=== PATIENT | female | born 1965 | race Hispanic/Latino ===

== ENCOUNTER 2019-11-01 03:47 | Inpatient (IN) | payer OTHER ==
[~2019-11-01] VITALS: Ht 152.4 cm; Wt 84.4 kg
--- OUTSIDE RECORDS SUMMARY | 2019-11-01 03:50 | XMS REPORT | Summary of Care ---
Author Author [facility] - Health Organization [facility] - Health Address Unknown Phone Unavailable Care Team Providers Care Melter Supervisor Name Role Phone Keiry Jaquez CNM Unavailable Unavailable Madisyn Dumont MD Unavailable Josef Mcintosh [place] [address] Isabel Hansen RN Unavailable Unavailable Keiry Jaquez CNM PCP Unavailable Keiry Jaquez CNM Unavailable Unavailable Reason for Visit * Reason Comments Orders Labs to be done prior to follow up with Dr. Cortez Encounter Details Care Team Description Date Type Department Radha Alcocer PA-C [address] [place] [id number] Orders (Labs to be done prior to follow up with Dr. Cortez) 03/22/2019 Case Management [facility] [address] [facility] [place] [address] Allergies No Known Allergiesdocumented as of this encounter (statuses as of 03/22/2019) Medications End Date Status Medication Sig Dispensed Refills Start Date Active IPRATROPIUM/ALBUTEROL Inhale. 0 SULFATE (COMBIVENT RESPIMAT INHALE) Active ALBUTEROL SULFATE Take by 0 (PROVENTIL ORAL) mouth. Active PROMETHAZINE HCL Take by 0 (PROMETHAZINE ORAL) mouth. Active lisinopril 5 mg tablet TK 1 T PO D 5 7 Active ursodiol 500 mg tablet 0 7 Active NEXIUM 40 mg capsule TK ONE C PO 5 BID. 7 Active PENNSAID 20 mg/gram 0 /actuation(2 %) sopm 7 Active COMBIVENT RESPIMAT 20-100 INHALE 2 4 mcg/actuation inhaler PUFFS PO BID 7 Active PROVENTIL HFA 90 0 mcg/actuation inhaler 7 Active carvedilol 6.25 mg tablet 12 mg. 0 7 Active GENERLAC 10 gram/15 mL 0 solution 7 Active Multivitamins-Iron (DAILY Take 1 Each 100 tablet 3 MULTIPLE VITAMINS/IRON) by mouth 7 TabIndications: daily. Papanicolaou smear of vagina with low grade squamous intraepithelial lesion (LGSIL) Active zolpidem (AMBIEN) 10 mg Take 10 mg by 0 tablet mouth at bedtime as needed for Insomnia. Active rifAXIMin (XIFAXAN) 550 Take 550 mg 0 mg tablet by mouth 2 (two) times daily. Active ibuprofen-famotidine Take by 0 (DUEXIS) 800-26.6 mg per mouth. tablet Active cetirizine 10 mg tablet Take 10 mg by 0 mouth daily. Active nadolol 20 mg tablet TK 1 T PO QD 8 7 Active Lancets (LANCETS,ULTRA Use as 200 Each 2 THIN) Misc directed 8 Active valproic acid 250 mg Take 1 0 capsule capsule by 8 mouth daily. Active chlorhexidine 0.12 % Swish and 473 mL 0 mouthwash spit out 15 8 mL 2 (two) times daily. Active ibuprofen 600 mg tablet Take 1 tablet 30 tablet 1 by mouth 8 every 6 (six) hours as needed for Pain (scale 4-6) or Alternate with [place] for pain scale 1-3. Active Insulin Glargine (LANTUS inject 60 60 mL 1 SOLOSTAR U-100 INSULIN) Units under 9 100 unit/mL (3 mL) the skin injectionIndications: daily. Uncontrolled type 2 diabetes mellitus with complication, without long-term current use of insulin Active insulin lispro (HUMALOG inject 22 60 mL 1 KWIKPEN INSULIN) 100 Units under 9 unit/mL pen injector the skin 3 (three) times daily before meals. 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 Uncontrolled type 2 diabetes mellitus with diabetic neuropathy, with long-term current use of insulin Active Insulin [place], Use to inject 400 Each 1 Disposable, (BD ULTRAFINE insulin 4X 9 III MINI PEN) 31 gauge x daily. 11/10" NdleIndications: DX:E11.65 Uncontrolled type 2 diabetes mellitus with complication, without long-term current use of insulin Active pregabalin (LYRICA) 50 mg TAKE 1 90 capsule 3 capsuleIndications: CAPSULE BY 9 Neuropathy MOUTH THREE TIMES DAILY Active furosemide 40 mg tablet Take 1 tablet 90 tablet 3 by mouth 9 daily. Active warfarin (COUMADIN) 1 mg Take 1 tablet 30 tablet 3 tabletIndications: Other by mouth 9 cirrhosis of liver every evening. Active fluorouracil 5 % Insert 1 gram 40 g 0 creamIndications: VAIN into vaginal 9 III (vaginal cuff with intraepithelial neoplasia syringe/appli grade III) cator at night once weekly for 3 months. Advise patient to insert medication into top of vagina, then insert tampon and put vaseline on external genitalia. The next morning remove tampon, shower, rinse thoroughly. Active LORazepam 1 mg Take 1 tablet 15 tablet 0 tabletIndications: Severe by mouth as 9 episode of recurrent needed for major depressive Anxiety. disorder, without psychotic features, Generalized anxiety disorder with panic attacks Active TRUE METRIX GLUCOSE METER Use to check 1 Each 0 Misc glucose 3X 9 daily. DX:E11.40 Active blood sugar diagnostic Use to check 100 Strip 3 (TRUE METRIX GLUCOSE TEST glucose 3X 9 STRIP) stripIndications: daily. Type 2 diabetes mellitus DX:E11.40 without complication, without long-term current use of insulin documented as of this encounter (statuses as of 03/22/2019) Active Problems Problem Noted Date Vulvar intraepithelial neoplasia (SANG) grade 3 11/16/2018 Dental caries 04/17/2018 Overview: Added automatically from request for surgery [id number] Obesity (BMI 30-39.9) 03/19/2018 Bilateral lower extremity edema 07/14/2017 Lumbosacral spondylosis without myelopathy 03/16/2017 Overview: Added automatically from request for surgery [id number] Mixed hyperlipidemia 01/18/2017 Cirrhosis of liver without ascites 01/09/2017 Cervical high risk human papillomavirus (HPV) DNA test positive 12/14/2016 Overview: Repeat colpo done 11/2016 Papanicolaou smear of vagina with low grade squamous intraepithelial lesion 12/14/2016 (LGSIL) Overview: 2014 & 2017; colpo bx of vaginal cuff in 2014 showed HPV changes. Pt refusing colpo biopsies at colpo appt 02/21/18 due to pain from 2014 colpo bx. Tobacco use disorder 12/14/2016 Uncontrolled type 2 diabetes mellitus with complication, without long-term 11/29/2016 current use of insulin Neuropathy 11/29/2016 Unspecified essential hypertension 11/21/2016 Type 2 diabetes mellitus without complication 11/21/2016 Well woman exam 11/14/2016 History of hysterectomy 11/14/2016 Overview: 2010. Unknown reason per pt. But not for cervical cancer History of syphilis 11/14/2016 Overview: From ex- before 2002. RPR neg in 2014 Pre-liver transplant, listed 10/27/2016 Breast cancer screening 02/09/2015 Overview: Last Mammogram result 10/2016 at [facility] negative Cervical spondylosis without myelopathy 12/02/2013 Degeneration of lumbar or lumbosacral intervertebral disc 12/02/2013 Shoulder bursitis 02/07/2013 documented as of this encounter (statuses as of 03/22/2019) Resolved Problems Problem Noted Date Resolved Date Positive blood test 11/09/2018 11/14/2018 Papanicolaou smear of cervix with low grade squamous intraepithelial lesion 02/08/2015 12/14/2016 (LGSIL) Overview: Pos hi-risk HPV 2016. Needs colpo documented as of this encounter (statuses as of 03/22/2019) Immunizations Name Administration Dates Next Due HEP B, Adult Dosage 03/11/2019, 11/16/2017, 07/13/2017, 03/20/2017, 01/09/2017 Hep B, Dialysis Dosage 02/12/2018, 01/01/2018 Influenza Virus Vaccine 07/13/2017 Quad ID [id number] YRS Pneumococcal 13 01/01/2018 Conjugate, PCV13 (Prevnar 13) TDAP (ADACEL) VACCINE 03/20/2017 Twinrix (hep a/hep b) 02/08/2019 documented as of this encounter Social History Date Tobacco Use Types Packs/Day Years Used Current Every Day Smoker Cigarettes 1 30 Smokeless Tobacco: Never Used Comments: since she was 17 years old, smoke a pack daily Drinks/Week oz/Week Comments Alcohol Use 0 Standard drinks or equivalent 0.0 No Sex Assigned at Date Recorded Not on file Industry Job Start Date Occupation Not on file Not on file Not on file Travel End Travel History Travel Start No recent travel history available. documented as of this encounter Last Filed Vital Signs Not on filedocumented in this encounter Plan of Treatment Care Team Description Date Type Specialty Madisyn Dumont MD [address] [place], [place] [id number] 03/22/2019 Office Visit Endocrinology Diabetes & Metabolism Nanci Cortez MD [address] [place] [phone] 04/01/2019 Office Visit Gynecologic Oncology Mariana Woodruff, ABSTRACT WRITER [address] [place], [place] [address] 04/12/2019 Office Visit Endocrinology Diabetes & Metabolism Bonita Nguyen MD [address] [place], [place] [phone] 04/12/2019 Office Visit Gastroenterology Nurse, Transplant 08/12/2019 Nurse Visit Surgery Order Schedule Name Type Priority Associated Diagnoses Expected: 05/28/2019, Expires: 06/27/2019 CBC WITH DIFF LAB Routine 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) Cirrhosis of liver without ascites, unspecified hepatic cirrhosis type Expected: 05/28/2019, Expires: 06/27/2019 HEPATIC FUNCTION PANEL LAB Routine VAIN III (vaginal (92854) (ALB,T.PRO,BILI intraepithelial neoplasia T,BU/BC,ALT,AST,ALK PHOS) grade III) Cirrhosis of liver without ascites, unspecified hepatic cirrhosis type Expected: 05/28/2019, Expires: 06/27/2019 aPTT LAB Routine 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) Cirrhosis of liver without ascites, unspecified hepatic cirrhosis type Expected: 05/28/2019, Expires: 06/27/2019 PROTHROMBIN TIME / INR LAB Routine 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) Cirrhosis of liver without ascites, unspecified hepatic cirrhosis type Health Maintenance Due Date Last Done Comments EYE EXAM 02/28/1976 COLONOSCOPY 02/28/2016 Zoster Recombinant 02/28/2016 Vaccine (SHINGRIX) (1 of 2) PNEUMOCOCCAL 0-64 YEARS 02/26/2018 01/01/2018 COMBINED SERIES (2 of 3 - PPSV23) URINE MICROALBUMIN 2019 2018, 11/29/2016 HgA1C 04/22/2019 10/23/2018, 2018, 11/16/2017, Additional history exists INFLUENZA VACCINE 04/28/2019 07/13/2017 LDL-C 10/23/2019 10/23/2018, 2018, 01/18/2017 MAMMOGRAM 11/23/2019 11/22/2018, 11/09/2016, 02/09/2015 FOOT EXAM 12/29/2019 12/28/2018, 12/28/2018, 11/16/2018, Additional history exists CREATININE (SERUM) 01/19/2020 01/18/2019, 12/24/2018, 10/31/2018, Additional history exists PAP SMEAR 01/17/2021 01/17/2018, 11/14/2016, 02/02/2015 DTaP,Tdap,and Td Vaccines 03/20/2027 03/20/2017 (2 - Td) documented as of this encounter Results Not on filedocumented in this encounter Visit Diagnoses Diagnosis 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 [employer] xxxxxxxxx [id number] P O [facility] [address] [place] [address] documented as of this encounter Advance Directives Relationship Healthcare Agent Relationship Communication Name Father Primary healthcare agent [place]a [place] Child First alternate healthcare agent Sandy Ornelas
--- OUTSIDE RECORDS SUMMARY | 2019-11-01 03:50 | XMS REPORT ---
Author Author [facility] Address Unknown Phone Unavailable Care Team Providers Care Head Charger Name Role Phone Unavailable Unavailable Payers Payer Name Policy Type Policy Number Effective Date Expiration Date Problems This patient has no known problems. Allergies, Adverse Reactions, Alerts Allergy Name Allergy Type Status Severity Reaction(s) Onset Date Inactive Date Treating Clinician Comments No Known Allergies DA Active U 2019-06-28 00:00:00 No Known Allergies DA Active U 2018-04-03 00:00:00 Medications This patient has no known medications. Results Test Description Test Time Test Comments Text Results Atomic Results Result Comments SURG 2018-12-10 13:17:00 RUN DATE: 12/10/18 [facility] - LAB *LIVE* PAGE 1 RUN TIME: 1317 Specimen Inquiry RUN USER: INTERFACE PATIENT: CARLOS MANUEL KAMARA LOC: [place]ONICA U #: [id number] AGE/SX: 53/F ROOM: RE12/06/18[facility] DR: Doyle Lin MD : 67 BED: DIS: STATUS: DEP [facility] TLOC: SPEC #: [id number] RECD: 12/06/18 STATUS: SOUSudeep RE #: [id number] JELLY: 12/06/[address] [facility] [address]: Doyle Lin MD ENTERED: 12/06/18 SP TYPE: SURG OTHR DR: Josef Mcintosh III, MD ORDERED: AB/PAS GEETHA, SURG PATH LVL 4, PATH STAIN GROU COPIES TO: Josef Mcintosh III, MD [address] [facility] [address] [place] [address] Doyle Lin MD [address] [place] [address] HISTOLOGY: TISSUE ID BLK PCS KYRA LEV PROCEDURE DISPOSITION ____ ___ ___ ___ STOMACH, NOS A 1 1 AB/PAS GEETHA STOMACH, NOS A 1 2 PATH STAIN GROU PROCEDURES: ALBLUE (12/06/18) PAS (12/06/18) SURG PATH LVL 4 (12/06/18) PATH STAIN GROU (12/06/18) TISSUES: A. 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 Received in formalin are three duenas tissue fragments, 0.1 - 0.6 cm, all as A. ba/nr Grossing performed at [facility] Pathology, [address] [place] [address], [address], [place] [address]. [place]: Ori Mckay M.D. MICROSCOPIC DESCRIPTION Stomach biopsy. Sections demonstrate gastric mucosa with mild chronic inflammation. No dysplasia or malignancy is identified. Alcian blue PAS confirms the absence of intestinal metaplasia. Diff Quik stain demonstrates no evidence of Helicobacter pylori organisms. Signed SIGNATURE ON [place] Traci 12/10/18 1317 END OF REPORT GLUCOSE BEDSIDE TESTING 2018-12-06 07:27:00 GLUCOSE BEDSIDE TESTING (test code=GLUBED) 97 mg/dL 70-110 GLUCOSE BEDSIDE [id number] 06:25:00* Test Item Value Reference Range Comments GLUCOSE BEDSIDE TESTING (test code=GLUBED) 58 mg/dL 70-110
--- OUTSIDE RECORDS SUMMARY | 2019-11-01 03:51 | XMS REPORT | Summary of Care ---
Author Author [facility] - Health Organization [facility] - Health Address Unknown Phone Unavailable Care Team Providers Care Front Office Secretary Name Role Phone Keiry Jaquez CNM Unavailable Unavailable Madisyn Dumont MD Unavailable McintoshJosef castro 100[address] Isabel Hansen RN Unavailable Unavailable Keiry Jaquez CNM PCP Unavailable Keiry Jaquez CNM Unavailable Unavailable Reason for Referral * MRI/CAT Scan (Routine) Referred By Contact Referred To Contact Status Reason Specialty Diagnoses / Procedures Jay Jenkins MD [address] [facility] [id number] [place] [address] [id number] New Request Diagnostic Diagnoses Radiology Lumbosacral spondylosis without myelopathy Trochanteric bursitis of both hips Bilateral sacroiliitis P rocedures MR LUMBAR SPINE WO CONTRAST Reason for Visit * Reason Comments Pain Encounter Details Care Team Description Date Type Department Jay Jenkins MD [address] [facility] [id number] [place] [address] [id number] Lumbosacral spondylosis without myelopathy (Primary Dx); Trochanteric bursitis of both hips; Bilateral sacroiliitis; Neuropathy 03/22/2019 Office Visit [facility] [address] [place] [phone] Allergies No Known Allergiesdocumented as of this encounter (statuses as of 03/26/2019) Medications End Date Status Medication Sig Dispensed [...] for Pain (scale 4-6) or Alternate with [place] for pain scale 1-3. Active Insulin Glargine [...] long-term current use of insulin Active Insulin [place], Use to inject 400 Each 1 Disposable, (BD ULTRAFINE insulin 4X 9 III MINI PEN) 31 gauge x daily. 11/10" NdleIndications: DX:E11.65 Uncontrolled type 2 diabetes mellitus with complication, without long-term current use of insulin Active furosemide 40 mg tablet Take 1 [...] without long-term current use of insulin Active traMADol 50 mg Take 1 tablet 90 tablet 2 tabletIndications: by mouth 9 Lumbosacral spondylosis every 6 (six) without myelopathy, hours as Trochanteric bursitis of needed for both hips, Bilateral Pain (scale sacroiliitis 4-6) or Pain (scale 7-10). Active pregabalin 75 mg TAKE 1 90 capsule 2 capsuleIndications: CAPSULE BY 9 Neuropathy MOUTH THREE TIMES DAILY Active cyclobenzaprine 5 mg Take 1 tablet 30 tablet 2 tabletIndications: by mouth at 9 Lumbosacral spondylosis bedtime. without myelopathy 03/22/2019 Discontinued pregabalin (LYRICA) 50 mg TAKE 1 90 capsule 3 capsuleIndications: CAPSULE BY 9 Neuropathy MOUTH THREE TIMES DAILY documented as of this encounter (statuses as of 03/26/2019) Active Problems Problem Noted Date Vulvar intraepithelial neoplasia (ASNG) grade 3 11/16/2018 Dental caries 04/17/2018 Overview: Added automatically from request for surgery [id number] Obesity (BMI 30-39.9) 03/19/2018 Bilateral lower extremity edema 07/14/2017 Lumbosacral spondylosis without myelopathy 03/16/2017 Overview: Added automatically from request for surgery [id number] Mixed hyperlipidemia 01/18/2017 Cirrhosis of liver without ascites 01/09/2017 Cervical high risk human papillomavirus (HPV) DNA test positive 12/14/2016 Overview: Repeat colpo done 11/2016 Papanicolaou smear of vagina with low grade squamous intraepithelial lesion 12/14/2016 (LGSIL) Overview: 2014 & 2018; colpo bx of vaginal cuff in 2014 [...] 02/09/2015 Overview: Last Mammogram result 10/2016 at [facility] negative Cervical spondylosis without myelopathy 12/02/2013 Degeneration of lumbar or lumbosacral intervertebral disc 12/02/2013 Shoulder bursitis 02/07/2013 documented as of this encounter (statuses as of 03/26/2019) Resolved Problems Problem Noted Date Resolved Date Positive blood test 11/09/2018 11/14/2018 Papanicolaou smear of cervix with low grade squamous intraepithelial lesion 02/08/2015 12/14/2016 (LGSIL) Overview: Pos hi-risk HPV 2016. Needs colpo documented as of this encounter (statuses as of 03/26/2019) Immunizations Name Administration Dates Next Due HEP [...] of this encounter Last Filed Vital Signs Reading Time Taken Comments Vital Sign 109/70 03/22/2019 9:25 AM CDT Blood Pressure 59 03/22/2019 9:25 AM CDT Pulse - - Temperature - - Respiratory Rate 100% 03/22/2019 9:25 AM CDT Oxygen Saturation - - Inhaled Oxygen Concentration 86.7 kg (191 lb 3.2 oz) 03/22/2019 9:25 AM CDT Weight 152.4 cm (5') 03/22/2019 9:25 AM CDT Height 37.34 03/22/2019 9:25 AM CDT Body Mass Index documented in this encounter Progress Notes * Jay Jenkins MD - 03/22/2019 9:00 AM CDT PAIN MANAGEMENT [facility] PROGRESS NOTE 03/22/2019 Chief Complaint: follow up History of Present illness: Fany Kamara is a 52 year old female with HTN, DM, COPD, GERD, Depression, A nxiety, and chronic low back pain for over 10 years. She presents today for foll ow up of her pain symptoms. She received interventional procedures (facet joint injection, trochanteric steroid injection and sacroiliac joint injection on 03/29 at [facility]) with minimal relief. Location: low back and bilateral hips -duration: months -context: no related cause -radiation: radiates to buttocks, shoots upward intermittently -timing: constant with intermittent exacerbations -quality: ache, sometimes stabbing or shooting -improves with: massage, TENS minimal -worsens with: prolonged walking, standing, sitting PAIN NRS SCALE 0-10 SCORE OVER LAST WEEK (0=no pain and 10=worst pain imaginable): Best: 7/10 Worst: 10/10 Now: 05/07 CURRENT PAIN REGIMEN: -Lyrica 50 mg TID PO (PCP) -Lorazepam 1 mg PO prn QHS (PCP) -Effexor XR 75 mg PO daily (PCP) -Ibuprofen 600 mg PO prn ADVERSE EFFECTS FROM CURRENT REGIMEN: None Noted FUNCTIONAL STATUS ON CURRENT REGIMEN: Able to perform ADLs independently, uses public health assistant devices to bath Current Outpatient Medications Medication Sig Dispense Refill blood sugar diagnostic (TRUE METRIX GLUCOSE TEST STRIP) strip Use to check g lucose 3X daily. DX:E11.40 100 Strip [address] [facility] Use to check glucose 3X daily. DX:E11.40 1 Ea ch 0 LORazepam 1 mg tablet Take 1 tablet by mouth as needed for Anxiety. 15 table t 0 fluorouracil 5 % cream Insert 1 gram into vaginal cuff with syringe/applicat or at night once weekly for 3 months. Advise patient to insert medication into t op of vagina, then insert tampon and put vaseline on external genitalia. The nex t morning remove tampon, shower, rinse thoroughly. 40 g 0 warfarin (COUMADIN) 1 mg tablet Take 1 tablet by mouth every evening. 30 tab let 3 furosemide 40 mg tablet Take 1 tablet by mouth daily. 90 tablet 3 Insulin [place], Disposable, (BD ULTRAFINE III MINI PEN) 31 gauge x 3/16" Nd le Use to inject insulin 4X daily. DX:E11.65 400 Each 1 pregabalin (LYRICA) 50 mg capsule TAKE 1 CAPSULE BY MOUTH THREE TIMES DAILY 90 capsule 3 flash glucose sensor (FREESTYLE KERI 14 DAY SENSOR) Kit 1 Each every 14 (fo urteen) days. 2 Kit 3 venlafaxine XR (EFFEXOR XR) 75 mg 24 hr capsule Take 1 capsule by mouth sean y with breakfast. 30 capsule 1 insulin lispro (HUMALOG KWIKPEN INSULIN) 100 unit/mL pen injector inject 22 Units under the skin 3 (three) times daily before meals. 60 mL 1 Insulin Glargine (LANTUS SOLOSTAR U-100 INSULIN) 100 unit/mL (3 mL) injectio n inject 60 Units under the skin daily. 60 mL 1 chlorhexidine 0.12 % mouthwash Swish and spit out 15 mL 2 (two) times daily. 473 mL 0 ibuprofen 600 mg tablet Take 1 tablet by mouth every 6 (six) hours as needed for Pain (scale 4-6) or Alternate with [place] for pain scale 1-3. 30 tablet 1 valproic acid 250 mg capsule Take 1 capsule by mouth daily. Lancets (LANCETS,ULTRA THIN) Misc Use as directed 200 Each 2 nadolol 20 mg tablet TK 1 T PO QD 8 cetirizine 10 mg tablet Take 10 mg by mouth daily. ibuprofen-famotidine (DUEXIS) 800-26.6 mg per tablet Take by mouth. rifAXIMin (XIFAXAN) 550 mg tablet Take 550 mg by mouth 2 (two) times daily. zolpidem (AMBIEN) 10 mg tablet Take 10 mg by mouth at bedtime as needed for Insomnia. Multivitamins-Iron (DAILY MULTIPLE VITAMINS/IRON) Tab Take 1 Each by mouth d aily. 100 tablet 3 carvedilol 6.25 mg tablet 12 mg. COMBIVENT RESPIMAT 20-100 mcg/actuation inhaler INHALE 2 PUFFS PO BID 4 GENERLAC 10 gram/15 mL solution lisinopril 5 mg tablet TK 1 T PO D 5 NEXIUM 40 mg capsule TK ONE C PO BID. 5 PENNSAID 20 mg/gram /actuation(2 %) sopm PROVENTIL HFA 90 mcg/actuation inhaler ursodiol 500 mg tablet ALBUTEROL SULFATE (PROVENTIL ORAL) Take by mouth. IPRATROPIUM/ALBUTEROL SULFATE (COMBIVENT RESPIMAT INHALE) Inhale. PROMETHAZINE HCL (PROMETHAZINE ORAL) Take by mouth. No current facility-administered medications for this visit. Past Medical History: Diagnosis Date Anemia years ago Anxiety Autoimmune disorder dx with athrisis Cirrhosis COPD (chronic obstructive pulmonary disease) COPD (chronic obstructive pulmonary disease) 2013 Depression Diabetes mellitus 2014 currently on Insulin and Glipiside GERD (gastroesophageal reflux disease) History of hysterectomy 2013 not sure HPV (human papilloma virus) anogenital infection 01/17/2018 HPV (human papilloma virus) infection History of Viral Intra-epithelial Neoplasia Hypertension 2013 lisinopril 5 mg, carvedilol Kidney disease hx of frequent uti LGSIL on Pap smear of cervix 01/17/2018 +HPV Pap smear abnormality of cervix with +HPV in 2013 STD (sexually transmitted disease) syphilis ex before 2003 STD (sexually transmitted disease) 2013 +HPV Vulvar intraepithelial neoplasia (SANG) grade 3 11/16/2018 Past Surgical History: Procedure Laterality Date CHOLECYSTECTOMY 1991 lap [place] COLONOSCOPY 2016 negative COLPOSCOPY 2017 ESOPHAGOGASTRODUODENOSCOPY 2018 bleeding varices EXAM UNDER ANESTHESIA 03/24/2015 FACET JOINT INJECTION 03/29/2017 FACET JOINT INJECTION Right 03/29/2017 Surgeon: Jay Jenkins MD; [facility] FULL MOUTH EXTRACTION WITH ALVEOLOPLASTY 04/25/2018 FULL MOUTH EXTRACTION WITH ALVEOLOPLASTY Bilateral 04/25/2018 Surgeon: Jakob Delacruz; Location: [facility] HYSTERECTOMY 2013 due abnl test results OPEN CARPAL TUNNEL RELEASE Bilateral 2016 SACROILIAC JOINT INJECTION 03/29/2017 SACROILIAC JOINT INJECTION Right 03/29/2017 Surgeon: Jay Jenkins MD; Location: [facility] SALPINGO-OOPHORECTOMY 2012 SINUS SURGERY PROC UNLISTED 1991 SURGICAL EXTRACTION - ERUPTED TEETH 04/25/2018 TROCHANTERIC STEROID INJECTION (SHX) 03/29/2017 TROCHANTERIC STEROID INJECTION (SHX) Right 03/29/2017 Surgeon: Jay Jenkins MD; Location: [facility] TUBAL LIGATION 2003 VAGINAL BIOPSY 03/24/2015 VAGINAL BIOPSY N/A 03/24/2015 Surgeon: Ariella Pozo; Location: [facility] LOCAL VULVAR LESION EXCISION 2014 Review of Systems (BOLDED IF POSITIVE, OTHERWISE NEGATIVE) Other pertinent positives annotated above in HPI. General: Fatigue, Unintentional Weight Loss or Weight Gain HEENT: Dry Mouth Cardio: Myocardial infarction/Heart Attack, Heart Rhythm Abnormalities, Abnormal EKGs, History of Coronary Stents, Blood Thinning Medication (Aspirin, Plavix/Cl opidogrel, Heparin/Lovenox) Pulm: Obstructive Sleep Apnea, Snore at night, Use CPAP machine, Smoker, Chroni c Obstructive Pulmonary Disease (COPD) GI: Constipation, Diarrhea, Nausea and Peptic Ulcer Disease, Blood in Stool : Difficulty Urinating Endo: Diabetes and Steroid use Neuro: Glaucoma, Difficulty Walking, Headaches, Numbness, Seizures, Strokes and Weakness MS: Neck Pain, Back Pain, Back Surgery and Muscle Aches Heme: Clotting Difficulties and Easy Bleeding Sleep: Daytime Somnolence, Fogginess of Thought, Inability to Complete Tasks, In somnia Psych: Depression, Anxiety, Thoughts Harming Oneself or Thoughts of Harming Oth ers Physical Exam: Body mass index is 37.34 kg/m. BP 109/70 (BP Location: Right arm, Patient Position: Sitting, BP CUFF SIZE: Adul t Medium) | Pulse 59 | Ht 5' (1.524 m) | Wt 191 lb 3.2 oz (86.7 kg) | LMP (Exact Date) | SpO2 100% | BMI 37.34 kg/m GENERAL: Fany Kamara is well developed, well nourished HEENT: normocephalic atraumatic and moist mucous membranes, anicteric sclera bi laterally LUNGS: normal excursion, no respiratory distress CARDIOVASCULAR: normal pulse rate, warm extremities, no gross edema noted ABDOMEN: soft, obese MUSCULOSKELETAL/NEUROLOGIC EXAM: Mental Status: normal attention span, arousal, orientation, language, fluency, a ffect, judgement, knowledge and recall. Gait- Normal, steady Upper Extremities Strength: C5 (shoulder abduction, elbow flexion) 4/5R 4/5 L C6 (Wrist extension) 5/5 R 5/5 L C7 (elbow extension, wrist flexion) 5/5 R 5/5L C8 (Finger flexion) 5/5 R 5/5 L T1 (finger abduction) 5/5 R 5/5 L Sensation to light touch: C5 (lateral arm) Intact R Intact L C6 (lateral forearm/hand) Intact R Intact L C7 (middle finger) Intact R Intact L C8 (medial hand/forearm) Intact R Intact L T1 (medial arm): Intact R Intact L Reflexes: C5 (Biceps) 2+R 2+ L C6 (Brachioradialis) 2+ R 2+L C7 (triceps) 2+ R 2+ L Alvarado: Right- negative Left- negative Lower Extremities: Strength: L2(hip flexion)5/5 R, 5/5 L L3(Knee extension)5/5 R, 5/5 L L4(Ankle dorsiflexion)5/5 R, 5/5 L L5 (knee flexion, Toe dorsiflexion)5/5 R, 5/5 L S1(Knee flexion, Ankle Plantar flexion)5/5 R, 5/5 L S2(Toe flexion) 5/5 R, 5/5 L Sensation to Light Touch: L4- Medial foot/leg, Intact L5- Dorsal Foot, Intact S1-Lateral Foot, diminished Reflexes: L4 (Patella/Quads) 2+ R, 2+L S1 (Achilles) 2+R, 2+ L Clonus-negative Babinski- negative Spine Exam: Cervical Spinous Process Tenderness: Positive Cervical Paraspinous Tenderness: Positive ROM: Decreased Facet Loading: Negative Surgical Scars: No Thoracic Spinous Process Tenderness: Negative Thoracic Paraspinous tenderness: Positive ROM: Decreased Surgical Scars: No Lumbar Spinous process Tenderness: Positive Lumbar Paraspinous Tenderness:Positive ROM: Decreased Facet Loading: Negative Surgical Scars: No SI Joint Tenderness: Left: Negative Right: Positive Gennaro's Test: Left: Positive Right: Positive Hip ROM: Left: Positive Right: Positive Greater Troch Tenderness: Left: Positive Right: Positive Gluteal Tenderness: Left: Positive Right:Positive Straight Leg Raise: Right: Positive Left: Positive Shantel signs- Axial loading L spine negative Skin rolling positive Laboratory Last Metabolic Panel (including BUN/Cr and LFTs) CMP NA Date Value 01/18/2019 137 mmol/L 01/13/2012 141 MMOL/L K Date Value 01/18/2019 4.5 mmol/L 01/13/2012 4.5 MMOL/L CALCIUM Date Value 01/18/2019 8.6 mg/dL 01/13/2012 9.3 MG/DL CL Date Value 01/18/2019 101 mmol/L 01/13/2012 103 MMOL/L BUN Date Value 01/18/2019 10 mg/dL 01/13/2012 8 MG/DL CREATININE Date Value 01/18/2019 0.61 mg/dL 01/13/2012 0.60 MG/DL GLUCOSE Date Value 01/18/2019 309 mg/dL (H) 01/13/2012 103 MG/DL CO2 TOTAL Date Value 01/18/2019 26 mmol/L 01/13/2012 26 MMOL/L ALBUMIN Date Value 01/18/2019 3.7 g/dL 01/13/2012 4.3 G/DL T PROTEIN Date Value 01/18/2019 7.5 g/dL 01/13/2012 8.3 G/DL (H) TOTAL BILI Date Value 01/18/2019 1.3 mg/dL (H) 01/13/2012 0.5 MG/DL BILI UNCON (mg/dL) Date Value 01/18/2019 0.6 BILI CONJ (mg/dL) Date Value 01/18/2019 0.0 ALT(SGPT) (U/L) Date Value 01/18/2019 22 01/13/2012 24 AST(SGOT) (U/L) Date Value 01/18/2019 37 01/13/2012 23 ALK PHOS (U/L) Date Value 01/18/2019 141 (H) 01/13/2012 117 Other Pertinent Labs: Results for FANY KAMARA ( ) as of 09/22/2017 10:01 Ref. Range 09/22/2017 00:00 POCT HBA1C Latest Ref Range: 4 - 6 % 12.3 (A) Radiology 03/25/2017 HISTORY: Lumbosacral spondylosis without myelopathy. TECHNIQUE: Sagittal T2 FRFSE, T1, STIR and axial T2 FRFSE T1 studies of lumbar spines are obtained. Additional coronal T2 FRFSE study is also obtained. FINDINGS: Comparison has been made with MRI study of 03/06/2014. No acute compression fracture or abnormal marrow changes of the bones detected. Spinal canal appears to be of adequate size and normal conus/cauda equina are found at the level of L1. Visualized retroperitoneum is unremarkable for aortic aneurysm or enlarged lymph nodes or hydronephrosis. L1-L2: Normal. L2-L3: Normal. L3-L4: Minimal disc desiccation with minimal diffuse disc bulge without significant thecal sac compression or foraminal encroachment. Small osteophytes are seen along the ventral vertebral margins. Mild facet arthritis with small amount of fluid in both facet joints. L4-L5: Minimal disc desiccation with prominent diffuse bulging of the disc without significant thecal sac compression. Foraminal encroachment is seen on both sides, slightly more on the right side without significant nerve root compression. Mild bilateral facet arthritis, left slightly more than right, noted with small amount of fluid in both facet joints. L5-S1: Moderate to severe changes of degenerative disc disease with narrowing of the disc space by up to 70%, shallow Schmorl's nodes in the vertebral endplates surrounded by degenerative marrow, vacuum phenomenon in the disc material, prominent osteophytes/bulging disc at complex ventrally noted. Diffuse disc herniation is seen encroaching throughout the spinal canal, slightly more into the left side by up to 4 mm with mild thecal sac and left nerve root compression. Foraminal encroachment is present on both sides. Bilateral hypertrophic facet arthritis noted with thickened ligaments causing additional encroachment into the spinal canal. CONCLUSIONS: 1. Moderate to severe changes of degenerative disc disease at L5-S1 with broad-based disc herniation encroaching throughout the spinal canal, slightly more into the left side. The herniated disc is encroaching into the left side of the spinal canal by up to 4 mm with mild thecal sac and left nerve compression. Similar findings were present in 2014 study with minimal interval worsening in the severity of changes noted. 2. Minimal disc desiccation with bulging disc and facet arthritis at L3-L4, L4-L5, essentially unchanged since 2014 study. Note: Above report is self-edited and computer generated errors may be overlooked. Therefore, if you notice an error, I request you to bring it to my attention MELANIE. Electrodiagnostics None Medical Decision Making: Dx: ICD-10-CM ICD-9-CM 1. Lumbosacral spondylosis without myelopathy M47.817 721.3 2. Trochanteric bursitis of both hips M70.61 726.5 M70.62 3. Bilateral sacroiliitis M46.1 720.2 Assessment/Plan: Fany Kamara is a 52 year old female with chronic low back and bilateral hip pain s/p facet joint injection, trochanteric steroid injection and sacroiliac j oint injection on 03/29/2017 at [facility]. She reports minimal relief with this therapy . Medications -Lyrica 50 mg TID PO (PCP) -- Recommend increasing to 75mg TID -Lorazepam 1 mg PO prn QHS (PCP) -Effexor XR 75 mg PO daily (PCP) -Ibuprofen 600 mg PO prn (OTC) - Start flexeril 5mg QHS - Start Tramadol 50mg BID Rehab: Physical therapy Not currently Continue home exercise and activity Interventions: Fany Kamara has no interventions planned at this time. Will order MRI lumbar spine and plan for procedure at next appointment. Patient has had previous facet joint injection, trochanteric steroid injection a nd sacroiliac joint injection on 03/29/2017 at [facility] injection with minimal relief. Psych: Depression and anxiety Compliance : UDS n/a Pain contract renewed n/a CHEMISTRY QUALITY CONTROL ANALYST reviewed n/a Follow Up: Follow Up 1 month After discussion with the resident/fellow, I examined this patient. I agree wit htheir note as written. * Perez Marin MA - 03/22/2019 9:00 AM CDT Fany Kamara is a 54 year old female here for follow up. Patient appears to be in no acute distress at this time. Nurse reviewed all allergies & medications with patient during this office visit. Pain score communicated to provider. Patient evaluated for fall risk and appropriate interventions taken. documented in this encounter Plan of Treatment Care Team Description Date Type Specialty Nanci Cortez MD [address] [place] [phone] 04/01/2019 Office Visit Gynecologic Oncology Mariana Woodruff, TECHNICAL SME [address] [place] [address] [phone] 04/12/2019 Office Visit Endocrinology Diabetes & Metabolism Bonita Nguyen MD [address] [place] [address] [phone] 04/12/2019 Office Visit Gastroenterology Jay Jeknins MD [id number] [place], [place] [id number] 04/26/2019 Office Visit Pain Medicine Fer Thao MD [address] [place], [place] [address] 05/27/2019 Office Visit Endocrinology Diabetes & Metabolism Nurse, Transplant 08/12/2019 Nurse Visit Surgery Order Schedule Name Type Priority Associated Diagnoses Expected: 03/22/2019, Expires: 03/22/2020 MR LUMBAR SPINE WO IMAGING Routine Lumbosacral spondylosis CONTRAST without myelopathy Trochanteric bursitis of both hips Bilateral sacroiliitis Health Maintenance Due Date Last Done Comments [...] filedocumented in this encounter Visit Diagnoses Diagnosis Lumbosacral spondylosis without myelopathy - Primary Trochanteric bursitis of both hips Enthesopathy of hip region Bilateral sacroiliitis Neuropathy Mononeuritis of unspecified site documented in this encounter Insurance Type Payer Benefit Subscriber ID Effective Phone Address Plan / Dates Group Medicaid [facility] [employer] xxxxxxxxx 2016-P [address] [facility] [address] [place] [address] documented as of this encounter Advance Directives Relationship Healthcare Agent Relationship Communication Name Father Primary healthcare agent Asa [place] Child First alternate healthcare agent Sandy Ornelas
--- OUTSIDE RECORDS SUMMARY | 2019-11-01 03:51 | XMS REPORT | Summary of Care ---
Author Author [facility] - Health Organization [facility] - Health Address Unknown Phone Unavailable Care Team Providers Care Medical Assistant Per Diem Name Role Phone Keiry Jaquez CNM Unavailable Unavailable Madisyn Dumont MD Unavailable McintoshJosef castro [address] Isabel Hansen RN Unavailable Unavailable Keiry Jaquez CNM PCP Unavailable Keiry Jaquez CNM Unavailable Unavailable Reason for Referral * MRI/CAT Scan (Routine) Referred By Contact Referred To Contact Status Reason Specialty Diagnoses / Procedures Jay Jenkins MD [address] COUNT INCLUD[address] THE [facility] [id number] [place] [id number] New Request Diagnostic Diagnoses Radiology Lumbosacral spondylosis without myelopathy Trochanteric bursitis of both hips Bilateral sacroiliitis P rocedures MR LUMBAR SPINE WO CONTRAST Reason for Visit * Reason Comments Pain Encounter Details Care Team Description Date Type Department Jay Jenkins MD [address] COUNT INCLUDES THE [facility] [id number] [place] [address] [id number] Lumbosacral spondylosis without myelopathy (Primary Dx); Trochanteric bursitis of both hips; Bilateral sacroiliitis; Neuropathy 03/22/2019 Office Visit [facility] Anesthesia [facility] [address] [place] [phone] Allergies No Known Allergiesdocumented as of this [...] for Pain (scale 4-6) or Alternate with [place] for pain scale 1-3. Active Insulin Glargine [...] long-term current use of insulin Active Insulin [place], Use to inject 400 Each 1 Disposable, [...] Overview: Added automatically from request for surgery [id number] Obesity (BMI 30-39.9) 03/19/2018 Bilateral lower extremity edema 07/14/2017 Lumbosacral spondylosis without myelopathy 03/16/2017 Overview: Added automatically from request for surgery [id number] Mixed hyperlipidemia 01/18/2017 Cirrhosis of liver without [...] 02/09/2015 Overview: Last Mammogram result 10/2016 at [facility] negative Cervical spondylosis without myelopathy 12/02/2013 [...] and sacroiliac joint injection on 03/29 at [facility]) with minimal relief. Location: low back [...] REGIMEN: Able to perform ADLs independently, uses timber management assistant devices to bath Current Outpatient Medications Medication Sig Dispense Refill blood sugar diagnostic (TRUE METRIX GLUCOSE TEST STRIP) strip Use to check g lucose 3X daily. DX:E11.40 100 Strip 3 TRUE METRIX GLUCOSE METER [facility] Use to check glucose 3X daily. DX:E11.40 [...] by mouth daily. 90 tablet 3 Insulin [place], Disposable, (BD ULTRAFINE III MINI PEN) 31 [...] for Pain (scale 4-6) or Alternate with [place] for pain scale 1-3. 30 tablet 1 [...] Right 03/29/2017 Surgeon: Jay Jenkins MD; Location: [place] [facility] Location TUBAL LIGATION 2003 VAGINAL BIOPSY [...] sacroiliac j oint injection on 03/29/2017 at [facility]. She reports minimal relief with this [...] nd sacroiliac joint injection on 03/29/2017 at [facility] injection with minimal relief. Psych: Depression and anxiety Compliance : UDS n/a Pain contract renewed n/a RESOURCE MANAGEMENT PLANNER reviewed n/a Follow Up: Follow Up 1 [...] Description Date Type Specialty Nanci Cortez MD [address] [place] [phone] 04/01/2019 Office Visit Gynecologic Oncology Mariana Woodruff, CIVIL ENGINEERING DIRECTOR [address] [place] [address] [phone] 04/12/2019 Office Visit Endocrinology Diabetes & Metabolism Bonita Nguyen MD [address] [place] [address] [phone] 04/12/2019 Office Visit Gastroenterology Jay Jenkins MD [id number] [place], [place] [id number] 04/26/2019 Office Visit Pain Medicine Fer Thao MD [address] [place], [place] [address]473 05/27/2019 Office Visit Endocrinology Diabetes & Metabolism [...] Phone Address Plan / Dates Group Medicaid [facility] [employer] xxxxxxxxx 2016-P [address] [facility] [address] [place] [address] documented as of this encounter Advance Directives Relationship Healthcare Agent Relationship Communication Name Father Primary healthcare agent Asa [place] Child First alternate healthcare agent Sandy Ornelas
--- OUTSIDE RECORDS SUMMARY | 2019-11-01 03:51 | XMS REPORT | Clinical Summary ---
Author Author [facility] - Health Organization [facility] - Health Address Unknown Phone Unavailable Care Team Providers Care Zinc Plating Machine Operator Name Role Phone Keiry Jaquez CNM Unavailable Unavailable Madisyn Dumont MD Unavailable Arnaldo Josef Antonio [address] Isabel Hansen RN Unavailable Unavailable Keiry Jaquez CNM PCP Unavailable Keiry Jaquez CNM Unavailable Unavailable Allergies No Known Allergies Medications End Date Status Medication Sig Dispensed [...] for Pain (scale 4-6) or Alternate with [place] for pain scale 1-3. Active Insulin Glargine [...] 3 (three) times daily before meals. Active flash glucose sensor 1 Each every 2 Kit 3 (FREESTYLE KERI 14 DAY 14 (fourteen) 9 SENSOR) KitIndications: days. Uncontrolled type 2 diabetes mellitus with diabetic neuropathy, with long-term current use of insulin Active Insulin [place], Use to inject 400 Each 1 Disposable, [...] morning remove tampon, shower, rinse thoroughly. Active TRUE METRIX GLUCOSE METER Use to [...] at 9 Lumbosacral spondylosis bedtime. 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 without psychotic features, Generalized anxiety disorder with panic attacks Active clonazePAM (KLONOPIN) 1 Take 1 tablet 30 tablet 0 mg tabletIndications: by mouth 9 Generalized anxiety daily. disorder with panic attacks, Agoraphobia with panic attacks Active Problems Problem Noted Date Vulvar intraepithelial neoplasia (SANG) grade 3 11/16/2018 Dental caries 04/17/2018 Overview: Added automatically from request for surgery [id number] Obesity (BMI 30-39.9) 03/19/2018 Bilateral lower extremity edema 07/14/2017 Lumbosacral spondylosis without myelopathy 03/16/2017 Overview: Added automatically from request for surgery [id number] Mixed hyperlipidemia 01/18/2017 Cirrhosis of liver without [...] 02/09/2015 Overview: Last Mammogram result 10/2016 at [facility] negative Cervical spondylosis without myelopathy 12/02/2013 Degeneration of lumbar or lumbosacral intervertebral disc 12/02/2013 Shoulder bursitis 02/07/2013 Resolved Problems Problem Noted Date Resolved Date Positive blood test 11/09/2018 11/14/2018 Papanicolaou smear of cervix with low grade squamous intraepithelial lesion 02/08/2015 12/14/2016 (LGSIL) Overview: Pos hi-risk HPV 2016. Needs colpo Encounters Care Team Description Date Type Specialty Jay Jenkins MD Lumbosacral spondylosis without myelopathy (Primary Dx); Trochanteric bursitis of both hips; Bilateral sacroiliitis; Neuropathy 03/22/2019 Office Visit Pain Medicine Radha Alcocer PA-C Orders (Labs to be done prior to follow up with Dr. Cortez) 03/22/2019 Case Management Gynecologic Oncology Madisyn Dumont MD Refill Request 03/18/2019 Telephone Endocrinology Diabetes & Metabolism Bonita Nguyen MD Nurse, Transplant Prophylactic immunotherapy; Immunization due 03/11/2019 Nurse Visit Surgery Doctor Unassigned, [place] 03/11/2019 Orders Only Nanci Cortez MD Medication Problem 02/26/2019 Case Management Gynecologic Oncology Bonita Nguyen MD Worker, Transplant Social Social Work (follow up) 02/08/2019 Case Management Surgery Bonita Nguyen MD Other cirrhosis of liver (Primary Dx); Prophylactic immunotherapy; Immunization due 02/08/2019 Office Visit Gastroenterology Delano Nguyen MD Refill Request 02/07/2019 Telephone Gastroenterology Madisyn Dumont MD Medication Assistance 02/05/2019 Telephone Endocrinology Diabetes & Metabolism Radha Alcocer PA-C Rx Concern/Question (Change Prescription ) 01/29/2019 Telephone Obstetrics & Gynecology Madisyn Dumont MD Rx Concern/Question 01/29/2019 Telephone Endocrinology Diabetes & Metabolism Mariana Woodruff FNP Refill Request 01/28/2019 Refill Endocrinology Diabetes & Metabolism Mariana Woodruff FNP Notification 01/24/2019 Telephone Endocrinology Diabetes & Metabolism Mariana Woodruff FNP Assessment (Blood Glucose Log Review ) 01/24/2019 Telephone Endocrinology Diabetes & Metabolism Madisyn Dumont MD Nurse, [place] Uncontrolled type 2 diabetes mellitus with diabetic neuropathy, with long-term current use of insulin (Primary Dx) 01/23/2019 Nurse Visit Endocrinology Diabetes & Metabolism Doctor Unassigned, [place] 01/23/2019 Orders Only Madisyn Dumont MD Forms 01/23/2019 Telephone Endocrinology Diabetes & Metabolism Bonita Nguyen MD Vtc-Lab Pre-liver transplant, listed 01/18/2019 [place] [facility] Phlebotomy Visit Bonita Nguyen MD Pre-Transplant; LAB WORK 01/17/2019 Case Management Gastroenterology Nanci Cortez MD Notification 01/16/2019 Telephone Gynecologic Oncology Delano Nguyen MD LAB WORK (Listed liver txpl - [facility] ) 01/15/2019 Telephone Surgery from Last 3 Months Immunizations Name Administration Dates Next Due HEP B, Adult Dosage 03/11/2019, 11/16/2017, 07/13/2017, 03/20/2017, 01/09/2017 Hep B, Dialysis Dosage 02/12/2018, 01/01/2018 Influenza Virus Vaccine 07/13/2017 Quad ID [id number] YRS Pneumococcal 13 01/01/2018 Conjugate, PCV13 (Prevnar 13) TDAP (ADACEL) VACCINE 03/20/2017 Twinrix (hep a/hep b) 02/08/2019 Family History Medical History Relation Name Comments Arthritis Brother per pt OA Liver Cancer Brother Diabetes Father Cancer Maternal Aunt Hypertension Maternal Aunt Cancer Maternal Grandfather Arthritis Maternal per pt OA Grandmother Coronary Heart Disease Maternal Grandmother Hypertension Maternal Grandmother Cancer Maternal Uncle Hypertension Maternal Uncle Arthritis Mother per pt OA Cancer Mother Hypertension Mother Diabetes Paternal Grandmother Arthritis Sister per pt OA Relation Name Status Comments Brother Alive Father Alive Maternal Aunt Maternal Grandfather Maternal Grandmother Maternal Uncle Mother Paternal Grandfather Paternal Grandmother Sister Alive Social History Date Tobacco Use Types Packs/Day Years Used Current Every Day Smoker Cigarettes 1 30 Smokeless Tobacco: Never Used Tobacco Cessation: Ready to Quit: No Comments: since she was 17 years old, smoke a pack daily Drinks/Week oz/Week Comments Alcohol Use 0 Standard drinks or equivalent 0.0 No Sex Assigned at Date Recorded Not on file Industry Job Start Date Occupation Not on file Not on file Not on file Travel End Travel History Travel Start No recent travel history available. Last Filed Vital Signs Reading Time Taken Comments Vital Sign 109/70 03/22/2019 9:25 AM CDT Blood Pressure 59 03/22/2019 9:25 AM CDT Pulse 36.9 C (98.4 F) 02/08/2019 9:55 AM CDT Temperature 18 04/08/2019 9:15 AM CDT Respiratory Rate 100% 03/22/2019 9:25 AM CDT Oxygen Saturation - - Inhaled Oxygen Concentration 87.3 kg (192 lb 6.4 oz) 04/08/2019 9:15 AM CDT Weight 152.4 cm (5') 04/08/2019 9:15 AM CDT Height 37.58 04/08/2019 9:15 AM CDT Body Mass Index Plan of Treatment Care Team Description Date Type Specialty Mariana Woodruff FNP [address] [place] [address] [phone] 04/12/2019 Office Visit Endocrinology Diabetes & Metabolism Bonita Nguyen MD [address] [place] [address] [phone] 04/12/2019 Office Visit Gastroenterology Jay Jenkins MD [address] [facility] [id number] [place] [address] [phone] 04/26/2019 Office Visit Pain Medicine Fer Thao MD [address] [place] [address] [phone] 05/27/2019 Office Visit Endocrinology Diabetes & Metabolism Nanci Cortez MD [address] [place] [phone] 06/03/2019 Office Visit Gynecologic Oncology Nurse, Transplant 08/12/2019 Nurse Visit Surgery Health Maintenance Due Date Last Done Comments [...] Td Vaccines 03/20/2027 03/20/2017 (2 - Td) Procedures Comments Procedure Name Priority Date/Time Associated Diagnosis AUTHORIZATION FOR RELEASE Routine 03/14/2019 OF PHI 12:01 AM CDT AUTHORIZATION FOR RELEASE Routine 03/14/2019 OF PHI 12:01 AM CDT HEPATITIS B Routine 03/11/2019 Prophylactic VACCINE,ADULT,IM 1:20 PM CDT immunotherapy Immunization due ASSIGNMENT OF BENEFITS Routine 03/11/2019 1:03 PM CDT CONSENT/REFUSAL FOR Routine 03/11/2019 DIAGNOSIS AND TREATMENT 1:03 PM CDT NOTICE OF PRIVACY Routine 03/11/2019 PRACTICES 1:02 PM CDT NO SHOW OR MISSED Routine 03/11/2019 APPOINTMENT POLICY 1:01 PM CDT ACKNOWLEDGEMENT [facility] PATIENT FINANCIAL Routine 03/11/2019 POLICY 1:01 PM CDT [place] (HEP A/HEP Routine 02/08/2019 Prophylactic B)VACCINE 10:14 AM CDT immunotherapy Immunization due DME/SUPPLY JUSTIFICATION Routine 01/23/2019 12:01 AM CDT CBC WITH DIFFERENTIAL Routine 01/18/2019 Pre-liver transplant, 4:49 PM CDT listed PROTHROMBIN TIME / INR Routine 01/18/2019 Pre-liver transplant, 4:49 PM CDT listed HEPATIC FUNCTION PANEL Routine 01/18/2019 Pre-liver transplant, ([id number]) (ALB,T.PRO,BILI 4:49 PM CDT listed T,BU/BC,ALT,AST,ALK PHOS) BASIC METABOLIC PANEL Routine 01/18/2019 Pre-liver transplant, (NA, K, CL, CO2, GLUCOSE, 4:49 PM CDT listed BUN, CREATININE, CA) CBC WITH DIFF Routine 01/18/2019 Pre-liver transplant, 4:49 PM CDT listed from Last 3 Months Results * AUTHORIZATION FOR RELEASE OF PHI (03/14/2019 12:01 AM CDT) Only the most recent of 2 results within the time period is included. Specimen Performing Organization Address City/State/Zipcode Phone Number HIM * ASSIGNMENT OF BENEFITS (03/11/2019 1:03 PM CDT) Specimen Performing Organization Address City/State/Zipcode Phone Number HIM * CONSENT/REFUSAL FOR DIAGNOSIS AND TREATMENT (03/11/2019 1:03 PM CDT) Specimen Performing Organization Address City/State/Zipcode Phone Number HIM * NOTICE OF PRIVACY PRACTICES (03/11/2019 1:02 PM CDT) Specimen Performing Organization Address City/State/Zipcode Phone Number HIM * NO SHOW OR MISSED APPOINTMENT POLICY ACKNOWLEDGEMENT (03/11/2019 1:01 PM CDT) Specimen Performing Organization Address City/State/Zipcode Phone Number HIM * [facility] PATIENT FINANCIAL POLICY (03/11/2019 1:01 PM CDT) Specimen Performing Organization Address City/[facility]/Zipcode Phone Number HIM * DME/SUPPLY JUSTIFICATION (01/23/2019 12:01 AM CDT) Specimen Performing Organization Address City/[facility]/Zipcode Phone Number HIM * CBC WITH DIFFERENTIAL (01/18/2019 4:49 PM CDT) WBC 6.82 4.30 - 11.10 [facility] 10*3/L [facility] RBC 4.29 3.93 - 5.25 10*6/L [facility] HGB 13.4 11.6 - 15.0 g/dL [facility] HCT 39.4 35.7 - 45.2 % [facility] MCV 91.8 80.6 - 95.5 fL [facility] MCH 31.2 25.9 - 32.8 pg [facility] MCHC 34.0 31.6 - 35.1 g/dL [facility] RDW-SD 43.7 39.0 - 49.9 fL [facility] RDW-CV 13.1 12.0 - 15.5 % [facility] PLT 119 (L) 166 - 358 10*3/L [facility] MPV 10.4 9.5 - 12.9 fL [facility] NRBC/100 WBC 0.0 0.0 - 10.0 /100 WBCs [facility] NRBC x10^3 <0.01 10*3/L [facility] GRAN MAT (NEUT) 60.9 % [facility] % [facility] IMM GRAN % 0.10 % [facility] LYMPH % 30.5 % [facility] MONO % 5.9 % [facility] EOS % 1.9 % [facility] BASO % 0.7 % [facility] GRAN MAT 4.15 1.88 - 7.09 10*3/uL [facility] x10^3(ANC) [facility] IMM GRAN x10^3 <0.03 0.00 - 0.06 10*3/uL [facility] LYMPH x10^3 2.08 1.32 - 3.29 10*3/uL [facility] MONO x10^3 0.40 0.33 - 0.92 10*3/uL [facility] EOS x10^3 0.13 0.03 - 0.39 10*3/uL [facility] BASO x10^3 0.05 0.01 - 0.07 10*3/uL [facility] Specimen Blood Performing Organization Address City/State/Zipcode Phone Number [facility] CLIA: [id number], [address] [place] [address] [facility] * PROTHROMBIN TIME / INR (01/18/2019 4:49 PM CDT) PROTIME PATIENT 15.0 (H) 12.0 - 14.7 Seconds [facility] INR 1.2Comment: Normal INR <1.1; [facility] Warfarin Therapeutic range 2.0 [facility] to 3.0 or 2.5 to 3.5, [facility] depending upon the indications. Specimen Blood Performing Organization Address City/State/Zipcode Phone Number [facility] CLIA: [id number], [address] [place] [phone] [facility] * BASIC METABOLIC PANEL (NA, K, CL, CO2, GLUCOSE, BUN, CREATININE, CA) (01/18/2019 4:49 PM CDT) NA 137 135 - 145 mmol/L [facility] K 4.5 3.5 - 5.0 mmol/L [facility] CL 101 98 - 108 mmol/L [facility] CO2 TOTAL 26 23 - 31 mmol/L [facility] AGAP 10 2 - 16 [facility] BUN 10 7 - 23 mg/dL [facility] GLUCOSE 309 (H) 70 - 110 mg/dL [facility] CREATININE 0.61 0.50 - 1.04 mg/dL [facility] CALCIUM 8.6 8.6 - 10.6 mg/dL [facility] eGFR 103.0 mL/min/1.73m2 [facility] Calculation [facility] eGFR 124.8 mL/min/1.73m2 [facility] Calculation [facility] ([facility]) Specimen Blood Narrative Performed At Association of Glomerular Filtration Rate (GFR) and Staging of Kidney Disease* [facility] + + + + [facility] | GFR (mL/min/1.73 m2)| With Kidney Damage|Without Kidney Damage CAMPUS + + + + |>90|Stage one| Normal + + + + |60-89|Stage two| Decreased GFR + + + + |30-59|Stage three| Stage three + + + + |15-29|Stage four | Stage four + + + + |<15 (or dialysis)|Stage five | Stage five + + + + *Each stage assumes the associated GFR level has been in effect for at least three months.Stages 1 to 5, with or without kidney disease, indicate chronic kidney disease. Notes: Determination of stages one and two (with eGFR >59mL/min/1.73 m2) requires estimation of kidney damage for at least three months as defined by structural or functional abnormalities of the kidney, manifested by either: Pathological abnormalities or Markers of kidney damage (including abnormalities in the composition of the blood or urine or abnormalities in imaging tests). Performing Organization Address City/State/Zipcode Phone Number [facility] CLIA: [id number], [address] [place] [address] [facility] * HEPATIC FUNCTION PANEL ([id number]) (ALB,T.PRO,BILI T,BU/BC,ALT,AST,ALK PHOS) (01/18/2019 4:49 PM CDT) TOTAL BILI 1.3 (H) 0.1 - 1.1 mg/dL [facility] BILI UNCON 0.6 0.1 - 1.1 mg/dL [facility] BILI CONJ 0.0 0.0 - 0.3 mg/dL [facility] T PROTEIN 7.5 6.3 - 8.2 g/dL [facility] ALBUMIN 3.7 3.5 - 5.0 g/dL [facility] ALK PHOS 141 (H) 34 - 122 U/L [facility] ALT(SGPT) 22 9 - 51 U/L [facility] AST(SGOT) 37 13 - 40 U/L [facility] Specimen Blood Performing Organization Address City/[facility]/Zipcode Phone Number [facility] CLIA: [id number], [address] [place] [address] [facility] from Last 3 Months Insurance Type Payer Benefit Subscriber ID Effective Phone Address Plan / Dates Group Medicaid [facility] xxxxxxxxx 2016-P [address] [facility] [place] [address] [place] [address] Advance Directives Relationship Healthcare Agent Relationship Communication Name Father Primary healthcare agent Asa [place] Child First alternate healthcare agent Sandy Ornelas
--- OUTSIDE RECORDS SUMMARY | 2019-11-01 03:51 | XMS REPORT | Clinical Summary ---
Author Author [facility] - Health Organization [facility] - Health Address Unknown Phone Unavailable Care Team Providers Care Surveillance Dual Rate Officer Name Role Phone Keiry Jaquez CNM Unavailable [...] for Pain (scale 4-6) or Alternate with Leivasy for pain scale 1-3. Active Insulin Glargine [...] long-term current use of insulin Active Insulin [place], Use to inject 400 Each 1 Disposable, [...] Overview: Added automatically from request for surgery [id number] Obesity (BMI 30-39.9) 03/19/2018 Bilateral lower extremity edema 07/14/2017 Lumbosacral spondylosis without myelopathy 03/16/2017 Overview: Added automatically from request for surgery [id number] Mixed hyperlipidemia 01/18/2017 Cirrhosis of liver without [...] 02/09/2015 Overview: Last Mammogram result 10/2016 at [facility] negative Cervical spondylosis without myelopathy 12/02/2013 [...] due 03/11/2019 Nurse Visit Surgery Doctor Unassigned, [place] 03/11/2019 Orders Only Nanci Cortez MD Medication [...] Diabetes & Metabolism Madisyn Dumont MD Nurse, Telesales Team Leader Uncontrolled type 2 diabetes mellitus with diabetic neuropathy, with long-term current use of insulin (Primary Dx) 01/23/2019 Nurse Visit Endocrinology Diabetes & Metabolism Doctor Unassigned, [place] 01/23/2019 Orders Only Madisyn Dumont MD Forms 01/23/2019 Telephone Endocrinology Diabetes & Metabolism Bonita Nguyen MD Vtc-Lab Pre-liver transplant, listed 01/18/2019 Corn Grower Phlebotomy Visit Bonita Nguyen MD Pre-Transplant; LAB [...] Date Type Specialty Mariana Woodruff FNP [address] [place] [address] [phone] 04/12/2019 Office Visit Endocrinology Diabetes & Metabolism Bonita Nguyen MD [address] [place] [address] [phone] 04/12/2019 Office Visit Gastroenterology Jay Jenkins MD [address] [facility] [id number] [place] [address] [phone] 04/26/2019 Office Visit Pain Medicine Fer Thao MD [address] [place] [address] [phone] 05/27/2019 Office Visit Endocrinology Diabetes & Metabolism Nanci Cortez MD [address] [place] [phone] 06/03/2019 Office Visit Gynecologic Oncology Nurse, [...] 03/11/2019 APPOINTMENT POLICY 1:01 PM CDT ACKNOWLEDGEMENT [facility] PATIENT FINANCIAL Routine 03/11/2019 POLICY 1:01 PM CDT [place] (HEP A/HEP Routine 02/08/2019 Prophylactic B)VACCINE 10:14 AM CDT immunotherapy Immunization due DME/SUPPLY JUSTIFICATION Routine 01/23/2019 12:01 AM CDT CBC WITH DIFFERENTIAL Routine 01/18/2019 Pre-liver transplant, 4:49 PM CDT listed PROTHROMBIN TIME / INR Routine 01/18/2019 Pre-liver transplant, 4:49 PM CDT listed HEPATIC FUNCTION PANEL Routine 01/18/2019 Pre-liver transplant, ([id number]) (ALB,T.PRO,BILI 4:49 PM CDT listed T,BU/BC,ALT,AST,ALK PHOS) [...] 1:01 PM CDT) Specimen Performing Organization Address City/[facility]/Zipcode Phone Number HIM * DME/SUPPLY JUSTIFICATION (01/23/2019 12:01 AM CDT) Specimen Performing Organization Address City/[facility]/Zipcode Phone Number HIM * CBC WITH DIFFERENTIAL (01/18/2019 4:49 PM CDT) WBC 6.82 4.30 - 11.10 [facility] 10*3/L [facility] RBC 4.29 3.93 - 5.25 10*6/L [facility] HGB 13.4 11.6 - 15.0 g/dL [facility] HCT 39.4 35.7 - 45.2 % [facility] MCV 91.8 80.6 - 95.5 fL [facility] MCH 31.2 25.9 - 32.8 pg [facility] MCHC 34.0 31.6 - 35.1 g/dL [facility] RDW-SD 43.7 39.0 - 49.9 fL [facility] RDW-CV 13.1 12.0 - 15.5 % [facility] PLT 119 (L) 166 - 358 10*3/L [facility] MPV 10.4 9.5 - 12.9 fL [facility] NRBC/100 WBC 0.0 0.0 - 10.0 /100 WBCs [facility] NRBC x10^3 <0.01 10*3/L [facility] GRAN MAT (NEUT) 60.9 % [facility] IMM GRAN % 0.10 % [facility] LYMPH % 30.5 % [facility] MONO % 5.9 % [facility] EOS % 1.9 % [facility] BASO % 0.7 % [facility] GRAN MAT 4.15 1.88 - 7.09 10*3/uL [facility] x10^3(ANC) [facility] IMM GRAN x10^3 <0.03 0.00 - 0.06 10*3/uL [facility] LYMPH x10^3 2.08 1.32 - 3.29 10*3/uL [facility] MONO x10^3 0.40 0.33 - 0.92 10*3/uL [facility] EOS x10^3 0.13 0.03 - 0.39 10*3/uL [facility] BASO x10^3 0.05 0.01 - 0.07 10*3/uL [facility] Specimen Blood Performing Organization Address City/State/Zipcode Phone Number [facility] CLIA: [id number], [address] [place] [id number] [facility] * PROTHROMBIN TIME / INR (01/18/2019 4:49 PM CDT) PROTIME PATIENT 15.0 (H) 12.0 - 14.7 Seconds [facility] INR 1.2Comment: Normal INR <1.1; [facility] Warfarin Therapeutic range 2.0 [facility] to 3.0 or 2.5 to 3.5, [facility] depending upon the indications. Specimen Blood Performing Organization Address City/State/Zipcode Phone Number [facility] CLIA: [id number], [address] [place] [address] [facility] * BASIC METABOLIC PANEL (NA, K, CL, CO2, GLUCOSE, BUN, CREATININE, CA) (01/18/2019 4:49 PM CDT) NA 137 135 - 145 mmol/L [facility] K 4.5 3.5 - 5.0 mmol/L [facility] CL 101 98 - 108 mmol/L [facility] CO2 TOTAL 26 23 - 31 mmol/L [facility] AGAP 10 2 - 16 [facility] BUN 10 7 - 23 mg/dL [facility] GLUCOSE 309 (H) 70 - 110 mg/dL [facility] CREATININE 0.61 0.50 - 1.04 mg/dL [facility] CALCIUM 8.6 8.6 - 10.6 mg/dL [facility] eGFR 103.0 mL/min/1.73m2 [facility] Calculation [facility] ([facility] [place]) eGFR 124.8 mL/min/1.73m2 [facility] Calculation [facility] ([facility] [place] Citizen) Specimen Blood Narrative Performed At Association of Glomerular Filtration Rate (GFR) and Staging of Kidney Disease* [facility] + + + + [facility] | GFR (mL/min/1.73 m2)| With Kidney Damage|Without [...] Address City/State/Zipcode Phone Number [facility] CLIA: [id number], [address] [place] [address] [facility] * HEPATIC FUNCTION PANEL ([id number]) (ALB,T.PRO,BILI T,BU/BC,ALT,AST,ALK PHOS) (01/18/2019 4:49 PM CDT) TOTAL BILI 1.3 (H) 0.1 - 1.1 mg/dL [facility] BILI UNCON 0.6 0.1 - 1.1 mg/dL [facility] BILI CONJ 0.0 0.0 - 0.3 mg/dL [facility] T PROTEIN 7.5 6.3 - 8.2 g/dL [facility] ALBUMIN 3.7 3.5 - 5.0 g/dL [facility] ALK PHOS 141 (H) 34 - 122 U/L [facility] ALT(SGPT) 22 9 - 51 U/L [facility] AST(SGOT) 37 13 - 40 U/L [facility] Specimen Blood Performing Organization Address City/[facility]/Zipcode Phone Number [facility] CLIA: [id number], [address] [place] [address] [facility] from Last 3 Months Insurance Type Payer Benefit Subscriber ID Effective Phone Address Plan / Dates Group Medicaid [facility] [employer] xxxxxxxxx [id number] P O [facility] [address] [id number] [place] [address] Advance Directives Relationship Healthcare Agent Relationship Communication Name Father Primary healthcare agent Asa Mills Child First alternate healthcare agent Sandy Ornelas
--- OUTSIDE RECORDS SUMMARY | 2019-11-01 03:52 | XMS REPORT | Summary of Care ---
Author Author [facility] - Health Organization [facility] - Health Address Unknown Phone Unavailable Care Team Providers Care Security Systems Specialist Name Role Phone Keiry Jaquez CNM Unavailable Unavailable Madisyn Dumont MD Unavailable Josef Mcintosh [place] [address] Isabel Hansen RN Unavailable Unavailable Keiry Jaquez CNM PCP Unavailable Keiry Jaquez CNM Unavailable Unavailable Reason for Visit * Reason Comments Follow-up Diabetes Mellitus II Encounter Details Care Team Description Date Type Department Mariana Woodruff, SPOR[employer] EQU[employer]MENT REPAIRER [address] [place] [address] Uncontrolled type 2 diabetes mellitus with diabetic neuropathy, with long-term current use of insulin (Primary Dx); Mixed hyperlipidemia; Essential hypertension 04/12/2019 Office Visit [facility] [address] [place] [address] Allergies No Known Allergiesdocumented as of this encounter (statuses as of 04/12/2019) Medications End Date Status Medication Sig Dispensed [...] for Pain (scale 4-6) or Alternate with Wakeman for pain scale 1-3. Active flash glucose sensor 1 Each every 2 Kit 3 (FREESTYLE KERI 14 DAY 14 (fourteen) 9 SENSOR) KitIndications: days. Uncontrolled type 2 diabetes mellitus with diabetic neuropathy, with long-term current use of insulin Active Insulin [place], Use to inject 400 Each 1 Disposable, [...] Misc glucose 3X 9 daily. DX:E11.40 Active traMADol 50 mg Take 1 tablet [...] panic attacks, Agoraphobia with panic attacks Active blood sugar diagnostic Use to check 100 Strip 3 (TRUE METRIX GLUCOSE TEST glucose 3X 9 STRIP) stripIndications: daily. Uncontrolled type 2 DX:E11.40 diabetes mellitus with diabetic neuropathy, with long-term current use of insulin Active insulin lispro (HUMALOG inject 22 60 mL 1 KWIKPEN INSULIN) 100 Units under 9 unit/mL pen the skin 3 injectorIndications: (three) times Uncontrolled type 2 daily before diabetes mellitus with meals. diabetic neuropathy, with long-term current use of insulin Active Insulin Glargine (LANTUS inject 60 60 mL 1 SOLOSTAR U-100 INSULIN) Units under 9 100 unit/mL (3 mL) the skin injectionIndications: daily. Uncontrolled type 2 diabetes mellitus with diabetic neuropathy, with long-term current use of insulin 04/12/2019 Discontinued Insulin Glargine (LANTUS inject 60 60 mL 1 SOLOSTAR U-100 INSULIN) Units under 9 100 unit/mL (3 mL) the skin injectionIndications: daily. Uncontrolled type 2 diabetes mellitus with complication, without long-term current use of insulin 04/12/2019 Discontinued insulin lispro (HUMALOG inject 22 60 mL 1 KWIKPEN INSULIN) 100 Units under 9 unit/mL pen injector the skin 3 (three) times daily before meals. 04/12/2019 Discontinued blood sugar diagnostic Use to check 100 Strip 3 (TRUE METRIX GLUCOSE TEST glucose 3X 9 STRIP) stripIndications: daily. Type 2 diabetes mellitus DX:E11.40 without complication, without long-term current use of insulin documented as of this encounter (statuses as of 04/12/2019) Active Problems Problem Noted Date Vulvar intraepithelial neoplasia (SANG) grade 3 11/16/2018 Dental caries 04/17/2018 Overview: Added automatically from request for surgery [id number] Obesity (BMI 30-39.9) 03/19/2018 Bilateral lower extremity edema 07/14/2017 Lumbosacral spondylosis without myelopathy 03/16/2017 Overview: Added automatically from request for surgery [id number] Mixed hyperlipidemia 01/18/2017 Cirrhosis of liver without ascites 01/09/2017 Cervical high risk human papillomavirus (HPV) DNA test positive 12/14/2016 Overview: Repeat colpo done 11/2016 Papanicolaou smear of vagina with low grade squamous intraepithelial lesion 12/14/2016 (LGSIL) Overview: 2014 & 2018; colpo bx of vaginal cuff in 2014 showed HPV changes. Pt refusing colpo biopsies at colpo appt 02/21/18 due to pain from 2015 colpo bx. Tobacco use disorder 12/14/2016 Uncontrolled [...] 02/09/2015 Overview: Last Mammogram result 10/2016 at [facility] negative Cervical spondylosis without myelopathy 12/02/2013 Degeneration of lumbar or lumbosacral intervertebral disc 12/02/2013 Shoulder bursitis 02/07/2013 documented as of this encounter (statuses as of 04/12/2019) Resolved Problems Problem Noted Date Resolved Date Positive blood test 11/09/2018 11/14/2018 Papanicolaou smear of cervix with low grade squamous intraepithelial lesion 02/08/2015 12/14/2016 (LGSIL) Overview: Pos hi-risk HPV 2016. Needs colpo documented as of this encounter (statuses as of 04/12/2019) Immunizations Name Administration Dates Next Due HEP [...] Signs Reading Time Taken Comments Vital Sign 95/60 04/12/2019 10:37 AM CDT Blood Pressure 68 04/12/2019 10:13 AM CDT Pulse 35.5 C (95.9 F) 04/12/2019 10:13 AM CDT Temperature 18 04/12/2019 10:13 AM CDT Respiratory Rate 96% 04/12/2019 10:13 AM CDT Oxygen Saturation - - Inhaled Oxygen Concentration 86.1 kg (189 lb 14.4 oz) 04/12/2019 10:13 AM CDT Weight 152.4 cm (5') 04/12/2019 10:13 AM CDT Height 37.09 04/12/2019 10:13 AM CDT Body Mass Index documented in this encounter Patient Instructions * Patient Instructions* Mariana Woodruff FNP - 04/12/2019 10:00 AM CDT documented in this encounter Progress Notes * Mariana Woodruff FNP - 04/12/2019 10:00 AM CDT Cc: Follow-up of DM2 HPI: Diabetes mellitus type 2: Patient is a 54 year old female who is here today wit h her daughter for follow up of DM type 2, diagnosed in 2011. DM is associated w ith atherogenic diet, Cirrhosis, GRAJEDA (biopsy proven in 2017; she is being evalu ated for liver transplant by GI) HTN, obesity and sedentary lifestyle. Patient's diabetes is complicated by neuropathy: Peripheral and lower extremity. She has no acute problems today. She was started on Actos and her BGS have been better, stopped Actos due to wors ening fluid retention and leg edema since starting Actos. Current diabetes regimen: Lantus 60 units daily. Humalog 22 units with breakfast, lunch and dinner. Patient reports poor compliance both insulins. Glucose checks and trend: patient doesn't check BG s. Hypoglycemic episodes: No s/s per patient. Diet Low carb diet: non compliant with diet. Exercises regularly: No Patient is oriented in regular feet exam, encouraged to seek medical attention i f any lesion noted. Pt denies any tingling, pain or numbness on the feet. DIABETIC HEALTH MAINTENANCE Last Lab Results Health Maintenance Due HGB A1C (% NGSP) Date Value 11/16/2017 8.4 (H) POCT HBA1C (%) Date Value 10/23/2018 12.1 (A) Diabetes related Health Maintenance Due Topic Date Due EYE EXAM 02/28[birth year]1976 URINE MICROALBUMIN 2019 Previous Pneumococcal / Influenza Immunizations Name Date Influenza Virus Vaccine Quad ID [id number] YRS 07/13/2017 Pneumococcal 13 Conjugate, PCV13 (Prevnar 13) 01/01/2018 Recent Cv Rn Visits None Recent Ophthalmology Visits Provider Department Visit Type Primary Dx 09/15/2017 Jhonathan Bernardo MD [facility] Telephone CREATININE Date Value 01/18/2019 0.61 mg/dL 01/13/2012 0.60 MG/DL MICROALB U (ug/mL) Date Value 2018 Comment: Unable to calculate because, URINE ALBUMIN is less than the sensitivity of the analyzer. CHOL (mg/dL) Date Value 10/31/2018 200 No results found for: TRIG No results found for: LDL Diabetes Relevant Medication Classes Last refreshed: 04/11/2019 9:01 AM: Prescribed CHETNA inhibitor Yes Last refreshed: 04/11/2019 9:01 AM: Prescribed ARBs No Last refreshed: 04/11/2019 9:01 AM: Prescribed statins No Last refreshed: 04/11/2019 9:01 AM: Prescribed antiplatelets No Last refreshed: 04/11/2019 9:01 AM: Prescribed aspirin No Last refreshed: 04/11/2019 9:01 AM: On Fibrates No Current as of: 04/11/2019 9:01 AM Last eye exam was last year, no DR per patient's report. Last foot exam-04/12/2019 2. HTN: the patient stopped her BP medications(except lasix)few months ago due t o low BP, HTN is managed by PCP who is unaware that she stopped the medications. She does not have a history of microalbuminuria. The patient reports intermitte nt dizziness which only lasts for few seconds. Denies any dizziness now. The following portions of the patient's history were reviewed and updated as lis ropriate: allergies, current medications, past family history, past medical hist ory, past social history, past surgical history. HISTORY: Past Medical History: Diagnosis Date Anemia years [...] Jenkins MD; Location: [facility] TUBAL LIGATION 2003 VAGINAL BIOPSY 03/24/2015 VAGINAL BIOPSY N/A 03/24/2015 Surgeon: Ariella Pozo; Location: [facility] WIDE LOCAL VULVAR LESION EXCISION 2014 Family History Problem Relation Age of Onset Arthritis Mother per pt OA Hypertension Mother Cancer Mother Arthritis Maternal Grandmother per pt OA Coronary Heart Disease Maternal Grandmother Hypertension Maternal Grandmother Diabetes Father Hypertension Maternal Aunt Cancer Maternal Aunt Hypertension Maternal Uncle Cancer Maternal Uncle Cancer Maternal Grandfather Diabetes Paternal Grandmother Arthritis Sister per pt OA Arthritis Brother per pt OA Liver Cancer Brother Social History Socioeconomic History Marital status: Spouse name: Not on file Number of children: Not on file Years of education: Not on file Highest education level: Not on file Occupational History Not on file Social Needs Financial resource strain: Not on file Food insecurity: Worry: Not on file Inability: Not on file Transportation needs: Medical: Not on file Non-medical: Not on file Tobacco Use Smoking status: Current Every Day Smoker Packs/day: 1.00 Years: 30.00 Pack years: 30.00 Types: Cigarettes Smokeless tobacco: Never Used Tobacco comment: since she was 17 years old, smoke a pack daily Substance and Sexual Activity Alcohol use: No Alcohol/week: 0.0 oz Drug use: No Sexual activity: Yes Partners: Male control/protection: Surgical Comment: Last intercourse: 11/11/2018 Lifestyle Physical activity: Days per week: Not on file Minutes per session: Not on file Stress: Not on file Relationships Social connections: Talks on phone: Not on file Gets together: Not on file Attends mormonism service: Not on file Active member of club or organization: Not on file Attends meetings of clubs or organizations: Not on file Relationship status: Not on file Intimate partner violence: Fear of current or ex partner: Not on file Emotionally abused: Not on file Physically abused: Not on file Forced sexual activity: Not on file Other Topics Concern Not on file Social History Narrative Children x 3 Miscarriage x 1 at 2nd month Pt denies any physical or emotional abuse, no trauma, feels safe at home. No Known Allergies Current Outpatient Medications Medication Sig Dispense Refill clonazePAM (KLONOPIN) 1 mg tablet Take 1 tablet by mouth daily. 30 tablet 0 venlafaxine XR 150 mg 24 hr capsule Take 1 capsule by mouth daily with break fast. 30 capsule 0 cyclobenzaprine 5 mg tablet Take 1 tablet by mouth at bedtime. 30 tablet 2 pregabalin 75 mg capsule TAKE 1 CAPSULE BY MOUTH THREE TIMES DAILY 90 capsul e 2 traMADol 50 mg tablet Take 1 tablet by mouth every 6 (six) hours as needed f or Pain (scale 4-6) or Pain (scale 7-10). 90 tablet 2 blood sugar diagnostic (TRUE METRIX GLUCOSE TEST STRIP) strip Use to check g lucose 3X daily. DX:E11.40 100 Strip 3 TRUE METRIX GLUCOSE METER Misc Use to check glucose 3X daily. DX:E11.40 1 Ea ch 0 fluorouracil 5 % cream Insert 1 [...] by mouth daily. 90 tablet 3 Insulin [place], Disposable, (BD ULTRAFINE III MINI PEN) 31 gauge x 3/16" Nd le Use to inject insulin 4X daily. DX:E11.65 400 Each 1 flash glucose sensor (FREESTYLE KERI 14 DAY SENSOR) Kit 1 Each every 14 (fo urteen) days. 2 Kit 3 insulin lispro (HUMALOG KWIKPEN INSULIN) 100 unit/mL [...] for Pain (scale 4-6) or Alternate with Wakeman for pain scale 1-3. 30 tablet 1 [...] No current facility-administered medications for this visit. REVIEW OF SYSTEMS: Constitutional: denies fever Eyes: denies blurry vision, loss of vision and pain. Cardiovascular: denies chest pain, palpitations and tachycardia. Respiratory: denies shortness of breath. Gastrointestinal: denies abdominal pain, nausea, vomiting, diarrhea. Genitourinary: denies burning and dysuria. Musculoskeletal: denies joint pain and joint stiffness. Neuro:+occasional tingling and numbness on feet, +intermittent dizziness, headac he, myalgias. Psych: denies anxiety Endocrine:denies intolerance to cold, intolerance to heat, polyphagia and polyur ia. PHYSICAL EXAM: BP 95/60 | Pulse 68 | Temp 35.5 C (95.9 F) (Oral) | Resp 18 | Ht 5' (1.5 24 m) | Wt 189 lb 14.4 oz (86.1 kg) | LMP 12/14/2012 (Exact Date) | SpO2 96% | BMI 37.09 kg/m General: +weight gain, alert, oriented times three, no apparent distress, appear ing age appropriate. Integumentary: Skin warm, no rashes, +skin tags Head: normocephalic, no masses, lesions, tenderness or abnormalities. Eyes: anicteric sclera Neck: neck supple,no bruits Respiratory: good diaphragmatic excursion, lungs clear to auscultation bilateral ly, no wheezing Cardiovascular: regular rate and rhythm, no murmurs. Extremities/Musculoskeletal: no cyanosis, no edema . Psychiatric: Patient pleasant, mood appropriate Sensory exam of the foot is normal. Monofilament exam with sensation Right: 5/5, Left: 5/5. Lesions and ulcers absent. Peripheral pulses present 2+. LABs: POCT GLU (mg/dL) Date Value 04/25/2018 138 (H) CREATININE Date Value 01/18/2019 0.61 mg/dL 01/13/2012 0.60 MG/DL CHOL (mg/dL) Date Value 10/31/2018 200 No results found for: HDL No results found for: LDL No results found for: TRIG MICROAL/CR (ug/mmol creatinine) Date Value 2018 Comment: Unable to calculate because, either CREATININE URINE, URINE ALBUMIN or both ar e less than the sensitivity of the analyzer. POCT HBA1C (%) Date Value 10/23/2018 12.1 (A) 2018 6.1 (A) HGB A1C (% NGSP) Date Value 11/16/2017 8.4 (H) TSH Date Value 10/31/2018 1.41 mIU/L 01/13/2012 1.81 uIU/mL T4 TOTAL (mcg/dL) Date Value 11/16/2017 10.1 T3 (ng/dL) Date Value 11/16/2017 159.0 Results for FANY KAMARA ( ) as of 04/12/2019 10:10 Ref. Range 01/18/2019 16:49 NA Latest Ref Range: 135 - 145 mmol/L 137 K Latest Ref Range: 3.5 - 5.0 mmol/L 4.5 CL Latest Ref Range: 98 - 108 mmol/L 101 CO2 TOTAL Latest Ref Range: 23 - 31 mmol/L 26 AGAP Latest Ref Range: 2 - 16 10 BUN Latest Ref Range: 7 - 23 mg/dL 10 GLUCOSE Latest Ref Range: 70 - 110 mg/dL 309 (H) CREATININE Latest Ref Range: 0.50 - 1.04 mg/dL 0.61 eGFR CALCULATION (non ) Latest Units: mL/min/1.73m2 103.0 eGFR CALCULATION () Latest Units: mL/min/1.73m2 124.8 TOTAL BILI Latest Ref Range: 0.1 - 1.1 mg/dL 1.3 (H) BILI UNCON Latest Ref Range: 0.1 - 1.1 mg/dL 0.6 BILI CONJ Latest Ref Range: 0.0 - 0.3 mg/dL 0.0 CALCIUM Latest Ref Range: 8.6 - 10.6 mg/dL 8.6 T PROTEIN Latest Ref Range: 6.3 - 8.2 g/dL 7.5 ALBUMIN Latest Ref Range: 3.5 - 5.0 g/dL 3.7 ALK PHOS Latest Ref Range: 34 - 122 U/L 141 (H) ALT(SGPT) Latest Ref Range: 9 - 51 U/L 22 AST(SGOT) Latest Ref Range: 13 - 40 U/L 37 Results for FANY KAMARA ( ) as of 10/23/2018 15:03 Ref. Range 10/23/2018 00:00 POCT HBA1C Latest Ref Range: 4 - 6 % 12.1 (A) POCT T. CHOL Latest Ref Range: 120 - 200 mg/dL 198 POCT HDL Latest Ref Range: 45 mg/dL 48 POCT TRIGL Latest Ref Range: 30 - 170 mg/dL 207 (A) POCT TC/HDL RATIO Latest Ref Range: 4.5 - 6 2.2 (A) POCT LDL Latest Ref Range: 160 mg/dL 108 ASSESSMENT and PLAN: Uncontrolled type 2 diabetes mellitus with peripheral neuropathy, with long-term current use of insulin (primary encounter diagnosis) Comment: A1C is 9.2 not at goal, improved from previous A1C which was 12.1. Goal A1C for her age would be <7 %. Reviewed lab results and expected goals with the pt. Poor glycemic control due to poor medication and diet compliance. Kidney functions are stable. She doesn't check her BG s because she did not get any strips from the pharmacy. Advised strict medication and diet compliance. Will do sooner follow up with Kathy TOLEDO for BG log review. Education given on dietary modifications, portion control, prepping meals at home, right food choices when dining out and behavioral modifications to manage cravings. Educated about the importance of strict adherence to medication regimen, diet/exercises and complications/risks of uncontrolled DM. Pt and her daughter verbalized understanding and agreed to the plan. Plan --Advised strict medication compliance. --Continue Lantus 60 units daily. --Continue Humalog 22 units with breakfast, lunch and dinner. Take this insuli n 15 minutes before your meal. Do not take this insulin if you are not eating. T valerio half dose if you are eating a small meal or low carbohydrate meal. --Start low carb low fat diet. --Start 10 minutes of walking or exercise 5 days per week. --Call senior vice president & general counsel for annual diabetic eye exam. --Follow up in 3-4 weeks with Kathy TOLEDO for BG log review. --Continue Lyrica as prescribed for neuropathy. Hypotension Comment: BP is low, stopped all the meds except lasix, Reports intermittent di zziness, denies any sweating, chest pain, head ache or shakiness. Advised patien t to follow up with PCP and address the hypotension and dizziness. Plan --Monitor BP at home. --Follow up with PCP for evaluation. Go to ER if symptoms get worse. --Advised adequate hydration. Mixed hyperlipidemia Comment: Lipids were not at goal at [facility], improved from previous lipid panel. Rev iewed lab results and expected goals with the pt. Educated about uncontrolled li pids, related CV risks and importance of agressive lipid control. Pt with H/O li ramin cirrhosis. Plan --Continue TLC s. Limit red meats, fried foods and full fat dairy products. --Will check fasting lipids. EDUCATION Counseled on this visit about: Glycemic/hemoglobin A1C targets. Importance of adhering to the medical regimen outlined above. Adjusting insulin based on blood sugar readings. Use of basal insulin. Various types of insulin and their mechanism of action. Storage and proper usage of insulin. Preventing and preparing for hypoglycemic events. Increased monitoring for illnesses. Various complications and preventive actions can be taken. Proper foot care. Aggressive lipid management. Aggressive blood pressure control. Benefits, risks and possible side effects of current medications. Please inform us if you develop any side effects of this medications. Mariana BOND- * Edward Fermin MA - 04/12/2019 10:00 AM CDT Fany Kamara is a 54 year old female PT here for follow-up. Patient has pain 5 /10 located in lower back. Medication s and allergies have been reviewed with patient. Patient's last eye exam was 2018 Patient's last flu vaccination was 2017. Patient's last pneumococcal vaccination was 2017 Patient is a diabetic, so I did request shoes to be removed for foot exam. documented in this encounter Plan of Treatment Care Team Description Date Type Specialty Bonita Nguyen MD [address] [place], [place] [id number] Arrived 04/12/2019 Office Visit Gastroenterology Delano Nguyen MD [address] [place] [phone] Cv Rn, Transplant Arrived 04/12/2019 Cv Rn Visit Surgery Jay Jenkins MD [address] [facility] [id number] [place] [address] [phone] 04/26/2019 Office Visit Pain Medicine Nurse, Disability Examiner 05/08/2019 Nurse Visit Endocrinology Diabetes & Metabolism Fer Thao MD [address] [place] [address] [phone] 05/27/2019 Office Visit Endocrinology Diabetes & Metabolism Nanci Cortez MD [address] [place] [address] 06/03/2019 Office Visit Gynecologic Oncology Nurse, Transplant 08/12/2019 Nurse Visit Surgery Order Schedule Name Type Priority Associated Diagnoses 1 Occurrences starting 04/12/2019 until 04/11/2020 MICROALBUMIN URINE LAB Routine Uncontrolled type 2 diabetes mellitus with diabetic neuropathy, with long-term current use of insulin Expected: 04/17/2019 (Approximate), Expires: 04/10/2020 LIPID PANEL (32382)(TOTAL LAB Routine Mixed hyperlipidemia CHOLESTEROL, TRIGLYCERIDES, HDL) Health Maintenance Due Date Last Done Comments EYE EXAM 02/28/1976 COLONOSCOPY 02/28/2016 Zoster Recombinant 02/28/2016 Vaccine (SHINGRIX) (1 of 2) PNEUMOCOCCAL 0-64 YEARS 02/26/2018 01/01/2018 COMBINED SERIES (2 of 3 - PPSV23) URINE MICROALBUMIN 2019 2018, 11/29/2016 HgA1C 04/22/2019 10/23/2018, 2018, 11/16/2017, Additional history exists INFLUENZA VACCINE (#1) 2019 LDL-C 10/23/2019 10/23/2018, 2018, 01/18/2017 MAMMOGRAM 11/23/2019 11/22/2018, 11/09/2016, 02/09/2015 FOOT EXAM 12/29/2019 12/28/2018, 12/28/2018, 11/16/2018, Additional history exists CREATININE (SERUM) 01/19/2020 01/18/2019, 12/24/2018, 10/31/2018, Additional history exists PAP SMEAR 01/17/2021 01/17/2018, 11/14/2016, 02/02/2015 DTaP,Tdap,and Td Vaccines 03/20/2027 03/20/2017 (2 - Td) documented as of this encounter Procedures Comments Procedure Name Priority Date/Time Associated Diagnosis POCT HEMOGLOBIN A1C TEST Routine 04/12/2019 Uncontrolled type 2 10:49 AM CDT diabetes mellitus with diabetic neuropathy, with long-term current use of insulin documented in this encounter Results * POCT HEMOGLOBIN A1C TEST (04/12/2019 10:49 AM CDT) POCT HBA1C 9.2 (A) 4 - 6 % Specimen Blood - CAPILLARY documented in this encounter Visit Diagnoses Diagnosis Uncontrolled type 2 diabetes mellitus with diabetic neuropathy, with long-term current use of insulin - Primary Mixed hyperlipidemia Essential hypertension Unspecified essential hypertension documented in this encounter Insurance Type Payer Benefit Subscriber ID Effective Phone Address Plan / Dates Group Medicaid [facility] AMER[employer] xxxxxxxxx 2016-P [facility] [address] [place] [address] documented as of this encounter Advance Directives Relationship Healthcare Agent Relationship Communication Name Father Primary healthcare agent Asa Lina Child First alternate healthcare agent Sandy Ornelas
--- OUTSIDE RECORDS SUMMARY | 2019-11-01 03:52 | XMS REPORT | Summary of Care ---
Author Author [facility] - Health Organization [facility] - Health Address Unknown Phone Unavailable Care Team Providers Care Centrifugal Operator Name Role Phone Keiry Jaquez CNM Unavailable Unavailable Madisyn Dumont MD Unavailable McintoshJosef castro [address] Isabel Hansen RN Unavailable Unavailable Keiry Jaquez CNM PCP Unavailable Keiry Jaquez CNM Unavailable Unavailable Reason for Visit * Reason Comments Refill Request Encounter Details Care Team Description Date Type Department Madisyn Dumont MD [address] [place] [address] [phone] Refill Request 04/09/2019 Refill [facility] [address] [place] [phone] Allergies No Known Allergiesdocumented as of this encounter (statuses as of 04/09/2019) Medications End Date Status Medication Sig Dispensed [...] for Pain (scale 4-6) or Alternate with [place] for pain scale 1-3. Active Insulin Glargine [...] long-term current use of insulin Active Insulin [place], Use to inject 400 Each 1 Disposable, [...] 1 Take 1 tablet 30 tablet 0 04/08/201 mg tabletIndications: by mouth 9 Generalized anxiety daily. disorder with panic attacks, Agoraphobia with panic attacks documented as of this encounter (statuses as of 04/09/2019) Active Problems Problem Noted Date Vulvar intraepithelial neoplasia (SANG) grade 3 11/16/2018 Dental caries 04/17/2018 Overview: Added automatically from request for surgery [id number] Obesity (BMI 30-39.9) 03/19/2018 Bilateral lower extremity edema 07/14/2017 Lumbosacral spondylosis without myelopathy 03/16/2017 Overview: Added automatically from request for surgery [id number] Mixed hyperlipidemia 01/18/2017 Cirrhosis of liver without [...] 02/09/2015 Overview: Last Mammogram result 10/2016 at [facility] negative Cervical spondylosis without myelopathy 12/02/2013 Degeneration of lumbar or lumbosacral intervertebral disc 12/02/2013 Shoulder bursitis 02/07/2013 documented as of this encounter (statuses as of 04/09/2019) Resolved Problems Problem Noted Date Resolved Date Positive blood test 11/09/2018 11/14/2018 Papanicolaou smear of cervix with low grade squamous intraepithelial lesion 02/08/2015 12/14/2016 (LGSIL) Overview: Pos hi-risk HPV 2017. Needs colpo documented as of this encounter (statuses as of 04/09/2019) Immunizations Name Administration Dates Next Due HEP [...] Years Used Current Every Day Smoker Cigarettes 30 Smokeless Tobacco: Never Used Comments: since [...] Care Team Description Date Type Specialty Mariana Woodruff, VARUN [address] [place], [place] [address] 04/12/2019 Office Visit Endocrinology Diabetes & Metabolism Bonita Nguyen MD [address] [place] [address] [phone] 04/12/2019 Office Visit Gastroenterology Jay Jenkins MD [address] [place] [address] [id number] [place], [place] 817135 04/26/2019 Office Visit Pain Medicine Fer Thao MD [address] [place] [address] [phone] 05/27/2019 Office Visit Endocrinology Diabetes & Metabolism Nanci Cortez MD [address] [place] [phone] 06/03/2019 Office Visit Gynecologic Oncology Nurse, [...] filedocumented in this encounter Visit Diagnoses Diagnosis Uncontrolled type 2 diabetes mellitus with complication, without long-term current use of insulin documented in this encounter Insurance Type Payer Benefit Subscriber ID Effective Phone Address Plan / Dates Group Medicaid [facility]-P [address] [facility] [address] [place] [address] documented as of this encounter Advance Directives Relationship Healthcare Agent Relationship Communication Name Father Primary healthcare agent Asa Mills Child First alternate healthcare agent Sandy Ornelas
--- OUTSIDE RECORDS SUMMARY | 2019-11-01 03:52 | XMS REPORT | Summary of Care ---
Author Author [facility] - Health Organization [facility] - Health Address Unknown Phone Unavailable Care Team Providers Care Fur Storage Clerk Name Role Phone Keiry Jaquez CNM Unavailable Unavailable Madisyn Dumont MD Unavailable Arnaldo Josef Antonio [address] RN Unavailable Unavailable Keiry Jaquez CNM PCP Unavailable Keiry Jaquez CNM Unavailable Unavailable Encounter Details Care Team Description Date Type Department Fer Thao MD [address] [place] [address] [phone] 04/15/2019 Patient Secure [facility] [address] [place] [phone] Allergies No Known Allergiesdocumented as of this encounter (statuses as of 04/15/2019) Medications End Date Status Medication Sig Dispensed Refills Start Date Active ALBUTEROL SULFATE Take by 0 (PROVENTIL ORAL) mouth. Active ursodiol 500 mg tablet 0 7 Active NEXIUM 40 mg capsule TK ONE C PO 5 BID. 7 Active COMBIVENT RESPIMAT 20-100 INHALE 2 4 mcg/actuation inhaler PUFFS PO BID 7 Active carvedilol 6.25 mg tablet 12 mg. 0 7 Active Multivitamins-Iron (DAILY Take 1 Each [...] Each 2 THIN) Misc directed 8 Active chlorhexidine 0.12 % Swish and 473 mL 0 mouthwash spit out 15 8 mL 2 (two) times daily. Active flash glucose sensor 1 Each every [...] with long-term current use of insulin Active lactulose (GENERLAC) 10 Take 30 mL by 1892 mL 11 gram/15 mL solution mouth 2 (two) 9 times daily. documented as of this encounter (statuses as of 04/15/2019) Active Problems Problem Noted Date Vulvar intraepithelial neoplasia (SANG) grade 3 11/16/2018 Dental caries 04/17/2018 Overview: Added automatically from request for surgery [id number] Obesity (BMI 30-39.9) 03/19/2018 Bilateral lower extremity edema 07/14/2017 Lumbosacral spondylosis without myelopathy 03/16/2017 Overview: Added automatically from request for surgery [id number] Mixed hyperlipidemia 01/18/2017 Cirrhosis of liver without [...] 02/09/2015 Overview: Last Mammogram result 10/2016 at [facility] negative Cervical spondylosis without myelopathy 12/02/2013 Degeneration of lumbar or lumbosacral intervertebral disc 12/02/2013 Shoulder bursitis 02/07/2013 documented as of this encounter (statuses as of 04/15/2019) Resolved Problems Problem Noted Date Resolved Date Positive blood test 11/09/2018 11/14/2018 Papanicolaou smear of cervix with low grade squamous intraepithelial lesion 02/08/2015 12/14/2016 (LGSIL) Overview: Pos hi-risk HPV 2016. Needs colpo documented as of this encounter (statuses as of 04/15/2019) Immunizations Name Administration Dates Next Due HEP [...] Treatment Care Team Description Date Type Specialty Jay Jenkins MD [address] [place] [address] [id number] [place] [address] [phone] 04/26/2019 Office Visit Pain Medicine Nurse, Wrapper Stemmer Hand 05/08/2019 Nurse Visit Endocrinology Diabetes & Metabolism Fer Thao MD [address] [place] [address] [phone] 05/27/2019 Office Visit Endocrinology Diabetes & Metabolism Nanci Cortez MD [address] [place] [phone] 06/03/2019 Office Visit Gynecologic Oncology Bonita Nguyen MD [address] [place] [address] [phone] 07/12/2019 Office Visit Gastroenterology Nurse, Transplant 08/12/2019 Nurse Visit Surgery Health Maintenance Due Date Last Done Comments EYE EXAM 02/28/1976 COLONOSCOPY 02/28/2016 Zoster Recombinant 02/28/2016 Vaccine (SHINGRIX) (1 of 2) PNEUMOCOCCAL 0-64 YEARS 02/26/2018 01/01/2018 COMBINED SERIES (2 of 3 - PPSV23) URINE MICROALBUMIN 2019 2018, 11/29/2016 INFLUENZA VACCINE (#1) 2019 HgA1C 10/13/2019 04/12/2019, 10/23/2018, 2018, Additional history exists LDL-C 10/23/2019 10/23/2018, 2018, 01/18/2017 MAMMOGRAM 11/23/2019 11/22/2018, 11/09/2016, 02/09/2015 CREATININE (SERUM) 04/12/2020 04/12/2019, 01/18/2019, 12/24/2018, Additional history exists FOOT EXAM 04/12/2020 04/12/2019, 04/12/2019, 12/28/2018, Additional history exists PAP SMEAR 01/17/2021 01/17/2018, 11/14/2016, 02/02/2015 DTaP,Tdap,and Td Vaccines 03/20/2027 03/20/2017 (2 - Td) documented as of this encounter Results Not on filedocumented in this encounter Insurance Type Payer Benefit Subscriber ID Effective Phone Address Plan / Dates Group Medicaid [facility] xxxxxxxxx 2016-P P O [facility] [address] [place] [address] documented as of this encounter Advance Directives Relationship Healthcare Agent Relationship Communication Name Father Primary healthcare agent Asa [place] Child First alternate healthcare agent Sandy Ornelas
--- OUTSIDE RECORDS SUMMARY | 2019-11-01 03:52 | XMS REPORT | Summary of Care ---
Author Author [facility] - Health Organization [facility] - Health Address Unknown Phone Unavailable Care Team Providers Care Workforce Manager Name Role Phone Keiry Jaquez CNM Unavailable Unavailable Madisyn Dumont MD Unavailable Mcintosh, Josef Antonio [address] RN Unavailable Unavailable Keiry Jaquez CNM PCP Unavailable Keiry Jaquez CNM Unavailable Unavailable Reason for Visit * Reason Comments Refill Request Encounter Details Care Team Description Date Type Department Madisyn Dumont MD [address] [place], [place] [phone] Refill Request 04/14/2019 Refill [facility] [address] [place] [phone] Allergies No Known Allergiesdocumented as of this [...] long-term current use of insulin Active Insulin [place], Use to inject 400 Each 1 Disposable, [...] Overview: Added automatically from request for surgery [id number] Obesity (BMI 30-39.9) 03/19/2018 Bilateral lower extremity edema 07/14/2017 Lumbosacral spondylosis without myelopathy 03/16/2017 Overview: Added automatically from request for surgery [id number] Mixed hyperlipidemia 01/18/2017 Cirrhosis of liver without [...] 02/09/2015 Overview: Last Mammogram result 10/2016 at [facility] negative Cervical spondylosis without myelopathy 12/02/2013 [...] Description Date Type Specialty Jay Jenkins MD [address] [place] [address] [id number] [place], [place] [phone] 04/26/2019 Office Visit Pain Medicine Nurse, Draftsperson 05/08/2019 Nurse Visit Endocrinology Diabetes & Metabolism Fer Thao MD [address] [place] [address] [phone] 05/27/2019 Office Visit Endocrinology Diabetes & Metabolism Nanci Cortez MD [address] [place] [phone] 06/03/2019 Office Visit Gynecologic Oncology Bonita Nguyen MD [address] [place] [address] [phone] 07/12/2019 Office Visit Gastroenterology Nurse, Transplant 08/12/2019 [...] Phone Address Plan / Dates Group Medicaid [facility] 2016-P P O [facility] [id number] [place] [phone] documented as of this encounter Advance Directives Relationship Healthcare Agent Relationship Communication Name Father Primary healthcare agent Asa [place] Child First alternate healthcare agent Sandy Ornelas
--- OUTSIDE RECORDS SUMMARY | 2019-11-01 03:52 | XMS REPORT | Summary of Care ---
Author Author [facility] - Health Organization [facility] - Health Address Unknown Phone Unavailable Care Team Providers Care Laminating Machine Feeder Name Role Phone Keiry Jaquez CNM Unavailable Unavailable Madisyn Dumont MD Unavailable Josef Mcintosh Antonio [address] Hansen RN Unavailable Unavailable Keiry Jaquez CNM PCP Unavailable Keiry Jaquez CNM Unavailable Unavailable Reason for Visit * Reason Comments Follow-up Diabetes Mellitus II Encounter Details Care Team Description Date Type Department Mariana Woodruff, MACHINE SETTER SUPERVISOR [address] [place] [address] Uncontrolled type 2 diabetes mellitus with diabetic neuropathy, with long-term current use of insulin (Primary Dx); Mixed hyperlipidemia; Essential hypertension 04/12/2019 Office Visit [facility] [address] [place] [phone] Allergies No Known Allergiesdocumented as [...] for Pain (scale 4-6) or Alternate with [place] for pain scale 1-3. Active flash glucose sensor 1 Each every 2 Kit 3 (FREESTYLE KERI 14 DAY 14 (fourteen) 9 SENSOR) KitIndications: days. Uncontrolled type 2 diabetes mellitus with diabetic neuropathy, with long-term current use of insulin Active Insulin [place], Use to inject 400 Each 1 Disposable, [...] Overview: Added automatically from request for surgery [id number] Obesity (BMI 30-39.9) 03/19/2018 Bilateral lower extremity edema 07/14/2017 Lumbosacral spondylosis without myelopathy 03/16/2017 Overview: Added automatically from request for surgery [id number] Mixed hyperlipidemia 01/18/2017 Cirrhosis of liver without [...] 13 Conjugate, PCV13 (Prevnar 13) 01/01/2018 Recent Rate Analyst Visits None Recent Ophthalmology Visits Provider Department Visit Type Primary Dx 09/15/2017 Jhonathan Bernardo MD [facility] [place] Telephone CREATININE Date Value 01/18/2019 0.61 mg/dL [...] file Gets together: Not on file Attends latter-day service: Not on file Active member of [...] by mouth daily. 90 tablet 3 Insulin [place], Disposable, (BD ULTRAFINE III MINI PEN) 31 [...] for Pain (scale 4-6) or Alternate with [place] for pain scale 1-3. 30 tablet 1 [...] or exercise 5 days per week. --Call electrician crane maintenance for annual diabetic eye exam. --Follow up [...] Comment: Lipids were not at goal at [facility], improved from previous lipid panel. Rev iewed [...] Description Date Type Specialty Bonita Nguyen MD [address] [place], [place] 687453 Arrived 04/12/2019 Office Visit Gastroenterology Delano Nguyen MD [address] [place] [phone] Rate Analyst, Transplant Arrived 04/12/2019 Rate Analyst Visit Surgery Jay Jenkins MD [address] [facility] [id number] [place] [address] [phone] 04/26/2019 Office Visit Pain Medicine Nurse, Re Etcher 05/08/2019 Nurse Visit Endocrinology Diabetes & Metabolism Fer Thao MD [address] [place] [address] [phone] 05/27/2019 Office Visit Endocrinology Diabetes & Metabolism Nanci Cortez MD [address] [place] [phone] 06/03/2019 Office Visit Gynecologic Oncology Nurse, Transplant 08/12/2019 Nurse Visit Surgery Order Schedule Name Type Priority Associated Diagnoses 1 Occurrences starting 04/12/2019 until 04/11/2020 MICROALBUMIN URINE LAB Routine Uncontrolled type 2 diabetes mellitus with diabetic neuropathy, with long-term current use of insulin Expected: 04/17/2019 (Approximate), Expires: 04/10/2020 LIPID PANEL ([id number])(TOTAL LAB Routine Mixed hyperlipidemia CHOLESTEROL, TRIGLYCERIDES, HDL) [...] Phone Address Plan / Dates Group Medicaid [facility] xxxxxxxxx 2016-P P O [facility] [address] [place] [address] documented as of this encounter Advance Directives Relationship Healthcare Agent Relationship Communication Name Father Primary healthcare agent Asa Lina Child First alternate healthcare agent Sandy Ornelas
--- OUTSIDE RECORDS SUMMARY | 2019-11-01 03:52 | XMS REPORT | Summary of Care ---
Author Author [facility] - Health Organization [facility] - Health Address Unknown Phone Unavailable Care Team Providers Care Grain Processor Name Role Phone Keiry Jaquez CNM Unavailable Unavailable Madisyn Dumont MD Unavailable Josef Mcintosh Antonio [address] Isabel Hansen RN Unavailable Unavailable Keiry Jaquez CNM PCP Unavailable Keiry Jaquez CNM Unavailable Unavailable Reason for Visit * Reason Comments Blood Draw Encounter Details Care Team Description Date Type Department Bonita Nguyen MD [address] [place] [address] Vtc-Lab Pre-liver transplant, listed 04/12/2019 Farm Products Shipper [facility] [address] [place] [phone] Allergies No Known Allergiesdocumented as of [...] long-term current use of insulin Active Insulin [place], Use to inject 400 Each 1 Disposable, [...] Overview: Added automatically from request for surgery [id number] Obesity (BMI 30-39.9) 03/19/2018 Bilateral lower extremity edema 07/14/2017 Lumbosacral spondylosis without myelopathy 03/16/2017 Overview: Added automatically from request for surgery [id number] Mixed hyperlipidemia 01/18/2017 Cirrhosis of liver without [...] 02/09/2015 Overview: Last Mammogram result 10/2016 at [facility] negative Cervical spondylosis without myelopathy 12/02/2013 Degeneration [...] Description Date Type Specialty Jay Jenkins MD [address] [place] [id number] [place] [address] [phone] 04/26/2019 Office Visit Pain Medicine Nurse, Byproducts Extractor 05/08/2019 Nurse Visit Endocrinology Diabetes & Metabolism Fer Thao MD [address] [place] [address] [phone] 05/27/2019 Office Visit Endocrinology Diabetes & Metabolism Nanci Cortez MD [address] [place] [phone] 06/03/2019 Office Visit Gynecologic Oncology Bonita Nguyen MD [address] [place] [address] [phone] 07/12/2019 Office Visit Gastroenterology Nurse, Transplant 08/12/2019 Nurse Visit Surgery Date/Time Name Type Priority Associated Diagnoses 04/12/2019 1:07 PM CDT PROTHROMBIN TIME / INR LAB Routine Pre-liver transplant, listed 04/12/2019 1:07 PM CDT HEPATIC FUNCTION PANEL LAB Routine Pre-liver transplant, ([id number]) (ALB,T.PRO,BILI listed T,BU/BC,ALT,AST,ALK PHOS) 04/12/2019 1:07 PM CDT BASIC METABOLIC PANEL LAB Routine Pre-liver transplant, (NA, K, CL, CO2, GLUCOSE, listed BUN, CREATININE, CA) 04/12/2019 1:07 PM CDT CBC WITH DIFF LAB Routine Pre-liver transplant, listed 04/12/2019 1:07 PM CDT CBC WITH DIFFERENTIAL LAB Routine Pre-liver transplant, listed Health Maintenance Due Date Last Done Comments [...] filedocumented in this encounter Visit Diagnoses Diagnosis Pre-liver transplant, listed documented in this encounter Insurance Type Payer Benefit Subscriber ID Effective Phone Address Plan / Dates Group Medicaid [facility]-P P O [facility] [address] [place] [address] documented as of this encounter Advance Directives Relationship Healthcare Agent Relationship Communication Name Father Primary healthcare agent Asa Mills [facility] healthcare agent Sandy Ornelas
--- OUTSIDE RECORDS SUMMARY | 2019-11-01 03:53 | XMS REPORT | Summary of Care ---
Author Author [facility] - Health Organization [facility] - Health Address Unknown Phone Unavailable Care Team Providers Care Office Employee Name Role Phone Keiry Jaquez CNM Unavailable Unavailable Madisyn Dumont MD Unavailable Josef Mcintosh Antonio [address] Isabel Hansen RN Unavailable Unavailable Keiry Jaquez CNM PCP Unavailable Keiry Jaquez CNM Unavailable Unavailable Reason for Visit * Reason Comments Rx Concern/Question Encounter Details Care Team Description Date Type Department Jay Jenkins MD [id number] [place] [address] Rx Concern/Question 04/19/2019 Telephone [facility] [address] [place] [phone] Allergies No Known Allergiesdocumented as of this encounter (statuses as of 04/23/2019) Medications End Date Status Medication Sig Dispensed [...] long-term current use of insulin Active Insulin [place], Use to inject 400 Each 1 Disposable, [...] as of this encounter (statuses as of 04/23/2019) Active Problems Problem Noted Date Vulvar intraepithelial neoplasia (SNAG) grade 3 11/16/2018 Dental caries 04/17/2018 Overview: Added automatically from request for surgery [id number] Obesity (BMI 30-39.9) 03/19/2018 Bilateral lower extremity edema 07/14/2017 Lumbosacral spondylosis without myelopathy 03/16/2017 Overview: Added automatically from request for surgery [id number] Mixed hyperlipidemia 01/18/2017 Cirrhosis of liver without [...] 02/09/2015 Overview: Last Mammogram result 10/2016 at [facility] negative Cervical spondylosis without myelopathy 12/02/2013 Degeneration of lumbar or lumbosacral intervertebral disc 12/02/2013 Shoulder bursitis 02/07/2013 documented as of this encounter (statuses as of 04/23/2019) Resolved Problems Problem Noted Date Resolved Date Positive blood test 11/09/2018 11/14/2018 Papanicolaou smear of cervix with low grade squamous intraepithelial lesion 02/08/2015 12/14/2016 (LGSIL) Overview: Pos hi-risk HPV 2016. Needs colpo documented as of this encounter (statuses as of 04/23/2019) Immunizations Name Administration Dates Next Due HEP [...] Description Date Type Specialty Jay Jenkins MD [address] [place] [address] [id number] [place], [place] [phone] 04/26/2019 Office Visit Pain Medicine Nurse, Software Engineer Developer 05/08/2019 Nurse Visit Endocrinology Diabetes & Metabolism Fer Thao MD [address] [place] [address] [phone] 05/27/2019 Office Visit Endocrinology Diabetes & Metabolism Nanci Cortez MD [address] [place] [phone] 06/03/2019 Office Visit Gynecologic Oncology Bonita Nguyen MD [address] [place] [address] [phone] 07/12/2019 Office Visit Gastroenterology Nurse, Transplant 08/12/2019 [...] Phone Address Plan / Dates Group Medicaid [facility] x[facility] 2016-P P O [facility] [address] [place] [address] documented as of this encounter Advance Directives Relationship Healthcare Agent Relationship Communication Name Father Primary healthcare agent Asa [place] Child First alternate healthcare agent Sandy Ornelas
--- OUTSIDE RECORDS SUMMARY | 2019-11-01 03:53 | XMS REPORT | Summary of Care ---
Author Author [facility] - Health Organization [facility] - Health Address Unknown Phone Unavailable Care Team Providers Care Distributor Advertising Material Name Role Phone Keiry Jaquez CNM Unavailable Unavailable Madisyn Dumont MD Unavailable McintoshJosef castro [address] RN Unavailable Unavailable Keiry Jaquez CNM PCP Unavailable Keiry Jaquez CNM Unavailable Unavailable Reason for Referral * MRI/CAT Scan (Routine) Referred By Contact Referred To Contact Status Reason Specialty Diagnoses / Procedures Jay Jenkins MD [id number] [place] [id number] New Request Diagnostic Diagnoses Radiology Lumbosacral spondylosis without myelopathy P rocedures MR LUMBAR SPINE WO CONTRAST Reason for Visit * Reason Comments Pain Encounter Details Care Team Description Date Type Department Jay Jenkins MD [address] [facility] [id number] [place] [address] Lumbosacral spondylosis without myelopathy (Primary Dx); Bilateral sacroiliitis; Trochanteric bursitis of both hips 04/26/2019 Office Visit [facility] [address] [place] [phone] Allergies No Known Allergiesdocumented as of this encounter (statuses as of 04/27/2019) Medications End Date Status Medication Sig Dispensed [...] long-term current use of insulin Active Insulin [place], Use to inject 400 Each 1 Disposable, [...] as of this encounter (statuses as of 04/27/2019) Active Problems Problem Noted Date Vulvar intraepithelial neoplasia (SANG) grade 3 11/16/2018 Dental caries 04/17/2018 Overview: Added automatically from request for surgery [id number] Obesity (BMI 30-39.9) 03/19/2018 Bilateral lower extremity edema 07/14/2017 Lumbosacral spondylosis without myelopathy 03/16/2017 Overview: Added automatically from request for surgery [id number] Mixed hyperlipidemia 01/18/2017 Cirrhosis of liver without [...] 02/09/2015 Overview: Last Mammogram result 10/2016 at [facility] negative Cervical spondylosis without myelopathy 12/02/2013 Degeneration of lumbar or lumbosacral intervertebral disc 12/02/2013 Shoulder bursitis 02/07/2013 documented as of this encounter (statuses as of 04/27/2019) Resolved Problems Problem Noted Date Resolved Date Positive blood test 11/09/2018 11/14/2018 Papanicolaou smear of cervix with low grade squamous intraepithelial lesion 02/08/2015 12/14/2016 (LGSIL) Overview: Pos hi-risk HPV 2016. Needs colpo documented as of this encounter (statuses as of 04/27/2019) Immunizations Name Administration Dates Next Due HEP [...] Signs Reading Time Taken Comments Vital Sign 130/84 04/26/2019 9:39 AM CDT Blood Pressure 103 04/26/2019 9:39 AM CDT Pulse - - Temperature - - Respiratory Rate 97% 04/26/2019 9:39 AM CDT Oxygen Saturation - - Inhaled Oxygen Concentration 90.5 kg (199 lb 9.6 oz) 04/26/2019 9:39 AM CDT Weight 152.4 cm (5') 04/26/2019 9:39 AM CDT Height 38.98 04/26/2019 9:39 AM CDT Body Mass Index documented in this encounter Progress Notes * Samuel Finnegan MD - 04/26/2019 9:00 AM CDT PAIN MANAGEMENT CLINIC PROGRESS NOTE 04/26/2019 Chief Complaint: Low back pain History of Present illness: Fany Goddard is a 54 year old female with HTN, DM, COPD, GERD, Depression, A nxiety, and chronic low back pain for over 10 years presents for follow up. She could not refill her medications from her previous visit or get an MRI since she needed pre-approval according to her. Her pain is essentially unchanged and she has not tried any more medications. She is just taking lyrica 50mg TID. Location: low back and bilateral hips -duration: months -context: no related cause -radiation: radiates to buttocks -timing: constant -quality: ache, sometimes stabbing or shooting -improves with: massage, -worsens with: prolonged walking, standing, sitting PAIN NRS SCALE 0-10 SCORE OVER LAST WEEK (0=no pain and 10=worst pain imaginable): Best:6/10 Worst: 10/10 Now: 04/06 CURRENT PAIN REGIMEN: -Tramadol 50mg BID -Lyrica 75mg TID -Flexeril 5mg QHS ADVERSE EFFECTS FROM CURRENT REGIMEN: None Noted FUNCTIONAL STATUS ON CURRENT REGIMEN: Can perform ADLs PAIN INTERVENTIONAL PROCEDURES DONE BY US/ DATES: Facet joint injections in 2017 that provided some relief for about 3 weeks SIJ injection in 2017 that provided no relief Current Outpatient Medications Medication Sig Dispense Refill blood sugar diagnostic (TRUE METRIX GLUCOSE TEST STRIP) strip Use to check g lucose 3X daily. DX:E11.40 100 Strip 3 Insulin Glargine (LANTUS SOLOSTAR U-100 INSULIN) 100 unit/mL (3 mL) injectio n inject 60 Units under the skin daily. 60 mL 1 insulin lispro (HUMALOG KWIKPEN INSULIN) 100 unit/mL pen injector inject 22 Units under the skin 3 (three) times daily before meals. 60 mL 1 lactulose (GENERLAC) 10 gram/15 mL solution Take 30 mL by mouth 2 (two) time s daily. 1892 mL 11 clonazePAM (KLONOPIN) 1 mg tablet Take 1 [...] or Pain (scale 7-10). 90 tablet 2 TRUE METRIX GLUCOSE METER Misc Use to [...] by mouth daily. 90 tablet 3 Insulin [place], Disposable, (BD ULTRAFINE III MINI PEN) 31 gauge x 3/16" Nd le Use to inject insulin 4X daily. DX:E11.65 400 Each 1 flash glucose sensor (FREESTYLE KERI 14 DAY SENSOR) Kit 1 Each every 14 (fo urteen) days. 2 Kit 3 chlorhexidine 0.12 % mouthwash Swish and spit out 15 mL 2 (two) times daily. 473 mL 0 Lancets (LANCETS,ULTRA THIN) Misc Use as directed [...] inhaler INHALE 2 PUFFS PO BID 4 NEXIUM 40 mg capsule TK ONE C PO BID. 5 ursodiol 500 mg tablet ALBUTEROL SULFATE (PROVENTIL ORAL) Take by mouth. No current facility-administered [...] infection History of Viral Intra-epithelial Neoplasia Hypertension 2014 lisinopril 5 mg, carvedilol Kidney disease hx of frequent uti LGSIL on Pap smear of cervix 01/17/2018 +HPV Pap smear abnormality of cervix with +HPV in 2013 STD (sexually transmitted disease) syphilis ex before 2003 STD (sexually transmitted disease) 2014 +HPV Vulvar intraepithelial neoplasia (SANG) grade 3 11/16/2018 Past Surgical History: Procedure Laterality Date CHOLECYSTECTOMY 1992 lap kendall COLONOSCOPY 2016 negative COLPOSCOPY 2017 [...] Blood Thinning Medication (Aspirin, Plavix/Cl opidogrel, Heparin/Lovenox) warfarin Pulm: Obstructive Sleep Apnea, Snore at night, [...] Thoughts of Harming Oth ers Physical Exam: BP 130/84 (BP Location: Left arm, Patient Position: Sitting, BP CUFF SIZE: Adult Medium) | Pulse 103 | Ht 5' (1.524 m) | Wt 199 lb 9.6 oz (90.5 kg) | LMP (Exact Date) | SpO2 97% | BMI 38.98 kg/m Body mass index is 38.98 kg/m. GENERAL: Fany Goddard is well developed, well nourished HEENT: normocephalic atraumatic and moist mucous membranes, anicteric sclera bi laterally LUNGS: normal excursion, no respiratory distress CARDIOVASCULAR: normal pulse rate, warm extremities, no gross edema noted ABDOMEN: soft MUSCULOSKELETAL/NEUROLOGIC EXAM: Mental Status: normal attention span, arousal, orientation, language, fluency, a ffect, judgement, knowledge and recall. Gait- Normal, steady Lower Extremities: Strength: L2(hip flexion)4/5 R, 4/5 L L3(Knee extension)4/5 R, 4/5 L L4(Ankle dorsiflexion)4/5 R, 4/5 L L5 (knee flexion, Toe dorsiflexion)4/5 R, 4/5 L S1(Knee flexion, Ankle Plantar flexion)4/5 R, 4/5 L S2(Toe flexion) 4/5 R, 4/5 L Sensation to Light Touch: L4- Medial foot/leg, Intact L5- Dorsal Foot, Intact S1-Lateral Foot, Intact Reflexes: L4 (Patella/Quads) 1+ R, 1+L S1 (Achilles) 1+R, 1+ L Spine Exam: Lumbar Spinous process Tenderness: Positive Lumbar Paraspinous Tenderness: Positive ROM: Decreased Facet Loading: Positive Surgical Scars: No SI Joint Tenderness: Left: Positive Right: Positive Gennaro's Test: Left: Positive Right: Positive Hip ROM: Left: Negative Right: Negative, Greater Troch Tenderness: Left: Positive Right: Positive Gluteal Tenderness: Left: Positive Right: Positive Straight Leg Raise: Right: Positive Left: Positive Thigh Thrust: Right Positive Left Positive Laboratory Last Metabolic Panel (including BUN/Cr and LFTs) CMP NA Date Value 04/12/2019 140 mmol/L 01/13/2012 141 MMOL/L K Date Value 04/12/2019 4.3 mmol/L 01/13/2012 4.5 MMOL/L CALCIUM Date Value 04/12/2019 9.7 mg/dL 01/13/2012 9.3 MG/DL CL Date Value 04/12/2019 96 mmol/L (L) 01/13/2012 103 MMOL/L BUN Date Value 04/12/2019 20 mg/dL 01/13/2012 8 MG/DL CREATININE Date Value 04/12/2019 1.49 mg/dL (H) 01/13/2012 0.60 MG/DL GLUCOSE Date Value 04/12/2019 206 mg/dL (H) 01/13/2012 103 MG/DL CO2 TOTAL Date Value 04/12/2019 30 mmol/L 01/13/2012 26 MMOL/L ALBUMIN Date Value 04/12/2019 4.1 g/dL 01/13/2012 4.3 G/DL T PROTEIN Date Value 04/12/2019 8.7 g/dL (H) 01/13/2012 8.3 G/DL (H) TOTAL BILI Date Value 04/12/2019 1.7 mg/dL (H) 01/13/2012 0.5 MG/DL BILI UNCON (mg/dL) Date Value 04/12/2019 1.1 BILI CONJ (mg/dL) Date Value 04/12/2019 0.0 ALT(SGPT) (U/L) Date Value 04/12/2019 18 01/13/2012 24 AST(SGOT) (U/L) Date Value 04/12/2019 38 01/13/2012 23 ALK PHOS (U/L) Date Value 04/12/2019 209 (H) 01/13/2012 117 Other Pertinent Labs: None Radiology Pertinent Films LUMBAR MRI 03/25/19 FINDINGS: Comparison has been made with MRI [...] L3-L4, L4-L5, essentially unchanged since 2014 study. Electrodiagnostics None Medical Decision Making: Dx: - ICD-10-CM ICD-9-CM 1. Lumbosacral spondylosis without myelopathy M47.817 721.3 2. Bilateral sacroiliitis M46.1 720.2 3. Trochanteric bursitis of both hips M70.61 726.5 M70.62 Assessment/Plan: Fany Goddard is a 54 year-old female with history as above that presents for follow up. Her pain has been unchanged since she did not receive her prescription medi cations. We will re-order her medications that include: Tramadol 50mg BID, Flexe ril 5mg QHS, Lyrica 75mg TID. We will order a Lumbar MRI to evaluate the need fo r procedures on the next visit. Follow up in 1 month. Medications -Lyrica 75mg TID -Tramadol 50mg BID -Flexeril 5mg QHS Rehab: Physical therapy No, Continue home exercises Interventions: None at this time, we will consider after MRI results. Psych: No maladaptive pain behaviors Depression/Anxiety Follow Up: RTC in 1 month Samuel Murphy MD 04/26/2019 9:37 AM After discussion with the resident/fellow, I examined this patient. I agree wit htheir note as written. * Perez Marin MA - 04/26/2019 9:00 AM CDT Fany Goddard is a 54 year old female here for follow up. Patient appears to be in no acute distress at this time. Nurse reviewed all allergies & medications with patient during this office visit. Pain score communicated to provider. Patient evaluated for fall risk and appropriate interventions taken. documented in this encounter Plan of Treatment Care Team Description Date Type Specialty Jay Jenkins MD [address] [address] [phone] 05/06/2019 Appointment Radiology Nurse, Office Support 05/08/2019 Nurse Visit Endocrinology Diabetes & Metabolism Fer Thao MD [address] [place] [address] [phone] 05/27/2019 Office Visit Endocrinology Diabetes & Metabolism Jay Jenkins MD [address] [place] [address] [id number] 05/31/2019 Office Visit Pain Medicine Nanci Cortez MD [address] [place] [phone] 06/03/2019 Office Visit Gynecologic Oncology Bonita Nguyen MD [address] [place] [address] [phone] 07/12/2019 Office Visit Gastroenterology Nurse, Transplant 08/12/2019 Nurse Visit Surgery Order Schedule Name Type Priority Associated Diagnoses Expected: 04/26/2019, Expires: 04/26/2020 MR LUMBAR SPINE WO IMAGING Routine Lumbosacral spondylosis CONTRAST without myelopathy Health Maintenance Due Date Last Done Comments [...] Diagnosis Lumbosacral spondylosis without myelopathy - Primary Bilateral sacroiliitis Trochanteric bursitis of both hips Enthesopathy of hip region documented in this encounter Insurance Type Payer Benefit Subscriber ID Effective Phone Address Plan / Dates Group Medicaid [facility] [employer] xxxxxxxxx 2016-P P O [facility] [address] [place] [address] documented as of this encounter Advance Directives Relationship Healthcare Agent Relationship Communication Name Father Primary healthcare agent Asa Mills Child First alternate healthcare agent Sandy Ornelas
--- OUTSIDE RECORDS SUMMARY | 2019-11-01 03:53 | XMS REPORT | Summary of Care ---
Author Author [facility] - Health Organization [facility] - Health Address Unknown Phone Unavailable Care Team Providers Care Management Rep Name Role Phone Keiry Jaquez CNM Unavailable Unavailable Madisyn Dumont MD Unavailable Arnaldo Josef Antonio [address] RN Unavailable Unavailable Keiry Jaquez CNM PCP Unavailable Keiry Jaquez CNM Unavailable Unavailable Encounter Details Care Team Description Date Type Department Fer Thao MD [address] [place] [address] [phone] 04/22/2019 Patient Secure [facility] [address] [place] [phone] Allergies No Known Allergiesdocumented as of this encounter (statuses as of 04/22/2019) Medications End Date Status Medication Sig Dispensed [...] long-term current use of insulin Active Insulin [place], Use to inject 400 Each 1 Disposable, [...] as of this encounter (statuses as of 04/22/2019) Active Problems Problem Noted Date Vulvar intraepithelial neoplasia (SANG) grade 3 11/16/2018 Dental caries 04/17/2018 Overview: Added automatically from request for surgery [id number] Obesity (BMI 30-39.9) 03/19/2018 Bilateral lower extremity edema 07/14/2017 Lumbosacral spondylosis without myelopathy 03/16/2017 Overview: Added automatically from request for surgery [id number] Mixed hyperlipidemia 01/18/2017 Cirrhosis of liver without [...] 02/09/2015 Overview: Last Mammogram result 10/2016 at [facility] negative Cervical spondylosis without myelopathy 12/02/2013 Degeneration of lumbar or lumbosacral intervertebral disc 12/02/2013 Shoulder bursitis 02/07/2013 documented as of this encounter (statuses as of 04/22/2019) Resolved Problems Problem Noted Date Resolved Date Positive blood test 11/09/2018 11/14/2018 Papanicolaou smear of cervix with low grade squamous intraepithelial lesion 02/08/2015 12/14/2016 (LGSIL) Overview: Pos hi-risk HPV 2016. Needs colpo documented as of this encounter (statuses as of 04/22/2019) Immunizations Name Administration Dates Next Due HEP [...] Description Date Type Specialty Jay Jenkins MD [address] [place] [address] [id number] [place] [address] [phone] 04/26/2019 Office Visit Pain Medicine Nurse, Cyberathlete 05/08/2019 Nurse Visit Endocrinology Diabetes & Metabolism Fer Thao MD [address] [place] [address] [phone] 05/27/2019 Office Visit Endocrinology Diabetes & Metabolism Nanci Cortez MD [address] [place] [phone] 06/03/2019 Office Visit Gynecologic Oncology Bonita Nguyen MD [address] [place] [address] [phone] 07/12/2019 Office Visit Gastroenterology Nurse, Transplant 08/12/2019 [...] Phone Address Plan / Dates Group Medicaid [facility] xxxxxxxxx 2016-P P O [facility] [address] [place] [address] documented as of this encounter Advance Directives Relationship Healthcare Agent Relationship Communication Name Father Primary healthcare agent Asa Mills Child First alternate healthcare agent Sandy Ornelas
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
--- OUTSIDE RECORDS SUMMARY | 2019-11-01 03:53 | XMS REPORT | Summary of Care ---
Author Author [facility] - Health Organization [facility] - Health Address Unknown Phone Unavailable Care Team Providers Care Tool And Die Repair Name Role Phone Keiry Jaquez CNM Unavailable Unavailable Madisyn Dumont MD Unavailable Mcintosh, Josef Antonio [address] Hansen RN Unavailable Unavailable Keiry Jaquez CNM PCP Unavailable Keiry Jaquez CNM Unavailable Unavailable Reason for Visit * Reason Comments Refill Request Encounter Details Care Team Description Date Type Department Madisyn Dumont MD [address] [place], [place] [phone] Refill Request 04/17/2019 Refill [facility] [address] [place] [phone] Allergies No Known Allergiesdocumented as of this encounter (statuses as of 04/17/2019) Medications End Date Status Medication Sig Dispensed [...] long-term current use of insulin Active Insulin [place], Use to inject 400 Each 1 Disposable, [...] as of this encounter (statuses as of 04/17/2019) Active Problems Problem Noted Date Vulvar intraepithelial neoplasia (SANG) grade 3 11/16/2018 Dental caries 04/17/2018 Overview: Added automatically from request for surgery [id number] Obesity (BMI 30-39.9) 03/19/2018 Bilateral lower extremity edema 07/14/2017 Lumbosacral spondylosis without myelopathy 03/16/2017 Overview: Added automatically from request for surgery [id number] Mixed hyperlipidemia 01/18/2017 Cirrhosis of liver without [...] 02/09/2015 Overview: Last Mammogram result 10/2016 at [facility] negative Cervical spondylosis without myelopathy 12/02/2013 Degeneration of lumbar or lumbosacral intervertebral disc 12/02/2013 Shoulder bursitis 02/07/2013 documented as of this encounter (statuses as of 04/17/2019) Resolved Problems Problem Noted Date Resolved Date Positive blood test 11/09/2018 11/14/2018 Papanicolaou smear of cervix with low grade squamous intraepithelial lesion 02/08/2015 12/14/2016 (LGSIL) Overview: Pos hi-risk HPV 2016. Needs colpo documented as of this encounter (statuses as of 04/17/2019) Immunizations Name Administration Dates Next Due HEP [...] Description Date Type Specialty Jay Jenkins MD [address] [place] [address] [id number] [place], [place] [id number] 04/26/2019 Office Visit Pain Medicine Nurse, Tool Setter 05/08/2019 Nurse Visit Endocrinology Diabetes & Metabolism Fer Thao MD [address] [place] [address] [phone] 05/27/2019 Office Visit Endocrinology Diabetes & Metabolism Nanci Cortez MD [address] [place] [phone] 06/03/2019 Office Visit Gynecologic Oncology Bonita Nguyen MD [address] [place] [address] [phone] 07/12/2019 Office Visit Gastroenterology Nurse, Transplant 08/12/2019 [...] Phone Address Plan / Dates Group Medicaid [facility] x[facility] 2016-P [facility] [address] [place] [address] documented as of this encounter Advance Directives Relationship Healthcare Agent Relationship Communication Name Father Primary healthcare agent Asa [place] Child First alternate healthcare agent Sandy Ornelas
--- OUTSIDE RECORDS SUMMARY | 2019-11-01 03:53 | XMS REPORT | Summary of Care ---
Author Author [facility] - Health Organization [facility] - Health Address Unknown Phone Unavailable Care Team Providers Care Him Director Name Role Phone Keiry Jaquez CNM Unavailable Unavailable Madisyn Dumont MD Unavailable McintoshJosef castro [address] Hansen RN Unavailable Unavailable Keiry Jaquez CNM PCP Unavailable Keiry Jaquez CNM Unavailable Unavailable Reason for Referral * MRI/CAT Scan (Routine) Referred By Contact Referred To Contact Status Reason Specialty Diagnoses / Procedures Jay Jenkins MD [address] [email or web address] [id number] [place] [id number] New Request Diagnostic Diagnoses Radiology Lumbosacral spondylosis without myelopathy P rocedures MR LUMBAR SPINE WO CONTRAST Reason for Visit * Reason Comments Pain Encounter Details Care Team Description Date Type Department Jay Jenkins MD [address] [facility] [email or web address] [id number] [place] [address] Lumbosacral spondylosis without myelopathy (Primary Dx); Bilateral sacroiliitis; Trochanteric bursitis of both hips 04/26/2019 Office Visit [facility] [address] [place] [phone] Allergies No Known Allergiesdocumented as of this [...] long-term current use of insulin Active Insulin [place], Use to inject 400 Each 1 Disposable, [...] Overview: Added automatically from request for surgery [id number] Obesity (BMI 30-39.9) 03/19/2018 Bilateral lower extremity edema 07/14/2017 Lumbosacral spondylosis without myelopathy 03/16/2017 Overview: Added automatically from request for surgery [id number] Mixed hyperlipidemia 01/18/2017 Cirrhosis of liver without [...] 02/09/2015 Overview: Last Mammogram result 10/2016 at [facility] negative Cervical spondylosis without [...] by mouth daily. 90 tablet 3 Insulin [place], Disposable, (BD ULTRAFINE III MINI PEN) 31 [...] Date Type Specialty Jay Jenkins MD [address] [address] [phone] 05/06/2019 Appointment Radiology Nurse, Hospice Plan Administrator 05/08/2019 Nurse Visit Endocrinology Diabetes & Metabolism Fer Thao MD [address] [place] [address] [phone] 05/27/2019 Office Visit Endocrinology Diabetes & Metabolism Jay Jenkins MD [address] [place] [address] [phone] 05/31/2019 Office Visit Pain Medicine Nanci Cortez MD [address] [place] [phone] 06/03/2019 Office Visit Gynecologic Oncology Bonita Nguyen MD [address] [place] [address] [phone] 07/12/2019 Office Visit Gastroenterology Nurse, Transplant 08/12/2019 [...] Phone Address Plan / Dates Group Medicaid [facility] xxxxxxxxx 2016-P P O [facility] [address] [place] [address] documented as of this encounter Advance Directives Relationship Healthcare Agent Relationship Communication Name Father Primary healthcare agent [place]a [place] Child First alternate healthcare agent Sandy Ornelas
--- OUTSIDE RECORDS SUMMARY | 2019-11-01 03:54 | XMS REPORT | Summary of Care ---
Author Author [facility] - Health Organization [facility] - Health Address Unknown Phone Unavailable Care Team Providers Care Tape Folding Machine Operator Name Role Phone Keiry Jaquez CNM Unavailable Unavailable Madisyn Dumont MD Unavailable Josef Mcintosh Antonio [address] Hansen RN Unavailable Unavailable Keiry Jaquez CNM PCP Unavailable Keiry Jaquez CNM Unavailable Unavailable Encounter Details Care Team Description Date Type Department Doctor Unassigned, [place] [address] [place] [address] 05/13/2019 Orders Only [address] [address] Allergies No Known Allergiesdocumented as of this encounter (statuses as of 05/13/2019) Medications End Date Status Medication Sig Dispensed [...] long-term current use of insulin Active Insulin [place], Use to inject 400 Each 1 Disposable, [...] as of this encounter (statuses as of 05/13/2019) Active Problems Problem Noted Date Portal vein thrombosis 05/06/2019 Anticoagulation management encounter 05/06/2019 Vulvar intraepithelial neoplasia (SANG) grade 3 11/16/2018 Dental caries 04/17/2018 Overview: Added automatically from request for surgery [id number] Obesity (BMI 30-39.9) 03/19/2018 Bilateral lower extremity edema 07/14/2017 Lumbosacral spondylosis without myelopathy 03/16/2017 Overview: Added automatically from request for surgery [id number] Mixed hyperlipidemia 01/18/2017 Cirrhosis of liver without [...] 02/09/2015 Overview: Last Mammogram result 10/2016 at [facility] negative Cervical spondylosis without myelopathy 12/02/2013 Degeneration of lumbar or lumbosacral intervertebral disc 12/02/2013 Shoulder bursitis 02/07/2013 documented as of this encounter (statuses as of 05/13/2019) Resolved Problems Problem Noted Date Resolved Date Positive blood test 11/09/2018 11/14/2018 Papanicolaou smear of cervix with low grade squamous intraepithelial lesion 02/08/2015 12/14/2016 (LGSIL) Overview: Pos hi-risk HPV 2016. Needs colpo documented as of this encounter (statuses as of 05/13/2019) Immunizations Name Administration Dates Next Due HEP [...] Treatment Care Team Description Date Type Specialty Nurse, Vtc Anticoag 05/13/2019 Nurse Visit Anti-coagulation Clinic Fer Thao MD [address] [place] [address] [phone] 05/27/2019 Office Visit Endocrinology Diabetes & Metabolism Bonita Nguyen MD [address] [place] [address] [phone] 05/27/2019 Appointment Radiology Jay Jenkins MD [address] [place] [id number] [place] [address] [phone] 05/31/2019 Office Visit Pain Medicine Nanci Cortez MD [address] [place] [phone] 06/03/2019 Office Visit Gynecologic Oncology Bonita Nguyen MD [address] [place] [address] [phone] 07/12/2019 Office Visit Gastroenterology Health Maintenance Due Date Last Done Comments [...] Comments Procedure Name Priority Date/Time Associated Diagnosis ASSIGNMENT OF BENEFITS Routine 05/13/2019 8:43 AM CDT documented in this encounter Results Not on filedocumented in this encounter Insurance Type Payer Benefit Subscriber ID Effective Phone Address Plan / Dates Group Medicaid [facility] xxxxxxxxx 2016-P P O [facility] [address] [place] [address] documented as of this encounter Advance Directives Relationship Healthcare Agent Relationship Communication Name Father Primary healthcare agent Asa [place] Child First alternate healthcare agent Sandy Ornelas
--- OUTSIDE RECORDS SUMMARY | 2019-11-01 03:54 | XMS REPORT | Summary of Care ---
Author Author [facility] - Health Organization [facility] - Health Address Unknown Phone Unavailable Care Team Providers Care Fish And Wildlife Warden Name Role Phone Keiry Jaquez CNM Unavailable Unavailable Madisyn Dumont MD Unavailable Josef Mcintosh Antonio [address] Isabel Hansen RN Unavailable Unavailable Keiry Jaquez CNM PCP Unavailable Keiry Jaquez CNM Unavailable Unavailable Encounter Details Care Team Description Date Type Department Doctor Unassigned, [place] [address] [place] [address] 04/24/2019 Orders Only [address] [address] Allergies No Known Allergiesdocumented as of this encounter (statuses as of 05/03/2019) Medications End Date Status Medication Sig Dispensed [...] long-term current use of insulin Active Insulin [place], Use to inject 400 Each 1 Disposable, [...] as of this encounter (statuses as of 05/03/2019) Active Problems Problem Noted Date Vulvar intraepithelial neoplasia (SANG) grade 3 11/16/2018 Dental caries 04/17/2018 Overview: Added automatically from request for surgery [id number] Obesity (BMI 30-39.9) 03/19/2018 Bilateral lower extremity edema 07/14/2017 Lumbosacral spondylosis without myelopathy 03/16/2017 Overview: Added automatically from request for surgery [id number] Mixed hyperlipidemia 01/18/2017 Cirrhosis of liver without [...] Overview: Last Mammogram result 10/2016 at [facility] negative Cervical spondylosis without myelopathy 12/02/2013 Degeneration of lumbar or lumbosacral intervertebral disc 12/02/2013 Shoulder bursitis 02/07/2013 documented as of this encounter (statuses as of 05/03/2019) Resolved Problems Problem Noted Date Resolved Date Positive blood test 11/09/2018 11/14/2018 Papanicolaou smear of cervix with low grade squamous intraepithelial lesion 02/08/2015 12/14/2016 (LGSIL) Overview: Pos hi-risk HPV 2016. Needs colpo documented as of this encounter (statuses as of 05/03/2019) Immunizations Name Administration Dates Next Due HEP [...] Date Type Specialty Jay Jenkins MD [address] [phone] 05/06/2019 Appointment Radiology Nurse, Vtc Anticoag 05/06/2019 Nurse Visit Anti-coagulation Clinic Nurse, Laundry Operator Wash Room 05/08/2019 Nurse Visit Endocrinology Diabetes & Metabolism Karla Tanner [address] [place], [place] [address]180 05/13/2019 Office Visit Ophthalmology Fer Thao MD [address] [place] [address] [phone] 05/27/2019 Office Visit Endocrinology Diabetes & Metabolism Bonita Nguyen MD [address] [place] [address] [phone] 05/27/2019 Appointment Radiology Jay Jenkins MD [address] [place] [address] [phone] 05/31/2019 Office Visit Pain Medicine Nanci Cortez MD [address] [place] [phone] 06/03/2019 Office Visit Gynecologic Oncology Bonita Nguyen MD [address] [place] [address] [phone] 07/12/2019 Office Visit Gastroenterology Nurse, Transplant 08/12/2019 [...] Comments Procedure Name Priority Date/Time Associated Diagnosis INSURANCE CORRESPONDENCE Routine 04/24/2019 12:01 AM CDT documented in this encounter Results Not on filedocumented in this encounter Insurance Type Payer Benefit Subscriber ID Effective Phone Address Plan / Dates Group Medicaid [facility]-P [facility] [address] [place] [address] documented as of this encounter Advance Directives Relationship Healthcare Agent Relationship Communication Name Father Primary healthcare agent Asa [place] Child First alternate healthcare agent Sandy Ornelas
--- OUTSIDE RECORDS SUMMARY | 2019-11-01 03:54 | XMS REPORT | Summary of Care ---
Author Author [facility] - Health Organization [facility] - Health Address Unknown Phone Unavailable Care Team Providers Care Glassware Selector Name Role Phone Keiry Jaquez CNM Unavailable Unavailable Madisyn Dumont MD Unavailable Josef Mcintosh [place] [address] Isabel Hansen RN Unavailable Unavailable Keiry Jaquez CNM PCP Unavailable Keiry Jaquez CNM Unavailable Unavailable Reason for Visit * Reason Comments PT/INR Encounter Details Care Team Description Date Type Department Salazar Cruz MD [address] [place] [address] Nurse, Dolores Araujo Portal vein thrombosis; Anticoagulation management encounter 05/06/2019 Nurse Visit [id number] Multispecialty Ctr [facility] [address] [place] [address] Allergies No Known Allergiesdocumented as of this encounter (statuses as of 05/06/2019) Medications End Date Status Medication Sig Dispensed [...] long-term current use of insulin Active Insulin [place], Use to inject 400 Each 1 Disposable, [...] as of this encounter (statuses as of 05/06/2019) Active Problems Problem Noted Date Portal vein thrombosis 05/06/2019 Anticoagulation management encounter 05/06/2019 Vulvar intraepithelial neoplasia (SANG) grade 3 11/16/2018 Dental caries 04/17/2018 Overview: Added automatically from request for surgery [id number] Obesity (BMI 30-39.9) 03/19/2018 Bilateral lower extremity edema 07/14/2017 Lumbosacral spondylosis without myelopathy 03/16/2017 Overview: Added automatically from request for surgery [id number] Mixed hyperlipidemia 01/18/2017 Cirrhosis of liver without [...] 02/09/2015 Overview: Last Mammogram result 10/2016 at [facility] negative Cervical spondylosis without myelopathy 12/02/2013 Degeneration of lumbar or lumbosacral intervertebral disc 12/02/2013 Shoulder bursitis 02/07/2013 documented as of this encounter (statuses as of 05/06/2019) Resolved Problems Problem Noted Date Resolved Date Positive blood test 11/09/2018 11/14/2018 Papanicolaou smear of cervix with low grade squamous intraepithelial lesion 02/08/2015 12/14/2016 (LGSIL) Overview: Pos hi-risk HPV 2016. Needs colpo documented as of this encounter (statuses as of 05/06/2019) Immunizations Name Administration Dates Next Due HEP [...] Signs Not on filedocumented in this encounter Patient Instructions * Patient Instructions* Bhargavi Marin RN - 05/06/2019 1:00 PM CDT Change in Warfarin (Coumadin) dose: increase dose to 10 mg per week (1 mg tablet s - pink) Monday: 1 mg Monday: 2 mg ( 2 tablets ) Monday: 1 mg Monday: 2 mg ( 2 tablets ) : 1 mg Monday: 2 mg ( 2 tablets ) Monday: 1 mg Repeat above schedule until you return for your next visit. Because you are taking warfarin it is important that you get immediate medical a ttention if you develop any signs or symptoms of bleeding. Also, if you should f all and hit your head you must be evaluated immediately at the emergency room wh ere they may do a CT scan to rule out a subdural hematoma or other internal blee ding event. You may have bleeding you cannot see which may be fatal. Please make sure you tell your loved ones about this warning. For your safety, please remember to call the [facility] if any of your curr ent medications change dose, if you get new medications, or if medications are s topped. There may be interactions with medications that will increase your risk of bleeding or forming blood clots. When you call the clinic ([phone]) we will advise you if your INR should be checked sooner than your next scheduled a ppointment or you may need to adjust your Vitamin K food intake. [facility] Contact Information [facility] Bhargavi [phone] [email or web address] Ari Beasley [phone] [email or web address] Jesus Noel [phone] [email or web address] To schedule appts - [phone] Emergency Dial 911 or go to the nearest Emergency Room The following information was discussed and a written copy was given to the [facility] ent. ANTI-COAGULATION CLINIC - INFORMATION SHEET 1. Take Coumadin at the same time each day. 2. Keep scheduled appointments at the clinic. 3. Be alert for any signs of bleeding. 4. Avoid aspirin products. 5. Avoid foods high in vitamin K. 6. Inform staff of any medication or dietary changes. 7. Avoid/limit alcoholic intake. 8. Be safety conscious to avoid accidents and injury. Remember to report any of the following to your physician or nurse: 1. Nosebleeds 2. Bleeding from the mouth or gums 3. Coughing up blood 4. Blood in urine or stool 5. Abnormal vaginal bleeding 6. Easy bruising 7. Cuts that will not stop bleeding Important phone numbers: - [phone] Evenings, night, or weekends - call your physician, Keiry Jaquez or go to the nearest ER facility. Common aspirin containing products: Dahlia-Rock Empirin Anacin/Excedrin Ascriptin Fiorinal Aspergum Bromo Rock Midol/Bufferin Nytol Charisma Percodanatalie Coricidin Pepto-Bismol Sominex Vanquish Congesprin BC Powder Always read the labels of all medications before you take them. If you see any of the following ingredients listed, do not take that medication unless specific ally instructed to do so by your physician who is aware that you are taking Coum carine. Aspirin, Salicylate, Acetylsalicylic acid, or ASA documented in this encounter Progress Notes * Bhargavi Marin RN - 05/06/2019 1:00 PM CDT ANTI-COAGULATION CLINIC NOTE Anti-Coagulation diagnosis: ICD-10-CM ICD-9-CM 1. Portal vein thrombosis I81 452 2. Anticoagulation management encounter Z51.81 V58.83 Z79. V58.61 Warfarin (Coumadin) dose: 7 mg per week Monday: 1 mg Monday: 1 mg Monday: 1 mg Monday: 1 mg : 1 mg Monday: 1 mg Monday: 1 mg Cognitive assessment: alert and oriented times 3 Finger stick performed using aseptic technique, sticking left hand, middle finge r, and CoaguChek XS machine [id number] was used. Blood sample was obtained; Band aid was applied. Strip used today lot number: [id number] No results found for: PATPT No results found for: PTSEC Anti-Coagulation diagnosis: ICD-10-CM ICD-9-CM 1. Portal vein thrombosis I81 452 2. Anticoagulation management encounter Z51.81 V58.83 Z79. V58.61 Duration of Anticoagulation Therapy As of 05/06/2019 TTR: Target end date: Target Range As of 05/06/2019 INR goal: 2.0-3.0 TTR: PT/INR less than therapeutic range Pt is new to warfarin and has not yet reached a stable state. Pt received into the Anticoagulation Clinic referred by . Informed of the Clinic procedures and protocols. Comprehensive education was discussed for 45-60 minutes according to established Clinic guidelines. The following written material was given: A Patient's Guide to Using Coumadin/Warfarin-UTMB, Vit K Con tent of Common Foods and the Anticoagulation Information sheet. Patient showe d a readiness to learn. Expressed an understanding of all of the above informati on and agreed to be seen the in this Clinic and follow the guidelines. Pt states she was started on warfarin at the beginning of January for Portal Vein T hrombosis by . Pt's INR today is 1.2. Patient states she has taken warf efrain 7 mg in the last week. Will increase warfarin from 7 mg to 10 mg weekly dose. Will recheck INR in 1 week as patient is not able to come any sooner. Reviewed the need for consistent and accurate dosing of warfarin and consistent intake of high Vit K foods in order to reduce the risk for blood clots, stroke, or bleeding event. Pt will review and reconcile medication list at next PCP appointment. Patient verbalized understanding and agreement with the plan of care. Change in Warfarin dose: increase dose to 10 mg per week Monday: 1 mg Monday: 2 mg Monday: 1 mg Monday: 2 mg : 1 mg Monday: 2 mg Monday: 1 mg Patient notified: yes Patient verbalized understanding and agreement with the plan of care. Patient was provided with written and verbal educational information on 2018 regarding the interaction of warfarin with various foods and medicatio ns as part of ongoing education within the AntiCoagulation Clinic. Patient mohit ws readiness to learn. Patient is able to read and verbalizes understanding of teaching provided and is provided a printed after visit summary (AVS) documentin g the visit, pertinent patient instructions and follow-up recommendations. documented in this encounter Plan of Treatment Care Team Description Date Type Specialty Nurse, Batteryman 05/08/2019 Nurse Visit Endocrinology Diabetes & Metabolism Jay Jenkins MD [address] [facility] [id number] [place], [place] [address] 05/13/2019 Appointment Radiology Karla Tanner [address] [place], [place] [phone] 05/13/2019 Office Visit Ophthalmology Nurse, Ohmark Araujo 05/13/2019 Nurse Visit Anti-coagulation Clinic Fer Thao MD [address] [place] [address] [phone] 05/27/2019 Office Visit Endocrinology Diabetes & Metabolism Bonita Nguyen MD [address] [place] [address] [phone] 05/27/2019 Appointment Radiology Jay Jenkins MD [address] [facility] [id number] [place] [address] [phone] 05/31/2019 Office Visit Pain Medicine Nanci Cortez MD [address] [place] [phone] 06/03/2019 Office Visit Gynecologic Oncology Bonita Nguyen MD [address] [place] [address] [phone] 07/12/2019 Office Visit Gastroenterology Nurse, Transplant 08/12/2019 Nurse Visit Surgery Order Schedule Name Type Priority Associated Diagnoses 50 Occurrences starting 05/06/2019 until 05/05/2022, 1 completed POCT PT/INR(COAGUCHEK) LAB Routine Portal vein thrombosis Anticoagulation management encounter Health Maintenance Due Date Last Done Comments [...] Procedure Name Priority Date/Time Associated Diagnosis POCT PT/INR(COAGUCHEK) Routine 05/06/2019 Portal vein thrombosis Anticoagulation management encounter documented in this encounter Results * POCT PT/INR(COAGUCHEK) (05/06/2019) POCT PT/INR 1.2 0.8 - 1.4 INR POCT PT/SEC 14.9 SEC Specimen Blood - CAPILLARY documented in this encounter Visit Diagnoses Diagnosis Portal vein thrombosis Anticoagulation management encounter Encounter for therapeutic drug monitoring documented in this encounter Insurance Type Payer Benefit Subscriber ID Effective Phone Address Plan / Dates Group Medicaid [facility]-P [facility] [address] [place] [address] documented as of this encounter Advance Directives Relationship Healthcare Agent Relationship Communication Name Father Primary healthcare agent Asa Mills Child First alternate healthcare agent Sandy Ornelas
--- OUTSIDE RECORDS SUMMARY | 2019-11-01 03:54 | XMS REPORT | Summary of Care ---
Author Author [facility] - Health Organization [facility] - Health Address Unknown Phone Unavailable Care Team Providers Care Dust Collector Operator Name Role Phone Keiry Jaquez CNM Unavailable Unavailable Madisyn Dumont MD Unavailable Josef Mcintosh [place] [address] Isabel Hansen RN Unavailable Unavailable Keiry Jaquez CNM PCP Unavailable Keiry Jaquez CNM Unavailable Unavailable Encounter Details Care Team Description Date Type Department Doctor Unassigned, [place]az[place] [address] [place] [address] 05/01/2019 Patient Secure [facility] [employer] Messages Msg [address] [place] [phone] Allergies No Known Allergiesdocumented as of this encounter (statuses as of 05/01/2019) Medications End Date Status Medication Sig Dispensed [...] long-term current use of insulin Active Insulin [place], Use to inject 400 Each 1 Disposable, [...] METER Use to check 1 Each 0 [facility] glucose 3X 9 daily. DX:E11.40 Active traMADol [...] as of this encounter (statuses as of 05/01/2019) Active Problems Problem Noted Date Vulvar intraepithelial neoplasia (SANG) grade 3 11/16/2018 Dental caries 04/17/2018 Overview: Added automatically from request for surgery [id number] Obesity (BMI 30-39.9) 03/19/2018 Bilateral lower extremity edema 07/14/2017 Lumbosacral spondylosis without myelopathy 03/16/2017 Overview: Added automatically from request for surgery [id number] Mixed hyperlipidemia 01/18/2017 Cirrhosis of liver without [...] as of this encounter (statuses as of 05/01/2019) Resolved Problems Problem Noted Date Resolved Date Positive blood test 11/09/2018 11/14/2018 Papanicolaou smear of cervix with low grade squamous intraepithelial lesion 02/08/2015 12/14/2016 (LGSIL) Overview: Pos hi-risk HPV 2016. Needs colpo documented as of this encounter (statuses as of 05/01/2019) Immunizations Name Administration Dates Next Due HEP [...] Description Date Type Specialty Jay Jenkins MD [address] [place] [address] [phone] 05/06/2019 Appointment Radiology Nurse, Esl Instructional Assistant 05/08/2019 Nurse Visit Endocrinology Diabetes & Metabolism Fer Thao MD [address] [place] [address] [phone] 05/27/2019 Office Visit Endocrinology Diabetes & Metabolism Jay Jenkins MD [address] [place] [phone] 05/31/2019 Office Visit Pain Medicine Nanci Cortez MD [address] [place] [phone] 06/03/2019 Office Visit Gynecologic Oncology Bonita Nguyen MD [address] [place] [address] [phone] 07/12/2019 Office Visit Gastroenterology Nurse, Transplant 08/12/2019 [...] Phone Address Plan / Dates Group Medicaid [facility] [employer] xxxxxxxxx 2016-P P O [facility] [address] [place] [address] documented as of this encounter Advance Directives Relationship Healthcare Agent Relationship Communication Name Father Primary healthcare agent Asa Mills Child First alternate healthcare agent Sandy Ornelas
--- OUTSIDE RECORDS SUMMARY | 2019-11-01 03:54 | XMS REPORT | Summary of Care ---
Author Author [facility] - Health Organization [facility] - Health Address Unknown Phone Unavailable Care Team Providers Care Half Section Ironer Name Role Phone Keiry Jaquez CNM Unavailable Unavailable Madisyn Dumont MD Unavailable Josef Mcintosh [place] [address] Isabel Hansen RN Unavailable Unavailable Keiry Jaquez CNM PCP Unavailable Keiry Jaquez CNM Unavailable Unavailable Encounter Details Care Team Description Date Type Department Doctor Unassigned, [place] [address] [place] [address] 02/21/2019 Orders Only [address] [address] Allergies No Known Allergiesdocumented as of this [...] long-term current use of insulin Active Insulin [place], Use to inject 400 Each 1 Disposable, [...] mouth 9 cirrhosis of liver every evening. documented as of this encounter (statuses as of 05/03/2019) Active Problems Problem Noted Date Vulvar intraepithelial neoplasia (SANG) grade 3 11/16/2018 Dental caries 04/17/2018 Overview: Added automatically from request for surgery [id number] Obesity (BMI 30-39.9) 03/19/2018 Bilateral lower extremity edema 07/14/2017 Lumbosacral spondylosis without myelopathy 03/16/2017 Overview: Added automatically from request for surgery [id number] Mixed hyperlipidemia 01/18/2017 Cirrhosis of liver without [...] Dates Next Due HEP B, Adult Dosage 11/16/2017, 07/13/2017, 03/20/2017, 01/09/2017 Hep B, Dialysis [...] Date Type Specialty Jay Jenkins MD [address] [phone] 05/06/2019 Appointment Radiology Nurse, Coc Anticoag 05/06/2019 Nurse Visit Anti-coagulation Clinic Nurse, Coagulant Dipper 05/08/2019 Nurse Visit Endocrinology Diabetes & Metabolism Karla Tanner [address] [place], [place] [phone] 05/13/2019 Office Visit Ophthalmology Fer Thao MD [address] [place] [phone] 05/27/2019 Office Visit Endocrinology Diabetes & Metabolism Bonita Nguyen MD [address] [place] [phone] 05/27/2019 Appointment Radiology Jay Jenkins MD [address] [phone] 05/31/2019 Office Visit Pain Medicine Nanci Cortez MD [address] [place] [phone] 06/03/2019 Office Visit Gynecologic Oncology Bonita Nguyen MD [address] [place] [address] [phone] 07/12/2019 Office Visit Gastroenterology Nurse, Transplant 08/12/2019 [...] Priority Date/Time Associated Diagnosis INSURANCE CORRESPONDENCE Routine 02/21/2019 12:01 AM CDT documented in this encounter Results Not on filedocumented in this encounter Insurance Type Payer Benefit Subscriber ID Effective Phone Address Plan / Dates Group Medicaid [facility] x[facility]-P [address] [place] [facility] [address] [place] [address] documented as of this encounter Advance Directives Relationship Healthcare Agent Relationship Communication Name Father Primary healthcare agent Asa Mills Child First alternate healthcare agent Sandy Ornelas
--- OUTSIDE RECORDS SUMMARY | 2019-11-01 03:54 | XMS REPORT | Summary of Care ---
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 documented as of this encounter (statuses as of 04/30/2019) Active Problems Problem Noted Date Vulvar intraepithelial neoplasia (SANG) grade 3 11/16/2018 Dental caries 04/17/2018 Overview: Added automatically from request for surgery [id number] Obesity (BMI 30-39.9) 03/19/2018 Bilateral lower extremity edema 07/14/2017 Lumbosacral spondylosis without myelopathy 03/16/2017 Overview: Added automatically from request for surgery [id number] Mixed hyperlipidemia 01/18/2017 Cirrhosis of liver without [...] 02/09/2015 Overview: Last Mammogram result 10/2016 at [facility] negative Cervical spondylosis without myelopathy [...] Hepatitis C - November Nancy et al. [place] [employer], August 2014) Although HCV-related [...] and you can start right now. Maddison [email or web address] documented in this encounter Progress Notes * Bonita Nguyen MD - 04/12/2019 11:00 AM CDT TRANSPLANT HEPATOLOGY FOLLOW-UP CLINIC NOTE - [facility] Location MELD-Na score: 9 as of 01/18/19 [...] months. When we entered the room to rachel lee the information her daughter told us [...] by mouth daily. 90 tablet 3 Insulin [place], Disposable, (BD ULTRAFINE III MINI PEN) 31 [...] for Pain (scale 4-6) or Alternate with [place] for pain scale 1-3. 30 tablet 1 [...] file Gets together: Not on file Attends spiritism service: Not on file Active member of [...] tablet, Rfl: 2 TRUE METRIX GLUCOSE METER [facility], Use to check glucose 3X daily. DX:E11.40, [...] Disp: 90 tablet, Rf l: 3 Insulin [place], Disposable, (BD ULTRAFINE III MINI PEN) 31 [...] for Pain (scale 4-6) or Alternate with [place] for pain scale 1-3., Disp: 30 ta blet, Rfl: 1 valproic acid 250 mg capsule, Take 1 capsule by mouth daily., Disp: , Rfl: Lancets (LANCETS,ULTRA THIN) [facility], Use as directed, Disp: 200 Each, Rfl: [...] Bonita Nguyen MD Gastroenterology/ Transplant Hepatology Pager [phone] 04/12/2019 11:31 * Deyanira Sweeney MA - [...] Date Type Specialty Jay Jenkins MD [address] [facility] [id number] [place] [address] [phone] 05/06/2019 Appointment Radiology Nurse, Trim Stencil Maker 05/08/2019 Nurse Visit Endocrinology Diabetes & Metabolism Fer Thao MD [address] [place] [address] [phone] 05/27/2019 Office Visit Endocrinology Diabetes & Metabolism Jay Jenkins MD [address] [facility] [id number] [place] [address] [phone] 05/31/2019 Office Visit Pain Medicine Nanci Cortez MD [address] [place] [phone] 06/03/2019 Office Visit Gynecologic Oncology Bonita Nguyen MD [address] [place] [address] [phone] 07/12/2019 Office Visit Gastroenterology Nurse, Transplant 08/12/2019 [...] Plan / Dates Group Medicaid [employer] xxxxxxxxx 2016-P P O [address] [address] documented as of this encounter Advance Directives Relationship Healthcare Agent Relationship Communication Name Father Primary healthcare agent Asa Mills Child First alternate healthcare agent Sandy Ornelas
--- OUTSIDE RECORDS SUMMARY | 2019-11-01 03:54 | XMS REPORT | Summary of Care ---
Author Author [facility] - Health Organization [facility] - Health Address Unknown Phone Unavailable Care Team Providers Care Blade Operator Name Role Phone Keiry Jaquez CNM Unavailable Unavailable Madisyn Dumont MD Unavailable McintoshJosef castro [address] Hansen RN Unavailable Unavailable Keiry Jaquez CNM PCP Unavailable Keiry Jaquez CNM Unavailable Unavailable Reason for Referral * MRI/CAT Scan (Routine) Referred By Contact Referred To Contact Status Reason Specialty Diagnoses / Procedures Bonita Nguyen MD [address] [place] [phone] New Request Diagnostic Diagnoses Radiology 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 Pre-liver transplant, listed P rocedures CT ABDOMEN PELVIS W WO CONTRAST Reason for Visit * Reason Comments Pre-Transplant Orders Encounter Details Care Team Description Date Type Department Bonita Nguyen MD [address] [place] [phone] Pre-Transplant; Orders 04/30/2019 [facility] [address] [place] [phone] Allergies No Known Allergiesdocumented as of [...] long-term current use of insulin Active Insulin [place], Use to inject 400 Each 1 Disposable, [...] Take 30 mL by 1892 mL 11 04/12/ gram/15 mL solution mouth 2 (two) 9 times daily. documented as of this encounter (statuses as of 04/30/2019) Active Problems Problem Noted Date Vulvar intraepithelial neoplasia (SANG) grade 3 11/16/2018 Dental caries 04/17/2018 Overview: Added automatically from request for surgery [id number] Obesity (BMI 30-39.9) 03/19/2018 Bilateral lower extremity edema 07/14/2017 Lumbosacral spondylosis without myelopathy 03/16/2017 Overview: Added automatically from request for surgery [id number] Mixed hyperlipidemia 01/18/2017 Cirrhosis of liver without [...] 02/09/2015 Overview: Last Mammogram result 10/2016 at [facility] negative Cervical spondylosis without myelopathy 12/02/2013 [...] Description Date Type Specialty Jay Jenkins MD [address] [place] [address] [phone] 05/06/2019 Appointment Radiology Nurse, Tape Sewer 05/08/2019 Nurse Visit Endocrinology Diabetes & Metabolism Fer Thao MD [address] [place] [address] [phone] 05/27/2019 Office Visit Endocrinology Diabetes & Metabolism Jay Jenkins MD [address] [place] [address] [phone] 05/31/2019 Office Visit Pain Medicine Nanci Cortez MD [address] [place] [phone] 06/03/2019 Office Visit Gynecologic Oncology Bonita Nguyen MD [address] [place] [address] [phone] 07/12/2019 Office Visit Gastroenterology Nurse, Transplant 08/12/2019 Nurse Visit Surgery Order Schedule Name Type Priority Associated Diagnoses Expected: 04/30/2019, Expires: 04/30/2020 CT ABDOMEN PELVIS W WO IMAGING Routine Liver cirrhosis secondary CONTRAST to GRAJEDA Pre-liver transplant, listed Health Maintenance Due Date [...] - Primary Other chronic nonalcoholic liver disease Pre-liver transplant, listed documented in this encounter Insurance Type Payer Benefit Subscriber ID Effective Phone Address Plan / Dates Group Medicaid [facility] [employer] xxxxxxxxx 2016-P [address] [facility] [address] [place] [address] documented as of this encounter Advance Directives Relationship Healthcare Agent Relationship Communication Name Father Primary healthcare agent Asa Mills Child First alternate healthcare agent Sandy Ornelas
--- OUTSIDE RECORDS SUMMARY | 2019-11-01 03:55 | XMS REPORT | Summary of Care ---
Author Author [facility] - Health Organization [facility] - Health Address Unknown Phone Unavailable Care Team Providers Care Public Records Researcher Name Role Phone Keiry Jaquez CNM Unavailable Unavailable Madisyn Dumont MD Unavailable Unavailable Josef Mcintosh [place] [address] Isabel Hansen RN Unavailable Unavailable Keiry Jaquez CNM PCP Unavailable Keiry Jaquez CNM Unavailable Unavailable Reason for Visit * Reason Comments Refill Request Encounter Details Care Team Description Date Type Department Mariana Woodruff, HEAD FILTER PRESS TENDER [address] [place], [place] [phone] Refill Request 05/17/2019 Refill [facility] [address] [place] [phone] Allergies No Known Allergiesdocumented as of this encounter (statuses as of 05/17/2019) Medications End Date Status Medication Sig Dispensed [...] long-term current use of insulin Active Insulin [place], Use to inject 400 Each 1 Disposable, (BD ULTRAFINE insulin 4X 9 III MINI PEN) 31 gauge x daily. 11/10" NdleIndications: DX:E11.65 Uncontrolled type 2 diabetes mellitus with complication, without long-term current use of insulin Active furosemide 40 mg tablet Take 1 tablet 90 tablet 3 by mouth 9 daily. Active fluorouracil 5 % Insert 1 gram [...] solution mouth 2 (two) 9 times daily. Active warfarin (COUMADIN) 1 mg Take as 90 tablet 0 tabletIndications: Other directed by 9 cirrhosis of liver [facility] based on INR results. Active HUMALOG KWIKPEN INSULIN ADMINISTER 22 60 mL 1 100 unit/mL injection UNITS UNDER 9 THE SKIN THREE TIMES DAILY BEFORE MEALS documented as of this encounter (statuses as of 05/17/2019) Active Problems Problem Noted Date Portal vein thrombosis 05/06/2019 Anticoagulation management encounter 05/06/2019 Vulvar intraepithelial neoplasia (SANG) grade 3 11/16/2018 Dental caries 04/17/2018 Overview: Added automatically from request for surgery [id number] Obesity (BMI 30-39.9) 03/19/2018 Bilateral lower extremity edema 07/14/2017 Lumbosacral spondylosis without myelopathy 03/16/2017 Overview: Added automatically from request for surgery [id number] Mixed hyperlipidemia 01/18/2017 Cirrhosis of liver without [...] 02/09/2015 Overview: Last Mammogram result 10/2016 at [facility] negative Cervical spondylosis without myelopathy 12/02/2013 Degeneration of lumbar or lumbosacral intervertebral disc 12/02/2013 Shoulder bursitis 02/07/2013 documented as of this encounter (statuses as of 05/17/2019) Resolved Problems Problem Noted Date Resolved Date Positive blood test 11/09/2018 11/14/2018 Papanicolaou smear of cervix with low grade squamous intraepithelial lesion 02/08/2015 12/14/2016 (LGSIL) Overview: Pos hi-risk HPV 2016. Needs colpo documented as of this encounter (statuses as of 05/17/2019) Immunizations Name Administration Dates Next Due HEP [...] Care Team Description Date Type Specialty Nurse, [facility] Antico 05/20/2019 Nurse Visit Anti-coagulation Clinic Fer Thao MD [address] [place] [address] [phone] 05/27/2019 Office Visit Endocrinology Diabetes & Metabolism Bonita Nguyen MD [address] [place] [address] [phone] 05/27/2019 Appointment Radiology Jay Jenkins MD [address] [place] [id number] [place] [address] [phone] 05/31/2019 Office Visit Pain Medicine Nanci Cortez MD [address] [place] [phone] 06/03/2019 Office Visit Gynecologic Oncology Bonita Nguyen MD [address] [place] [address] [phone] 07/12/2019 Office Visit Gastroenterology Health Maintenance Due [...] Phone Address Plan / Dates Group Medicaid [facility] [employer] xxxxxxxxx 2016-P [address] [place] [facility] [address] [place] [address] documented as of this encounter Advance Directives Relationship Healthcare Agent Relationship Communication Name Father Primary healthcare agent Asa Mills Child First alternate healthcare agent Sandy Ornelas
--- OUTSIDE RECORDS SUMMARY | 2019-11-01 03:55 | XMS REPORT | Summary of Care ---
Author Author [facility] - Health Organization [facility] - Health Address Unknown Phone Unavailable Care Team Providers Care International Guest Coordinator Name Role Phone Keiry Jaquez CNM Unavailable Unavailable Madisyn Dumont MD Unavailable McintoshJosef Antonio [address] Isabel Hansen RN Unavailable Unavailable Keiry Jaquez CNM PCP Unavailable Keiry Jaquez CNM Unavailable Unavailable Reason for Referral * MRI/CAT Scan (Routine) Referred By Contact Referred To Contact Status Reason Specialty Diagnoses / Procedures Jay Jenkins MD [address] [place] [address] Closed Diagnostic Diagnoses Radiology Lumbosacral spondylosis without myelopathy P rocedures MR LUMBAR SPINE WO CONTRAST * MRI/CAT Scan (Routine) Referred By Contact Referred To Contact Status Reason Specialty Diagnoses / Procedures Jay Jenkins MD [address] [place] [address] Closed Diagnostic Diagnoses Radiology Lumbosacral spondylosis without myelopathy P rocedures MR LUMBAR SPINE WO CONTRAST Reason for Visit * MRI/CAT Scan (Routine) Referred By Contact Referred To Contact Status Reason Specialty Diagnoses / Procedures Jay Jenkins MD [address] [place] [address] Closed Diagnostic Diagnoses Radiology Lumbosacral spondylosis without myelopathy P rocedures MR LUMBAR SPINE WO CONTRAST Encounter Details Care Team Description Date Type Department Jay Jenkins MD [id number] [place], [place] [phone] Arrived 05/13/2019 [facility] Diagnostic Encounter Imaging, [facility] [address] [place] [phone] Allergies No Known Allergiesdocumented as of this encounter (statuses as of 05/14/2019) Medications End Date Status Medication Sig Dispensed [...] long-term current use of insulin Active Insulin [place], Use to inject 400 Each 1 Disposable, [...] liver [facility] based on INR results. documented as of this encounter (statuses as of 05/14/2019) Active Problems Problem Noted Date Portal vein thrombosis 05/06/2019 Anticoagulation management encounter 05/06/2019 Vulvar intraepithelial neoplasia (SANG) grade 3 11/16/2018 Dental caries 04/17/2018 Overview: Added automatically from request for surgery [id number] Obesity (BMI 30-39.9) 03/19/2018 Bilateral lower extremity edema 07/14/2017 Lumbosacral spondylosis without myelopathy 03/16/2017 Overview: Added automatically from request for surgery [id number] Mixed hyperlipidemia 01/18/2017 Cirrhosis of liver without [...] 02/09/2015 Overview: Last Mammogram result 10/2016 at [facility] negative Cervical spondylosis without myelopathy 12/02/2013 Degeneration of lumbar or lumbosacral intervertebral disc 12/02/2013 Shoulder bursitis 02/07/2013 documented as of this encounter (statuses as of 05/14/2019) Resolved Problems Problem Noted Date Resolved Date Positive blood test 11/09/2018 11/14/2018 Papanicolaou smear of cervix with low grade squamous intraepithelial lesion 02/08/2015 12/14/2016 (LGSIL) Overview: Pos hi-risk HPV 2016. Needs colpo documented as of this encounter (statuses as of 05/14/2019) Immunizations Name Administration Dates Next Due HEP [...] Care Team Description Date Type Specialty Nurse, Dol[facility] Anticoashleigh 05/20/2019 Nurse Visit Anti-coagulation Clinic Fer Thao MD [address] [place] [address] [phone] 05/27/2019 Office Visit Endocrinology Diabetes & Metabolism Bonita Nguyen MD [address] [place] [address] [phone] 05/27/2019 Appointment Radiology Jay Jenkins MD [address] [facility] [id number] [place] [address] [phone] 05/31/2019 Office Visit Pain Medicine Nanci Cortez MD [address] [place] [phone] 06/03/2019 Office Visit Gynecologic Oncology Bonita Nguyen MD [address] [place] [address] [phone] 07/12/2019 Office Visit Gastroenterology Health Maintenance Due [...] Comments Procedure Name Priority Date/Time Associated Diagnosis MR LUMBAR SPINE WO Routine 05/13/2019 Lumbosacral spondylosis CONTRAST 9:21 AM CDT without myelopathy documented in this encounter Results * MR LUMBAR SPINE WO CONTRAST (05/13/2019 9:21 AM CDT) Specimen Impressions Performed At Moderate spondylosis and spondyloarthropathy at L5-S1 contributing to mild PACS/VR/DOSE spinal canal stenosis and subarticular zones narrowing with potential impingement on the descending S1 nerve roots, grossly unchanged from the comparison scan. Mild spondylosis at L3-L4 and L4-L5 result in no more than mild spinal canal stenosis at L4-L5. Narrative Performed At * * * * * * * * ORIGINAL REPORT * * * * * * * * PACS/VR/DOSE EXAM: MR LUMBAR SPINE WO CONTRAST HISTORY: Back pain, > 6wks conservative tx, persistent sx TECHNIQUE: MRI of lumbar spine was performed on 1.5 [place] without intravenous contrast. COMPARISON: Lumbar spine MRI dated 03/25/2017. FINDINGS: Transitional lumbosacral anatomy noted likely due to lumbarization of S1. There is straightening of lumbar lordosis. The vertebral bodies are normal in height and alignment. Moderate disc space narrowing with Modic type I endplate degenerative changes are redemonstrated at L5-S1. The background bone marrow signal is otherwise unremarkable. Lumbar discs are otherwise normal in height and signal intensity. The conus medullaris terminates at L2 and is normal. The cauda equina nerve roots are unremarkable. At L1-L2 and L2-L3, mild bilateral ligamentum flavum hypertrophy. No high-grade spinal canal stenosis or significant neural foraminal narrowing. At L3-L4, mild diffuse disc bulge with mild facet arthrosis and ligamentum flavum thickening noted. No high-grade spinal canal stenosis or significant neural foraminal narrowing. At L4-L5, there is diffuse disc bulge with mild facet arthrosis and ligamentum flavum thickening results in mild bilateral neural foraminal narrowing and mild spinal canal stenosis. At L5-S1, there is diffuse disc bulge with superimposed central disc extrusion associated with moderate facet arthrosis and ligamentum flavum thickening resulting in mild spinal canal stenosis and subarticular zones narrowing with potential impingement on the descending bilateral S1 nerve roots. Moderate to severe bilateral neural foraminal narrowing noted. The paraspinal soft tissues are unremarkable. Procedure Note [facility], Radiant Results Inft User - 05/13/2019 9:34 AM CDT * * * * * * * * ORIGINAL REPORT * * * * * * * * EXAM: MR LUMBAR SPINE WO CONTRAST HISTORY: Back pain, > 6wks conservative tx, persistent sx TECHNIQUE: MRI of lumbar spine was performed on 1.5 [place] without intravenous contrast. COMPARISON: Lumbar spine MRI dated 03/25/2017. FINDINGS: Transitional lumbosacral anatomy noted likely due to lumbarization of S1. There is straightening of lumbar lordosis. The vertebral bodies are normal in height and alignment. Moderate disc space narrowing with Modic type I endplate degenerative changes are redemonstrated at L5-S1. The background bone marrow signal is otherwise unremarkable. Lumbar discs are otherwise normal in height and signal intensity. The conus medullaris terminates at L2 and is normal. The cauda equina nerve roots are unremarkable. At L1-L2 and L2-L3, mild bilateral ligamentum flavum hypertrophy. No high-grade spinal canal stenosis or significant neural foraminal narrowing. At L3-L4, mild diffuse disc bulge with mild facet arthrosis and ligamentum flavum thickening noted. No high-grade spinal canal stenosis or significant neural foraminal narrowing. At L4-L5, there is diffuse disc bulge with mild facet arthrosis and ligamentum flavum thickening results in mild bilateral neural foraminal narrowing and mild spinal canal stenosis. At L5-S1, there is diffuse disc bulge with superimposed central disc extrusion associated with moderate facet arthrosis and ligamentum flavum thickening resulting in mild spinal canal stenosis and subarticular zones narrowing with potential impingement on the descending bilateral S1 nerve roots. Moderate to severe bilateral neural foraminal narrowing noted. The paraspinal soft tissues are unremarkable. IMPRESSION Moderate spondylosis and spondyloarthropathy at L5-S1 contributing to mild spinal canal stenosis and subarticular zones narrowing with potential impingement on the descending S1 nerve roots, grossly unchanged from the comparison scan. Mild spondylosis at L3-L4 and L4-L5 result in no more than mild spinal canal stenosis at L4-L5. Performing Organization Address City/State/Zipcode Phone Number PACS/VR/DOSE documented in this encounter Visit Diagnoses Diagnosis Lumbosacral spondylosis without myelopathy documented in this encounter Insurance Type Payer Benefit Subscriber ID Effective Phone Address Plan / Dates Group [facility]-P P O [facility] [address] [place] [address] documented as of this encounter Advance Directives Relationship Healthcare Agent Relationship Communication Name Father Primary healthcare agent Asa Mills Child First alternate healthcare agent Sandy Ornelas
--- OUTSIDE RECORDS SUMMARY | 2019-11-01 03:55 | XMS REPORT | Clinical Summary ---
Author Author [facility] - Health Organization [facility] - Health Address Unknown Phone Unavailable Care Team Providers Care Academic Affairs Manager Name Role Phone Keiry Jaquez CNM [...] long-term current use of insulin Active Insulin Cut Off, Use to inject 400 Each 1 Disposable, [...] METER Use to check 1 Each 0 [facility] glucose 3X 9 daily. DX:E11.40 Active pregabalin 75 mg TAKE 1 90 [...] Generalized anxiety disorder with panic attacks Active blood sugar diagnostic [...] THE SKIN THREE TIMES DAILY BEFORE MEALS Active traMADol 50 mg Take 1 tablet 90 tablet 2 tabletIndications: by mouth 9 Lumbosacral spondylosis every 6 (six) without myelopathy, hours as Trochanteric bursitis of needed for both hips, Bilateral Pain (scale sacroiliitis 4-6) or Pain (scale 7-10). Active clonazePAM (KLONOPIN) 1 Take 1 tablet 30 tablet 0 mg tabletIndications: by mouth 9 Generalized anxiety daily. disorder with panic attacks, Agoraphobia with panic attacks Active Problems Problem Noted Date Portal vein thrombosis 05/06/2019 Anticoagulation management encounter 05/06/2019 Vulvar intraepithelial neoplasia (SANG) grade 3 11/16/2018 Dental caries 04/17/2018 Overview: Added automatically from request for surgery [id number] Obesity (BMI 30-39.9) 03/19/2018 Bilateral lower extremity edema 07/14/2017 Lumbosacral spondylosis without myelopathy 03/16/2017 Overview: Added automatically from request for surgery [id number] Mixed hyperlipidemia 01/18/2017 Cirrhosis of liver without [...] 02/09/2015 Overview: Last Mammogram result 10/2016 at [facility] negative Cervical spondylosis without myelopathy 12/02/2013 Degeneration of lumbar or lumbosacral intervertebral disc 12/02/2013 Shoulder bursitis 02/07/2013 Resolved Problems Problem Noted Date Resolved Date Positive blood test 11/09/2018 11/14/2018 Papanicolaou smear of cervix with low grade squamous intraepithelial lesion 02/08/2015 12/14/2016 (LGSIL) Overview: Pos hi-risk HPV 2016. Needs colpo Encounters Care Team Description Date Type Specialty Salazar Cruz MD Nurse, [facility] Portal vein thrombosis; Anticoagulation management encounter 05/20/2019 Nurse Visit Anti-coagulation Clinic Jay Jenkins MD Refill Request 05/20/2019 Refill Pain Medicine Mariana Woodruff FNP Refill Request 05/17/2019 Refill Endocrinology Diabetes & Metabolism Salazar Cruz MD Nurse, [facility] Portal vein thrombosis; Anticoagulation management encounter; Other cirrhosis of liver 05/13/2019 Nurse Visit Anti-coagulation Clinic Jay Jenkins MD 05/13/2019 Hospital Radiology Encounter Doctor Unassigned, [place] 05/13/2019 Orders Only Salazar Cruz MD Nurse, [facility] Portal vein thrombosis; Anticoagulation management encounter 05/06/2019 Nurse Visit Anti-coagulation Clinic Bonita Nguyen MD Pre-Transplant; Orders 04/30/2019 Case Management Gastroenterology Jay Jenkins MD Lumbosacral spondylosis without myelopathy (Primary Dx); Bilateral sacroiliitis; Trochanteric bursitis of both hips 04/26/2019 Office Visit Pain Medicine Doctor Unassigned, [place] 04/24/2019 Orders Only Jay Jenkins MD Rx Concern/Question 04/19/2019 Telephone Pain Medicine Madisyn Dumont MD Refill Request 04/17/2019 Refill Endocrinology Diabetes & Metabolism Madisyn Dumont MD Refill Request 04/14/2019 Refill Endocrinology Diabetes & Metabolism Bonita Nguyen MD Vtc-Lab Pre-liver transplant, listed 04/12/2019 Mineral Surveying Technician Phlebotomy Visit Delano Nguyen MD Internal Medicine Physician, Transplant 04/12/2019 Internal Medicine Physician Visit Surgery Bonita Nguyen MD 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); Portal hypertension; Portal vein thrombosis; Noncompliance with therapeutic plan 04/12/2019 Office Visit Gastroenterology Mariana Woodruff FNP Uncontrolled type 2 diabetes mellitus with diabetic neuropathy, with long-term current use of insulin (Primary Dx); Mixed hyperlipidemia; Essential hypertension 04/12/2019 Office Visit Endocrinology Diabetes & Metabolism Madisyn Dumont MD Refill Request 04/09/2019 Refill Endocrinology Diabetes & Metabolism Jay Jenkins MD Lumbosacral spondylosis without myelopathy [...] due 03/11/2019 Nurse Visit Surgery Doctor Unassigned, [place] 03/11/2019 Orders Only Nanci Cortez MD Medication Problem 02/26/2019 Case Management Gynecologic Oncology Doctor Unassigned, [place] 02/21/2019 Orders Only from Last 3 Months Immunizations Name Administration [...] Pressure 103 04/26/2019 9:39 AM CDT Pulse 35.6 C (96 F) 04/12/2019 11:16 AM CDT Temperature 18 04/12/2019 10:13 AM CDT Respiratory Rate 97% 04/26/2019 9:39 AM CDT Oxygen Saturation - - Inhaled Oxygen Concentration 90.5 kg (199 lb 9.6 oz) 04/26/2019 9:39 AM CDT Weight 152.4 cm (5') 04/26/2019 9:39 AM CDT Height 38.98 04/26/2019 9:39 AM CDT Body Mass Index Plan of Treatment Care Team Description Date Type Specialty Nurse, Dolores Anticoashleigh 05/27/2019 Nurse Visit Anti-coagulation Clinic Fer Thao MD [address] [place] [address] [phone] 05/27/2019 Office Visit Endocrinology Diabetes & Metabolism Bonita Nguyen MD [address] [place], [place] [phone] 05/27/2019 Appointment Radiology Jay Jenkins MD [address] [facility] [id number] [place], [place] [phone] 05/31/2019 Office Visit Pain Medicine Nanci Cortez MD [address] [place] [address] 06/03/2019 Office Visit Gynecologic Oncology Bonita Nguyen MD [address] [place] [address] [phone] 07/12/2019 Office Visit Gastroenterology Health Maintenance Due [...] Priority Date/Time Associated Diagnosis POCT PT/INR(COAGUCHEK) Routine 05/20/2019 Portal vein thrombosis Anticoagulation management encounter MR LUMBAR SPINE WO Routine 05/13/2019 Lumbosacral spondylosis CONTRAST 9:21 AM CDT without myelopathy CONSENT/REFUSAL FOR Routine 05/13/2019 DIAGNOSIS AND TREATMENT 8:44 AM CDT ASSIGNMENT OF BENEFITS Routine 05/13/2019 8:43 AM CDT POCT PT/INR(COAGUCHEK) Routine 05/13/2019 Portal vein thrombosis Anticoagulation management encounter POCT PT/INR(COAGUCHEK) Routine 05/06/2019 Portal vein thrombosis Anticoagulation management encounter INSURANCE CORRESPONDENCE Routine 04/24/2019 12:01 AM CDT CBC WITH DIFFERENTIAL Routine 04/12/2019 Pre-liver transplant, 1:07 PM CDT listed CBC WITH DIFF Routine 04/12/2019 Pre-liver transplant, 1:07 PM CDT listed BASIC METABOLIC PANEL Routine 04/12/2019 Pre-liver transplant, (NA, K, CL, CO2, GLUCOSE, 1:07 PM CDT listed BUN, CREATININE, CA) HEPATIC FUNCTION PANEL Routine 04/12/2019 Pre-liver transplant, ([id number]) (ALB,T.PRO,BILI 1:07 PM CDT listed T,BU/BC,ALT,AST,ALK PHOS) PROTHROMBIN TIME / INR Routine 04/12/2019 Pre-liver transplant, 1:07 PM CDT listed POCT HEMOGLOBIN A1C TEST Routine 04/12/2019 Uncontrolled type 2 10:49 AM CDT diabetes mellitus with diabetic neuropathy, with long-term current use of insulin AUTHORIZATION FOR RELEASE Routine 03/14/2019 OF PHI [...] 03/11/2019 APPOINTMENT POLICY 1:01 PM CDT ACKNOWLEDGEMENT [facility] PATIENT FINANCIAL Routine 03/11/2019 POLICY 1:01 PM CDT INSURANCE CORRESPONDENCE Routine 02/21/2019 12:01 AM CDT from Last 3 Months Results * POCT PT/INR(COAGUCHEK) (05/20/2019) Only the most recent of 3 results within the time period is included. POCT PT/INR 1.3 0.8 - 1.4 INR POCT PT/SEC 16.0 SEC Specimen Blood - CAPILLARY * MR LUMBAR SPINE WO CONTRAST (05/13/2019 [...] Performing Organization Address City/State/Zipcode Phone Number PACS/VR/DOSE * CONSENT/REFUSAL FOR DIAGNOSIS AND TREATMENT (05/13/2019 8:44 AM CDT) Only the most recent of 2 results within the time period is included. Specimen Performing Organization Address City/State/Zipcode Phone Number HIM * ASSIGNMENT OF BENEFITS (05/13/2019 8:43 AM CDT) Only the most recent of 2 results within the time period is included. Specimen Performing Organization Address City/State/Zipcode Phone Number HIM * INSURANCE CORRESPONDENCE (04/24/2019 12:01 AM CDT) Only the most recent of 2 results within the time period is included. Specimen Performing Organization Address [facility] Phone Number HIM * CBC WITH DIFFERENTIAL (04/12/2019 1:07 PM CDT) WBC 9.14 4.30 - 11.10 [facility] 10*3/L [facility] RBC 4.48 3.93 - 5.25 10*6/L [facility] HGB 14.0 11.6 - 15.0 g/dL [facility] HCT 43.6 35.7 - 45.2 % [facility] MCV 97.3 (H) 80.6 - 95.5 fL [facility] MCH 31.3 25.9 - 32.8 pg [facility] MCHC 32.1 31.6 - 35.1 g/dL [facility] RDW-SD 46.7 39.0 - 49.9 fL [facility] RDW-CV 13.1 12.0 - 15.5 % [facility] PLT 147 (L) 166 - 358 10*3/L [facility] MPV 11.0 9.5 - 12.9 fL [facility] NRBC/100 WBC 0.0 0.0 - 10.0 /100 WBCs [facility] NRBC x10^3 <0.01 10*3/L [facility] GRAN MAT (NEUT) 50.7 % [facility] % [facility] IMM GRAN % 0.30 % [facility] LYMPH % 38.3 % [facility] MONO % 7.0 % [facility] EOS % 2.8 % [facility] BASO % 0.9 % [facility] GRAN MAT 4.63 1.88 - 7.09 10*3/uL [facility] x10^3(ANC) [facility] IMM GRAN x10^3 0.03 0.00 - 0.06 10*3/uL [facility] LYMPH x10^3 3.50 (H) 1.32 - 3.29 10*3/uL [facility] MONO x10^3 0.64 0.33 - 0.92 10*3/uL [facility] EOS x10^3 0.26 0.03 - 0.39 10*3/uL [facility] BASO x10^3 0.08 (H) 0.01 - 0.07 10*3/uL [facility] Specimen Blood - ARM, RIGHT Performing Organization Address City/[facility] Centercode Phone Number [facility] CLIA: [id number], [address] [place] [address] [facility] * PROTHROMBIN TIME / INR (04/12/2019 1:07 PM CDT) PROTIME PATIENT 14.8 (H) 12.0 - 14.7 Seconds [facility] INR 1.2Comment: Normal INR <1.1; [facility] Warfarin Therapeutic range 2.0 [facility] to 3.0 or 2.5 to 3.5, [facility] depending upon the indications. Specimen Blood - ARM, RIGHT Performing Organization Address [facility]/Zipcode Phone Number [facility] CLIA: [id number], [address] [place] [address] [facility] * BASIC METABOLIC PANEL (NA, K, CL, CO2, GLUCOSE, BUN, CREATININE, CA) (04/12/2019 1:07 PM CDT) NA 140 135 - 145 mmol/L [facility] K 4.3 3.5 - 5.0 mmol/L [facility] CL 96 (L) 98 - 108 mmol/L [facility] CO2 TOTAL 30 23 - 31 mmol/L [facility] AGAP 14 2 - 16 [facility] BUN 20 7 - 23 mg/dL [facility] GLUCOSE 206 (H) 70 - 110 mg/dL [facility] CREATININE 1.49 (H) 0.50 - 1.04 mg/dL [facility] CALCIUM 9.7 8.6 - 10.6 mg/dL [facility] eGFR 36.6 mL/min/1.73m2 [facility] Calculation [facility] (Non-[facility] [place]) eGFR 44.4 mL/min/1.73m2 [facility] Calculation [facility] ([facility] [place]) Specimen Blood - ARM, RIGHT Narrative Performed At Association of Glomerular Filtration Rate (GFR) and Staging of Kidney Disease* [facility] + + + + [facility] | GFR (mL/min/1.73 m2) | With Kidney Damage | Without Kidney Damage CAMPUS + + + + | >90 | Stage one | Normal + + + + | 60-89 | Stage two | Decreased GFR + + + + | 30-59 | Stage three | Stage three + + + + | 15-29 | Stage four | Stage four + + + + | <15 (or dialysis) | Stage five | Stage five + + + + *Each stage assumes the associated GFR level has been in effect for at least three months. Stages 1 to 5, with or without kidney [...] tests). Performing Organization Address City/State/Zipcode Phone Number [facility] CLIA: [id number], [address] [place] [address] [facility] * HEPATIC FUNCTION PANEL ([id number]) (ALB,T.PRO,BILI T,BU/BC,ALT,AST,ALK PHOS) (04/12/2019 1:07 PM CDT) TOTAL BILI 1.7 (H) 0.1 - 1.1 mg/dL [facility] BILI UNCON 1.1 0.1 - 1.1 mg/dL [facility] BILI CONJ 0.0 0.0 - 0.3 mg/dL [facility] T PROTEIN 8.7 (H) 6.3 - 8.2 g/dL [facility] ALBUMIN 4.1 3.5 - 5.0 g/dL [facility] ALK PHOS 209 (H) 34 - 122 U/L [facility] ALT(SGPT) 18 9 - 51 U/L [facility] AST(SGOT) 38 13 - 40 U/L [facility] Specimen Blood - ARM, RIGHT Performing Organization Address [facility] Centercode Phone Number [facility] CLIA: [id number], [address] [place] [address] [facility] * POCT HEMOGLOBIN A1C TEST (04/12/2019 10:49 AM CDT) POCT HBA1C 9.2 (A) 4 - 6 % Specimen Blood - CAPILLARY * AUTHORIZATION FOR RELEASE OF PHI (03/14/2019 12:01 AM CDT) Only the most recent of 2 results within the time period is included. Specimen Performing Organization Address City/[facility] Centercode Phone Number HIM * NOTICE OF PRIVACY PRACTICES (03/11/2019 1:02 PM CDT) Specimen Performing Organization Address City/State/Zipcode Phone Number HIM * NO SHOW OR MISSED APPOINTMENT POLICY ACKNOWLEDGEMENT (03/11/2019 1:01 PM CDT) Specimen Performing Organization Address City/State/Zipcode Phone Number HIM * [place] PATIENT FINANCIAL POLICY (03/11/2019 1:01 PM CDT) Specimen Performing Organization Address City/State/Zipcode Phone Number HIM from Last 3 Months Insurance Type Payer Benefit Subscriber ID Effective Phone Address Plan / Dates Group Medicaid [employer] [place] [employer] xxxxxxxxx 2016-P P O [facility] [address] [place] [address] Advance Directives Relationship Healthcare Agent Relationship Communication Name Father Primary healthcare agent Asa [place] Child First alternate healthcare agent Sandy Ornelas
--- OUTSIDE RECORDS SUMMARY | 2019-11-01 03:55 | XMS REPORT | Summary of Care ---
Author Author [facility] - Health Organization [facility] - Health Address Unknown Phone Unavailable Care Team Providers Care Racebook Writer Name Role Phone Keiry Jaquez CNM Unavailable Unavailable Madisyn Dumont MD Unavailable Josef Mcintosh [place] [address] Isabel Hansen RN Unavailable Unavailable Keiry Jaquez CNM PCP Unavailable Keiry Jaquez CNM Unavailable Unavailable Reason for Visit * Reason Comments PT/INR Encounter Details Care Team Description Date Type Department Salazar Cruz MD [address] [place] [address] Nurse, Dolores Araujo Portal vein thrombosis; Anticoagulation management encounter; Other cirrhosis of liver 05/13/[address] [facility] [address] [place] [id number] Allergies No Known Allergiesdocumented as of this [...] long-term current use of insulin Active Insulin [place], Use to inject 400 Each 1 Disposable, [...] liver AntiCoag Clinic based on INR results. 05/13/2019 Discontinued warfarin (COUMADIN) 1 mg Take 1 tablet 30 tablet 3 tabletIndications: Other by mouth 9 cirrhosis of liver every evening. documented as of this encounter (statuses as of 05/13/2019) Active Problems Problem Noted Date Portal vein thrombosis 05/06/2019 Anticoagulation management encounter 05/06/2019 Vulvar intraepithelial neoplasia (SANG) grade 3 11/16/2018 Dental caries 04/17/2018 Overview: Added automatically from request for surgery [id number] Obesity (BMI 30-39.9) 03/19/2018 Bilateral lower extremity edema 07/14/2017 Lumbosacral spondylosis without myelopathy 03/16/2017 Overview: Added automatically from request for surgery [id number] Mixed hyperlipidemia 01/18/2017 Cirrhosis of liver without [...] 02/09/2015 Overview: Last Mammogram result 10/2016 at [facility] negative Cervical spondylosis without myelopathy [...] * Patient Instructions* Bhargavi Marin RN - 05/13/2019 10:20 AM CDT Change in Warfarin dose: increase dose to 13 mg per week (1 mg tablets - pink) Monday: 2 mg ( 2 tablets ) Monday: 2 mg ( 2 tablets ) Monday: 2 mg ( 2 tablets ) Monday: 2 mg ( 2 tablets ) : 1 mg ( 1 tablet ) Monday: 2 mg ( 2 tablets ) Monday: 2 mg ( 2 tablets ) Repeat above schedule until you return for [...] your safety, please remember to call the [facility] if any of your curr ent medications change dose, if you get new medications, or if medications are s topped. There may be interactions with medications that will increase your risk of bleeding or forming blood clots. When you call the clinic ([phone]) we will advise you if your INR should be checked sooner than your next scheduled a ppointment or you may need to adjust your Vitamin K food intake. [facility] Contact Information [facility]-- Bhargavi [phone] [email or web address] [phone] [email or web address] [phone] [email or web address] To schedule appts - [phone] Emergency Dial 911 or go to the nearest Emergency Room documented in this encounter Progress Notes * Bhargavi Marin RN - 05/13/2019 10:20 AM CDT ANTI-COAGULATION CLINIC NOTE Anti-Coagulation diagnosis: ICD-10-CM ICD-9-CM 1. Portal vein thrombosis I81 452 2. Anticoagulation management encounter Z51.81 V58.83 Z79.01 V58.61 Warfarin (Coumadin) dose: 10 mg per week (1 mg tablets - pink) Monday: 1 mg Monday: 2 mg ( 2 tablets ) Monday: 1 mg Monday: 2 mg ( 2 tablets ) : 1 mg Monday: 2 mg ( 2 tablets ) Monday: 1 mg Cognitive assessment: alert and oriented times 3 Finger stick performed using aseptic technique, sticking left hand, middle finge r, and CoaguChek XS machine [id number] was used. Blood sample was obtained; Band aid was applied. Strip used today lot number: [id number] POCT PT/INR Date Value Ref Range Status 05/13/2019 1.3 0.8 - 1.4 INR Final POCT PT/SEC Date Value Ref Range Status 05/13/2019 15.1 SEC Final Anti-Coagulation diagnosis: ICD-10-CM ICD-9-CM 1. Portal vein thrombosis I81 452 2. Anticoagulation management encounter Z51.81 V58.83 Z79.01 V58.61 Duration of Anticoagulation Therapy As of 05/13/2019 TTR: Target end date: Target Range As of 05/13/2019 INR goal: 2.0-3.0 TTR: PT/INR less than therapeutic range Pt is new to warfarin and has not yet reached a stable state. Pt's INR was 1.2 on 05/06 and dose was increased from 7 mg per week to 10 mg per w tolowa dee-ni'. Pt's INR today is 1.3. Patient states she has taken warfarin as directed an d did not miss any doses. Will increase warfarin from 10 mg to 13 mg weekly dose. Will recheck INR in 1 week. Reviewed the need for consistent and accurate dosing of warfarin and consistent intake of high Vit K foods in order to reduce the risk for blood clots, stroke, or bleeding event. Pt will review and reconcile medication list at next PCP appointment. Patient verbalized understanding and agreement with the plan of care. Change in dose: increase dose to 10 mg per week (1 mg tablets - pink) Monday: 1 mg Monday: 2 mg ( 2 tablets ) Monday: 1 mg Monday: 2 mg ( 2 tablets ) : 1 mg Monday: 2 mg ( 2 tablets ) Monday: 1 mg Patient notified: yes Patient verbalized understanding and agreement with the plan of care. Patient was provided with written and verbal educational information on 2018 regarding the interaction of warfarin with various foods and medicati ons as part of ongoing education within the AntiCoagulation Clinic. Patient sh ows readiness to learn. Patient is able to read and verbalizes understanding of teaching provided and is provided a printed after visit summary (AVS) documenti ng the visit, pertinent patient instructions and follow-up recommendations. documented in this encounter Plan of Treatment Care Team Description Date Type Specialty Nurse, Vtc Anticoag 05/20/2019 Nurse Visit Anti-coagulation Clinic Fer Thao MD [address] [place] [address] [phone] 05/27/2019 Office Visit Endocrinology Diabetes & Metabolism Bonita Nguyen MD [address] [place] [address] [phone] 05/27/2019 Appointment Radiology Jay Jenkins MD [address] [place] [id number] [place] [address] [phone] 05/31/2019 Office Visit Pain Medicine Nanci Cortez MD [address] [place] [phone] 06/03/2019 Office Visit Gynecologic Oncology Bonita Nguyen MD [address] [place] [address] [phone] 07/12/2019 Office Visit Gastroenterology Health Maintenance Due [...] Priority Date/Time Associated Diagnosis POCT PT/INR(COAGUCHEK) Routine 05/13/2019 Portal vein thrombosis Anticoagulation management encounter documented in this encounter Results * POCT PT/INR(COAGUCHEK) (05/13/2019) POCT PT/INR 1.3 0.8 - 1.4 INR POCT PT/SEC 15.1 SEC Specimen Blood - CAPILLARY documented in this encounter Visit Diagnoses Diagnosis Portal vein thrombosis Anticoagulation management encounter Encounter for therapeutic drug monitoring Other cirrhosis of liver documented in this encounter Insurance Type Payer Benefit Subscriber ID Effective Phone Address Plan / Dates Group Medicaid [facility] [employer] xxxxxxxxx 2016-P [address] [facility] [address] [place] [address] documented as of this encounter Advance Directives Relationship Healthcare Agent Relationship Communication Name Father Primary healthcare agent Asa [place] Child First alternate healthcare agent Sandy Ornelas
--- OUTSIDE RECORDS SUMMARY | 2019-11-01 03:56 | XMS REPORT | Clinical Summary ---
Author Author [facility] - Health Organization [facility] - Health Address Unknown Phone Unavailable Care Team Providers Care Web Coordinator Name Role Phone Keiry Jaquez CNM [...] long-term current use of insulin Active Insulin [place], Use to inject 400 Each 1 Disposable, [...] METER Use to check 1 Each 0 [facility] glucose 3X 9 daily. DX:E11.40 Active pregabalin [...] Overview: Added automatically from request for surgery [id number] Obesity (BMI 30-39.9) 03/19/2018 Bilateral lower extremity edema 07/14/2017 Lumbosacral spondylosis without myelopathy 03/16/2017 Overview: Added automatically from request for surgery [id number] Mixed hyperlipidemia 01/18/2017 Cirrhosis of liver without [...] Date Type Specialty Salazar Cruz MD Nurse, [facility] Portal vein thrombosis; Anticoagulation management encounter 05/20/2019 Nurse Visit Anti-coagulation Clinic Jay Jenkins MD Refill Request 05/20/2019 Refill Pain Medicine Mariana Woodruff FNP Refill Request 05/17/2019 Refill Endocrinology Diabetes & Metabolism Salazar Cruz MD Nurse, [facility] Portal vein thrombosis; Anticoagulation management encounter; Other cirrhosis of liver 05/13/2019 Nurse Visit Anti-coagulation Clinic Jay Jenkins MD 05/13/2019 Hospital Radiology Encounter Doctor Unassigned, [place] 05/13/2019 Orders Only Salazar Cruz MD Nurse, [facility] Portal vein thrombosis; Anticoagulation management encounter 05/06/2019 Nurse Visit Anti-coagulation Clinic Bonita gNuyen MD Pre-Transplant; Orders 04/30/2019 Case Management Gastroenterology Jay Jenkins MD Lumbosacral spondylosis without myelopathy (Primary Dx); Bilateral sacroiliitis; Trochanteric bursitis of both hips 04/26/2019 Office Visit Pain Medicine Doctor Unassigned, [place] 04/24/2019 Orders Only Jay Jenkins MD Rx Concern/Question 04/19/2019 Telephone Pain Medicine Madisyn Dumont MD Refill Request 04/17/2019 Refill Endocrinology Diabetes & Metabolism Madisyn Dumont MD Refill Request 04/14/2019 Refill Endocrinology Diabetes & Metabolism Bonita Nguyen MD Vtc-Lab Pre-liver transplant, listed 04/12/2019 [employer] Phlebotomy Visit Delano Nguyen MD Checkout Operator, Transplant 04/12/2019 Checkout Operator Visit Surgery Bonita Nguyen MD Liver cirrhosis [...] due 03/11/2019 Nurse Visit Surgery Doctor Unassigned, [place] 03/11/2019 Orders Only Nanci Cortez MD Medication Problem 02/26/2019 Case Management Gynecologic Oncology Doctor Unassigned, [place] 02/21/2019 Orders Only from Last 3 Months [...] Nurse Visit Anti-coagulation Clinic Fer Thao MD [address] [place] [address] [phone] 05/27/2019 Office Visit Endocrinology Diabetes & Metabolism Bonita Nguyen MD [address] [place], [place] [address] 05/27/2019 Appointment Radiology Jay Jenkins MD [address] [facility] [id number] [place], [place] [id number] 05/31/2019 Office Visit Pain Medicine Nanci Cortez MD [address] [place] [address] 06/03/2019 Office Visit Gynecologic Oncology Bonita Nguyen MD [address] [place] [address] [phone] 07/12/2019 Office Visit Gastroenterology Health Maintenance Due [...] HEPATIC FUNCTION PANEL Routine 04/12/2019 Pre-liver transplant, ([id number]) (ALB,T.PRO,BILI 1:07 PM CDT listed T,BU/BC,ALT,AST,ALK PHOS) [...] 03/11/2019 APPOINTMENT POLICY 1:01 PM CDT ACKNOWLEDGEMENT [facility] PATIENT FINANCIAL Routine 03/11/2019 POLICY 1:01 PM [...] period is included. Specimen Performing Organization Address [facility] Phone Number HIM * CBC WITH DIFFERENTIAL (04/12/2019 1:07 PM CDT) WBC 9.14 4.30 - 11.10 [facility] 10*3/L [facility] RBC 4.48 3.93 - 5.25 10*6/L [facility] HGB 14.0 11.6 - 15.0 g/dL [facility] HCT 43.6 35.7 - 45.2 % [facility] MCV 97.3 (H) 80.6 - 95.5 fL [facility] MCH 31.3 25.9 - 32.8 pg [facility] MCHC 32.1 31.6 - 35.1 g/dL [facility] RDW-SD 46.7 39.0 - 49.9 fL [facility] RDW-CV 13.1 12.0 - 15.5 % [facility] PLT 147 (L) 166 - 358 10*3/L [facility] MPV 11.0 9.5 - 12.9 fL [facility] NRBC/100 WBC 0.0 0.0 - 10.0 /100 WBCs [facility] NRBC x10^3 <0.01 10*3/L [facility] GRAN MAT (NEUT) 50.7 % [facility] % [facility] IMM GRAN % 0.30 % [facility] LYMPH % 38.3 % [facility] MONO % 7.0 % [facility] EOS % 2.8 % [facility] BASO % 0.9 % [facility] GRAN MAT 4.63 1.88 - 7.09 10*3/uL [facility] x10^3(ANC) [facility] IMM GRAN x10^3 0.03 0.00 - 0.06 10*3/uL [facility] LYMPH x10^3 3.50 (H) 1.32 - 3.29 10*3/uL [facility] MONO x10^3 0.64 0.33 - 0.92 10*3/uL [facility] EOS x10^3 0.26 0.03 - 0.39 10*3/uL [facility] BASO x10^3 0.08 (H) 0.01 - 0.07 10*3/uL [facility] Specimen Blood - ARM, RIGHT Performing Organization Address City/[facility] Phone Number [facility] CLIA: [id number], [address] [place] [address] [facility] * PROTHROMBIN TIME / INR (04/12/2019 1:07 PM CDT) PROTIME PATIENT 14.8 (H) 12.0 - 14.7 Seconds [facility] INR 1.2Comment: Normal INR <1.1; [facility] Warfarin Therapeutic range 2.0 [facility] to 3.0 or 2.5 to 3.5, [facility] depending upon the indications. Specimen Blood - ARM, RIGHT Performing Organization Address [facility]/Zipcode Phone Number [facility] CLIA: [id number], [address] [place] [address] [facility] * BASIC METABOLIC PANEL (NA, K, CL, CO2, GLUCOSE, BUN, CREATININE, CA) (04/12/2019 1:07 PM CDT) NA 140 135 - 145 mmol/L [facility] K 4.3 3.5 - 5.0 mmol/L [facility] CL 96 (L) 98 - 108 mmol/L [facility] CO2 TOTAL 30 23 - 31 mmol/L [facility] AGAP 14 2 - 16 [facility] BUN 20 7 - 23 mg/dL [facility] GLUCOSE 206 (H) 70 - 110 mg/dL [facility] CREATININE 1.49 (H) 0.50 - 1.04 mg/dL [facility] CALCIUM 9.7 8.6 - 10.6 mg/dL [facility] eGFR 36.6 mL/min/1.73m2 [facility] Calculation [facility] (Non-[facility] [place]) eGFR 44.4 mL/min/1.73m2 [facility] Calculation [facility] ([facility] [place]) Specimen Blood - ARM, RIGHT Narrative Performed At Association of Glomerular Filtration Rate (GFR) and Staging of Kidney Disease* [facility] + + + + [facility] | GFR (mL/min/1.73 m2) | With Kidney [...] tests). Performing Organization Address City/State/Zipcode Phone Number [facility] CLIA: [id number], [address] [place] [address] [facility] * HEPATIC FUNCTION PANEL ([id number]) (ALB,T.PRO,BILI T,BU/BC,ALT,AST,ALK PHOS) (04/12/2019 1:07 PM CDT) TOTAL BILI 1.7 (H) 0.1 - 1.1 mg/dL [facility] BILI UNCON 1.1 0.1 - 1.1 mg/dL [facility] BILI CONJ 0.0 0.0 - 0.3 mg/dL [facility] T PROTEIN 8.7 (H) 6.3 - 8.2 g/dL [facility] ALBUMIN 4.1 3.5 - 5.0 g/dL [facility] ALK PHOS 209 (H) 34 - 122 U/L [facility] ALT(SGPT) 18 9 - 51 U/L [facility] AST(SGOT) 38 13 - 40 U/L [facility] Specimen Blood - ARM, RIGHT Performing Organization Address [facility] Phone Number [facility] CLIA: [id number], [address] [place] [address] [facility] * POCT HEMOGLOBIN A1C TEST (04/12/2019 10:49 AM CDT) POCT HBA1C 9.2 (A) 4 - 6 % Specimen Blood - CAPILLARY * AUTHORIZATION FOR RELEASE OF PHI (03/14/2019 12:01 AM CDT) Only the most recent of 2 results within the time period is included. Specimen Performing Organization Address City/[facility] Phone Number HIM * NOTICE OF PRIVACY [...] Plan / Dates Group Medicaid [employer] [place] [employer] xxxxxxxxx [id number] P O [facility] [place] [facility] [id number] [place] [address] Advance Directives Relationship Healthcare Agent Relationship Communication Name Father Primary healthcare agent Asa Mills Child First alternate healthcare agent Sandy Ornelas
--- OUTSIDE RECORDS SUMMARY | 2019-11-01 03:56 | XMS REPORT | Clinical Summary ---
Author Author [facility] - Health Organization [facility] - Health Address Unknown Phone Unavailable Care Team Providers Care Manager [employer] Name Role Phone Keiry Jaquez CNM Unavailable Unavailable Madisyn Dumont MD Unavailable Unavailable Josef Mcintosh [place] [address] Isabel Hansen RN Unavailable Unavailable Keiry Jaquez CNM PCP Unavailable Keiry Jaquez CNM Unavailable Unavailable Allergies No Known Allergies Medications End Date Status Medication Sig Dispensed Refills Start Date Active ALBUTEROL SULFATE Take by 0 (PROVENTIL ORAL) mouth. Active ursodiol 500 mg tablet Take 500 mg 0 by mouth 2 7 (two) times daily. Active NEXIUM 40 mg capsule TK ONE C PO 5 BID. 7 Active COMBIVENT RESPIMAT 20-100 INHALE 2 4 mcg/actuation inhaler PUFFS PO BID 7 Active carvedilol 6.25 mg tablet Take 6.25 mg 0 by mouth 2 7 (two) times daily with meals. Active Multivitamins-Iron (DAILY Take 1 Each 100 [...] (LANCETS,ULTRA Use as 200 Each 2 THIN) [facility] directed 8 Active chlorhexidine 0.12 % Swish and 473 mL 0 mouthwash spit out 15 8 mL 2 (two) times daily. Active Insulin [place], Use to inject 400 Each 1 Disposable, (BD ULTRAFINE insulin 4X 9 III MINI PEN) 31 gauge x daily. 11/10" NdleIndications: DX:E11.65 Uncontrolled type 2 diabetes mellitus with complication, without long-term current use of insulin Active furosemide 40 mg tablet Take 1 tablet 90 tablet 3 by mouth 9 daily. Active TRUE METRIX GLUCOSE METER Use to check 1 Each 0 [facility] glucose 3X 9 daily. DX:E11.40 Active blood [...] Other directed by 9 cirrhosis of liver [facility] based on INR results. Active traMADol 50 mg Take 1 tablet 90 tablet 2 tabletIndications: by mouth 9 Lumbosacral spondylosis every 6 (six) without myelopathy, hours as Trochanteric bursitis of needed for both hips, Bilateral Pain (scale sacroiliitis 4-6) or Pain (scale 7-10). Active TRESIBA FLEXTOUCH U-200 inject 66 30 mL 1 200 unit/mL (3 mL) Units under 9 InPnIndications: the skin Uncontrolled type 2 every diabetes mellitus with morning. complication, without E11.65 long-term current use of insulin Active olopatadine (PAZEO) 0.7 % Place 1 Drop 2.5 mL 6 DropIndications: Seasonal in each eye 9 allergic conjunctivitis daily. Active Carboxymethylcellulose Place 1 Drop 0 Sodium (THERATEARS) 0.25 in each eye 2 9 % DropIndications: Dry (two) times eye syndrome, bilateral daily. Active Diclofenac Sodium 1 % Apply to 100 g 2 gelIndications: area(s) 2 9 Lumbosacral spondylosis (two) times without myelopathy, daily. Bilateral sacroiliitis, Trochanteric bursitis of both hips Active fluorouracil 5 % Insert 1 gram 40 g 0 creamIndications: VAIN into vaginal 9 III (vaginal cuff with intraepithelial neoplasia syringeapplic grade III) ator at night once weekly for 3 months. Advise patient to insert medication into top of vagina, then insert tampon and put vaseline on external genitalia. The next morning remove tampon, shower, rinse thoroughly. Active CYCLOBENZAPRINE 5 mg TAKE 1 TABLET 30 tablet 0 tabletIndications: BY MOUTH AT 9 Lumbosacral spondylosis BEDTIME without myelopathy Active pregabalin 75 mg TAKE 1 90 capsule 2 capsuleIndications: CAPSULE BY 9 Neuropathy MOUTH THREE TIMES DAILY Active warfarin 2.5 mg tablet Take as 60 tablet 0 directed by 9 [facility] based on INR results. Active clonazePAM (KLONOPIN) 1 Take 1 tablet 30 tablet 2 mg tabletIndications: by mouth 9 Generalized anxiety daily. 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 without psychotic features, Generalized anxiety disorder with panic attacks Active Problems Problem Noted Date Portal vein thrombosis 05/06/2019 Anticoagulation management encounter 05/06/2019 Vulvar intraepithelial neoplasia (SANG) grade 3 11/16/2018 Dental caries 04/17/2018 Overview: Added automatically from request for surgery [id number] Obesity (BMI 30-39.9) 03/19/2018 Bilateral lower extremity edema 07/14/2017 Lumbosacral spondylosis without myelopathy 03/16/2017 Overview: Added automatically from request for surgery [id number] Mixed hyperlipidemia 01/18/2017 Cirrhosis of liver without [...] 02/09/2015 Overview: Last Mammogram result 10/2016 at [facility] negative Cervical spondylosis without myelopathy 12/02/2013 Degeneration of lumbar or lumbosacral intervertebral disc 12/02/2013 Shoulder bursitis 02/07/2013 Resolved Problems Problem Noted Date Resolved Date Positive blood test 11/09/2018 11/14/2018 Papanicolaou smear of cervix with low grade squamous intraepithelial lesion 02/08/2015 12/14/2016 (LGSIL) Overview: Pos hi-risk HPV 2016. Needs colpo Encounters Care Team Description Date Type Specialty Nanci Cortez MD Refill Request 06/20/2019 Refill Gynecologic Oncology Edgar Frederick MD Nurse, [facility] Antico Portal vein thrombosis; Anticoagulation management encounter 06/19/2019 Nurse Visit Anti-coagulation Clinic Nanci Cortez MD Notification 06/14/2019 Telephone Gynecologic Oncology Nanci Cortez MD Refill Request 06/11/2019 Refill Gynecologic Oncology Jay Jenkins MD Refill Request 06/11/2019 Telephone Pain Medicine Jay Jenkins MD Refill Request 06/09/2019 Refill Pain Medicine Delano Nguyen MD Lab Results (Listed Liver Txpl -outside labs collected 05/02/19) 06/07/2019 Telephone Surgery Nanci Cortez MD Refill Request 06/06/2019 Refill Gynecologic Oncology Hiwot Dan PA-C Notification 06/06/2019 Telephone Gynecologic Oncology Hiwot Dan PA-C Orders 06/06/2019 Telephone Gynecologic Oncology Bonita Nguyen MD Refill Request 06/05/2019 Refill Gastroenterology Nanci Cortez MD Nurse, [facility] Antico Portal vein thrombosis; Anticoagulation management encounter 06/03/2019 Nurse Visit Anti-coagulation Clinic Nanic Cortez MD Vulvar intraepithelial neoplasia (SANG) grade 3 (Primary Dx); Uncontrolled type 2 diabetes mellitus with complication, without long-term current use of insulin; Cirrhosis of liver without ascites, unspecified hepatic cirrhosis type; Portal vein thrombosis 06/03/2019 Office Visit Gynecologic Oncology Jay Jenkins MD Lumbosacral spondylosis without myelopathy (Primary Dx); Bilateral sacroiliitis; Trochanteric bursitis of both hips 05/31/2019 Office Visit Pain Medicine Ramon Lomeli, OD Type 2 diabetes mellitus without retinopathy (Primary Dx); Combined forms of age-related cataract of both eyes; Refractive error; Dry eye syndrome, bilateral; Seasonal allergic conjunctivitis 05/29/2019 Office Visit Ophthalmology Bonita Nguyen MD 05/27/2019 Hospital Radiology Encounter Fer Thao MD Uncontrolled type 2 diabetes mellitus with complication, without long-term current use of insulin (Primary Dx); Mixed hyperlipidemia; Essential hypertension; Pre-liver transplant, listed 05/27/2019 Office Visit Endocrinology Diabetes & Metabolism Salazar Cruz MD Nurse, [facility] Antico Portal vein thrombosis; Anticoagulation management encounter 05/27/2019 Nurse Visit Anti-coagulation Clinic Salazar Cruz MD Nurse, [facility] Antico Portal vein thrombosis; Anticoagulation management encounter 05/20/2019 Nurse Visit Anti-coagulation Clinic Jay Jenkins MD Refill Request 05/20/2019 Refill Pain Medicine Mariana Woodruff FNP Refill Request 05/17/2019 Refill Endocrinology Diabetes & Metabolism Salazar Cruz MD Nurse, [facility] Antico Portal vein thrombosis; Anticoagulation management encounter; Other cirrhosis of liver 05/13/2019 Nurse Visit Anti-coagulation Clinic Jay Jenkins MD 05/13/2019 Hospital Radiology Encounter Doctor Unassigned, [place] 05/13/2019 Orders Only Salazar Cruz MD Nurse, [facility] Portal vein thrombosis; Anticoagulation management encounter 05/06/2019 Nurse Visit Anti-coagulation Clinic Doctor Unassigned, [place] 05/02/2019 Orders Only Bonita Nguyen MD Pre-Transplant; Orders 04/30/2019 Case Management Gastroenterology Jay Jenkins MD Lumbosacral spondylosis without myelopathy (Primary Dx); Bilateral sacroiliitis; Trochanteric bursitis of both hips 04/26/2019 Office Visit Pain Medicine Doctor Unassigned, [place] 04/24/2019 Orders Only Jay Jenkins MD Rx Concern/Question 04/19/2019 Telephone Pain Medicine Madisyn Dumont MD Refill Request 04/17/2019 Refill Endocrinology Diabetes & Metabolism Madisyn Dumont MD Refill Request 04/14/2019 Refill Endocrinology Diabetes & Metabolism Bonita Nguyen MD [facility] Pre-liver transplant, listed 04/12/2019 Residential Substance Abuse Counselor Phlebotomy Visit Delano Nguyen MD Professor Of History, Transplant 04/12/2019 Professor Of History Visit Surgery Bonita Nguyen MD Liver cirrhosis [...] Request 04/09/2019 Refill Endocrinology Diabetes & Metabolism from Last 3 Months Immunizations Name Administration [...] Paternal Grandmother Arthritis Sister per pt OA Amblyopia NoFHx Glaucoma NoFHx Macular degeneration NoFHx Retinal detachment NoFHx Strabismus NoFHx Relation Name Status Comments Brother Alive Father [...] Signs Reading Time Taken Comments Vital Sign 134/83 06/24/2019 10:29 AM CDT Blood Pressure 102 06/24/2019 10:29 AM CDT Pulse 36.4 C (97.5 F) 06/03/2019 9:28 AM CDT Temperature 18 06/24/2019 10:29 AM CDT Respiratory Rate 95% 06/03/2019 9:28 AM CDT Oxygen Saturation - - Inhaled Oxygen Concentration 88.9 kg (196 lb) 06/24/2019 10:29 AM CDT Weight 152.4 cm (5') 06/24/2019 10:29 AM CDT Height 38.28 06/24/2019 10:29 AM CDT Body Mass Index Plan of Treatment Care Team Description Date Type Specialty Nurse, Dolores Araujo 06/24/2019 Nurse Visit Anti-coagulation Clinic Bonita Nguyen MD [address] [place] [address] [phone] 07/12/2019 Office Visit Gastroenterology Jay Jenkins MD [address] [facility] [id number] [place], [place] [address] 09/06/2019 Office Visit Pain Medicine Mariana Woodruff, SCRUBBING MACHINE OPERATOR [address] [place], [place] [address] 09/06/2019 Office Visit Endocrinology Diabetes & Metabolism Nanci Cortez MD [address] [place] [address] 09/23/2019 Office Visit Gynecologic Oncology Ramon Lomeli, OD [address] [place] [address] 06/03/2020 Office Visit Ophthalmology Health Maintenance Due Date Last Done Comments COLONOSCOPY 02/28/2016 Zoster Recombinant 02/28/2016 Vaccine (SHINGRIX) (1 of 2) PNEUMOCOCCAL 0-64 YEARS 02/26/2018 01/01/2018 COMBINED SERIES (2 of 3 - PPSV23) URINE MICROALBUMIN 2019 2018, 11/29/2016 INFLUENZA VACCINE (#1) 2019 HgA1C 10/13/2019 04/12/2019, 10/23/2018, 2018, Additional history exists LDL-C 10/23/2019 10/23/2018, 2018, 01/18/2017 Breast Cancer Screening 11/23/2019 11/22/2018, 11/09/2016, 02/09/2015 (MAMMOGRAM) CREATININE (SERUM) 04/12/2020 04/12/2019, 01/18/2019, 12/24/2018, Additional history exists FOOT EXAM 05/27/2020 05/27/2019, 05/27/2019, 04/12/2019, Additional history exists EYE EXAM 05/29/2020 05/29/2019 PAP SMEAR 01/17/2021 01/17/2018, 11/14/2016, 02/02/2015 DTaP,Tdap,and Td Vaccines 03/20/2027 03/20/2017 (2 - Td) Procedures Comments Procedure Name Priority Date/Time Associated Diagnosis POCT PT/INR(COAGUCHEK) Routine 06/19/2019 Portal vein thrombosis Anticoagulation management encounter POCT PT/INR(COAGUCHEK) Routine 06/19/2019 Portal vein thrombosis Anticoagulation management encounter SURGICAL PATHOLOGY EXAM Routine 06/03/2019 Vulvar intraepithelial 10:22 AM CDT neoplasia (SANG) grade 3 DISCLOSURE AND CONSENT, Routine 06/03/2019 MEDICAL AND SURGICAL 12:01 AM CDT PROCEDURES POCT PT/INR(COAGUCHEK) Routine 06/03/2019 Portal vein thrombosis Anticoagulation management encounter CT ABDOMEN PELVIS W WO Routine 05/27/2019 Liver cirrhosis secondary CONTRAST 2:26 PM CDT to [facility] Pre-liver transplant, listed POCT PT/INR(COAGUCHEK) Routine 05/27/2019 Portal vein thrombosis Anticoagulation management encounter POCT PT/INR(COAGUCHEK) Routine 05/20/2019 Portal vein thrombosis Anticoagulation management encounter MR LUMBAR SPINE WO Routine 05/13/2019 Lumbosacral spondylosis CONTRAST 9:21 AM CDT without myelopathy CONSENT/REFUSAL FOR Routine 05/13/2019 DIAGNOSIS AND TREATMENT 8:44 AM CDT ASSIGNMENT OF BENEFITS Routine 05/13/2019 8:43 AM CDT POCT PT/INR(COAGUCHEK) Routine 05/13/2019 Portal vein thrombosis Anticoagulation management encounter POCT PT/INR(COAGUCHEK) Routine 05/06/2019 Portal vein thrombosis Anticoagulation management encounter TRANSPLANT/EXT PROVIDER Routine 05/02/2019 LAB/PATHOLOGY 12:01 AM CDT INSURANCE CORRESPONDENCE Routine 04/24/2019 12:01 AM CDT CBC WITH DIFFERENTIAL Routine 04/12/2019 Pre-liver transplant, 1:07 PM CDT listed CBC WITH DIFF Routine 04/12/2019 Pre-liver transplant, 1:07 PM CDT listed BASIC METABOLIC PANEL Routine 04/12/2019 Pre-liver transplant, (NA, K, CL, CO2, GLUCOSE, 1:07 PM CDT listed BUN, CREATININE, CA) HEPATIC FUNCTION PANEL Routine 04/12/2019 Pre-liver transplant, ([id number]) (ALB,T.PRO,BILI 1:07 PM CDT listed T,BU/BC,ALT,AST,ALK PHOS) PROTHROMBIN TIME / INR Routine 04/12/2019 Pre-liver transplant, 1:07 PM CDT listed POCT HEMOGLOBIN A1C TEST Routine 04/12/2019 Uncontrolled type 2 10:49 AM CDT diabetes mellitus with diabetic neuropathy, with long-term current use of insulin from Last 3 Months Results * POCT PT/INR(COAGUCHEK) (06/19/2019) Only the most recent of 7 results within the time period is included. POCT PT/INR 1.6 (A) 0.8 - 1.4 INR POCT PT/SEC 18.9 SEC Specimen Blood - CAPILLARY * SURGICAL PATHOLOGY EXAM (06/03/2019 10:22 AM CDT) Case Report Surgical Pathology [facility] Case: [id number] Authorizing Provider: Hiwot Dan PA-C Collected: 06/03/2019 1022 Ordering Location: [facility] Received: 06/03/[address] [place] [address] Pathologist: Mitchell Bedolla MD Specimen: VAGINA Final Diagnosis A. VAGINA, BIOPSY: [facility] Electronically - [facility] signed by INTRAEPITHELIAL NEOPLASIA Mitchell Bedolla (VAIN IIIKaterina Rosales MD on 06/04/2019 Noris Ramos MD 06/04/2019 at 10:37 AM 9:53 AM I have personally reviewed all specimens/slides and agree with all statements made by residents, fellows or pathologist assistants whose name(s) may appear on this report. Clinical VAIN III [facility] Information SERVICES Gross Specimen A is received in [facility] Description formalin labelled with the SERVICES patient s name, [facility] number "vagina and consists of a single wedged-shaped, white soft tissue (0.3 x 0.2 x 0.2 cm). The specimen is filtered through a biopsy bag and submitted in toto in A1. Kevin Perez MD (Pathologist Hospital Secretary) Embedded Images [facility] Specimen Tissue - VAGINA Performing Organization Address City/State/Zipcode Phone Number [facility] CLIA: [id number], [address] [place] [address] [facility] * DISCLOSURE AND CONSENT, MEDICAL AND SURGICAL PROCEDURES (06/03/2019 12:01 AM CDT) Specimen Performing Organization Address City/State/Zipcode Phone Number HIM * CT ABDOMEN PELVIS W WO CONTRAST (05/27/2019 2:26 PM CDT) Specimen Impressions Performed At 1. Cirrhotic liver morphology with sequela of portal hypertension, PACS/VR/DOSE splenorenal collaterals and esophageal varices. No arterially enhancing hepatic lesions. 2. The portal venous thrombus shows further extension into the main portal vein when compared to the prior study. Thrombus extension into the smaller peripheral branches however shows improvement when compared to the prior. 3. No sclerotic or lytic lesions. I, Rangel Tao MD., have reviewed this study and agree with the above report. Narrative Performed At * * * * * * * * ORIGINAL REPORT * * * * * * * * PACS/VR/DOSE CT ABDOMEN WITH CONTRAST: CLINICAL HISTORY: [] see comments Listed liver transplant pt. HCC surveillance- please do triple phase. TECHNIQUE: CT abdomen and pelvis without and with 150 cc of Omnipaque. Triple phase liver protocol: Precontrast, arterial, portal venous, and delayed phases. COMPARISON: CT AP 11/22/2018 FINDINGS: LOWER THORAX: Focal, hypodense bilateral patchy airspace consistent with air trapping. No focal consolidation or mass lesion. The visualized heart size and pericardium are unremarkable. ESOPHAGUS: Distal esophageal varices are visualized. ABDOMEN: LIVER: The liver exhibits cirrhotic liver morphology with micronodular contour and fibrotic fatty density. No focal hepatic lesions. VESSELS: The main portal vein is dilated measuring 1.6 cm, relatively unchanged from prior study. The portal venous thrombus shows further extension into the main portal vein when compared to the prior study. Thrombus extension into the smaller peripheral branches however shows improvement when compared to the prior. Mild abdominal aorta atherosclerotic disease. GALLBLADDER & BILIARY TREE: Prior cholecystectomy. SPLEEN: Borderline splenic length with associated splenic varices PANCREAS: No pancreatic ductal dilatation or focal lesion. ADRENAL: No adrenal lesion is seen. KIDNEYS: The kidneys are incompletely visualized. No hydronephrosis, stones or masses are seen in the visualized kidneys. GI TRACT: The partially visualized GI tract is unremarkable. No enlarged retroperitoneal or peritoneal node is identified. BONES: No suspicious lytic or sclerotic bony lesions are identified LYMPH NODES: A 1.1 cm lymph node with fatty hilum and ovoid morphology is seen at the roxana hepatis. Procedure Note [facility], Radiant Results Inft User - 05/28/2019 11:51 AM CDT * * * * * * * * ORIGINAL REPORT * * * * * * * * CT ABDOMEN WITH CONTRAST: CLINICAL HISTORY: [] see comments Listed liver transplant pt. HCC surveillance- please do triple phase. TECHNIQUE: CT abdomen and pelvis without and with 150 cc of Omnipaque. Triple phase liver protocol: Precontrast, arterial, portal venous, and delayed phases. COMPARISON: CT AP 11/22/2018 FINDINGS: LOWER THORAX: Focal, hypodense bilateral patchy airspace consistent with air trapping. No focal consolidation or mass lesion. The visualized heart size and pericardium are unremarkable. ESOPHAGUS: Distal esophageal varices are visualized. ABDOMEN: LIVER: The liver exhibits cirrhotic liver morphology with micronodular contour and fibrotic fatty density. No focal hepatic lesions. VESSELS: The main portal vein is dilated measuring 1.6 cm, relatively unchanged from prior study. The portal venous thrombus shows further extension into the main portal vein when compared to the prior study. Thrombus extension into the smaller peripheral branches however shows improvement when compared to the prior. Mild abdominal aorta atherosclerotic disease. GALLBLADDER & BILIARY TREE: Prior cholecystectomy. SPLEEN: Borderline splenic length with associated splenic varices PANCREAS: No pancreatic ductal dilatation or focal lesion. ADRENAL: No adrenal lesion is seen. KIDNEYS: The kidneys are incompletely visualized. No hydronephrosis, stones or masses are seen in the visualized kidneys. GI TRACT: The partially visualized GI tract is unremarkable. No enlarged retroperitoneal or peritoneal node is identified. BONES: No suspicious lytic or sclerotic bony lesions are identified LYMPH NODES: A 1.1 cm lymph node with fatty hilum and ovoid morphology is seen at the roxana hepatis. IMPRESSION 1. Cirrhotic liver morphology with sequela of portal hypertension, splenorenal collaterals and esophageal varices. No arterially enhancing hepatic lesions. 2. The portal venous thrombus shows further extension into the main portal vein when compared to the prior study. Thrombus extension into the smaller peripheral branches however shows improvement when compared to the prior. 3. No sclerotic or lytic lesions. IRangel MD., have reviewed this study and agree with the above report. Performing Organization Address City/State/Zipcode Phone Number PACS/VR/DOSE * MR LUMBAR SPINE WO CONTRAST (05/13/2019 [...] DIAGNOSIS AND TREATMENT (05/13/2019 8:44 AM CDT) Specimen Performing Organization Address City/[facility]/Zipcode Phone Number HIM * ASSIGNMENT OF BENEFITS (05/13/2019 8:43 AM CDT) Specimen Performing Organization Address [facility]/Zipcode Phone Number HIM * TRANSPLANT/EXT PROVIDER LAB/PATHOLOGY (05/02/2019 12:01 AM CDT) Specimen Performing Organization Address [facility] Phone Number [facility] * INSURANCE CORRESPONDENCE (04/24/2019 12:01 AM CDT) Specimen Performing Organization Address City/[facility] Phone Number HIM * CBC WITH DIFFERENTIAL (04/12/2019 1:07 PM CDT) WBC 9.14 4.30 - 11.10 [facility] 10*3/L [facility] RBC 4.48 3.93 - 5.25 10*6/L [facility] HGB 14.0 11.6 - 15.0 g/dL [facility] HCT 43.6 35.7 - 45.2 % [facility] MCV 97.3 (H) 80.6 - 95.5 fL [facility] MCH 31.3 25.9 - 32.8 pg [facility] MCHC 32.1 31.6 - 35.1 g/dL [facility] RDW-SD 46.7 39.0 - 49.9 fL [facility] RDW-CV 13.1 12.0 - 15.5 % [facility] PLT 147 (L) 166 - 358 10*3/L [facility] MPV 11.0 9.5 - 12.9 fL [facility] NRBC/100 WBC 0.0 0.0 - 10.0 /100 WBCs [facility] NRBC x10^3 <0.01 10*3/L [facility] GRAN MAT (NEUT) 50.7 % [facility] % [facility] IMM GRAN % 0.30 % [facility] LYMPH % 38.3 % [facility] MONO % 7.0 % [facility] EOS % 2.8 % [facility] BASO % 0.9 % [facility] GRAN MAT 4.63 1.88 - 7.09 10*3/uL [facility] x10^3(ANC) [facility] IMM GRAN x10^3 0.03 0.00 - 0.06 10*3/uL [facility] LYMPH x10^3 3.50 (H) 1.32 - 3.29 10*3/uL [facility] MONO x10^3 0.64 0.33 - 0.92 10*3/uL [facility] EOS x10^3 0.26 0.03 - 0.39 10*3/uL [facility] BASO x10^3 0.08 (H) 0.01 - 0.07 10*3/uL [facility] Specimen Blood - ARM, RIGHT Performing Organization Address City/[facility]/Zipcode Phone Number [facility] CLIA: [id number], [address] [place] [id number] [facility] * PROTHROMBIN TIME / INR (04/12/2019 1:07 PM CDT) PROTIME PATIENT 14.8 (H) 12.0 - 14.7 Seconds [facility] INR 1.2Comment: Normal INR <1.1; [facility] Warfarin Therapeutic range 2.0 [facility] to 3.0 or 2.5 to 3.5, [facility] depending upon the indications. Specimen Blood - ARM, RIGHT Performing Organization Address [facility]/Zipcode Phone Number [facility] CLIA: [id number], [facility] [place] [address] [facility] * BASIC METABOLIC PANEL (NA, K, CL, CO2, GLUCOSE, BUN, CREATININE, CA) (04/12/2019 1:07 PM CDT) NA 140 135 - 145 mmol/L [facility] K 4.3 3.5 - 5.0 mmol/L [facility] CL 96 (L) 98 - 108 mmol/L [facility] CO2 TOTAL 30 23 - 31 mmol/L [facility] AGAP 14 2 - 16 [facility] BUN 20 7 - 23 mg/dL [facility] LABORATORY [facility] GLUCOSE 206 (H) 70 - 110 mg/dL [facility] CREATININE 1.49 (H) 0.50 - 1.04 mg/dL [facility] CALCIUM 9.7 8.6 - 10.6 mg/dL [facility] eGFR 36.6 mL/min/1.73m2 [facility] LABORATORY Calculation [facility] (Non-[facility] [place]) eGFR 44.4 mL/min/1.73m2 [facility] LABORATORY Calculation [facility] ([facility] [place]) Specimen Blood - ARM, RIGHT Narrative Performed At Association of Glomerular Filtration Rate (GFR) and Staging of Kidney Disease* [facility] LAB[facility] + + + + [facility] | GFR (mL/min/1.73 m2) | With [...] tests). Performing Organization Address City/State/Zipcode Phone Number [facility] CLIA: [id number], [address] [place] [address] [facility] * HEPATIC FUNCTION PANEL (08026) (ALB,T.PRO,BILI T,BU/BC,ALT,AST,ALK PHOS) (04/12/2019 1:07 PM CDT) TOTAL BILI 1.7 (H) 0.1 - 1.1 mg/dL [facility] LABORATORY [facility] BILI UNCON 1.1 0.1 - 1.1 mg/dL [facility] LABORATORY [facility] BILI CONJ 0.0 0.0 - 0.3 mg/dL [facility] LABORATORY [facility] T PROTEIN 8.7 (H) 6.3 - 8.2 g/dL [facility] LABORATORY [facility] ALBUMIN 4.1 3.5 - 5.0 g/dL [facility] LABORATORY [facility] ALK PHOS 209 (H) 34 - 122 U/L [facility] LABORATORY [facility] ALT(SGPT) 18 9 - 51 U/L [facility] LABORATORY [facility] AST(SGOT) 38 13 - 40 U/L [facility] LABORATORY [facility] Specimen Blood - ARM, RIGHT Performing Organization Address City/State/Zipcode Phone Number [facility] CLIA: [id number], [address] [place] [address] [facility] * POCT HEMOGLOBIN A1C TEST (04/12/2019 10:49 AM CDT) POCT HBA1C 9.2 (A) 4 - 6 % Specimen Blood - CAPILLARY from Last 3 Months Insurance Type Payer Benefit Subscriber ID Effective Phone Address Plan / Dates Group Medicaid [employer] [place] [employer] xxxxxxxxx 2016-P P O [facility] [place] resent [phone] [place] [address] (Home) [address] [place] [address] Advance Directives Relationship Healthcare Agent Relationship Communication Name Father Primary healthcare agent Asa Mills Child First alternate healthcare agent Sandy Ornelas
--- OUTSIDE RECORDS SUMMARY | 2019-11-01 03:56 | XMS REPORT | Clinical Summary ---
Author Author [facility] - Health Organization [facility] - Health Address Unknown Phone Unavailable Care Team Providers [employer] Farm Worker Name Role Phone Keiry Jaquez CNM Unavailable [...] (LANCETS,ULTRA Use as 200 Each [address]) [facility] directed 8 Active chlorhexidine 0.12 % Swish and 473 mL 0 mouthwash spit out 15 8 mL 2 (two) times daily. Active Insulin Reliance, Use to inject 400 Each 1 Disposable, (BD ULTRAFINE insulin 4X 9 III MINI PEN) 31 gauge x daily. 11/10" NdleIndications: DX:E11.65 Uncontrolled type 2 diabetes mellitus with complication, without long-term current use of insulin Active furosemide 40 mg tablet Take 1 tablet 90 tablet 3 by mouth 9 daily. Active TRUE METRIX GLUCOSE METER Use to check [address] [facility] glucose 3X 9 [...] Other directed by 9 cirrhosis of liver [facility] based on INR results. Active [...] Overview: Added automatically from request for surgery [id number] Obesity (BMI 30-39.9) 03/19/2018 Bilateral lower extremity edema 07/14/2017 Lumbosacral spondylosis without myelopathy 03/16/2017 Overview: Added automatically from request for surgery [id number] Mixed hyperlipidemia 01/18/2017 Cirrhosis of liver without [...] 02/09/2015 Overview: Last Mammogram result 10/2016 at [facility] negative Cervical spondylosis without myelopathy [...] Refill Gynecologic Oncology Edgar Frederick MD Nurse, [facility] Antico Portal vein thrombosis; Anticoagulation management encounter [...] 06/05/2019 Refill Gastroenterology Nanci Cortez MD Nurse, [facility] Antico Portal vein thrombosis; Anticoagulation management encounter 06/03/2019 Nurse Visit Anti-coagulation Clinic Nanci Cortez MD Vulvar intraepithelial neoplasia (SANG) grade [...] Diabetes & Metabolism Salazar Cruz MD Nurse, [facility] Antico Portal vein thrombosis; Anticoagulation management encounter 05/27/2019 Nurse Visit Anti-coagulation Clinic Salazar Cruz MD Nurse, [facility] Antico Portal vein thrombosis; Anticoagulation management encounter 05/20/2019 Nurse Visit Anti-coagulation Clinic Jay Jenkins MD Refill Request 05/20/2019 Refill Pain Medicine Mariana Woodruff FNP Refill Request 05/17/2019 Refill Endocrinology Diabetes & Metabolism Salazar Cruz MD Nurse, [facility] Antico Portal vein thrombosis; Anticoagulation management encounter; Other cirrhosis of liver 05/13/2019 Nurse Visit Anti-coagulation Clinic Jay Jenkins MD 05/13/2019 Hospital Radiology Encounter Doctor Unassigned, [place] 05/13/2019 Orders Only Salazar Cruz MD Nurse, [facility] Portal vein thrombosis; Anticoagulation management encounter 05/06/2019 Nurse Visit Anti-coagulation Clinic Doctor Unassigned, [place] 05/02/2019 Orders Only Bonita Nguyen MD Pre-Transplant; Orders 04/30/2019 Case Management Gastroenterology Jay Jenkins MD Lumbosacral spondylosis without myelopathy (Primary Dx); Bilateral sacroiliitis; Trochanteric bursitis of both hips 04/26/2019 Office Visit Pain Medicine Doctor Unassigned, [place] 04/24/2019 Orders Only Jay Jenkins MD Rx Concern/Question 04/19/2019 Telephone Pain Medicine Madisyn Dumont MD Refill Request 04/17/2019 Refill Endocrinology Diabetes & Metabolism Madisyn Dumont MD Refill Request 04/14/2019 Refill Endocrinology Diabetes & Metabolism Bonita Nguyen MD [facility] Pre-liver transplant, listed 04/12/2019 [employer] Phlebotomy Visit Delano Nguyen MD Collection Systems Foreman, Transplant 04/12/2019 Collection Systems Foreman Visit Surgery Bonita Nguyen MD Liver cirrhosis [...] Nurse Visit Anti-coagulation Clinic Bonita Nguyen MD [address] [place] [address] [phone] 07/12/2019 Office Visit Gastroenterology Jay Jenkins MD [address] [facility] [id number] [place], [place] [address] 09/06/2019 Office Visit Pain Medicine Mariana Woodruff, [employer] ADMINISTRATOR [address] [place], [place] [address] 09/06/2019 Office Visit Endocrinology Diabetes & Metabolism Nanci Cortez MD [address] [place] [address] 09/23/2019 Office Visit Gynecologic Oncology Ramon Lomeli, OD [address] [place] [address] 06/03/2020 Office Visit Ophthalmology Health [...] HEPATIC FUNCTION PANEL Routine 04/12/2019 Pre-liver transplant, ([id number]) (ALB,T.PRO,BILI 1:07 PM CDT listed T,BU/BC,ALT,AST,ALK PHOS) [...] 10:22 AM CDT) Case Report Surgical Pathology [facility] SERVICES Case: [id number] Authorizing Provider: Hiwot Dan PA-C Collected: 06/03/2019 1022 Ordering Location: [facility] Received: 06/03/[address] [place] [address] Pathologist: Mitchell Bedolla MD Specimen: VAGINA Final Diagnosis A. VAGINA, BIOPSY: [facility] Electronically - [facility] signed by INTRAEPITHELIAL NEOPLASIA Mitchell Bedolla (VAIN IIIKaterina Rosales MD on 06/04/2019 Noris Ramos MD 06/04/2019 at 10:37 AM 9:53 AM I have personally reviewed all specimens/slides and agree with all statements made by residents, fellows or pathologist assistants whose name(s) may appear on this report. Clinical VAIN III [facility] Information SERVICES Gross Specimen A is received in [facility] Description formalin labelled with the SERVICES patient s name, UH number "vagina and consists of a single wedged-shaped, white soft tissue (0.3 x 0.2 x 0.2 cm). The specimen is filtered through a biopsy bag and submitted in toto in A1. Kevin Perez MD (Pathologist Lighthouse Keeper) Embedded Images [facility] Specimen Tissue - VAGINA Performing Organization Address City/State/Zipcode Phone Number [facility] CLIA: [id number], [address] [place] [address] [facility] * DISCLOSURE AND CONSENT, MEDICAL AND SURGICAL [...] 8:44 AM CDT) Specimen Performing Organization Address City/[facility]/Zipcode Phone Number HIM * ASSIGNMENT OF BENEFITS (05/13/2019 8:43 AM CDT) Specimen Performing Organization Address [facility]/Zipcode Phone Number HIM * TRANSPLANT/EXT PROVIDER LAB/PATHOLOGY (05/02/2019 12:01 AM CDT) Specimen Performing Organization Address [facility] Phone Number [facility] * INSURANCE CORRESPONDENCE (04/24/2019 12:01 AM CDT) Specimen Performing Organization Address City/[facility] Phone Number [facility] * CBC WITH DIFFERENTIAL (04/12/2019 1:07 PM CDT) WBC 9.14 4.30 - 11.10 [facility] 10*3/L [facility] RBC 4.48 3.93 - 5.25 10*6/L [facility] HGB 14.0 11.6 - 15.0 g/dL [facility] HCT 43.6 35.7 - 45.2 % [facility] MCV 97.3 (H) 80.6 - 95.5 fL [facility] MCH 31.3 25.9 - 32.8 pg [facility] MCHC 32.1 31.6 - 35.1 g/dL [facility] RDW-SD 46.7 39.0 - 49.9 fL [facility] RDW-CV 13.1 12.0 - 15.5 % [facility] PLT 147 (L) 166 - 358 10*3/L [facility] MPV 11.0 9.5 - 12.9 fL [facility] NRBC/100 WBC 0.0 0.0 - 10.0 /100 WBCs [facility] NRBC x10^3 <0.01 10*3/L [facility] GRAN MAT (NEUT) 50.7 % [facility] % [facility] IMM GRAN % 0.30 % [facility] L[facility]MPH [facility] 38.3 % [facility] MONO % 7.0 % [facility] EOS % 2.8 % [facility] BASO % 0.9 % [facility] GRAN MAT 4.63 1.88 - 7.09 10*3/uL [facility] x10^3(ANC) [facility] IMM GRAN x10^3 0.03 0.00 - 0.06 10*3/uL [facility]MP[facility] x10^3 3.50 (H) 1.32 - 3.29 10*3/uL [facility] MONO x10^3 0.64 0.33 - 0.92 10*3/uL [facility] EOS x10^3 0.26 0.03 - 0.39 10*3/uL [facility] BASO x10^3 0.08 (H) 0.01 - 0.07 10*3/uL [facility] Specimen Blood - ARM, RIGHT Performing Organization Address City/[facility]/Zipcode Phone Number [facility] CLIA: [id number], [address] [place] [id number] [facility] * PROTHROMBIN TIME / INR (04/12/2019 1:07 PM CDT) PROTIME PATIENT 14.8 (H) 12.0 - 14.7 Seconds [facility] INR 1.2Comment: Normal INR <1.1; [facility] Warfarin Therapeutic range 2.0 [facility] to 3.0 or 2.5 to 3.5, [facility] depending upon the indications. Specimen Blood - ARM, RIGHT Performing Organization Address [facility]/Zipcode Phone Number [facility] CLIA: [id number], Critical access hospital[address] [place] [address] [facility] * BASIC METABOLIC PANEL (NA, K, CL, CO2, GLUCOSE, BUN, CREATININE, CA) (04/12/2019 1:07 PM CDT) NA 140 135 - 145 mmol/L [facility] K 4.3 3.5 - 5.0 mmol/L [facility] CL 96 (L) 98 - 108 mmol/L [facility] CO2 TOTAL 30 23 - 31 mmol/L [facility] AGAP 14 2 - 16 [facility] BUN 20 7 - 23 mg/dL [facility] GLUCOSE 206 (H) 70 - 110 mg/dL [facility] CREATININE 1.49 (H) 0.50 - 1.04 mg/dL [facility] CALCIUM 9.7 8.6 - 10.6 mg/dL [facility] eGFR 36.6 mL/min/1.73m2 [facility] Calculation [facility] (Non-[facility] [place]) eGFR 44.4 mL/min/1.73m2 [facility] Calculation [facility] ([facility] [place]) Specimen Blood - ARM, RIGHT Narrative Performed At Association of Glomerular Filtration Rate (GFR) and Staging of Kidney Disease* [facility] + + + + [facility] | GFR (mL/min/1.73 m2) | With Kidney [...] tests). Performing Organization Address City/State/Zipcode Phone Number [facility] CLIA: [id number], [address] [place] [address] [facility] * HEPATIC FUNCTION PANEL (17109) (ALB,T.PRO,BILI T,BU/BC,ALT,AST,ALK PHOS) (04/12/2019 1:07 PM CDT) TOTAL BILI 1.7 (H) 0.1 - 1.1 mg/dL [facility] BILI UNCON 1.1 0.1 - 1.1 mg/dL [facility] BILI CONJ 0.0 0.0 - 0.3 mg/dL [facility] T PROTEIN 8.7 (H) 6.3 - 8.2 g/dL [facility] ALBUMIN 4.1 3.5 - 5.0 g/dL [facility] ALK PHOS 209 (H) 34 - 122 U/L [facility] ALT(SGPT) 18 9 - 51 U/L [facility] AST(SGOT) 38 13 - 40 U/L [facility] Specimen Blood - ARM, RIGHT Performing Organization Address City/State/Zipcode Phone Number [facility] CLIA: [id number], [address] [place] [address] [facility] * POCT HEMOGLOBIN A1C TEST (04/12/2019 10:49 AM CDT) POCT HBA1C 9.2 (A) 4 - 6 % Specimen Blood - CAPILLARY from Last 3 Months Insurance Type Payer Benefit Subscriber ID Effective Phone Address Plan / Dates Group Medicaid [employer] [place] [employer] xxxxxxxxx 2016-P P O [facility] resent [phone] [place] [address] (Home) [address] [place] [address] Advance Directives Relationship Healthcare Agent Relationship Communication Name Father Primary healthcare agent Asa Mills Child First alternate healthcare agent Sandy Ornelas
--- OUTSIDE RECORDS SUMMARY | 2019-11-01 03:57 | XMS REPORT | Clinical Summary ---
Author Author [facility] - Health Organization [facility] - Health Address Unknown Phone Unavailable Care Team Providers Care Utility Mechanic Name Role Phone Keiry Jaquez CNM Unavailable Unavailable Madisyn Dumont MD Unavailable Unavailable Josef Mcintosh Antoino 100[address] Isabel Hansen RN Unavailable Unavailable Keiry [...] 1 T PO QD 8 7 Active chlorhexidine 0.12 % Swish and 473 mL 0 mouthwash spit out 15 8 mL 2 (two) times daily. Active Insulin [place], Use to inject 400 Each 1 Disposable, [...] Other directed by 9 cirrhosis of liver [facility] based on INR results. Active traMADol [...] each eye 9 allergic conjunctivitis daily. 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 Advise patient to insert medication into top of vagina, then insert tampon and put vaseline on external genitalia. The next morning remove tampon, shower, rinse thoroughly. Active clonazePAM (KLONOPIN) 1 Take 1 tablet 30 tablet 2 mg tabletIndications: by mouth 9 Generalized anxiety daily. 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 without myelopathy Active Lancets (LANCETS,ULTRA Use to check 300 Each 1 THIN) Misc blood sugar 9 3X daily. DX:E11.[address] 1 Drop 1 Bottle 3 Sodium (THERATEARS) 0.25 in each eye 2 9 % DropIndications: Dry (two) times eye syndrome, bilateral daily. Active pregabalin (LYRICA) 75 mg TAKE 1 90 capsule 2 capsuleIndications: CAPSULE BY 9 Neuropathy MOUTH THREE TIMES DAILY Active DICLOFENAC SODIUM 1 % APPLY TO THE 100 g 3 gelIndications: AFFECTED 9 Lumbosacral spondylosis AREA(S) TWICE without myelopathy, DAILY Bilateral sacroiliitis, Trochanteric bursitis of both hips Active TRAMADOL 50 mg TAKE 1 TABLET 90 tablet 1 tabletIndications: BY MOUTH 9 Lumbosacral spondylosis EVERY 6 HOURS without myelopathy, NEEDED FOR Trochanteric bursitis of PAIN both hips, Bilateral sacroiliitis Active warfarin 2.5 mg tablet Take as 60 tablet 3 directed by 9 [facility] based on INR results. Active Problems Problem Noted Date Portal vein thrombosis 05/06/2019 Anticoagulation management encounter 05/06/2019 Vulvar intraepithelial neoplasia (SANG) grade 3 11/16/2018 Dental caries 04/17/2018 Overview: Added automatically from request for surgery [id number] Obesity (BMI 30-39.9) 03/19/2018 Bilateral lower extremity edema 07/14/2017 Lumbosacral spondylosis without myelopathy 03/16/2017 Overview: Added automatically from request for surgery [id number] Mixed hyperlipidemia 01/18/2017 Cirrhosis of liver without [...] Encounters Care Team Description Date Type Specialty Edgar Frederick MD Nurse, [facility] Anticoag Portal vein thrombosis; Anticoagulation management encounter 08/12/2019 Nurse Visit Anti-coagulation Clinic Nanci Cortez MD VAEDELMIRA III (vaginal intraepithelial neoplasia grade III) (Primary Dx) 08/12/2019 Office Visit Gynecologic Oncology Edgar Frederick MD Refill Request 08/11/2019 Refill Anti-coagulation Clinic Jay Jenkins MD Refill Request 08/11/2019 Refill Pain Medicine Fer Thao MD Refill Request 08/10/2019 Refill Endocrinology Diabetes & Metabolism Jay Jenkins MD Refill Request 08/06/2019 Refill Pain Medicine Jay Jenkins MD Refill Request 08/04/2019 Refill Pain Medicine Jay Jenkins MD Refill Request 07/23/2019 Refill Pain Medicine Nanci Cortez MD Notification 07/17/2019 Telephone Gynecologic Oncology Bonita Nguyen MD [facility] 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; Pre-liver transplant, listed; Portal hypertension; Portal vein thrombosis 07/12/2019 Publications Sales Representative Phlebotomy Visit Bonita Nguyen MD Worker, Transplant Social Social Work (follow up) 07/12/2019 Case Management Surgery Bonita Nguyen MD 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); Pre-liver transplant, listed; Portal hypertension; Portal vein thrombosis; Immunization due 07/12/2019 Office Visit Gastroenterology Bonita Nguyen MD Medical Records (Listed liver txpl - OSH records [facility]) 07/11/2019 Telephone Surgery Aldair Lima MD Trigger thumb of right hand (Primary Dx) 07/10/2019 Office Visit Orthopedic Surgery Doctor Unassigned, [place] 07/10/2019 Orders Only Ramon Lomeli, OD Refill Request 07/10/2019 Refill Ophthalmology Doctor Unassigned, [place] Refill Request 07/10/2019 Refill Endocrinology Diabetes & Metabolism Jay Jenkins MD Refill Request 07/10/2019 Refill Pain Medicine Jay Jenkins MD Refill Request 07/09/2019 Refill Pain Medicine Edgar Frederick MD Nurse, [facility] Anticoag Portal vein thrombosis; Anticoagulation management encounter 07/08/2019 Nurse Visit Anti-coagulation Clinic Delano Nguyen MD Forms 07/03/2019 Telephone Gastroenterology Bonita Nguyen MD Pre-op Clearance (thumb surgery) 07/03/2019 Case Management Gastroenterology Bonita Nguyen MD Surgery Clearance 07/02/2019 Telephone Nephrology Jay Jenkins MD Refill Request 07/02/2019 Refill Pain Medicine Doctor Unassigned, [place] 06/28/2019 Orders Only Edgar Frederick MD Nurse, [facility] Antico Portal vein thrombosis; Anticoagulation management encounter 06/24/2019 Nurse Visit Anti-coagulation Clinic Nanci Cortez MD Refill Request 06/20/2019 Refill Gynecologic Oncology Edgar Frederick MD Nurse, [facility] Antico Portal vein thrombosis; Anticoagulation management encounter 06/19/2019 Nurse Visit Anti-coagulation Clinic Doctor Unassigned, [place] 06/18/2019 Orders Only Nanci Cortez MD Notification 06/14/2019 Telephone Gynecologic Oncology Nanci Cortez MD Refill Request 06/11/2019 Refill Gynecologic Oncology Jay Jenkins MD Refill Request 06/11/2019 Telephone Pain Medicine Jay Jenkins MD Refill Request 06/09/2019 Refill Pain Medicine Delano Nguyen MD Lab Results (Listed Liver Txpl -outside labs collected 05/02/19) 06/07/2019 Telephone Surgery Doctor Unassigned, [place] 06/06/2019 Orders Only Nanci Cortez MD Refill Request 06/06/2019 Refill Gynecologic Oncology Hiwot Dan PA-C Notification 06/06/2019 Telephone Gynecologic Oncology Hiwot Dan PA-C Orders 06/06/2019 Telephone Gynecologic Oncology Bonita Nguyen MD Refill Request 06/05/2019 Refill Gastroenterology Nanci Cortez MD Nurse, [facility] Antico Portal vein thrombosis; Anticoagulation management [...] Diabetes & Metabolism Salazar Cruz MD Nurse, [facility] Antico Portal vein thrombosis; Anticoagulation management encounter 05/27/2019 Nurse Visit Anti-coagulation Clinic Salazar Cruz MD Nurse, [facility] Antico Portal vein thrombosis; Anticoagulation management encounter 05/20/2019 Nurse Visit Anti-coagulation Clinic Jay Jenkins MD Refill Request 05/20/2019 Refill Pain Medicine Mariana Woodruff FNP Refill Request 05/17/2019 Refill Endocrinology Diabetes & Metabolism Salazar Cruz MD Nurse, [facility] Antico Portal vein thrombosis; Anticoagulation management encounter; Other cirrhosis of liver 05/13/2019 Nurse Visit Anti-coagulation Clinic Jay Jenkins MD 05/13/2019 Hospital Radiology Encounter Doctor Unassigned, [place] 05/13/2019 Orders Only from Last 3 Months Immunizations Name Administration Dates Next Due HEP B, Adult Dosage 07/12/2019, 03/11/2019, 11/16/2017, 07/13/2017, 03/20/2017, 01/09/2017 Hep B, Dialysis Dosage 02/12/2018, 01/01/2018 Influenza Virus Vaccine 07/12/2019 Quad .5 mL IM 6+ MO Influenza Virus Vaccine 07/13/2017 Quad ID [id number] [...] Signs Reading Time Taken Comments Vital Sign 117/69 08/12/2019 9:59 AM MARKETING AUTOMATION ANALYST Blood Pressure 92 08/12/2019 9:59 AM MARKETING AUTOMATION ANALYST Pulse 36.4 C (97.6 F) 08/12/2019 9:59 AM MARKETING AUTOMATION ANALYST Temperature 18 08/12/2019 9:59 AM MARKETING AUTOMATION ANALYST Respiratory Rate 99% 08/12/2019 9:59 AM MARKETING AUTOMATION ANALYST Oxygen Saturation - - Inhaled Oxygen Concentration 90.4 kg (199 lb 4.8 oz) 08/12/2019 9:59 AM MARKETING AUTOMATION ANALYST Weight 152.4 cm (5') 08/12/2019 9:59 AM MARKETING AUTOMATION ANALYST Height 38.92 08/12/2019 9:59 AM MARKETING AUTOMATION ANALYST Body Mass Index Plan of Treatment Care Team Description Date Type Specialty Jay Jenkins MD [address] [facility] [id number] [place] [address] [phone] 09/06/2019 Office Visit Pain Medicine Mariana Woodruff FNP [address] [place] [address] [phone] 09/06/2019 Office Visit Endocrinology Diabetes & Metabolism Nurse, [facility] 09/06/2019 Nurse Visit Anti-coagulation Clinic Nanci Cortez MD [address] [place] [id number] 09/09/2019 Office Visit Gynecologic Oncology Ramon Lomeli, OD [address] [place] [address] [phone] 06/03/2020 Office Visit Ophthalmology Health Maintenance Due Date Last Done Comments COLONOSCOPY 02/28/2016 Zoster Recombinant 02/28/2016 Vaccine (SHINGRIX) (1 of 2) PNEUMOCOCCAL 0-64 YEARS 02/26/2018 01/01/2018 COMBINED SERIES (2 of 3 - PPSV23) URINE MICROALBUMIN 2019 2018, 11/29/2016 HgA1C 10/13/2019 04/12/2019, 10/23/2018, 2018, Additional history exists LDL-C 10/23/2019 10/23/2018, 2018, 01/18/2017 Breast Cancer Screening 11/23/2019 11/22/2018, 11/09/2016, 02/09/2015 (MAMMOGRAM) FOOT EXAM 05/27/2020 05/27/2019, 05/27/2019, 04/12/2019, Additional history exists EYE EXAM 05/29/2020 05/29/2019 CREATININE (SERUM) 07/12/2020 07/12/2019, 04/12/2019, 01/18/2019, Additional history exists PAP SMEAR 01/17/2021 01/17/2018, 11/14/2016, 02/02/2015 DTaP,Tdap,and Td Vaccines 03/20/2027 03/20/2017 (2 - Td) INFLUENZA VACCINE Completed 07/12/2019 Procedures Comments Procedure Name Priority Date/Time Associated Diagnosis CBC WITH DIFFERENTIAL Routine 07/12/2019 Liver cirrhosis secondary 12:22 PM MARKETING AUTOMATION ANALYST to GRAJEDA Pre-liver transplant, listed Portal hypertension Portal vein thrombosis PROTHROMBIN TIME / INR Routine 07/12/2019 Liver cirrhosis secondary 12:22 PM MARKETING AUTOMATION ANALYST to GRAJEDA Pre-liver transplant, listed Portal hypertension Portal vein thrombosis CBC WITH DIFFERENTIAL Routine 07/12/2019 Liver cirrhosis secondary 12:22 PM MARKETING AUTOMATION ANALYST to GRAJEDA Pre-liver transplant, listed Portal hypertension Portal vein thrombosis BASIC METABOLIC PANEL Routine 07/12/2019 Liver cirrhosis secondary (NA, K, CL, CO2, GLUCOSE, 12:22 PM MARKETING AUTOMATION ANALYST to GRAJEDA BUN, CREATININE, CA) Pre-liver transplant, listed Portal hypertension Portal vein thrombosis HEPATIC FUNCTION PANEL Routine 07/12/2019 Liver cirrhosis secondary (33808) (ALB,T.PRO,BILI 12:22 PM MARKETING AUTOMATION ANALYST to GRAJEDA T,BU/BC,ALT,AST,ALK PHOS) Pre-liver transplant, listed Portal hypertension Portal vein thrombosis ALPHA FETOPROTEIN Routine 07/12/2019 Liver cirrhosis secondary 12:22 PM MARKETING AUTOMATION ANALYST to GRAJEDA Pre-liver transplant, listed Portal hypertension Portal vein thrombosis HB HLA CLASS I/II Routine 07/12/2019 Liver cirrhosis secondary ANTIBODY QUAL 12:22 PM MARKETING AUTOMATION ANALYST to GRAJEDA Pre-liver transplant, listed Portal hypertension Portal vein thrombosis FLU VACC ([id number]), 6+ Routine 07/12/2019 Liver cirrhosis secondary MONTHS, IM, QUAD 11:19 AM MARKETING AUTOMATION ANALYST to GRAJEDA Pre-liver transplant, listed Portal hypertension Portal vein thrombosis HEPATITIS B Routine 07/12/2019 Liver cirrhosis secondary VACCINE,ADULT,IM 11:19 AM MARKETING AUTOMATION ANALYST to GRAJEDA Pre-liver transplant, listed Portal hypertension Portal vein thrombosis TRANSPLANT/EXTERNAL Routine 07/11/2019 PROVIDER - EHGT 12:01 AM MARKETING AUTOMATION ANALYST PATIENT AGREEMENTS AND Routine 07/10/2019 CONTRACTS 12:01 AM MARKETING AUTOMATION ANALYST PATIENT QUESTIONNAIRE Routine 07/10/2019 12:01 AM MARKETING AUTOMATION ANALYST DISCLOSURE AND CONSENT, Routine 07/10/2019 MEDICAL AND SURGICAL 12:01 AM MARKETING AUTOMATION ANALYST PROCEDURES DISCLOSURE AND CONSENT, Routine 07/10/2019 MEDICAL AND SURGICAL 12:01 AM MARKETING AUTOMATION ANALYST PROCEDURES POCT PT/INR(COAGUCHEK) Routine 07/08/2019 Portal vein thrombosis Anticoagulation management encounter MEDICAL RELEASE/CLEARANCE Routine 06/28/2019 FORMS 12:01 AM CDT POCT PT/INR(COAGUCHEK) Routine 06/24/2019 Portal vein thrombosis Anticoagulation management encounter POCT PT/INR(COAGUCHEK) Routine 06/19/2019 Portal vein thrombosis Anticoagulation management encounter POCT PT/INR(COAGUCHEK) Routine 06/19/2019 Portal vein thrombosis Anticoagulation management encounter INSURANCE CORRESPONDENCE Routine 06/18/2019 12:01 AM CDT DME/SUPPLY JUSTIFICATION Routine 06/06/2019 12:01 AM CDT SURGICAL PATHOLOGY EXAM Routine 06/03/2019 Vulvar intraepithelial 10:22 AM CDT neoplasia (SANG) grade 3 DISCLOSURE AND CONSENT, Routine 06/03/2019 MEDICAL AND SURGICAL 12:01 AM CDT PROCEDURES POCT PT/INR(COAGUCHEK) Routine 06/03/2019 Portal vein thrombosis Anticoagulation management encounter INSURANCE CORRESPONDENCE Routine 05/29/2019 12:[address] ABDOMEN PELVIS W WO Routine 05/27/2019 [...] 05/13/2019 Portal vein thrombosis Anticoagulation management encounter from Last 3 Months Results * CBC WITH DIFFERENTIAL (07/12/2019 12:22 PM MARKETING AUTOMATION ANALYST) WBC 4.94 4.30 - 11.10 [facility] 10*3/L [facility] RBC 4.20 3.93 - 5.25 10*6/L [facility] HGB 12.8 11.6 - 15.0 g/dL [facility] HCT 38.9 35.7 - 45.2 % [facility] MCV 92.6 80.6 - 95.5 fL [facility] MCH 30.5 25.9 - 32.8 pg [facility] MCHC 32.9 31.6 - 35.1 g/dL [facility] RDW-SD 45.1 39.0 - 49.9 fL [facility] RDW-CV 13.3 12.0 - 15.5 % [facility] PLT 97 (L) 166 - 358 10*3/L [facility] MPV 10.8 9.5 - 12.9 fL [facility] IPF % 3.2Comment: Platelet count 1.3 - 7.7 % [facility] measured by fluorescence [facility] method. [facility] NRBC/100 WBC 0.0 0.0 - 10.0 /100 WBCs [facility] NRBC x10^3 <0.01 10*3/L [facility] GRAN MAT (NEUT) 57.7 % [facility] % [facility] IMM GRAN % 0.20 % [facility] LYMPH % 34.0 % [facility] SERVICES[facility] MONO % 5.5 % [facility] EOS % 1.8 % [facility] BASO % 0.8 % [facility] GRAN MAT 2.85 1.88 - 7.09 10*3/uL [facility] x10^3(ANC) [facility] IMM GRAN x10^3 <0.03 0.00 - 0.06 10*3/uL [facility] LYMPH x10^3 1.68 1.32 - 3.29 10*3/uL [facility] MONO x10^3 0.27 (L) 0.33 - 0.92 10*3/uL [facility] EOS x10^3 0.09 0.03 - 0.39 10*3/uL [facility] BASO x10^3 0.04 0.01 - 0.07 10*3/uL [facility] Specimen Blood - ARM, RIGHT Performing Organization Address City/[facility]/Zipcode Phone Number [facility] CLIA: [id number], [address] [place] [address] [facility] * ANTIBODY SCREEN X-RENAL (07/12/2019 12:22 PM MARKETING AUTOMATION ANALYST) SERUM DTE 07/12/2019 HLA CALCULATED PRA 0 HLA TEST TYPE Multi Ag HLA TEST DATE 07/23/2019 HLA T-PRA 0 HLA T-ID HLA METHOD Luminex HLA COMMENTS Performed at [facility] Pathology HLA Clinical Services Laboratories - Tissue Antigen DIRECTOR: OMID RAMSEY MD, PHD [address] [place] [address] CLIA No. [id number] ANALYTE SPECIFIC REAGENT STATEMENT: This test was developed and its performance characteristics determined by the [facility] Tissue Antigen Laboratory. The test has not been cleared or approved by the [place] [employer] (USFDA). The USFDA does not require licensing of reagents used in these tests. VERIFIED BY: Edgar Price (electronic signature) 07/31/2019 REPORT DTE 07/31/2019 HLA TECH EP HLA TEST DATE 07/23/2019 HLA B-PRA 57 HLA B-ID HLA METHOD Luminex HLA COMMENTS Performed at [facility] Pathology [facility] Clinical Services Laboratories - Tissue Antigen DIRECTOR: OMID RAMSEY MD, PHD [address] [place] [address] CLIA No. [id number] ANALYTE SPECIFIC REAGENT STATEMENT: This test was developed and its performance characteristics determined by the [facility] Tissue Antigen Laboratory. The test has not been cleared or approved by the [place] [employer] and [employer] (USFDA). The USFDA does not require licensing of reagents used in these tests. VERIFIED BY: Edgar Price (electronic signature) 07/31/2019 REPORT DTE 07/31/2019 HLA TECH EP HLA Specimen Blood - VENOUS Performing Organization Address City/[facility]/Zipcode Phone Number HLA * PROTHROMBIN TIME / INR (07/12/2019 12:22 PM MARKETING AUTOMATION ANALYST) PROTIME PATIENT 19.7 (H) 12.0 - 14.7 Seconds [facility] INR 1.7Comment: Normal INR <1.1; [facility] Warfarin Therapeutic range 2.0 [facility] to 3.0 or 2.5 to 3.5, [facility] depending upon the indications. Specimen Blood - ARM, RIGHT Performing Organization Address City/State/Zipcode Phone Number [facility] CLIA: [id number], [address] [place] [address] [facility] * ALPHA FETOPROTEIN (07/12/2019 12:22 PM MARKETING AUTOMATION ANALYST) AFP 5.4 <=7.5 ng/mL [facility] SERVICES Specimen Blood - ARM, RIGHT Narrative Performed At Biotin has been reported to cause a negative bias, interpret results relative to [facility] patient's use of biotin. SERVICES Performing Organization Address City/State/Zipcode Phone Number [facility] SERVICES CLIA: [id number], [address] [place] [address] [facility] * BASIC METABOLIC PANEL (NA, K, CL, CO2, GLUCOSE, BUN, CREATININE, CA) (07/12/2019 12:22 PM MARKETING AUTOMATION ANALYST) NA 138 135 - 145 mmol/L [facility] K 4.1 3.5 - 5.0 mmol/L [facility] CL 104 98 - 108 mmol/L [facility] CO2 TOTAL 26 23 - 31 mmol/L [facility] AGAP 8 2 - 16 [facility] BUN 13 7 - 23 mg/dL [facility] GLUCOSE 315 (H) 70 - 110 mg/dL [facility] CREATININE 0.60 0.50 - 1.04 mg/dL [facility] CALCIUM 9.3 8.6 - 10.6 mg/dL [facility] eGFR 104.6 mL/min/1.73m2 [facility] Calculation [facility] ([facility] Bulgarian) eGFR 126.7 mL/min/1.73m2 [facility] Calculation [facility] ( [facility] Bulgarian) Specimen Blood - ARM, RIGHT Narrative Performed At Association of Glomerular Filtration Rate (GFR) and Staging of Kidney Disease* [facility] + + + + [facility] | GFR (mL/min/1.73 m2) [...] abnormalities in imaging tests). Performing Organization Address City/[facility] Phone Number [facility] CLIA: [id number], [address] [place] [address] [facility] * HEPATIC FUNCTION PANEL ([id number]) (ALB,T.PRO,BILI T,BU/BC,ALT,AST,ALK PHOS) (07/12/2019 12:22 PM MARKETING AUTOMATION ANALYST) TOTAL BILI 1.1 0.1 - 1.1 mg/dL [facility] BILI UNCON 0.5 0.1 - 1.1 mg/dL [facility] BILI CONJ 0.0 0.0 - 0.3 mg/dL [facility] T PROTEIN 7.9 6.3 - 8.2 g/dL [facility] ALBUMIN 3.7 3.5 - 5.0 g/dL [facility] ALK PHOS 217 (H) 34 - 122 U/L [facility] ALTv 21 5 - 35 U/L [facility] AST(SGOT) 37 13 - 40 U/L [facility] Specimen Blood - ARM, RIGHT Performing Organization Address [facility]/State/Zipcode Phone Number [facility] CLIA: [id number], [address] [place] [address] SERVICES-[facility] * TRANSPLANT/EXTERNAL PROVIDER - EHGT (07/11/2019 12:01 AM MARKETING AUTOMATION ANALYST) Specimen Performing Organization Address [facility] Phone Number [facility] * PATIENT AGREEMENTS AND CONTRACTS (07/10/2019 12:01 AM MARKETING AUTOMATION ANALYST) Specimen Performing Organization Address [facility] Cent[facility]ode Phone Number [facility] * DISCLOSURE AND CONSENT, MEDICAL AND SURGICAL PROCEDURES (07/10/2019 12:01 AM MARKETING AUTOMATION ANALYST) Only the most recent of 3 results within the time period is included. Specimen Performing Organization Address [facility] Cent[facility]ode Phone Number [facility] * PATIENT QUESTIONNAIRE (07/10/2019 12:01 AM MARKETING AUTOMATION ANALYST) Specimen Performing Organization Address [facility] Cent[facility]ode Phone Number [facility] * POCT PT/INR(COAGUCHEK) (07/08/2019) Only the most recent of 8 results within the time period is included. POCT PT/INR 2.2 (A) 0.8 - 1.4 INR POCT PT/SEC 26.8 SEC Specimen Blood - CAPILLARY * MEDICAL RELEASE/CLEARANCE FORMS (06/28/2019 12:01 AM CDT) Specimen Performing Organization Address [facility] Cent[facility] Phone Number [facility] * INSURANCE CORRESPONDENCE (06/18/2019 12:01 AM CDT) Only the most recent of 2 results within the time period is included. Specimen Performing Organization Address [facility]ode Phone Number [facility] * DME/SUPPLY JUSTIFICATION (06/06/2019 12:01 AM CDT) Specimen Performing Organization Address [facility] Centercode Phone Number [facility] * SURGICAL PATHOLOGY EXAM (06/03/2019 10:22 AM CDT) Case Report Surgical Pathology [facility] Case: [id number] Authorizing Provider: Hiwot Dan PA-C Collected: 06/03/2019 1022 Ordering Location: [facility] Received: 06/03/[address] [place] [address] Pathologist: Mitchell Bedolla MD Specimen: VAGINA Final Diagnosis A. VAGINA, BIOPSY: [facility] Electronically - [facility] signed by INTRAEPITHELIAL NEOPLASIA Mitchell Bedolla (VAIN III) MD Bobby on 06/04/2019 Noris Ramos MD 06/04/2019 at 10:37 AM 9:53 AM I have personally reviewed all specimens/slides and agree with all statements made by residents, fellows or pathologist assistants whose name(s) may appear on this report. Clinical VAIN III [facility] Information SERVICES Gross Specimen A is received in [facility] Description formalin labelled with the SERVICES patient s name, [facility] number "vagina and consists of a single wedged-shaped, white soft tissue (0.3 x 0.2 x 0.2 cm). The specimen is filtered through a biopsy bag and submitted in toto in A1. Kevin Perez MD (Pathologist Dry Transfer Worker) Embedded Images [facility] Specimen Tissue - VAGINA Performing Organization Address City/State/Zipcode Phone Number [facility] CLIA: [id number], [address] [place] [address] [facility] * CT ABDOMEN PELVIS W WO CONTRAST [...] 8:44 AM CDT) Specimen Performing Organization Address City/State/Zipcode Phone Number HIM * ASSIGNMENT OF BENEFITS (05/13/2019 8:43 AM CDT) Specimen Performing Organization Address City/State/Zipcode Phone Number HIM from Last 3 Months Insurance Type Payer Benefit Subscriber ID Effective Phone Address Plan / Dates Group Medicaid [facility] [employer] xxxxxxxxx 2016-P [address] [facility] [address] [place] [address] Advance Directives Relationship Healthcare Agent Relationship Communication Name Father Primary healthcare agent Asa Mills Child First alternate healthcare agent Sandy Ornelas
--- OUTSIDE RECORDS SUMMARY | 2019-11-01 03:57 | XMS REPORT | Clinical Summary ---
Author Author [facility] - Health Organization [facility] - Health Address Unknown Phone Unavailable Care Team Providers Care Form Layer Name Role Phone Keiry Jaquez CNM Unavailable [...] mL 2 (two) times daily. Active Insulin [place], Use to inject 400 Each 1 [...] [facility] Clinic based on INR results. Active olopatadine (PAZEO) 0.7 % Place 1 [...] morning remove tampon, shower, rinse thoroughly. 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 without psychotic features, Generalized anxiety disorder with panic attacks Active Lancets (LANCETS,ULTRA Use to check 300 Each 1 THIN) Misc blood sugar 9 3X daily. DX:E11.[address] 1 Drop 1 Bottle 3 Sodium (THERATEARS) 0.25 in each eye 2 9 % DropIndications: Dry (two) times eye syndrome, bilateral daily. Active DICLOFENAC SODIUM 1 % APPLY TO [...] AntiCoag Clinic based on INR results. Active cyclobenzaprine 5 mg Take 1 tablet 30 tablet 3 tabletIndications: by mouth at 0 Lumbosacral spondylosis bedtime. without myelopathy Active insulin lispro (HUMALOG inject 26 75 mL 1 KWIKPEN INSULIN) 100 Units under 0 unit/mL pen the skin 3 injectorIndications: (three) times Uncontrolled type 2 daily before diabetes mellitus with meals. diabetic neuropathy, with long-term current use of insulin Active insulin degludec (TRESIBA inject 80 75 mL 1 FLEXTOUCH U-200) 200 Units under 0 unit/mL (3 mL) the skin InPnIndications: every Uncontrolled type 2 morning. diabetes mellitus with E11.65 complication, without long-term current use of insulin Active traMADol 50 mg Take 1 tablet 90 tablet 2 tabletIndications: by mouth 0 Lumbosacral spondylosis every 6 (six) without myelopathy, hours as Trochanteric bursitis of needed for both hips, Bilateral Pain (scale sacroiliitis 4-6) or Pain (scale 7-10). Active pregabalin (LYRICA) 75 mg TAKE 1 90 capsule 2 capsuleIndications: CAPSULE BY 0 Neuropathy MOUTH THREE TIMES DAILY Active clonazePAM (KLONOPIN) 1 Take 1 tablet 30 tablet 0 mg tabletIndications: by mouth 0 Generalized anxiety daily. 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) 08/13/2019 Overview: Added automatically from request for surgery [id number] Portal vein thrombosis 05/06/2019 Anticoagulation management encounter 05/06/2019 Vulvar intraepithelial neoplasia (SANG) grade 3 11/16/2018 Dental caries 04/17/2018 Overview: Added automatically from request for surgery [id number] Obesity (BMI 30-39.9) 03/19/2018 Bilateral lower extremity edema 07/14/2017 Lumbosacral spondylosis without myelopathy 03/16/2017 Overview: Added automatically from request for surgery [id number] Mixed hyperlipidemia 01/18/2017 Cirrhosis of liver without [...] Last Mammogram result 10/2016 at [facility] negative Cervical spondylosis without myelopathy 12/02/2013 Degeneration of lumbar or lumbosacral intervertebral disc 12/02/2013 Shoulder bursitis 02/07/2013 Resolved Problems Problem Noted Date Resolved Date Positive blood test 11/09/2018 11/14/2018 Papanicolaou smear of cervix with low grade squamous intraepithelial lesion 02/08/2015 12/14/2016 (LGSIL) Overview: Pos hi-risk HPV 2017. Needs colpo Encounters Care Team Description Date Type Specialty Nieves Fair MD 09/10/2019 Anesthesia Surgery Event Nanci Cortez MD Notification 09/10/2019 Telephone Gynecologic Oncology Jay Jenkins MD Nurse, [facility] [place] Portal vein thrombosis; Anticoagulation management encounter 09/06/2019 Nurse Visit Anti-coagulation Clinic Mariana Woodruff FNP Uncontrolled type 2 diabetes mellitus with diabetic neuropathy, with long-term current use of insulin (Primary Dx); Uncontrolled type 2 diabetes mellitus with complication, without long-term current use of insulin; Mixed hyperlipidemia 09/06/2019 Office Visit Endocrinology Diabetes & Metabolism Jay Jenkins MD Lumbosacral spondylosis without myelopathy (Primary Dx); Other spondylosis, lumbosacral region; Trochanteric bursitis of both hips; Bilateral sacroiliitis; Neuropathy 09/06/2019 Office Visit Pain Medicine Jay Jenkins MD Refill Request 09/03/2019 Refill Pain Medicine Fer Thao MD Refill Request 09/01/2019 Refill Endocrinology Diabetes & Metabolism Mariana Woodruff FNP Refill Request 08/20/2019 Refill Endocrinology Diabetes & Metabolism Hiwot Dan PA-C Notification 08/13/2019 Telephone Gynecologic Oncology Edgar Frederick MD Nurse, [facility] Portal vein thrombosis; Anticoagulation management encounter 08/12/2019 Nurse Visit Anti-coagulation Clinic Nanci Cortez MD 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) (Primary Dx); Cirrhosis of liver without ascites, unspecified hepatic cirrhosis type 08/12/2019 Office Visit Gynecologic Oncology Edgar Frederick [...] 07/17/2019 Telephone Gynecologic Oncology Bonita Nguyen MD [facility] 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; Pre-liver transplant, listed; Portal hypertension; Portal vein thrombosis 07/12/2019 Adjunct Philosophy Faculty Phlebotomy Visit Bonita Nguyen MD Worker, Transplant Social Social Work (follow up) 07/12/2019 Case Management Surgery Bonita Nguyen MD 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); Pre-liver transplant, listed; Portal hypertension; Portal vein thrombosis; Immunization due 07/12/2019 Office Visit Gastroenterology Bonita Nguyen MD Medical Records (Listed liver txpl - OSH records from [facility]) 07/11/2019 Telephone Surgery Aldair Lima MD Trigger thumb of right hand (Primary Dx) 07/10/2019 Office Visit Orthopedic Surgery Doctor Unassigned, [place] 07/10/2019 Orders Only aRmon Lomeli OD Refill Request 07/10/2019 Refill Ophthalmology Doctor Unassigned, [place] Refill Request 07/10/2019 Refill Endocrinology Diabetes & Metabolism Jay Jenkins MD Refill Request 07/10/2019 Refill Pain Medicine Jay Jenkins MD Refill Request 07/09/2019 Refill Pain Medicine Edgar Frederick MD Nurse, [facility] Portal vein thrombosis; Anticoagulation management encounter 07/08/2019 Nurse Visit Anti-coagulation Clinic Delano Nguyen MD Forms 07/03/2019 Telephone Gastroenterology Bonita Nguyen MD Pre-op Clearance (thumb surgery) 07/03/2019 Case Management Gastroenterology Bonita Nguyen MD Surgery Clearance 07/02/2019 Telephone Nephrology Jay Jenkins MD Refill Request 07/02/2019 Refill Pain Medicine Doctor Unassigned, [place] 06/28/2019 Orders Only Edgar Frederick MD Nurse, [facility] Portal vein thrombosis; Anticoagulation management encounter 06/24/2019 Nurse Visit Anti-coagulation Clinic Nanci Cortez MD Refill Request 06/20/2019 Refill Gynecologic Oncology Edgar Frederick MD Nurse, [facility] Portal vein thrombosis; Anticoagulation management encounter 06/19/2019 Nurse Visit Anti-coagulation Clinic Doctor Unassigned, [place] 06/18/2019 Orders Only Nanci Cortez MD Notification 06/14/2019 Telephone Gynecologic Oncology from Last 3 Months Immunizations Name Administration [...] Signs Reading Time Taken Comments Vital Sign 133/77 09/06/2019 11:41 AM MUSKRAT TRAPPER Blood Pressure 98 09/06/2019 11:41 AM MUSKRAT TRAPPER Pulse 36.8 C (98.3 F) 09/06/2019 11:40 AM MUSKRAT TRAPPER Temperature 14 09/06/2019 11:40 AM MUSKRAT TRAPPER Respiratory Rate 99% 09/06/2019 11:40 AM MUSKRAT TRAPPER Oxygen Saturation - - Inhaled Oxygen Concentration 90.1 kg (198 lb 10.2 oz) 09/10/2019 8:28 AM MUSKRAT TRAPPER Weight 152.4 cm (5') 09/10/2019 8:28 AM MUSKRAT TRAPPER Height 38.79 09/10/2019 8:28 AM MUSKRAT TRAPPER Body Mass Index Plan of Treatment Care Team Description Date Type Specialty Nurse, [place] [facility] 10/04/2019 Nurse Visit Anti-coagulation Clinic Nanci Cortez MD [address] [place] [phone] 10/28/2019 Office Visit Gynecologic Oncology Mariana Woodruff, REPRESENTATIVE PHLEBOTOMY SERVICES [address] [place], [place] [id number] 11/01/2019 Office Visit Endocrinology Diabetes & Metabolism Jay Jenkins MD [address] [facility] [id number] [place] [address] 12/06/2019 Office Visit Pain Medicine Ramon Lomeli, OD [address] [place] [address] 06/03/2020 Office Visit Ophthalmology Health Maintenance Due Date Last Done Comments COLONOSCOPY 02/28/2016 Zoster Recombinant 02/28/2016 Vaccine (SHINGRIX) (1 of 2) PNEUMOCOCCAL 0-64 YEARS 02/26/2018 01/01/2018 COMBINED SERIES (2 of 3 - PPSV23) URINE MICROALBUMIN 2019 2018, 11/29/2016 LDL-C 10/23/2019 10/23/2018, 2018, 01/18/2017 Breast Cancer Screening 11/23/2019 11/22/2018, 11/09/2016, 02/09/2015 (MAMMOGRAM) HgA1C 03/06/2020 09/06/2019, 04/12/2019, 10/23/2018, Additional history exists EYE EXAM 05/29/2020 05/29/2019 CREATININE (SERUM) 07/12/2020 07/12/2019, 04/12/2019, 01/18/2019, Additional history exists FOOT EXAM 09/06/2020 09/06/2019, 09/06/2019, 05/27/2019, Additional history exists PAP SMEAR 01/17/2021 01/17/2018, 11/14/2016, 02/02/2015 DTaP,Tdap,and Td Vaccines 03/20/2027 03/20/2017 (2 - Td) INFLUENZA VACCINE Completed 07/12/2019 Procedures Comments Procedure Name Priority Date/Time Associated Diagnosis POCT PT/INR(COAGUCHEK) Routine 09/06/2019 Portal vein thrombosis Anticoagulation management encounter POCT HEMOGLOBIN A1C TEST Routine 09/06/2019 Uncontrolled type 2 diabetes mellitus with complication, without long-term current use of insulin SURGICAL PATHOLOGY EXAM Routine 08/12/2019 VAIN III (vaginal 11:13 AM MUSKRAT TRAPPER intraepithelial neoplasia grade III) DISCLOSURE AND CONSENT, Routine 08/12/2019 MEDICAL AND SURGICAL 12:01 AM MUSKRAT TRAPPER PROCEDURES CBC WITH DIFFERENTIAL Routine 07/12/2019 Liver cirrhosis secondary 12:22 PM MUSKRAT TRAPPER to GRAJEDA Pre-liver transplant, listed Portal hypertension Portal vein thrombosis PROTHROMBIN TIME / INR Routine 07/12/2019 Liver cirrhosis secondary 12:22 PM MUSKRAT TRAPPER to GRAJEDA Pre-liver transplant, listed Portal hypertension Portal vein thrombosis CBC WITH DIFFERENTIAL Routine 07/12/2019 Liver cirrhosis secondary 12:22 PM MUSKRAT TRAPPER to GRAJEDA Pre-liver transplant, listed Portal hypertension Portal vein thrombosis BASIC METABOLIC PANEL Routine 07/12/2019 Liver cirrhosis secondary (NA, K, CL, CO2, GLUCOSE, 12:22 PM MUSKRAT TRAPPER to GRAJEDA BUN, CREATININE, CA) Pre-liver transplant, listed Portal hypertension Portal vein thrombosis HEPATIC FUNCTION PANEL Routine 07/12/2019 Liver cirrhosis secondary (69467) (ALB,T.PRO,BILI 12:22 PM MUSKRAT TRAPPER to GRAJEDA T,BU/BC,ALT,AST,ALK PHOS) Pre-liver transplant, listed Portal hypertension Portal vein thrombosis ALPHA FETOPROTEIN Routine 07/12/2019 Liver cirrhosis secondary 12:22 PM MUSKRAT TRAPPER to GRAJEDA Pre-liver transplant, listed Portal hypertension Portal vein thrombosis HB HLA CLASS I/II Routine 07/12/2019 Liver cirrhosis secondary ANTIBODY QUAL 12:22 PM MUSKRAT TRAPPER to GRAJEDA Pre-liver transplant, listed Portal hypertension Portal vein thrombosis FLU VACC ([id number]), 6+ Routine 07/12/2019 Liver cirrhosis secondary MONTHS, IM, QUAD 11:19 AM MUSKRAT TRAPPER to GRAJEDA Pre-liver transplant, listed Portal hypertension Portal vein thrombosis HEPATITIS B Routine 07/12/2019 Liver cirrhosis secondary VACCINE,ADULT,IM 11:19 AM MUSKRAT TRAPPER to GRAJEDA Pre-liver transplant, listed Portal hypertension Portal vein thrombosis TRANSPLANT/EXTERNAL Routine 07/11/2019 PROVIDER - EHGT 12:01 AM MUSKRAT TRAPPER PATIENT AGREEMENTS AND Routine 07/10/2019 CONTRACTS 12:01 AM MUSKRAT TRAPPER PATIENT QUESTIONNAIRE Routine 07/10/2019 12:01 AM MUSKRAT TRAPPER DISCLOSURE AND CONSENT, Routine 07/10/2019 MEDICAL AND SURGICAL 12:01 AM MUSKRAT TRAPPER PROCEDURES DISCLOSURE AND CONSENT, Routine 07/10/2019 MEDICAL AND SURGICAL 12:01 AM MUSKRAT TRAPPER PROCEDURES POCT PT/INR(COAGUCHEK) Routine 07/08/2019 Portal vein thrombosis Anticoagulation management encounter MEDICAL RELEASE/CLEARANCE Routine 06/28/2019 FORMS 12:01 AM CDT POCT PT/INR(COAGUCHEK) Routine 06/24/2019 Portal vein thrombosis Anticoagulation management encounter POCT PT/INR(COAGUCHEK) Routine 06/19/2019 Portal vein thrombosis Anticoagulation management encounter POCT PT/INR(COAGUCHEK) Routine 06/19/2019 Portal vein thrombosis Anticoagulation management encounter INSURANCE CORRESPONDENCE Routine 06/18/2019 12:01 AM CDT from Last 3 Months Results * POCT HEMOGLOBIN A1C TEST (09/06/2019) POCT HBA1C 10.1 (A) 4 - 6 % Specimen Blood - CAPILLARY * POCT PT/INR(COAGUCHEK) (09/06/2019) Only the most recent of 5 results within the time period is included. POCT PT/INR 2.0 (A) 0.8 - 1.4 INR POCT PT/SEC 24.5 SEC Specimen Blood - CAPILLARY * SURGICAL PATHOLOGY EXAM (08/12/2019 11:13 AM MUSKRAT TRAPPER) Case Report Surgical Pathology [facility]ORATORY SERVICES Case: [id number] Authorizing Provider: Hiwot Dan PA-C Collected: 08/12/2019 [id number] Ordering Location: [facility] Received: 08/12/[address] [place] [address] Pathologist: Dimitry Carrasco MD Specimen: VAG CUFF, vaginal apex Final Diagnosis A. VAGINA, APEX, BIOPSY: [facility]ORY Electronically - SQUAMOUS EPITHELIUM SERVICES signed by Danilo, WITH HUMAN PAPILLOMAVIRUS Dimitry Doherty MD on ASSOCIATED CHANGES 08/13/2019 at 1:02 - NO HIGH GRADE DYSPLASIA PM OR CARCINOMA IDENTIFIED AUSTEN Simon 08/13/2019 8:35 AM I have personally reviewed all specimens/slides and agree with all statements made by residents, fellows or pathologist assistants whose name(s) may appear on this report. Clinical VIN3 [facility]ORATORY Information SERVICES Gross Specimen A is received in [facility] Description formalin labelled with the SERVICES patient s name, UH number "vaginal cuff apex and consists of an aggregate of 2 duenas-pink mucinous semi-translucent irregular soft tissue fragments (0.6 x 0.2 x 0.2 cm). The specimen is filtered through a biopsy bag and entirely submitted in toto in A1. RAQUEL Butterfield (ASCP)cm Embedded Images [facility] SERVICES Specimen Tissue - VAG CUFF Performing Organization Address City/State/Zipcode Phone Number [facility]ORATORY SERVICES CLIA: [id number], [address] [place] [address] [facility] * DISCLOSURE AND CONSENT, MEDICAL AND SURGICAL PROCEDURES (08/12/2019 12:01 AM MUSKRAT TRAPPER) Only the most recent of 3 results within the time period is included. Specimen Performing Organization Address City/State/Zipcode Phone Number HIM * CBC WITH DIFFERENTIAL (07/12/2019 12:22 PM MUSKRAT TRAPPER) WBC 4.94 4.30 - 11.10 [facility]ORY 10*3/L [facility] RBC 4.20 3.93 - 5.25 10*6/L [facility] HGB 12.8 11.6 - 15.0 g/dL [facility] HCT 38.9 35.7 - 45.2 % [facility] MCV 92.6 80.6 - 95.5 fL [facility] MCH 30.5 25.9 - 32.8 pg [facility] MCHC 32.9 31.6 - 35.1 g/dL [facility] RDW-SD 45.1 39.0 - 49.9 fL [facility] RDW-CV 13.3 12.0 - 15.5 % [facility] PLT 97 (L) 166 - 358 10*3/L [facility] MPV 10.8 9.5 - 12.9 fL [facility] IPF % 3.2Comment: Platelet count 1.3 - 7.7 % [facility] measured by fluorescence [facility] method. [facility] NRBC/100 WBC 0.0 0.0 - 10.0 /100 WBCs [facility] NRBC x10^3 <0.01 10*3/L [facility] GRAN MAT (NEUT) 57.7 % [facility] % [facility] IMM GRAN % 0.20 % [facility] LYMPH % 34.0 % [facility] SERVICES-[facility] MONO % 5.5 % [facility] EOS % 1.8 % [facility] BASO % 0.8 % [facility] GRAN MAT 2.85 1.88 - 7.09 10*3/uL [facility] x10^3(ANC) [facility] IMM GRAN x10^3 <0.03 0.00 - 0.06 10*3/uL [facility] LYMPH x10^3 1.68 1.32 - 3.29 10*3/uL [facility] MONO x10^3 0.27 (L) 0.33 - 0.92 10*3/uL [facility] EOS x10^3 0.09 0.03 - 0.39 10*3/uL [facility] BASO x10^3 0.04 0.01 - 0.07 10*3/uL [facility] Specimen Blood - ARM, RIGHT Performing Organization Address City/[facility]/Zipcode Phone Number [facility] CLIA: [id number], [address] [place] [address] [place] * ANTIBODY SCREEN X-RENAL (07/12/2019 12:22 PM MUSKRAT TRAPPER) SERUM DTE 07/12/2019 HLA CALCULATED PRA 0 HLA TEST TYPE Multi Ag HLA TEST DATE 07/23/2019 HLA T-PRA 0 HLA T-ID HLA METHOD Luminex HLA COMMENTS Performed at [facility] Pathology HLA Clinical Services Laboratories - Tissue Antigen DIRECTOR: OMID RAMSEY MD, PHD [address] [place] [address] CLIA No. [id number] ANALYTE SPECIFIC REAGENT STATEMENT: This test was developed and its performance characteristics determined by the [facility] Tissue Antigen Laboratory. The test has not been cleared or approved by the [place] [employer]OD and [employer]UG [employer]RATION (USFDA). The USFDA does not require licensing of reagents used in these tests. VERIFIED BY: Edgar Price (electronic signature) 07/31/2019 REPORT DTE 07/31/2019 HLA TECH EP HLA TEST DATE 07/23/2019 HLA B-PRA 57 HLA B-ID HLA METHOD Luminex HLA COMMENTS Performed at [facility] Pathology HLA Clinical Services Laboratories - Tissue Antigen DIRECTOR: OMID RAMSEY MD, PHD [address] [place] [address] CLIA No. [id number] ANALYTE SPECIFIC REAGENT STATEMENT: This test was developed and its performance characteristics determined by the [facility] Tissue Antigen Laboratory. The test has not been cleared or approved by the [place] [employer]OD and [employer]UG [employer]MINISTRATION (USFDA). The USFDA does not require licensing of reagents used in these tests. VERIFIED BY: Edgar Price (electronic signature) 07/31/2019 REPORT DTE 07/31/2019 HLA TECH EP HLA Specimen Blood - VENOUS Performing Organization Address City/[facility]/Zipcode Phone Number HLA * PROTHROMBIN TIME / INR (07/12/2019 12:22 PM MUSKRAT TRAPPER) PROTIME PATIENT 19.7 (H) 12.0 - 14.7 Seconds [facility] INR 1.7Comment: Normal INR <1.1; [facility] Warfarin Therapeutic range 2.0 [facility] to 3.0 or 2.5 to 3.5, [facility] depending upon the indications. Specimen Blood - ARM, RIGHT Performing Organization Address City/State/Zipcode Phone Number [facility] CLIA: [id number], [address] [place] [address] [place] * ALPHA FETOPROTEIN (07/12/2019 12:22 PM MUSKRAT TRAPPER) AFP 5.4 <=7.5 ng/mL [facility]ORATORY SERVICES Specimen Blood - ARM, RIGHT Narrative Performed At Biotin has been reported to cause a negative bias, interpret results relative to [facility]OR[facility]ORY patient's use of biotin. SERVICES Performing Organization Address City/State/Zipcode Phone Number [facility]ORY SERVICES CLIA: [id number], [address] [place] [address] [facility] * BASIC METABOLIC PANEL (NA, K, CL, CO2, GLUCOSE, BUN, CREATININE, CA) (07/12/2019 12:22 PM MUSKRAT TRAPPER) NA 138 135 - 145 mmol/L [facility] K 4.1 3.5 - 5.0 mmol/L [facility] CL 104 98 - 108 mmol/L [facility] CO2 TOTAL 26 23 - 31 mmol/L [facility] AGAP 8 2 - 16 [facility] BUN 13 7 - 23 mg/dL [facility] GLUCOSE 315 (H) 70 - 110 mg/dL [facility] CREATININE 0.60 0.50 - 1.04 mg/dL [facility] CALCIUM 9.3 8.6 - 10.6 mg/dL [facility] eGFR 104.6 mL/min/1.73m2 [facility] [place]) eGFR 126.7 mL/min/1.73m2 [facility] Calculation [facility] ( [facility] [place]) Specimen Blood - ARM, RIGHT Narrative Performed At Association of Glomerular Filtration Rate (GFR) and Staging of Kidney Disease* [facility] + + + + [facility] | GFR (mL/min/1.73 m2) | With Kidney [...] abnormalities in imaging tests). Performing Organization Address [facility] Facilitycomi Phone Number [facility] CLIA: [id number], [address] [place] [address] [place] * HEPATIC FUNCTION PANEL ([id number]) (ALB,T.PRO,BILI T,BU/BC,ALT,AST,ALK PHOS) (07/12/2019 12:22 PM MUSKRAT TRAPPER) TOTAL BILI 1.1 0.1 - 1.1 mg/dL [facility] BILI UNCON 0.5 0.1 - 1.1 mg/dL [facility] BILI CONJ 0.0 0.0 - 0.3 mg/dL [facility] T PROTEIN 7.9 6.3 - 8.2 g/dL [facility] ALBUMIN 3.7 3.5 - 5.0 g/dL [facility] ALK PHOS 217 (H) 34 - 122 U/L [facility] ALTv 21 5 - 35 U/L [facility] AST(SGOT) 37 13 - 40 U/L [facility] Specimen Blood - ARM, RIGHT Performing Organization Address City/State/Zipcode Phone Number [facility] CLIA: [id number], [address] [place] [address] SERVICES-[facility] * TRANSPLANT/EXTERNAL PROVIDER - EHGT (07/11/2019 12:01 AM MUSKRAT TRAPPER) Specimen Performing Organization Address City/State/Zipcode Phone Number HIM * PATIENT AGREEMENTS AND CONTRACTS (07/10/2019 12:01 AM MUSKRAT TRAPPER) Specimen Performing Organization Address City/State/Zipcode Phone Number HIM * PATIENT QUESTIONNAIRE (07/10/2019 12:01 AM MUSKRAT TRAPPER) Specimen Performing Organization Address City/State/Zipcode Phone Number HIM * MEDICAL RELEASE/CLEARANCE FORMS (06/28/2019 12:01 AM CDT) Specimen Performing Organization Address City/State/Zipcode Phone Number HIM * INSURANCE CORRESPONDENCE (06/18/2019 12:01 AM CDT) Specimen Performing Organization Address City/State/Zipcode Phone Number HIM from Last 3 Months Insurance Type Payer Benefit Subscriber ID Effective Phone Address Plan / Dates Group Medicaid [facility] xxxxxxxxx 2016-P P O [facility] [address] [place] [address] Advance Directives Relationship Healthcare Agent Relationship Communication Name Father Primary healthcare agent Asa Mills Child First alternate healthcare agent Sandy rOnelas
--- OUTSIDE RECORDS SUMMARY | 2019-11-01 03:58 | XMS REPORT | Clinical Summary ---
Author Author [facility] - Health Organization [facility] - Health Address Unknown Phone Unavailable Care Team Providers Care Foil Stamp Operator Name Role Phone Keiry Jaquez CNM [...] mL 2 (two) times daily. Active Insulin [place], Use to inject 400 Each 1 Disposable, [...] Overview: Added automatically from request for surgery [id number] Portal vein thrombosis 05/06/2019 Anticoagulation management encounter 05/06/2019 Vulvar intraepithelial neoplasia (SANG) grade 3 11/16/2018 Dental caries 04/17/2018 Overview: Added automatically from request for surgery [id number] Obesity (BMI 30-39.9) 03/19/2018 Bilateral lower extremity edema 07/14/2017 Lumbosacral spondylosis without myelopathy 03/16/2017 Overview: Added automatically from request for surgery [id number] Mixed hyperlipidemia 01/18/2017 Cirrhosis of liver without [...] Telephone Gynecologic Oncology Jay Jenkins MD Nurse, [facility] [place] Portal vein thrombosis; Anticoagulation management encounter 09/06/2019 [...] Telephone Gynecologic Oncology Edgar Frederick MD Nurse, [facility] Antico Portal vein thrombosis; Anticoagulation [...] 07/17/2019 Telephone Gynecologic Oncology Bonita Nguyen MD [facility] 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; Pre-liver transplant, listed; Portal hypertension; Portal vein thrombosis 07/12/2019 It Auditor Phlebotomy Visit Bonita Nguyen MD Worker, Transplant Social Social Work (follow up) 07/12/2019 Case Management Surgery Bonita Nguyen MD 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); Pre-liver transplant, listed; Portal hypertension; Portal vein thrombosis; Immunization due 07/12/2019 Office Visit Gastroenterology Bonita Nguyen MD Medical Records (Listed liver txpl - OSH records from [facility]) 07/11/2019 Telephone Surgery Aldair Lima MD Trigger thumb of right hand (Primary Dx) 07/10/2019 Office Visit Orthopedic Surgery Doctor Unassigned, [place] 07/10/2019 Orders Only Ramon Lomeli OD Refill Request 07/10/2019 Refill Ophthalmology Doctor Unassigned, [place] Refill Request 07/10/2019 Refill Endocrinology Diabetes & Metabolism Jay Jenkins MD Refill Request 07/10/2019 Refill Pain Medicine Jay Jenkins MD Refill Request 07/09/2019 Refill Pain Medicine Edgar Frederick MD Nurse, [facility] Antico Portal vein thrombosis; Anticoagulation management encounter 07/08/2019 Nurse Visit Anti-coagulation Clinic Delano Nguyen MD Forms 07/03/2019 Telephone Gastroenterology Bonita Nguyen MD Pre-op Clearance (thumb surgery) 07/03/2019 Case Management Gastroenterology Bonita Nguyen MD Surgery Clearance 07/02/2019 Telephone Nephrology Jay Jenkins MD Refill Request 07/02/2019 Refill Pain Medicine Doctor Unassigned, [place] 06/28/2019 Orders Only Edgar Frederick MD Nurse, [facility] Antico Portal vein thrombosis; Anticoagulation management encounter 06/24/2019 Nurse Visit Anti-coagulation Clinic Nanci Cortez MD Refill Request 06/20/2019 Refill Gynecologic Oncology Edgar Frederick MD Nurse, [facility] Anticoag Portal vein thrombosis; Anticoagulation management encounter 06/19/2019 Nurse Visit Anti-coagulation Clinic Doctor Unassigned, [place] 06/18/2019 Orders Only Nanci Cortez MD Notification [...] Comments Vital Sign 133/77 09/06/2019 11:41 AM VACUUM PAN OPERATOR Blood Pressure 98 09/06/2019 11:41 AM VACUUM PAN OPERATOR Pulse 36.8 C (98.3 F) 09/06/2019 11:40 AM VACUUM PAN OPERATOR Temperature 14 09/06/2019 11:40 AM VACUUM PAN OPERATOR Respiratory Rate 99% 09/06/2019 11:40 AM VACUUM PAN OPERATOR Oxygen Saturation - - Inhaled Oxygen Concentration 90.1 kg (198 lb 10.2 oz) 09/10/2019 8:28 AM VACUUM PAN OPERATOR Weight 152.4 cm (5') 09/10/2019 8:28 AM VACUUM PAN OPERATOR Height 38.79 09/10/2019 8:28 AM VACUUM PAN OPERATOR Body Mass Index Plan of Treatment Care Team Description Date Type Specialty Nurse, [place] [facility] 10/04/2019 Nurse Visit Anti-coagulation Clinic Nanci Cortez MD [address] [place] [phone] 10/28/2019 Office Visit Gynecologic Oncology Mariana Woodruff, AUTOMOTIVE TIRE TESTER [address] [place], [place] [id number] 11/01/2019 Office Visit Endocrinology Diabetes & Metabolism Jay Jenkins MD [address] [facility] [id number] [place] [address] 12/06/2019 Office Visit Pain Medicine Ramon Lomeli, OD [address] [place] [address] 06/03/2020 Office Visit Ophthalmology Health [...] Routine 08/12/2019 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) DISCLOSURE AND CONSENT, Routine 08/12/2019 MEDICAL AND SURGICAL 12:01 AM VACUUM PAN OPERATOR PROCEDURES CBC WITH DIFFERENTIAL Routine 07/12/2019 Liver cirrhosis secondary 12:22 PM VACUUM PAN OPERATOR to GRAJEDA Pre-liver transplant, listed Portal hypertension Portal vein thrombosis PROTHROMBIN TIME / INR Routine 07/12/2019 Liver cirrhosis secondary 12:22 PM VACUUM PAN OPERATOR to GRAJEDA Pre-liver transplant, listed Portal hypertension Portal vein thrombosis CBC WITH DIFFERENTIAL Routine 07/12/2019 Liver cirrhosis secondary 12:22 PM VACUUM PAN OPERATOR to GRAJEDA Pre-liver transplant, listed Portal hypertension Portal vein thrombosis BASIC METABOLIC PANEL Routine 07/12/2019 Liver cirrhosis secondary (NA, K, CL, CO2, GLUCOSE, 12:22 PM VACUUM PAN OPERATOR to GRAJEDA BUN, CREATININE, CA) Pre-liver transplant, listed Portal hypertension Portal vein thrombosis HEPATIC FUNCTION PANEL Routine 07/12/2019 Liver cirrhosis secondary (70878) (ALB,T.PRO,BILI 12:22 PM VACUUM PAN OPERATOR to GRAJEDA T,BU/BC,ALT,AST,ALK PHOS) Pre-liver transplant, listed Portal hypertension Portal vein thrombosis ALPHA FETOPROTEIN Routine 07/12/2019 Liver cirrhosis secondary 12:22 PM VACUUM PAN OPERATOR to GRAJEDA Pre-liver transplant, listed Portal hypertension Portal vein thrombosis HB HLA CLASS I/II Routine 07/12/2019 Liver cirrhosis secondary ANTIBODY QUAL 12:22 PM VACUUM PAN OPERATOR to GRAJEDA Pre-liver transplant, listed Portal hypertension Portal vein thrombosis FLU VACC ([id number]), 6+ Routine 07/12/2019 Liver cirrhosis secondary MONTHS, IM, QUAD 11:19 AM VACUUM PAN OPERATOR to GRAJEDA Pre-liver transplant, listed Portal hypertension Portal vein thrombosis HEPATITIS B Routine 07/12/2019 Liver cirrhosis secondary VACCINE,ADULT,IM 11:19 AM VACUUM PAN OPERATOR to GRAJEDA Pre-liver transplant, listed Portal hypertension Portal vein thrombosis TRANSPLANT/EXTERNAL Routine 07/11/2019 PROVIDER - EHGT 12:01 AM VACUUM PAN OPERATOR PATIENT AGREEMENTS AND Routine 07/10/2019 CONTRACTS 12:01 AM VACUUM PAN OPERATOR PATIENT QUESTIONNAIRE Routine 07/10/2019 12:01 AM VACUUM PAN OPERATOR DISCLOSURE AND CONSENT, Routine 07/10/2019 MEDICAL AND SURGICAL 12:01 AM VACUUM PAN OPERATOR PROCEDURES DISCLOSURE AND CONSENT, Routine 07/10/2019 MEDICAL AND SURGICAL 12:01 AM VACUUM PAN OPERATOR PROCEDURES POCT PT/INR(COAGUCHEK) Routine 07/08/2019 Portal vein [...] * SURGICAL PATHOLOGY EXAM (08/12/2019 11:13 AM VACUUM PAN OPERATOR) Case Report Surgical Pathology [facility] Case: [id number] Authorizing Provider: Hiwot Dan PA-C Collected: 08/12/2019 1113 Ordering Location: [facility] Women[facility] Received: 08/12/[address] [place] [address] Pathologist: Dimitry Carrasco MD Specimen: VAG CUFF, vaginal apex Final Diagnosis A. VAGINA, APEX, BIOPSY: [facility] Electronically - SQUAMOUS EPITHELIUM SERVICES signed by Danilo, WITH HUMAN PAPILLOMAVIRUS Dimitry Doherty MD on ASSOCIATED CHANGES 08/13/2019 at 1:02 - NO HIGH GRADE DYSPLASIA PM OR CARCINOMA IDENTIFIED AUSTEN Simon 08/13/2019 8:35 AM I have personally reviewed all specimens/slides and agree with all statements made by residents, fellows or pathologist assistants whose name(s) may appear on this report. Clinical VIN3 [facility] Information SERVICES Gross Specimen A is received in [facility] Description formalin labelled with the SERVICES patient s name, UH number "vaginal cuff apex and consists of an aggregate of 2 duenas-pink mucinous semi-translucent irregular soft tissue fragments (0.6 x 0.2 x 0.2 cm). The specimen is filtered through a biopsy bag and entirely submitted in toto in A1. RAQUEL Butterfield (ASCP)cm Embedded Images [facility] Specimen Tissue - VAG CUFF Performing Organization Address City/State/Zipcode Phone Number [facility] CLIA: [id number], [address] [place] [address] [facility] * DISCLOSURE AND CONSENT, MEDICAL AND SURGICAL PROCEDURES (08/12/2019 12:01 AM VACUUM PAN OPERATOR) Only the most recent of 3 results within the time period is included. Specimen Performing Organization Address City/State/Zipcode Phone Number HIM * CBC WITH DIFFERENTIAL (07/12/2019 12:22 PM VACUUM PAN OPERATOR) WBC 4.94 4.30 - 11.10 [facility] 10*3/L [facility] RBC 4.20 3.93 - 5.25 10*6/L [facility] HGB 12.8 11.6 - 15.0 g/dL [facility] HCT 38.9 35.7 - 45.2 % [facility] MCV 92.6 80.6 - 95.5 fL [facility] MCH 30.5 25.9 - 32.8 pg [facility] MCHC 32.9 31.6 - 35.1 g/dL [facility] RDW-SD 45.1 39.0 - 49.9 fL [facility] RDW-CV 13.3 12.0 - 15.5 % [facility] PLT 97 (L) 166 - 358 10*3/L [facility] MPV 10.8 9.5 - 12.9 fL [facility] IPF % 3.2Comment: Platelet count 1.3 - 7.7 % [facility] measured by fluorescence [facility] method. [facility] NRBC/100 WBC 0.0 0.0 - 10.0 /100 WBCs [facility] NRBC x10^3 <0.01 10*3/L [facility] GRAN MAT (NEUT) 57.7 % [facility] % [facility] IMM GRAN % 0.20 % [facility] LYMPH % 34.0 % [facility] MONO % 5.5 % [facility] [...] 0.04 0.01 - 0.07 10*3/uL [facility] Specimen Blood - ARM, RIGHT Performing Organization Address City/[facility]/Zipcode Phone Number [facility] CLIA: [id number], [address] [place] [address] [facility] * ANTIBODY SCREEN X-RENAL (07/12/2019 12:22 PM VACUUM PAN OPERATOR) SERUM DTE 07/12/2019 HLA CALCULATED PRA 0 HLA TEST TYPE Multi Ag HLA TEST DATE 07/23/2019 HLA T-PRA 0 HLA T-ID HLA METHOD Luminex HLA COMMENTS Performed at [facility] Pathology [facility] Clinical Services Laboratories - Tissue Antigen DIRECTOR: OMID RAMSEY MD, PHD [address] [place] [address] CLIA No. [id number] ANALYTE SPECIFIC REAGENT STATEMENT: This test was developed and its performance characteristics determined by the [facility] Tissue Antigen Laboratory. The test has not been cleared or approved by the [place] [employer]OD and [employer]UG [employer]RATION (USFDA). The USFDA does not require licensing of reagents used in these tests. VERIFIED BY: Edgar Price (electronic signature) 07/31/2019 REPORT DTE 07/31/2019 HLA TECH EP HLA TEST DATE 07/23/2019 HLA B-PRA 57 HLA B-ID HLA METHOD Luminex HLA COMMENTS Performed at [facility] Pathology [facility] - Tissue Antigen DIRECTOR: OMID RAMSEY MD, PHD [address] [place] [address] CLIA No. [id number] ANALYTE SPECIFIC REAGENT STATEMENT: This test was developed and its performance characteristics determined by the [facility] Tissue Antigen Laboratory. The test has not been cleared or approved by the [place] [employer]OD and [employer]UG [employer]MINISTRATION (USFDA). The USFDA does not require licensing of reagents used in these tests. VERIFIED BY: Edgar Price (electronic signature) 07/31/2019 REPORT DTE 07/31/2019 HLA TECH EP HLA Specimen Blood - VENOUS Performing Organization Address City/[facility]/Zipcode Phone Number HLA * PROTHROMBIN TIME / INR (07/12/2019 12:22 PM VACUUM PAN OPERATOR) PROTIME PATIENT 19.7 (H) 12.0 - 14.7 Seconds [facility] INR 1.7Comment: Normal INR <1.1; [facility] Warfarin Therapeutic range 2.0 [facility] to 3.0 or 2.5 to 3.5, [facility] depending upon the indications. Specimen Blood - ARM, RIGHT Performing Organization Address City/State/Zipcode Phone Number [facility] CLIA: [id number], [address] [place] [address] [facility] * ALPHA FETOPROTEIN (07/12/2019 12:22 PM VACUUM PAN OPERATOR) AFP 5.4 <=7.5 ng/mL [facility] Specimen Blood - ARM, RIGHT Narrative Performed At Biotin has been reported to cause a negative bias, interpret results relative to [facility] patient's use of biotin. SERVICES Performing Organization Address City/State/Zipcode Phone Number [facility] CLIA: [id number], [address] [place] [address] [facility] * BASIC METABOLIC PANEL (NA, K, CL, CO2, GLUCOSE, BUN, CREATININE, CA) (07/12/2019 12:22 PM VACUUM PAN OPERATOR) NA 138 135 - 145 mmol/L [facility] K 4.1 3.5 - 5.0 mmol/L [facility] CL 104 98 - 108 mmol/L [facility] CO2 TOTAL 26 23 - 31 mmol/L [facility] AGAP 8 2 - 16 [facility] BUN 13 7 - 23 mg/dL [facility] GLUCOSE 315 (H) 70 - 110 mg/dL [facility] CREATININE 0.60 0.50 - 1.04 mg/dL [facility] CALCIUM 9.3 8.6 - 10.6 mg/dL [facility] eGFR 104.6 mL/min/1.73m2 [facility] eGFR 126.7 mL/min/1.73m2 [facility] Calculation [facility] ( [facility] Jordanian) Specimen Blood - ARM, RIGHT Narrative Performed At Association of Glomerular Filtration Rate (GFR) and Staging of Kidney Disease* [facility] + + + + [...] abnormalities in imaging tests). Performing Organization Address [facility]/[employer] Phone Number [facility] CLIA: [id number], [address] [place] [address] [facility] * HEPATIC FUNCTION PANEL (07152) (ALB,T.PRO,BILI T,BU/BC,ALT,AST,ALK PHOS) (07/12/2019 12:22 PM VACUUM PAN OPERATOR) TOTAL BILI 1.1 0.1 - 1.1 mg/dL [facility] BILI UNCON 0.5 0.1 - 1.1 mg/dL [facility] BILI CONJ 0.0 0.0 - 0.3 mg/dL [facility] T PROTEIN 7.9 6.3 - 8.2 g/dL [facility] ALBUMIN 3.7 3.5 - 5.0 g/dL [facility] ALK PHOS 217 (H) 34 - 122 U/L [facility] ALTv 21 5 - 35 U/L [facility] AST(SGOT) 37 13 - 40 U/L [facility] Specimen Blood - ARM, RIGHT Performing Organization Address City/State/Zipcode Phone Number [facility] CLIA: [id number], [address] [place] [address] [facility] * TRANSPLANT/EXTERNAL PROVIDER - EHGT (07/11/2019 12:01 AM VACUUM PAN OPERATOR) Specimen Performing Organization Address City/State/Zipcode Phone Number HIM * PATIENT AGREEMENTS AND CONTRACTS (07/10/2019 12:01 AM VACUUM PAN OPERATOR) Specimen Performing Organization Address City/State/Zipcode Phone Number HIM * PATIENT QUESTIONNAIRE (07/10/2019 12:01 AM VACUUM PAN OPERATOR) Specimen Performing Organization Address City/State/Zipcode Phone Number HIM * MEDICAL RELEASE/CLEARANCE FORMS (06/28/2019 12:01 AM CDT) Specimen Performing Organization Address City/State/Zipcode Phone Number HIM * INSURANCE CORRESPONDENCE (06/18/2019 12:01 AM CDT) Specimen Performing Organization Address City/State/Zipcode Phone Number HIM from Last 3 Months Insurance Type Payer Benefit Subscriber ID Effective Phone Address Plan / Dates Group Medicaid [facility] xxxxxxxxx 2016-P [facility] [address] [place] [address] Advance Directives Relationship Healthcare Agent Relationship Communication Name Father Primary healthcare agent Asa Mills Child First alternate healthcare agent Sandy Ornelas
--- OUTSIDE RECORDS SUMMARY | 2019-11-01 03:58 | XMS REPORT | Clinical Summary ---
Author Author [facility] Organization [facility] Address Unknown Phone Unavailable Care Team Providers Care Cloth Printing Back Tender Name Role Phone Keiry Jaquez CNM Unavailable [...] mL 2 (two) times daily. Active Insulin [place], Use to inject 400 Each 1 Disposable, [...] Overview: Added automatically from request for surgery [id number] Portal vein thrombosis 05/06/2019 Anticoagulation management encounter 05/06/2019 Vulvar intraepithelial neoplasia (SANG) grade 3 11/16/2018 Dental caries 04/17/2018 Overview: Added automatically from request for surgery [id number] Obesity (BMI 30-39.9) 03/19/2018 Bilateral lower extremity edema 07/14/2017 Lumbosacral spondylosis without myelopathy 03/16/2017 Overview: Added automatically from request for surgery [id number] Mixed hyperlipidemia 01/18/2017 Cirrhosis of liver without [...] 02/09/2015 Overview: Last Mammogram result 10/2016 at [facility] negative Cervical spondylosis without myelopathy 12/02/2013 Degeneration of lumbar or lumbosacral intervertebral disc 12/02/2013 Shoulder bursitis 02/07/2013 Resolved Problems Problem Noted Date Resolved Date Positive blood test 11/09/2018 11/14/2018 Papanicolaou smear of cervix with low grade squamous intraepithelial lesion 02/08/2015 12/14/2016 (LGSIL) Overview: Pos hi-risk HPV 2017. Needs colpo Encounters Care Team Description Date Type Specialty Jay Jenkins MD Notification; Rx Concern/Question 09/17/2019 Telephone Pain Medicine Nieves Fair MD 09/10/2019 Anesthesia Surgery Event Nanci Cortez MD Notification 09/10/2019 Telephone Gynecologic Oncology Jay Jenkins MD Nurse, [facility] Portal vein thrombosis; Anticoagulation management encounter 09/06/2019 [...] Request 09/01/2019 Refill Endocrinology Diabetes & Metabolism Doctor Unassigned, Merlin 08/22/2019 Orders Only Mariana Woodruff FNP Refill Request 08/20/2019 Refill Endocrinology Diabetes & Metabolism Hiwot Dan PA-C Notification 08/13/2019 Telephone Gynecologic Oncology Edgar Frederick MD Nurse, [facility] Portal vein thrombosis; Anticoagulation management encounter 08/12/2019 [...] 07/17/2019 Telephone Gynecologic Oncology Bonita Nguyen MD Vtc-Lab 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; Pre-liver transplant, listed; Portal hypertension; Portal vein thrombosis 07/12/2019 Studio Operations Manager Phlebotomy Visit Bonita Nguyen MD Worker, Transplant Social Social Work (follow up) 07/12/2019 Case Management Surgery Bonita Nguyen MD 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); Pre-liver transplant, listed; Portal hypertension; Portal vein thrombosis; Immunization due 07/12/2019 Office Visit Gastroenterology Bonita Nguyen MD Medical Records (Listed liver txpl - OSH records from [facility]) 07/11/2019 Telephone Surgery Aldair Lima MD Trigger thumb of right hand (Primary Dx) 07/10/2019 Office Visit Orthopedic Surgery Doctor Unassigned, Merlin 07/10/2019 Orders Only Ramon Lomeli, RAN Refill Request 07/10/2019 Refill Ophthalmology Doctor Unassigned, Merlin Refill Request 07/10/2019 Refill Endocrinology Diabetes & Metabolism Jay Jnekins MD Refill Request 07/10/2019 Refill Pain Medicine Jay Jenkins MD Refill Request 07/09/2019 Refill Pain Medicine Edgar Frederick MD Nurse, [facility] Antico Portal vein thrombosis; Anticoagulation management encounter 07/08/2019 Nurse Visit Anti-coagulation Clinic Delano Nguyen MD Forms 07/03/2019 Telephone Gastroenterology Bonita Nguyen MD Pre-op Clearance (thumb surgery) 07/03/2019 Case Management Gastroenterology Bonita Nguyen MD Surgery Clearance 07/02/2019 Telephone Nephrology Jay Jenkins MD Refill Request 07/02/2019 Refill Pain Medicine Doctor Unassigned, Merlin 06/28/2019 Orders Only Edgar Frederick MD Nurse, [facility] Antico Portal vein thrombosis; Anticoagulation management encounter 06/24/2019 Nurse Visit Anti-coagulation Clinic Nanci Cortez MD Refill Request 06/20/2019 Refill Gynecologic Oncology from Last 3 Months Immunizations [...] Comments Vital Sign 133/77 09/06/2019 11:41 AM DRILLING FIELD OPERATOR Blood Pressure 98 09/06/2019 11:41 AM DRILLING FIELD OPERATOR Pulse 36.8 C (98.3 F) 09/06/2019 11:40 AM DRILLING FIELD OPERATOR Temperature 14 09/06/2019 11:40 AM DRILLING FIELD OPERATOR Respiratory Rate 99% 09/06/2019 11:40 AM DRILLING FIELD OPERATOR Oxygen Saturation - - Inhaled Oxygen Concentration 90.1 kg (198 lb 10.2 oz) 09/10/2019 8:28 AM DRILLING FIELD OPERATOR Weight 152.4 cm (5') 09/10/2019 8:28 AM DRILLING FIELD OPERATOR Height 38.79 09/10/2019 8:28 AM DRILLING FIELD OPERATOR Body Mass Index Plan of Treatment Care Team Description Date Type Specialty Nurse, Vtc Anticoag 10/04/2019 Nurse Visit Anti-coagulation Clinic Nanci Cortez MD [address] [place] [phone] 10/28/2019 Office Visit Gynecologic Oncology Mariana Woodruff, BOARD STACKER [address] [place], [place] [id number] 11/01/2019 Office Visit Endocrinology Diabetes & Metabolism Jay Jenkins MD [address] [facility] [id number] [place] [address] 12/06/2019 Office Visit Pain Medicine Ramon Lomeli, OD [address] [place] [address] 06/03/2020 Office Visit Ophthalmology Health [...] complication, without long-term current use of insulin AUTHORIZATION FOR RELEASE Routine 08/22/2019 OF PHI 12:01 AM DRILLING FIELD OPERATOR SURGICAL PATHOLOGY EXAM Routine 08/12/2019 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) DISCLOSURE AND CONSENT, Routine 08/12/2019 MEDICAL AND SURGICAL 12:01 AM DRILLING FIELD OPERATOR PROCEDURES CBC WITH DIFFERENTIAL Routine 07/12/2019 Liver cirrhosis secondary 12:22 PM DRILLING FIELD OPERATOR to GRAJEDA Pre-liver transplant, listed Portal hypertension Portal vein thrombosis PROTHROMBIN TIME / INR Routine 07/12/2019 Liver cirrhosis secondary 12:22 PM DRILLING FIELD OPERATOR to GRAJEDA Pre-liver transplant, listed Portal hypertension Portal vein thrombosis CBC WITH DIFFERENTIAL Routine 07/12/2019 Liver cirrhosis secondary 12:22 PM DRILLING FIELD OPERATOR to GRAJEDA Pre-liver transplant, listed Portal hypertension Portal vein thrombosis BASIC METABOLIC PANEL Routine 07/12/2019 Liver cirrhosis secondary (NA, K, CL, CO2, GLUCOSE, 12:22 PM DRILLING FIELD OPERATOR to GRAJEDA BUN, CREATININE, CA) Pre-liver transplant, listed Portal hypertension Portal vein thrombosis HEPATIC FUNCTION PANEL Routine 07/12/2019 Liver cirrhosis secondary (05234) (ALB,T.PRO,BILI 12:22 PM DRILLING FIELD OPERATOR to GRAJEDA T,BU/BC,ALT,AST,ALK PHOS) Pre-liver transplant, listed Portal hypertension Portal vein thrombosis ALPHA FETOPROTEIN Routine 07/12/2019 Liver cirrhosis secondary 12:22 PM DRILLING FIELD OPERATOR to GRAJEDA Pre-liver transplant, listed Portal hypertension Portal vein thrombosis HB HLA CLASS I/II Routine 07/12/2019 Liver cirrhosis secondary ANTIBODY QUAL 12:22 PM DRILLING FIELD OPERATOR to GRAJEDA Pre-liver transplant, listed Portal hypertension Portal vein thrombosis FLU VACC ([id number]), 6+ Routine 07/12/2019 Liver cirrhosis secondary MONTHS, IM, QUAD 11:19 AM DRILLING FIELD OPERATOR to GRAJEDA Pre-liver transplant, listed Portal hypertension Portal vein thrombosis HEPATITIS B Routine 07/12/2019 Liver cirrhosis secondary VACCINE,ADULT,IM 11:19 AM DRILLING FIELD OPERATOR to GRAJEDA Pre-liver transplant, listed Portal hypertension Portal vein thrombosis TRANSPLANT/EXTERNAL Routine 07/11/2019 PROVIDER - EHGT 12:01 AM DRILLING FIELD OPERATOR PATIENT AGREEMENTS AND Routine 07/10/2019 CONTRACTS 12:01 AM DRILLING FIELD OPERATOR PATIENT QUESTIONNAIRE Routine 07/10/2019 12:01 AM DRILLING FIELD OPERATOR DISCLOSURE AND CONSENT, Routine 07/10/2019 MEDICAL AND SURGICAL 12:01 AM DRILLING FIELD OPERATOR PROCEDURES DISCLOSURE AND CONSENT, Routine 07/10/2019 MEDICAL AND SURGICAL 12:01 AM DRILLING FIELD OPERATOR PROCEDURES POCT PT/INR(COAGUCHEK) Routine 07/08/2019 Portal vein thrombosis Anticoagulation management encounter MEDICAL RELEASE/CLEARANCE Routine 06/28/2019 FORMS 12:01 AM CDT POCT PT/INR(COAGUCHEK) Routine 06/24/2019 Portal vein thrombosis Anticoagulation management encounter from Last 3 Months Results * POCT HEMOGLOBIN A1C TEST (09/06/2019) POCT HBA1C 10.1 (A) 4 - 6 % Specimen Blood - CAPILLARY * POCT PT/INR(COAGUCHEK) (09/06/2019) Only the most recent of 3 results within the time period is included. POCT PT/INR 2.0 (A) 0.8 - 1.4 INR POCT PT/SEC 24.5 SEC Specimen Blood - CAPILLARY * AUTHORIZATION FOR RELEASE OF PHI (08/22/2019 12:01 AM DRILLING FIELD OPERATOR) Specimen Performing Organization Address City/State/Zipcode Phone Number HIM * SURGICAL PATHOLOGY EXAM (08/12/2019 11:13 AM DRILLING FIELD OPERATOR) Case Report Surgical Pathology [facility] Case: [id number] Authorizing Provider: Hiwot Dan PA-C Collected: 08/12/2019 1113 Ordering Location: [facility] Received: 08/12/[address] [place] [address] Pathologist: Dimitry Carrasco MD Specimen: VAG CUFF, vaginal apex Final Diagnosis A. VAGINA, APEX, BIOPSY: [facility] Electronically - SQUAMOUS EPITHELIUM SERVICES signed by Danilo, WITH HUMAN PAPILLOMAVIRUS Dimitry Doherty MD on ASSOCIATED CHANGES 08/13/2019 at 1:02 - NO HIGH GRADE DYSPLASIA PM OR CARCINOMA IDENTIFIED AUSTEN Simon 08/13/2019 8:35 AM I have personally reviewed all specimens/slides and agree with all statements made by residents, fellows or pathologist assistants whose name(s) may appear on this report. Clinical VIN3 [facility] Information SERVICES Gross Specimen A is received in [facility] Description formalin labelled with the SERVICES patient s name, UH number "vaginal cuff apex and consists of an aggregate of 2 duenas-pink mucinous semi-translucent irregular soft tissue fragments (0.6 x 0.2 x 0.2 cm). The specimen is filtered through a biopsy bag and entirely submitted in toto in A1. RAQUEL Butterfield (ASCP)cm Embedded Images [facility] Specimen Tissue - VAG CUFF Performing Organization Address City/State/Zipcode Phone Number [facility] CLIA: [id number], [address] [place] [address] [facility] * DISCLOSURE AND CONSENT, MEDICAL AND SURGICAL PROCEDURES (08/12/2019 12:01 AM DRILLING FIELD OPERATOR) Only the most recent of 3 results within the time period is included. Specimen Performing Organization Address City/State/Zipcode Phone Number HIM * CBC WITH DIFFERENTIAL (07/12/2019 12:22 PM DRILLING FIELD OPERATOR) WBC 4.94 4.30 - 11.10 [facility] 10*3/L [facility] RBC 4.20 3.93 - 5.25 10*6/L [facility] HGB 12.8 11.6 - 15.0 g/dL [facility] HCT 38.9 35.7 - 45.2 % [facility] MCV 92.6 80.6 - 95.5 fL [facility] MCH 30.5 25.9 - 32.8 pg [facility] MCHC 32.9 31.6 - 35.1 g/dL [facility] RDW-SD 45.1 39.0 - 49.9 fL [facility] RDW-CV 13.3 12.0 - 15.5 % [facility] PLT 97 (L) 166 - 358 10*3/L [facility] MPV 10.8 9.5 - 12.9 fL [facility] IPF % 3.2Comment: Platelet count 1.3 - 7.7 % [facility] measured by fluorescence [facility] method. [facility] NRBC/100 WBC 0.0 0.0 - 10.0 /100 WBCs [facility] NRBC x10^3 <0.01 10*3/L [facility] GRAN MAT (NEUT) 57.7 % [facility] % [facility] IMM GRAN % 0.20 % [facility] LYMPH % 34.0 % [facility] MONO % 5.5 % [facility] EOS % 1.8 % [facility] BASO % 0.8 % [facility] GRAN MAT 2.85 1.88 - 7.09 10*3/uL [facility] x10^3(ANC) [facility] IMM GRAN x10^3 <0.03 0.00 - 0.06 10*3/uL [facility] LYMPH x10^3 1.68 1.32 - 3.29 10*3/uL [facility] MONO x10^3 0.27 (L) 0.33 - 0.92 10*3/uL [facility] EOS x10^3 0.09 0.03 - 0.39 10*3/uL [facility] BASO x10^3 0.04 0.01 - 0.07 10*3/uL [facility] Specimen Blood - ARM, RIGHT Performing Organization Address City/State/Zipcode Phone Number [facility] CLIA: [id number], [address] [place], [place] [address] [facility] * ANTIBODY SCREEN X-RENAL (07/12/2019 12:22 PM DRILLING FIELD OPERATOR) SERUM DTE 07/12/2019 HLA CALCULATED PRA 0 HLA TEST TYPE Multi Ag HLA TEST DATE 07/23/2019 HLA T-PRA 0 HLA T-ID HLA METHOD Luminex HLA COMMENTS Performed at [facility] Pathology [facility] - Tissue Antigen DIRECTOR: OMID RAMSEY MD, PHD [address] [place] [address] CLIA No. [id number] ANALYTE SPECIFIC REAGENT STATEMENT: This test was developed and its performance characteristics determined by the [facility] Tissue Antigen Laboratory. The test has not been cleared or approved by the [place] FOOD and [employer]UG [employer]MINISTRATION (USFDA). The USFDA does not require licensing of reagents used in these tests. VERIFIED BY: Edgar Price (electronic [employer]) 07/31/2019 REPORT DTE 07/31/2019 HLA TECH EP HLA TEST DATE 07/23/2019 HLA B-PRA 57 HLA B-ID HLA METHOD Luminex HLA COMMENTS Performed at [facility] Pathology [facility] - Tissue Antigen DIRECTOR: OMID RAMSEY MD, PHD [address] [place] [address] CLIA No. [id number] ANALYTE SPECIFIC REAGENT STATEMENT: This test was developed and its performance characteristics determined by the [facility] Tissue Antigen Laboratory. The test has not been cleared or approved by the [place] FOOD and DRUG ADMINISTRATION (USFDA). The USFDA does not require licensing of reagents used in these tests. VERIFIED BY: Edgar Price (electronic signature) 07/31/2019 REPORT DTE 07/31/2019 HLA TECH EP HLA Specimen Blood - VENOUS Performing Organization Address [facility] Phone Number HLA * PROTHROMBIN TIME / INR (07/12/2019 12:22 PM DRILLING FIELD OPERATOR) PROTIME PATIENT 19.7 (H) 12.0 - 14.7 Seconds [facility] INR 1.7Comment: Normal INR <1.1; [facility] Warfarin Therapeutic range 2.0 [facility] to 3.0 or 2.5 to 3.5, [facility] depending upon the indications. Specimen Blood - ARM, RIGHT Performing Organization Address [facility]/Zipcode Phone Number [facility] CLIA: [id number], [address] [place] [address] [facility] * ALPHA FETOPROTEIN (07/12/2019 12:22 PM DRILLING FIELD OPERATOR) AFP 5.4 <=7.5 ng/mL [facility] Specimen Blood - ARM, RIGHT Narrative Performed At Biotin has been reported to cause a negative bias, interpret results relative to [facility] patient's use of biotin. SERVICES Performing Organization Address City/State/Zipcode Phone Number [facility] CLIA: [id number], [address] [place] [address] [facility] * BASIC METABOLIC PANEL (NA, K, CL, CO2, GLUCOSE, BUN, CREATININE, CA) (07/12/2019 12:22 PM DRILLING FIELD OPERATOR) NA 138 135 - 145 mmol/L [facility] K 4.1 3.5 - 5.0 mmol/L [facility] CL 104 98 - 108 mmol/L [facility] CO2 TOTAL 26 23 - 31 mmol/L [facility] AGAP 8 2 - 16 [facility] BUN 13 7 - 23 mg/dL [facility] GLUCOSE 315 (H) 70 - 110 mg/dL [facility] CREATININE 0.60 0.50 - 1.04 mg/dL [facility] CALCIUM 9.3 8.6 - 10.6 mg/dL [facility] eGFR 104.6 mL/min/1.73m2 [facility] Calculation [facility] (Non-[facility]) eGFR 126.7 mL/min/1.73m2 [facility] Calculation [facility] ([facility] [place]) Specimen Blood - ARM, RIGHT Narrative Performed At Association of Glomerular Filtration Rate (GFR) and Staging of Kidney Disease* [facility] + + + + [facility] | GFR (mL/min/1.73 m2) | With Kidney [...] abnormalities in imaging tests). Performing Organization Address City/[facility]/Zipcode Phone Number [facility] CLIA: [id number], [address] [place], [place] [address] [facility] * HEPATIC FUNCTION PANEL (74023) (ALB,T.PRO,BILI T,BU/BC,ALT,AST,ALK PHOS) (07/12/2019 12:22 PM DRILLING FIELD OPERATOR) TOTAL BILI 1.1 0.1 - 1.1 mg/dL [facility] BILI UNCON 0.5 0.1 - 1.1 mg/dL [facility] BILI CONJ 0.0 0.0 - 0.3 mg/dL [facility] T PROTEIN 7.9 6.3 - 8.2 g/dL [facility] ALBUMIN 3.7 3.5 - 5.0 g/dL [facility] ALK PHOS 217 (H) 34 - 122 U/L [facility] ALTv 21 5 - 35 U/L [facility] AST(SGOT) 37 13 - 40 U/L [facility] Specimen Blood - ARM, RIGHT Performing Organization Address City/State/Zipcode Phone Number [facility] CLIA: [id number], [address] [place] [address] [facility] * TRANSPLANT/EXTERNAL PROVIDER - EHGT (07/11/2019 12:01 AM DRILLING FIELD OPERATOR) Specimen Performing Organization Address City/State/Zipcode Phone Number HIM * PATIENT AGREEMENTS AND CONTRACTS (07/10/2019 12:01 AM DRILLING FIELD OPERATOR) Specimen Performing Organization Address City/State/Zipcode Phone Number HIM * PATIENT QUESTIONNAIRE (07/10/2019 12:01 AM DRILLING FIELD OPERATOR) Specimen Performing Organization Address City/State/Zipcode Phone Number HIM * MEDICAL RELEASE/CLEARANCE FORMS (06/28/2019 12:01 AM CDT) Specimen Performing Organization Address City/State/Zipcode Phone Number HIM from Last 3 Months Insurance Type Payer Benefit Subscriber ID Effective Phone Address Plan / Dates Group Medicaid [employer] xxxxxxxxx [id number] [address] [facility] [address] [place] [address] Advance Directives Relationship Healthcare Agent Relationship Communication Name Father Primary healthcare agent Asa Mills Child First alternate healthcare agent Sandy Ornelas
--- OUTSIDE RECORDS SUMMARY | 2019-11-01 03:59 | XMS REPORT | Clinical Summary ---
Author Author [facility] - Health Organization [facility] - Health Address Unknown Phone Unavailable Care Team Providers Care Receptionist Secretary Name Role Phone Keiry Jaquez CNM [...] mL 2 (two) times daily. Active Insulin [place], Use to inject 400 Each 1 Disposable, [...] Overview: Added automatically from request for surgery [id number] Portal vein thrombosis 05/06/2019 Anticoagulation management encounter 05/06/2019 Vulvar intraepithelial neoplasia (SANG) grade 3 11/16/2018 Dental caries 04/17/2018 Overview: Added automatically from request for surgery [id number] Obesity (BMI 30-39.9) 03/19/2018 Bilateral lower extremity edema 07/14/2017 Lumbosacral spondylosis without myelopathy 03/16/2017 Overview: Added automatically from request for surgery [id number] Mixed hyperlipidemia 01/18/2017 Cirrhosis of liver without [...] Gynecologic Oncology Jay Jenkins MD Nurse, [facility] Portal vein thrombosis; Anticoagulation management encounter 09/06/2019 [...] Refill Endocrinology Diabetes & Metabolism Doctor Unassigned, [place] 08/22/2019 Orders Only Mariana Woodruff FNP Refill Request 08/20/2019 Refill Endocrinology Diabetes & Metabolism Hiwot Dan PA-C Notification 08/13/2019 Telephone Gynecologic Oncology Edgar Frederick MD Nurse, [facility] Portal vein thrombosis; Anticoagulation management encounter 08/12/2019 [...] MD Refill Request 08/06/2019 Refill Pain Medicine Jya Jenkins MD Refill Request 08/04/2019 Refill Pain Medicine Jay Jenkins MD Refill Request 07/23/2019 Refill Pain Medicine Nanci Cortez MD Notification 07/17/2019 Telephone Gynecologic Oncology Bonita Nguyen MD Vtc-Lab 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; Pre-liver transplant, listed; Portal hypertension; Portal vein thrombosis 07/12/2019 Hostess Party Sales Representative Phlebotomy Visit Bonita Nguyen MD Worker, Transplant Social Social Work (follow up) 07/12/2019 Case Management Surgery Bonita Nguyen MD 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); Pre-liver transplant, listed; Portal hypertension; Portal vein thrombosis; Immunization due 07/12/2019 Office Visit Gastroenterology Bonita Ngyuen MD Medical Records (Listed liver txpl - OSH records from [facility]) 07/11/2019 Telephone Surgery Aldair Lima MD Trigger thumb of right hand (Primary Dx) 07/10/2019 Office Visit Orthopedic Surgery Doctor Unassigned, [place] 07/10/2019 Orders Only Ramon Lomeli, RAN Refill Request 07/10/2019 Refill Ophthalmology Doctor Unassigned, [place] Refill Request 07/10/2019 Refill Endocrinology Diabetes & Metabolism Jay Jenkins MD Refill Request 07/10/2019 Refill Pain Medicine Jay Jenkins MD Refill Request 07/09/2019 Refill Pain Medicine Edgar Frederick MD Nurse, [facility] Portal vein thrombosis; Anticoagulation management encounter 07/08/2019 Nurse Visit Anti-coagulation Clinic Delano Nguyen MD Forms 07/03/2019 Telephone Gastroenterology Bonita Nguyen MD Pre-op Clearance (thumb surgery) 07/03/2019 Case Management Gastroenterology Bonita Nguyen MD Surgery Clearance 07/02/2019 Telephone Nephrology Jay Jenkins MD Refill Request 07/02/2019 Refill Pain Medicine Doctor Unassigned, [place] 06/28/2019 Orders Only Edgar Frederick MD Nurse, [facility] Antico Portal vein thrombosis; Anticoagulation management encounter 06/24/2019 Nurse Visit Anti-coagulation Clinic from Last 3 Months Immunizations Name Administration [...] Comments Vital Sign 133/77 09/06/2019 11:41 AM [employer] Blood Pressure 98 09/06/2019 11:41 AM [employer] Pulse 36.8 C (98.3 F) 09/06/2019 11:40 AM [employer] Temperature 14 09/06/2019 11:40 AM [employer] Respiratory Rate 99% 09/06/2019 11:40 AM [employer] Oxygen Saturation - - Inhaled Oxygen Concentration 90.1 kg (198 lb 10.2 oz) 09/10/2019 8:28 AM [employer] Weight 152.4 cm (5') 09/10/2019 8:28 AM [employer] Height 38.79 09/10/2019 8:28 AM [employer] Body Mass Index Plan of Treatment Care Team Description Date Type Specialty Nurse, [facility] Anticoag 10/04/2019 Nurse Visit Anti-coagulation Clinic Nanci Cortez MD [address] [place] [phone] 10/28/2019 Office Visit Gynecologic Oncology Mariana Woodruff, FLUX CORE WELDER [address] [place], [place] [phone] 11/01/2019 Office Visit Endocrinology Diabetes & Metabolism Jay Jenkins MD [address] [facility] [id number] [place] [address] 12/06/2019 Office Visit Pain Medicine Ramon Lomeli, OD [address] [place] [address] 06/03/2020 Office Visit Ophthalmology Health [...] RELEASE Routine 08/22/2019 OF PHI 12:01 AM [employer] SURGICAL PATHOLOGY EXAM Routine 08/12/2019 VAIN III (vaginal 11:13 AM [employer] intraepithelial neoplasia grade III) DISCLOSURE AND CONSENT, Routine 08/12/2019 MEDICAL AND SURGICAL 12:01 AM [employer] PROCEDURES CBC WITH DIFFERENTIAL Routine 07/12/2019 Liver cirrhosis secondary 12:22 PM [employer] to GRAJEDA Pre-liver transplant, listed Portal hypertension Portal vein thrombosis PROTHROMBIN TIME / INR Routine 07/12/2019 Liver cirrhosis secondary 12:22 PM [employer] to GRAJEDA Pre-liver transplant, listed Portal hypertension Portal vein thrombosis CBC WITH DIFFERENTIAL Routine 07/12/2019 Liver cirrhosis secondary 12:22 PM [employer] to GRAJEDA Pre-liver transplant, listed Portal hypertension Portal vein thrombosis BASIC METABOLIC PANEL Routine 07/12/2019 Liver cirrhosis secondary (NA, K, CL, CO2, GLUCOSE, 12:22 PM [employer] to GRAJEDA BUN, CREATININE, CA) Pre-liver transplant, listed Portal hypertension Portal vein thrombosis HEPATIC FUNCTION PANEL Routine 07/12/2019 Liver cirrhosis secondary (65106) (ALB,T.PRO,BILI 12:22 PM [employer] to GRAJEDA T,BU/BC,ALT,AST,ALK PHOS) Pre-liver transplant, listed Portal hypertension Portal vein thrombosis ALPHA FETOPROTEIN Routine 07/12/2019 Liver cirrhosis secondary 12:22 PM [employer] to GRAJEDA Pre-liver transplant, listed Portal hypertension Portal vein thrombosis HB HLA CLASS I/II Routine 07/12/2019 Liver cirrhosis secondary ANTIBODY QUAL 12:22 PM [employer] to GRAJEDA Pre-liver transplant, listed Portal hypertension Portal vein thrombosis FLU VACC ([id number]), 6+ Routine 07/12/2019 Liver cirrhosis secondary MONTHS, IM, QUAD 11:19 AM [employer] to GRAJEDA Pre-liver transplant, listed Portal hypertension Portal vein thrombosis HEPATITIS B Routine 07/12/2019 Liver cirrhosis secondary VACCINE,ADULT,IM 11:19 AM [employer] to GRAJEDA Pre-liver transplant, listed Portal hypertension Portal vein thrombosis TRANSPLANT/EXTERNAL Routine 07/11/2019 PROVIDER - GT 12:01 AM [employer] PATIENT AGREEMENTS AND Routine 07/10/2019 CONTRACTS 12:01 AM [employer] PATIENT QUESTIONNAIRE Routine 07/10/2019 12:01 AM [employer] DISCLOSURE AND CONSENT, Routine 07/10/2019 MEDICAL AND SURGICAL 12:01 AM [employer] PROCEDURES DISCLOSURE AND CONSENT, Routine 07/10/2019 MEDICAL AND SURGICAL 12:01 AM [employer] PROCEDURES POCT PT/INR(COAGUCHEK) Routine 07/08/2019 Portal vein [...] FOR RELEASE OF PHI (08/22/2019 12:01 AM [employer]) Specimen Performing Organization Address City/State/Zipcode Phone Number HIM * SURGICAL PATHOLOGY EXAM (08/12/2019 11:13 AM [employer]) Case Report Surgical Pathology [facility] Case: [id number] Authorizing Provider: Hiwot Dan PA-C Collected: 08/12/2019 1113 Ordering Location: [facility] Received: 08/12/[address] [place] [address] Pathologist: Dimitry Carrasco MD Specimen: VAG CUFF, vaginal apex Final Diagnosis A. VAGINA, APEX, BIOPSY: [facility] Electronically - SQUAMOUS EPITHELIUM SERVICES signed by Yassi, WITH HUMAN PAPILLOMAVIRUS Dimitry Doherty MD on [...] [facility] CLIA: [id number], [address] [place] [address] [facility] * DISCLOSURE AND CONSENT, MEDICAL AND SURGICAL PROCEDURES (08/12/2019 12:01 AM [employer]) Only the most recent of 3 results within the time period is included. Specimen Performing Organization Address City/State/Zipcode Phone Number HIM * CBC WITH DIFFERENTIAL (07/12/2019 12:22 PM [employer]) WBC 4.94 4.30 - 11.10 [facility] 10*3/L [facility] RBC 4.20 3.93 - 5.25 10*6/L [facility] HGB 12.8 11.6 - 15.0 g/dL [facility] HCT 38.9 35.7 - 45.2 % [facility] MCV 92.6 80.6 - 95.5 fL [facility] MCH 30.5 25.9 - 32.8 pg [facility] MCHC 32.9 31.6 - 35.1 g/dL [facility] RDW-SD 45.1 39.0 - 49.9 fL [facility] RDW-CV 13.3 12.0 - 15.5 % [facility] PLT 97 (L) 166 - 358 10*3/L [facility] MPV 10.8 9.5 - 12.9 fL [facility] IPF % 3.2Comment: Platelet count 1.3 - 7.7 % [facility] measured by fluorescence [facility] method. [facility] NRBC/100 WBC 0.0 0.0 - 10.0 /100 WBCs [facility] NRBC x10^3 <0.01 10*3/L [facility] GRAN MAT (NEUT) 57.7 % [facility] % [facility] IMM GRAN % 0.20 % [facility] LYMPH % 34.0 % [facility] MONO % 5.5 % [facility] EOS % 1.8 % [facility] BASO % 0.8 % [facility] GRAN MAT 2.85 1.88 - 7.09 10*3/uL [facility] x10^3(ANC) [facility] IMM GRAN x10^3 <0.03 0.00 - 0.06 10*3/uL [facility] LYMPH x10^3 1.68 1.32 - 3.29 10*3/uL [facility] MONO x10^3 0.27 (L) 0.33 - 0.92 10*3/uL [facility] EOS x10^3 0.09 0.03 - 0.39 10*3/uL [facility] BASO x10^3 0.04 0.01 - 0.07 10*3/uL [facility] Specimen Blood - ARM, RIGHT Performing Organization Address City/State/Zipcode Phone Number [facility] CLIA: [id number], [address] [place] [address] [facility] * ANTIBODY SCREEN X-RENAL (07/12/2019 12:22 PM [employer]) [facility] SERUM DTE 07/12/2019 HLA CALCULATED PRA 0 HLA TEST TYPE Multi Ag HLA TEST DATE 07/23/2019 HLA T-PRA 0 HLA T-ID HLA METHOD Luminex HLA COMMENTS Performed at [facility] Pathology [facility] - Tissue Antigen DIRECTOR: OMID RAMSEY MD, PHD [address] [place] [address] CLIA No. [id number] ANALYTE SPECIFIC REAGENT STATEMENT: This test was [...] Tissue Antigen DIRECTOR: OMID RAMSEY MD, PHD [address] [place] [address] CLIA No. [id number] ANALYTE SPECIFIC REAGENT STATEMENT: This test was [...] Specimen Blood - VENOUS Performing Organization Address City/[facility]/Zipcode Phone Number HLA * PROTHROMBIN TIME / INR (07/12/2019 12:22 PM [employer]) [facility] PROTIME PATIENT 19.7 (H) 12.0 - 14.7 Seconds [facility] INR 1.7Comment: Normal INR <1.1; [facility] Warfarin Therapeutic range 2.0 [facility] to 3.0 or 2.5 to 3.5, [facility] depending upon the indications. Specimen Blood - ARM, RIGHT Performing Organization Address City/State/Zipcode Phone Number [facility] CLIA: [id number], [address] [place] [address] [facility] * ALPHA FETOPROTEIN (07/12/2019 12:22 PM [employer]) AFP 5.4 <=7.5 ng/mL [facility] Specimen Blood - ARM, RIGHT Narrative Performed At Biotin has been reported to cause a negative bias, interpret results relative to [facility] patient's use of biotin. SERVICES Performing Organization Address City/State/Zipcode Phone Number [facility] CLIA: [id number], [address] [place] [address] [facility] * BASIC METABOLIC PANEL (NA, K, CL, CO2, GLUCOSE, BUN, CREATININE, CA) (07/12/2019 12:22 PM [employer]) NA 138 135 - 145 mmol/L [facility] K 4.1 3.5 - 5.0 mmol/L [facility] CL 104 98 - 108 mmol/L [facility] CO2 TOTAL 26 23 - 31 mmol/L [facility] AGAP 8 2 - 16 [facility] BUN 13 7 - 23 mg/dL [facility] GLUCOSE 315 (H) 70 - 110 mg/dL [facility] CREATININE 0.60 0.50 - 1.04 mg/dL [facility] CALCIUM 9.3 8.6 - 10.6 mg/dL [facility] eGFR 104.6 mL/min/1.73m2 [facility] Calculation [facility] (Non[facility] Malian) eGFR 126.7 mL/min/1.73m2 [facility] Calculation [facility] ( [facility] Malian) Specimen Blood - ARM, RIGHT Narrative Performed At Association of Glomerular Filtration Rate (GFR) and Staging of Kidney Disease* [facility] + + + + [facility] | GFR (mL/min/1.73 m2) | [...] abnormalities in imaging tests). Performing Organization Address City/[facility]/Zipcode Phone Number [facility] CLIA: [id number], [address] [place] [address] [facility] * HEPATIC FUNCTION PANEL ([id number]) (ALB,T.PRO,BILI T,BU/BC,ALT,AST,ALK PHOS) (07/12/2019 12:22 PM [employer]) TOTAL BILI 1.1 0.1 - 1.1 mg/dL [facility] BILI UNCON 0.5 0.1 - 1.1 mg/dL [facility] BILI CONJ 0.0 0.0 - 0.3 mg/dL [facility] T PROTEIN 7.9 6.3 - 8.2 g/dL [facility] ALBUMIN 3.7 3.5 - 5.0 g/dL [facility] ALK PHOS 217 (H) 34 - 122 U/L [facility] ALTv 21 5 - 35 U/L [facility] AST(SGOT) 37 13 - 40 U/L [facility] Specimen Blood - ARM, RIGHT Performing Organization Address [facility]/Zipcode Phone Number [facility] CLIA: [id number], [address] [place] [address] [facility] * TRANSPLANT/EXTERNAL PROVIDER - EHGT (07/11/2019 12:01 AM [employer]) Specimen Performing Organization Address City/[facility]/Zipcode Phone Number HIM * PATIENT AGREEMENTS AND CONTRACTS (07/10/2019 12:01 AM [employer]) Specimen Performing Organization Address City/State/Zipcode Phone Number HIM * PATIENT QUESTIONNAIRE (07/10/2019 12:01 AM [employer]) Specimen Performing Organization Address City/State/Zipcode Phone Number HIM * MEDICAL RELEASE/CLEARANCE FORMS (06/28/2019 12:01 AM CDT) Specimen Performing Organization Address City/State/Zipcode Phone Number HIM from Last 3 Months Insurance Type Payer Benefit Subscriber ID Effective Phone Address Plan / Dates Group Medicaid [employer] [facility] AMER[employer]ROUP xxxxxxxxx 2016-P [address] [place] [facility] [address] [place] [address] Advance Directives Relationship Healthcare Agent Relationship Communication Name Father Primary healthcare agent Asa [place] Child First alternate healthcare agent Sandy Ornelas
--- OUTSIDE RECORDS SUMMARY | 2019-11-01 03:59 | XMS REPORT | Summary of Care ---
Author Author [facility] - Health Organization [facility] - Health Address Unknown Phone Unavailable Care Team Providers Care Pump Mechanic Name Role Phone Keiry Jaquez CNM Unavailable Unavailable Madisyn Dumont MD Unavailable Unavailable Josef Mcintosh [address] RN Unavailable Unavailable Keiry Jaquez CNM PCP Unavailable Keiry Jaquez CNM Unavailable Unavailable Reason for Visit * Reason Comments Refill Request Encounter Details Care Team Description Date Type Department Madisyn Dumont MD Refill Request 10/08/2019 Refill [facility]ly [facility] [address] [place] [phone] Allergies No Known Allergiesdocumented as of this encounter (statuses as of 10/09/2019) Medications End Date Status Medication Sig Dispensed [...] 8 mL 2 (two) times daily. Active furosemide 40 mg tablet Take 1 tablet 90 tablet 3 by mouth 9 daily. Active blood sugar diagnostic Use to check [...] Use to check 300 Each 1 THIN) [facility] blood sugar 9 3X daily. DX:E11.8 Active [...] current use of insulin Active pregabalin (LYRICA) 75 mg TAKE 1 90 capsule 2 capsuleIndications: CAPSULE BY 0 Neuropathy MOUTH THREE TIMES DAILY Active clonazePAM (KLONOPIN) 1 Take 1 tablet 30 tablet 0 mg tabletIndications: by mouth 0 Generalized anxiety daily. disorder with panic attacks, Agoraphobia with panic attacks Active traMADol 50 mg Take 1 tablet 90 tablet 2 tabletIndications: by mouth 0 Lumbosacral spondylosis every 6 (six) without myelopathy, hours as Trochanteric bursitis of needed for both hips, Bilateral Pain (scale sacroiliitis 4-6) or Pain (scale 7-10). Active Insulin [place], Use to inject 400 Each 1 Disposable, (BD ULTRAFINE insulin 4X 0 III MINI PEN) 31 gauge x daily. 11/10" NdleIndications: DX:E11.40 Uncontrolled type 2 diabetes mellitus with complication, without long-term current use of insulin Active TRUE METRIX GLUCOSE METER CHECK BLUCOSE 1 Each 0 Misc THREE TIMES 0 DAILY. DX:E11.40 10/09/2019 Discontinued TRUE METRIX GLUCOSE METER Use to check 1 Each 0 Misc glucose 3X 9 daily. 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 Overview: Added automatically from request for surgery [id number] Portal vein thrombosis 05/06/2019 Anticoagulation management encounter 05/06/2019 Vulvar intraepithelial neoplasia (SANG) grade 3 11/16/2018 Dental caries 04/17/2018 Overview: Added automatically from request for surgery [id number] Obesity (BMI 30-39.9) 03/19/2018 Bilateral lower extremity edema 07/14/2017 Lumbosacral spondylosis without myelopathy 03/16/2017 Overview: Added automatically from request for surgery [id number] Mixed hyperlipidemia 01/18/2017 Cirrhosis of liver without [...] as of this encounter (statuses as of 10/09/2019) Resolved Problems Problem Noted Date Resolved Date Positive blood test 11/09/2018 11/14/2018 Papanicolaou smear of cervix with low grade squamous intraepithelial lesion 02/08/2015 12/14/2016 (LGSIL) Overview: Pos hi-risk HPV 2017. Needs colpo documented as of this encounter (statuses as of 10/09/2019) Immunizations Name Administration Dates Next Due HEP [...] Date Type Specialty Jay Jenkins MD [id number] [place], [place] [id number] 10/09/2019 Office Visit Pain Medicine Malclom Washington MD [address] [place] [address] Malcolm Carranza MD [address] [place] [address]. [place] [phone] 10/09/2019 Office Visit Psychiatry Nanci Cortez MD [address] [place] [phone] 10/28/2019 Office Visit Gynecologic Oncology Worker, Transplant Social 11/01/2019 Case Management Surgery Mariana Woodruff, WILDLIFE REFUGE MANAGER [address] [place], [place] [phone] 11/01/2019 Office Visit Endocrinology Diabetes & Metabolism Aldair Lima MD [address] [place] [address] [phone] 11/15/2019 Hospital Surgery Encounter Aldair Lima MD [address] [place] [address] [phone] TRIGGER FINGER RELEASE 11/15/2019 Surgery Surgery Aldair Lima MD [address] [place] [address] [phone] 11/27/2019 Office Visit Orthopedic Surgery Jay Jenkins MD [address] [place] [address] [id number] [place], [place] [phone] 12/06/2019 Office Visit Pain Medicine Ramon Lomeli, OD [address] [place], [place] [phone] 06/03/2020 Office Visit Ophthalmology Health Maintenance Due [...] (2 - Td) INFLUENZA VACCINE Completed 07/12/2019 documented as of this encounter Results Not on filedocumented in this encounter Insurance Type Payer Benefit Subscriber ID Effective Phone Address Plan / Dates Group Medicaid [facility] AMER[employer] xxxxxxxxx 2016-P [address] [facility] [address] [place] [address] documented as of this encounter Advance Directives Relationship Healthcare Agent Relationship Communication Name Father Primary healthcare agent Asa [place] Child First alternate healthcare agent Sandy Ornelas
--- OUTSIDE RECORDS SUMMARY | 2019-11-01 03:59 | XMS REPORT | Summary of Care ---
Author Author [facility] - Health Organization [facility] - Health Address Unknown Phone Unavailable Care Team Providers Care Tool Rental Technician Name Role Phone Keiry Jaquez CNM Unavailable Unavailable Madisyn Dumont MD Unavailable Unavailable Josef Mcintosh [place] [address] Isabel Hansen RN Unavailable Unavailable Keiry Jaquez CNM PCP Unavailable Keiry Jaquez CNM Unavailable Unavailable Encounter Details Care Team Description Date Type Department Aldair Lima MD [address] [place], [place] [phone] 09/30/2019 Patient Secure [facility] Orthopaedic Msg Surgery- [address], [address] [place] [phone] Allergies No Known Allergiesdocumented as of this encounter (statuses as of 10/10/2019) Medications End Date Status Medication Sig Dispensed [...] Use to check 300 Each 1 THIN) [facility] blood sugar 9 3X daily. 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) 08/13/2019 Overview: Added automatically from request for surgery [id number] Portal vein thrombosis 05/06/2019 Anticoagulation management encounter 05/06/2019 Vulvar intraepithelial neoplasia (SANG) grade 3 11/16/2018 Dental caries 04/17/2018 Overview: Added automatically from request for surgery [id number] Obesity (BMI 30-39.9) 03/19/2018 Bilateral lower extremity edema 07/14/2017 Lumbosacral spondylosis without myelopathy 03/16/2017 Overview: Added automatically from request for surgery [id number] Mixed hyperlipidemia 01/18/2017 Cirrhosis of liver without [...] 02/09/2015 Overview: Last Mammogram result 10/2016 at [facility] negative Cervical spondylosis without myelopathy 12/02/2013 Degeneration of lumbar or lumbosacral intervertebral disc 12/02/2013 Shoulder bursitis 02/07/2013 documented as of this encounter (statuses as of 10/10/2019) Resolved Problems Problem Noted Date Resolved Date Positive blood test 11/09/2018 11/14/2018 Papanicolaou smear of cervix with low grade squamous intraepithelial lesion 02/08/2015 12/14/2016 (LGSIL) Overview: Pos hi-risk HPV 2016. Needs colpo documented as of this encounter (statuses as of 10/10/2019) Immunizations Name Administration Dates Next Due HEP [...] Description Date Type Specialty Jay Jenkins MD [address] [place] [address] [id number] [place], [place] [address]365 10/24/2019 Office Visit Pain Medicine Nanci Cortez MD [address] [place] [phone] 10/28/2019 Office Visit Gynecologic Oncology Worker, Transplant Social 11/01/2019 Case Management Surgery Mariana Woodruff, BLENDING MACHINE OPERATOR [address] [place], [place] [address] 11/01/2019 Office Visit Endocrinology Diabetes & Metabolism Aldair Lima MD [address] [place] [address] [phone] 11/15/2019 Hospital Surgery Encounter Aldair Lima MD [address] [place] [address] [id number] TRIGGER FINGER RELEASE 11/15/2019 Surgery Surgery Aldair Lima MD [address] [place] [address] [phone] 11/27/2019 Office Visit Orthopedic Surgery Jay Jenkins MD [address] [facility] [id number] [place] [address] [phone] 12/06/2019 Office Visit Pain Medicine Ramon Lomeli, OD [address] [place], [place] [phone] 06/03/2020 Office Visit Ophthalmology Health Maintenance Due [...] Plan / Dates Group Medicaid [employer] [place] [employer] xxxxxxxxx 2016-P [place] [facility] [address] [place] [address] documented as of this encounter Advance Directives Relationship Healthcare Agent Relationship Communication Name Father Primary healthcare agent Asa Mills Child First alternate healthcare agent Sandy Ornelas
--- OUTSIDE RECORDS SUMMARY | 2019-11-01 03:59 | XMS REPORT | Summary of Care ---
Author Author [facility] - Health Organization [facility] - Health Address Unknown Phone Unavailable Care Team Providers Care Baker Pie Name Role Phone Keiry Jaquez CNM Unavailable Unavailable Madisyn Dumont MD Unavailable Unavailable Josef Mcintosh [place] [address] Isabel Hansen RN Unavailable Unavailable Keiry Jaquez CNM PCP Unavailable Keiry Jaquez CNM Unavailable Unavailable Encounter Details Care Team Description Date Type Department Aldair Lima MD [address] [place], [place] [phone] 09/30/2019 Patient Secure [facility] Orthopaedic Msg Surgery- [address], [address] [place] [phone] Allergies No Known Allergiesdocumented as of this [...] Use to check 300 Each 1 THIN) [facility] [place] sugar 9 3X daily. DX:E11.8 [...] Overview: Added automatically from request for surgery [id number] Portal vein thrombosis 05/06/2019 Anticoagulation management encounter 05/06/2019 Vulvar intraepithelial neoplasia (SANG) grade 3 11/16/2018 Dental caries 04/17/2018 Overview: Added automatically from request for surgery [id number] Obesity (BMI 30-39.9) 03/19/2018 Bilateral lower extremity edema 07/14/2017 Lumbosacral spondylosis without myelopathy 03/16/2017 Overview: Added automatically from request for surgery [id number] Mixed hyperlipidemia 01/18/2017 Cirrhosis of liver without [...] Description Date Type Specialty Jay Jenkins MD [address] [place] [address] IL2745 [place], [place] [phone] 10/24/2019 Office Visit Pain Medicine Nanci Cortez MD [address] [place] [phone] 10/28/2019 Office Visit Gynecologic Oncology Worker, Transplant Social 11/01/2019 Case Management Surgery Mariana Woodruff, VISITOR SERVICES COORDINATOR [address] [place], [place] [address] 11/01/2019 Office Visit Endocrinology Diabetes & Metabolism Aldair Lima MD [address] [place] [address] [phone] 11/15/2019 Hospital Surgery Encounter Aldair Lima MD [address] [place] [address] [phone] TRIGGER FINGER RELEASE 11/15/2019 Surgery Surgery Aldair Lima MD [address] [place] [address] [phone] 11/27/2019 Office Visit Orthopedic Surgery Jay Jenkins MD [address] [facility] [id number] [place] [address] [phone] 12/06/2019 Office Visit Pain Medicine Ramon Loemli, OD [address] [place], [place] [phone] 06/03/2020 Office Visit Ophthalmology Health Maintenance Due [...] Plan / Dates Group Medicaid [employer] [place] [employer] xxxxxxxxx 2016-P [place] [facility] [address] [place] [address] documented as of this encounter Advance Directives Relationship Healthcare Agent Relationship Communication Name Father Primary healthcare agent Asa [place] Child First alternate healthcare agent Sandy Ornelas
--- OUTSIDE RECORDS SUMMARY | 2019-11-01 03:59 | XMS REPORT | Summary of Care ---
Author Author [facility] - Health Organization [facility] - Health Address Unknown Phone Unavailable Care Team Providers Care Truck Dispatcher Name Role Phone Keiry Jaquez CNM Unavailable Unavailable Madisyn Dumont MD Unavailable Unavailable Josef Mcintosh [place] [address] Isabel Hansen RN Unavailable Unavailable Keiry Jaquez CNM PCP Unavailable Keiry Jaquez CNM Unavailable Unavailable Reason for Visit * Reason Comments LAB WORK Encounter Details Care Team Description Date Type Department Bonita Nguyen MD [address] [place] [address] [id number] Vtc-Lab Pre-liver transplant, listed 01/18/2019 Registered Nurse Maternal Child LAB SERVICES AT [facility] [address] [place] [phone] Allergies No Known Allergiesdocumented as of this [...] 15 8 mL 2 (two) times daily. 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 Overview: Added automatically from request for surgery [id number] Portal vein thrombosis 05/06/2019 Anticoagulation management encounter 05/06/2019 Vulvar intraepithelial neoplasia (SANG) grade 3 11/16/2018 Dental caries 04/17/2018 Overview: Added automatically from request for surgery [id number] Obesity (BMI 30-39.9) 03/19/2018 Bilateral lower extremity edema 07/14/2017 Lumbosacral spondylosis without myelopathy 03/16/2017 Overview: Added automatically from request for surgery [id number] Mixed hyperlipidemia 01/18/2017 Cirrhosis of liver without [...] PCV13 (Prevnar 13) TDAP (ADACEL) VACCINE 03/20/2017 documented as of this encounter Social History [...] Description Date Type Specialty Jay Jenkins MD [address] [place] [address] [id number] [place], [place] [phone] 10/22/2019 Office Visit Pain Medicine Nanci Cortez MD [address] [place] [phone] 10/28/2019 Office Visit Gynecologic Oncology Worker, Transplant Social 11/01/2019 Case Management Surgery Mariana Woodruff, MEDICAL IMAGING TECHNICIAN [address] [place] [address] [phone] 11/01/2019 Office Visit Endocrinology Diabetes & Metabolism Aldair Lima MD [address] [place] [address] [phone] 11/15/2019 Hospital Surgery Encounter Aldair Lima MD [address] [place] [address] [phone] TRIGGER FINGER RELEASE 11/15/2019 Surgery Surgery Aldair Lima MD [address] [place] [address] [phone] 11/27/2019 Office Visit Orthopedic Surgery Jay Jenkins MD [address] [place] [address] AI2770 [place], [place] [phone] 12/06/2019 Office Visit Pain Medicine Ramon Lomeli, [address] [address] 06/03/2020 Office Visit Ophthalmology Health Maintenance [...] Completed 07/12/2019 documented as of this encounter Procedures Comments Procedure Name Priority Date/Time Associated Diagnosis CBC WITH DIFFERENTIAL Routine 01/18/2019 Pre-liver transplant, 4:49 PM CDT listed PROTHROMBIN TIME / INR Routine 01/18/2019 Pre-liver transplant, 4:49 PM CDT listed CBC WITH DIFF Routine 01/18/2019 Pre-liver transplant, 4:49 PM CDT listed BASIC METABOLIC PANEL Routine 01/18/2019 Pre-liver transplant, (NA, K, CL, CO2, GLUCOSE, 4:49 PM CDT listed BUN, CREATININE, CA) HEPATIC FUNCTION PANEL Routine 01/18/2019 Pre-liver transplant, ([id number]) (ALB,T.PRO,BILI 4:49 PM CDT listed T,BU/BC,ALT,AST,ALK PHOS) documented in this encounter Results * CBC WITH DIFFERENTIAL (01/18/2019 4:49 PM CDT) WBC 6.82 4.30 - 11.10 [facility] 10*3/L [facility] RBC 4.29 3.93 - 5.25 10*6/L [facility] HGB 13.4 11.6 - 15.0 g/dL [facility] HCT 39.4 35.7 - 45.2 % [facility] MCV 91.8 80.6 - 95.5 fL [facility] MCH 31.2 25.9 - 32.8 pg [facility] MCHC 34.0 31.6 - 35.1 g/dL [facility] RDW-SD 43.7 39.0 - 49.9 fL [facility] RDW-CV 13.1 12.0 - 15.5 % [facility] PLT 119 (L) 166 - 358 10*3/L [facility] MPV 10.4 9.5 - 12.9 fL [facility] NRBC/100 WBC 0.0 0.0 - 10.0 /100 WBCs [facility] NRBC x10^3 <0.01 10*3/L [facility] GRAN MAT (NEUT) 60.9 % [facility] % [facility] IMM GRAN % 0.10 % [facility] LYMPH % 30.5 % [facility] MONO % 5.9 % [facility] EOS % 1.9 % [facility] BASO % 0.7 % [facility] GRAN MAT 4.15 1.88 - 7.09 10*3/uL [facility] x10^3(ANC) [facility] IMM GRAN x10^3 <0.03 0.00 - 0.06 10*3/uL [facility] LYMPH x10^3 2.08 1.32 - 3.29 10*3/uL [facility] MONO x10^3 0.40 0.33 - 0.92 10*3/uL [facility] x10^3 0.13 0.03 - 0.39 10*3/uL [facility] BASO x10^3 0.05 0.01 - 0.07 10*3/uL [facility] Specimen Blood Performing Organization Address City/State/Zipcode Phone Number [facility] CLIA: [id number], [address] [place] [address] [facility] * PROTHROMBIN TIME / INR (01/18/2019 4:49 PM CDT) Pathologist [facility] PROTIME PATIENT 15.0 (H) 12.0 - 14.7 Seconds [facility] INR 1.2Comment: Normal INR <1.1; [facility] Warfarin Therapeutic range 2.0 [facility] to 3.0 or 2.5 to 3.5, [facility] depending upon the indications. Specimen Blood Performing Organization Address City/[facility]/Zipcode Phone Number [facility] CLIA: [id number], [address] [place] [id number] [facility] * HEPATIC FUNCTION PANEL ([id number]) (ALB,T.PRO,BILI T,BU/BC,ALT,AST,ALK PHOS) (01/18/2019 4:49 PM CDT) [facility] TOTAL BILI 1.3 (H) 0.1 - 1.1 mg/dL [facility] BILI UNCON 0.6 0.1 - 1.1 mg/dL [facility] BILI CONJ 0.0 0.0 - 0.3 mg/dL [facility] T PROTEIN 7.5 6.3 - 8.2 g/dL [facility] ALBUMIN 3.7 3.5 - 5.0 g/dL [facility] ALK PHOS 141 (H) 34 - 122 U/L [facility] ALT(SGPT) 22 9 - 51 U/L [facility] AST(SGOT) 37 13 - 40 U/L [facility] Specimen Blood Performing Organization Address City/State/Zipcode Phone Number [facility] CLIA: [id number], [address] [place] [address] [phone] [facility] * BASIC METABOLIC PANEL (NA, K, CL, CO2, GLUCOSE, BUN, CREATININE, CA) (01/18/2019 4:49 PM CDT) [facility] NA 137 135 - 145 mmol/L [facility] K 4.5 3.5 - 5.0 mmol/L [facility] CL 101 98 - 108 mmol/L [facility] CO2 TOTAL 26 23 - 31 mmol/L [facility] AGAP 10 2 - 16 [facility] BUN 10 7 - 23 mg/dL [facility] GLUCOSE 309 (H) 70 - 110 mg/dL [facility] CREATININE 0.61 0.50 - 1.04 mg/dL [facility] CALCIUM 8.6 8.6 - 10.6 mg/dL [facility] eGFR 103.0 mL/min/1.73m2 [facility] eGFR 124.8 mL/min/1.73m2 [facility] Calculation [facility] ([facility]) Specimen Blood Narrative Performed At Association of Glomerular Filtration Rate (GFR) and Staging of Kidney Disease* [facility] + + + + [facility] | GFR (mL/min/1.73 m2) | With Kidney [...] tests). Performing Organization Address City/State/Zipcode Phone Number [facility] CLIA: [id number], [address] [place] [address] [facility] documented in this encounter Visit Diagnoses Diagnosis Pre-liver transplant, listed documented in this encounter Insurance Type Payer Benefit Subscriber ID Effective Phone Address Plan / Dates Group Medicaid [facility] [employer] xxxxxxxxx 2016-P P O [facility] [address] [place] [address] documented as of this encounter Advance Directives Relationship Healthcare Agent Relationship Communication Name Father Primary healthcare agent Asa Mills Child First alternate healthcare agent Sandy Ornelas"
--- OUTSIDE RECORDS SUMMARY | 2019-11-01 03:59 | XMS REPORT | Summary of Care ---
Author Author [facility] - Health Organization [facility] - Health Address Unknown Phone Unavailable Care Team Providers Care Salt Maker Name Role Phone Keiry Jaquez CNM Unavailable Unavailable Madisyn Dumont MD Unavailable Unavailable Josef Mcintosh [place] [address] Isabel Hansen RN Unavailable Unavailable Keiry Jaquez CNM PCP Unavailable Keiry Jaquez CNM Unavailable Unavailable Reason for Visit * Reason Comments Evaluation Encounter Details Care Team Description Date Type Department Delano Nguyen MD [address] [place] [address] Child Care Supervisor, Transplant 04/12/2019 Child Care Supervisor Visit [facility] [address] [place] [phone] Allergies No Known Allergiesdocumented as of this [...] long-term current use of insulin 04/12/2019 Discontinued (Error) IPRATROPIUM/ALBUTEROL Inhale. 0 SULFATE (COMBIVENT RESPIMAT INHALE) 04/12/2019 Discontinued (Error) PROMETHAZINE HCL Take by 0 (PROMETHAZINE ORAL) mouth. 04/12/2019 Discontinued (Patient Reported) lisinopril 5 mg tablet TK 1 T PO D 5 7 04/12/2019 Discontinued (Error) PENNSAID 20 mg/gram 0 /actuation(2 %) sopm 7 04/12/2019 Discontinued (Duplicate) PROVENTIL HFA 90 0 mcg/actuation inhaler 7 04/12/2019 Discontinued GENERLAC 10 gram/15 mL 0 solution 7 07/10/2019 Discontinued (Reorder) Lancets (LANCETS,ULTRA Use as 200 Each 2 THIN) Misc directed 8 04/12/2019 Discontinued (Patient Reported) valproic acid 250 mg Take 1 0 capsule capsule by 8 mouth daily. 04/12/2019 Discontinued (Patient Preference) ibuprofen 600 mg tablet Take 1 tablet 30 tablet 1 by mouth 8 every 6 (six) hours as needed for Pain (scale 4-6) or Alternate with [place] for pain scale 1-3. 05/27/2019 Discontinued (Patient Reported) flash glucose sensor 1 Each every 2 Kit 3 (FREESTYLE KERI 14 DAY 14 (fourteen) 9 SENSOR) KitIndications: days. Uncontrolled type 2 diabetes mellitus with diabetic neuropathy, with long-term current use of insulin 10/08/2019 Discontinued (Reorder) Insulin [place], Use to inject 400 Each 1 Disposable, (BD ULTRAFINE insulin 4X 9 III MINI PEN) 31 gauge x daily. 11/10" NdleIndications: DX:E11.65 Uncontrolled type 2 diabetes mellitus with complication, without long-term current use of insulin 05/13/2019 Discontinued (Reorder) warfarin (COUMADIN) 1 mg Take 1 tablet 30 tablet 3 tabletIndications: Other by mouth 9 cirrhosis of liver every evening. 06/06/2019 Discontinued (Reorder) fluorouracil 5 % Insert 1 gram 40 g 0 creamIndications: VAIN into vaginal 9 III (vaginal cuff with intraepithelial neoplasia syringe/appli grade III) cator at night once weekly for 3 months. Advise patient to insert medication into top of vagina, then insert tampon and put vaseline on external genitalia. The next morning remove tampon, shower, rinse thoroughly. 10/09/2019 Discontinued TRUE METRIX GLUCOSE METER Use to check 1 Each 0 Misc glucose 3X 9 daily. DX:E11.40 05/20/2019 Discontinued (Reorder) traMADol 50 mg Take 1 tablet 90 tablet 2 tabletIndications: by mouth 9 Lumbosacral spondylosis every 6 (six) without myelopathy, hours as Trochanteric bursitis of needed for both hips, Bilateral Pain (scale sacroiliitis 4-6) or Pain (scale 7-10). 06/11/2019 Discontinued (Reorder) pregabalin 75 mg TAKE 1 90 capsule 2 capsuleIndications: CAPSULE BY 9 Neuropathy MOUTH THREE TIMES DAILY 06/09/2019 Discontinued (Reorder) cyclobenzaprine 5 mg Take 1 tablet 30 tablet 2 tabletIndications: by mouth at 9 Lumbosacral spondylosis bedtime. 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 without psychotic features, Generalized anxiety disorder with panic attacks 05/20/2019 Discontinued (Reorder) clonazePAM (KLONOPIN) 1 Take 1 tablet 30 tablet 0 mg tabletIndications: by mouth 9 Generalized anxiety daily. disorder with panic attacks, Agoraphobia with panic attacks 09/06/2019 Discontinued (Reorder) insulin lispro (HUMALOG inject 22 60 mL 1 KWIKPEN INSULIN) 100 Units under 9 unit/mL pen the skin 3 injectorIndications: (three) times Uncontrolled type 2 daily before diabetes mellitus with meals. diabetic neuropathy, with long-term current use of insulin 05/27/2019 Discontinued (Alternate therapy) Insulin Glargine (LANTUS inject 60 60 mL 1 SOLOSTAR U-100 INSULIN) Units under 9 100 unit/mL (3 mL) the skin injectionIndications: daily. 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 Overview: Added automatically from request for surgery [id number] Portal vein thrombosis 05/06/2019 Anticoagulation management encounter 05/06/2019 Vulvar intraepithelial neoplasia (SANG) grade 3 11/16/2018 Dental caries 04/17/2018 Overview: Added automatically from request for surgery [id number] Obesity (BMI 30-39.9) 03/19/2018 Bilateral lower extremity edema 07/14/2017 Lumbosacral spondylosis without myelopathy 03/16/2017 Overview: Added automatically from request for surgery [id number] Mixed hyperlipidemia 01/18/2017 Cirrhosis of liver without [...] 02/09/2015 Overview: Last Mammogram result 10/2016 at [facility] negative Cervical spondylosis without myelopathy [...] Signs Not on filedocumented in this encounter Progress Notes * Kevin Gale, RD LD CDE - 04/12/2019 12:00 PM CDT LIVER TRANSPLANT NUTRITION EVALUATION NOTE ANNUAL April 12, 2019 Fany Kamara, [id number] Fany Kamara is a 54 year old female being evaluated for possible liver reagan splant. 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 I have reviewed pertinent medical, surgical and social history to g ain a better understanding of this patient's condition. Informant: patient Anthropometrics Measured Clinic Height: Ht Readings from Last 1 Encounters: 04/12/19 5' (1.524 m) Weight history: Wt Readings from Last 5 Encounters: 04/12/19 191 lb 8 oz (86.9 kg) 04/12/19 189 lb 14.4 oz (86.1 kg) 04/08/19 192 lb 6.4 oz (87.3 kg) 03/22/19 191 lb 3.2 oz (86.7 kg) 02/08/19 190 lb 3.2 oz (86.3 kg) Usual weight: 185 lbs stated by patient BMI: 37.4 kg/k1frcpvtlqog using today's clinic weight: Obesity II (BMI: 35 - 39 .9) Weight Changes: none Edema/Fluid status: peripheral edema Amputation: none Clinical data Labs: I have reviewed the patient's labs. Significant abnormals are noted below. Results for FANY KAMARA ( ) as of 04/12/2019 13:05 12/24/2018 10:41 01/18/2019 16:49 NA 137 137 K 4.1 4.5 CL 102 101 CO2 TOTAL 25 26 AGAP 10 10 BUN 10 10 GLUCOSE 205 (H) 309 (H) CREATININE 0.82 0.61 eGFR CALCULATION (non ) 73.2 103.0 eGFR CALCULATION () 88.7 124.8 TOTAL BILI 0.9 1.3 (H) BILI UNCON 0.6 BILI CONJ 0.0 CALCIUM 9.1 8.6 T PROTEIN 7.4 7.5 ALBUMIN 3.6 3.7 Medical History Past Medical History: Diagnosis Date Anemia years ago Anxiety Autoimmune disorder dx with athrisis Cirrhosis COPD (chronic obstructive pulmonary disease) COPD (chronic obstructive pulmonary disease) 2014 Depression Diabetes mellitus 2014 currently on Insulin [...] Laterality Date CHOLECYSTECTOMY 1991 lap kendall COLONOSCOPY 2015 negative COLPOSCOPY 2017 ESOPHAGOGASTRODUODENOSCOPY 2017 bleeding varices EXAM UNDER ANESTHESIA 03/24/2015 FACET JOINT INJECTION 03/29/2017 FACET JOINT INJECTION Right 03/29/2017 Surgeon: Jay Jenkins MD; [facility] FULL MOUTH EXTRACTION WITH ALVEOLOPLASTY 04/25/2018 FULL MOUTH EXTRACTION WITH ALVEOLOPLASTY Bilateral 04/25/2018 Surgeon: Jakob Delacruz; [facility] HYSTERECTOMY 2013 due abnl test results OPEN CARPAL TUNNEL RELEASE Bilateral 2016 SACROILIAC JOINT INJECTION 03/29/2017 SACROILIAC JOINT INJECTION Right 03/29/2017 Surgeon: Jay Jenkins MD; Location: [facility] SALPINGO-OOPHORECTOMY 2013 SINUS SURGERY PROC UNLISTED 1991 SURGICAL EXTRACTION - ERUPTED TEETH 04/25/2018 TROCHANTERIC STEROID INJECTION (SHX) 03/29/2017 TROCHANTERIC STEROID INJECTION (SHX) Right 03/29/2017 Surgeon: Jay Jenkins MD; [facility] TUBAL LIGATION 2004 VAGINAL BIOPSY 03/24/2015 VAGINAL BIOPSY N/A 03/24/2015 Surgeon: Ariella Pozo; Location: [facility] WIDE LOCAL VULVAR LESION EXCISION 2014 Current/Previous Therapies Lactulose daily Medications MNT therapies/supplements: none Vitamins/Herbal supplements/OTC Dietary supplements: daily MVI Diet History Route of nutrition: Oral Current Diet: no sweets or candy Fluid restriction: none Appetite: poor Food allergies/intolerances: NKFA Pica: no GI complaints: denies Daily Meal Routine at Home: -Breakfast: skips -Lunch: skips -Dinner: 1/2 chicken sandwich, small fries, and a 12 oz coke to drink -Snacks: chips and pickles -Beverages: coffee, soda and water Other Factors Affecting Nutrition Status Chewing/Swallowing Limitations: nothing hard Dentition: dentures/appliances Weight Loss Program: no Obesity Surgery History: no Diabetes Self Management most recent Hgb A1C: 9.2 Functional Ability/Psycho-Social/Economic Factors Affecting Nutrition Vision: glasses Hearing: good; no issues reported ADLs: Requires assistance Activity Level/Mobility: sedentary Exercise: minimal exercise Social Support System: Living Situation: with children Adequate Cooking Facilities: yes Primary cooking and shopping performed by: patient Food Assistance Program: yes, source: Food [place] (SNAP)- $ 198 /month Cultural/Buddhism Preferences: no Employed: medically disabled and unemployed Highest Level of Education Completed: K-6 Nutrition Diagnosis Obese, Class II related to excessive calorie/carbohyrate intake as evidenced by BMI of 37.4 kg/m2 Nutrition Intervention and Recommendations Suggest consistent carbohydrate , high protein and low sodium diet Educated the patient on consistent carbohydrate meal plan Physical activity such as walking, was encouraged; as approved by MD Target Weight BMI < 35 kg/2: 178lbs (81.5 kg) BMI < 30 kg/m2: 152.8lbs (69.4kg) Nutrition Monitoring and Evaluation Transplant candidate based on current nutritional status and anthropometrics: Re phillip to surgeon for weight management Total time spent with patient: 20 documented in this encounter Plan of Treatment Care Team Description Date Type Specialty Jay Jenkins MD [address] [place] [address] [id number] [place] [address] [phone] 10/24/2019 Office Visit Pain Medicine Nanci Cortez MD [address] [place] [phone] 10/28/2019 Office Visit Gynecologic Oncology Worker, Transplant Social 11/01/2019 Case Management Surgery Mariana Woodruff FNP [address] [place] [address] 11/01/2019 Office Visit Endocrinology Diabetes & Metabolism Laron Lima MD [address] [place] [address] [phone] 11/15/2019 Hospital [place] [address] [place] [address] [id number] TRIGGER FINGER RELEASE 11/15/2019 Surgery Surgery Laron Lima MD [address] [place] [address] [phone] 11/27/2019 Office Visit Orthopedic Surgery Jay Jenkins MD [address] [facility] [id number] [place], [place] [address] 12/06/2019 Office Visit Pain Medicine Ramon Lomeli, [address] [phone] 06/03/2020 Office Visit Ophthalmology Health Maintenance Due [...] Phone Address Plan / Dates Group Medicaid [facility] xxxxxxxxx 2016-P P O [facility] [address] [place] [address] (Home) [address] [place] [address] documented as of this encounter Advance Directives Relationship Healthcare Agent Relationship Communication Name Father Primary healthcare agent Asa Mills Child First alternate healthcare agent Sandy Ornelas
--- OUTSIDE RECORDS SUMMARY | 2019-11-01 04:00 | XMS REPORT | Summary of Care ---
Author Author [facility] - Health Organization [facility] - Health Address Unknown Phone Unavailable Care Team Providers Care Lithographic Plate Maker Apprentice Name Role Phone Keiry Jaquez CNM Unavailable Unavailable Madisyn Dumont MD Unavailable Unavailable Josef Mcintosh [place] [address] Isabel Hansen RN Unavailable Unavailable Keiry Jaquez CNM PCP Unavailable Keiry Jaquez CNM Unavailable Unavailable Encounter Details Care Team Description Date Type Department Doctor Unassigned, [place] [address] [place] [address] 08/22/2019 Orders Only [address] [address] Allergies No Known Allergiesdocumented as of this encounter (statuses as of 09/19/2019) Medications End Date Status Medication Sig Dispensed [...] mL 2 (two) times daily. Active Insulin [place], Use to inject 400 Each 1 Disposable, [...] Use to check 300 Each 1 THIN) [facility] blood sugar 9 3X daily. DX:E11.8 Active [...] 9 Anti[facility]ag Clinic based on INR results. 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) 08/13/2019 Overview: Added automatically from request for surgery [id number] Portal vein thrombosis 05/06/2019 Anticoagulation management encounter 05/06/2019 Vulvar intraepithelial neoplasia (SANG) grade 3 11/16/2018 Dental caries 04/17/2018 Overview: Added automatically from request for surgery [id number] Obesity (BMI 30-39.9) 03/19/2018 Bilateral lower extremity edema 07/14/2017 Lumbosacral spondylosis without myelopathy 03/16/2017 Overview: Added automatically from request for surgery [id number] Mixed hyperlipidemia 01/18/2017 Cirrhosis of liver without [...] 02/09/2015 Overview: Last Mammogram result 10/2016 at [facility] negative Cervical spondylosis without myelopathy 12/02/2013 Degeneration of lumbar or lumbosacral intervertebral disc 12/02/2013 Shoulder bursitis 02/07/2013 documented as of this encounter (statuses as of 09/19/2019) Resolved Problems Problem Noted Date Resolved Date Positive blood test 11/09/2018 11/14/2018 Papanicolaou smear of cervix with low grade squamous intraepithelial lesion 02/08/2015 12/14/2016 (LGSIL) Overview: Pos hi-risk HPV 2016. Needs colpo documented as of this encounter (statuses as of 09/19/2019) Immunizations Name Administration Dates Next Due HEP [...] Treatment Care Team Description Date Type Specialty Malcolm [place] MD [address] [facility] [place] [address] [phone] Malcolm Carranza MD 301 [facility] [place] [address] 09/25/2019 Office Visit Psychiatry Nurse, Gac Anticoag 10/04/2019 Nurse Visit Anti-coagulation Clinic Nanci Cortez MD [address] [place] [address] 10/28/2019 Office Visit Gynecologic Oncology Mariana Woodruff, SHIFT SUPERVISOR [address] [place], [place] [phone] 11/01/2019 Office Visit Endocrinology Diabetes & Metabolism Jay Jenkins MD 301 [facility] [id number] [place], [place] [phone] 12/06/2019 Office Visit Pain Medicine Ramon Lomeli, OD [address] [place], [place] [phone] 06/03/2020 Office Visit Ophthalmology Health Maintenance Due [...] Date/Time Associated Diagnosis AUTHORIZATION FOR RELEASE Routine 08/22/2019 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
--- OUTSIDE RECORDS SUMMARY | 2019-11-01 04:00 | XMS REPORT | Summary of Care ---
Author Author [facility] - Health Organization [facility] - Health Address Unknown Phone Unavailable Care Team Providers Care Director Of Religious Activities Name Role Phone Keiry Jaquez CNM Unavailable Unavailable Madisyn Dumont MD Unavailable Unavailable Josef Mcintosh [place] [address] Isabel Hansen RN Unavailable Unavailable Keiry Jaquez CNM PCP Unavailable Keiry Jaquez CNM Unavailable Unavailable Encounter Details Care Team Description Date Type Department Doctor Unassigned, [place] [address] [place] [address] 08/08/2019 Patient Secure [facility] [place] [phone] Allergies No Known Allergiesdocumented as of this encounter (statuses as of 09/14/2019) Medications End Date Status Medication Sig Dispensed [...] mL 2 (two) times daily. 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) 08/13/2019 Overview: Added automatically from request for surgery [id number] Portal vein thrombosis 05/06/2019 Anticoagulation management encounter 05/06/2019 Vulvar intraepithelial neoplasia (SANG) grade 3 11/16/2018 Dental caries 04/17/2018 Overview: Added automatically from request for surgery [id number] Obesity (BMI 30-39.9) 03/19/2018 Bilateral lower extremity edema 07/14/2017 Lumbosacral spondylosis without myelopathy 03/16/2017 Overview: Added automatically from request for surgery [id number] Mixed hyperlipidemia 01/18/2017 Cirrhosis of liver without [...] Overview: Last Mammogram result 10/2016 at [facility] negative Cervical spondylosis without myelopathy 12/02/2013 Degeneration of lumbar or lumbosacral intervertebral disc 12/02/2013 Shoulder bursitis 02/07/2013 documented as of this encounter (statuses as of 09/14/2019) Resolved Problems Problem Noted Date Resolved Date Positive blood test 11/09/2018 11/14/2018 Papanicolaou smear of cervix with low grade squamous intraepithelial lesion 02/08/2015 12/14/2016 (LGSIL) Overview: Pos hi-risk HPV 2016. Needs colpo documented as of this encounter (statuses as of 09/14/2019) Immunizations Name Administration Dates Next Due HEP [...] Care Team Description Date Type Specialty Malcolm Carranza MD [address] [facility] [place] [address] 09/25/2019 Office Visit Psychiatry Nurse, Vtc Anticoag 10/04/2019 Nurse Visit Anti-coagulation Clinic Nanci Cortez MD [address] [place] [phone] 10/28/2019 Office Visit Gynecologic Oncology Mariana Woodruff, VALIDATION MANAGER [address] [place] [address] 11/01/2019 Office Visit Endocrinology Diabetes & Metabolism Jay Jenkins MD [address] [place] [address] [id number] [place] [address] 12/06/2019 Office Visit Pain Medicine Ramon Lomeli, OD [address] [place] [address] 06/03/2020 Office Visit Ophthalmology Health [...] Plan / Dates Group Medicaid [employer] [place] xxxxxxxxx 2016-P [facility] [address] [place] [address] documented as of this encounter Advance Directives Relationship Healthcare Agent Relationship Communication Name Father Primary healthcare agent Asa [place] Child First alternate healthcare agent Sandy Ornelas
--- OUTSIDE RECORDS SUMMARY | 2019-11-01 04:00 | XMS REPORT | Summary of Care ---
Author Author [facility] - Health Organization [facility] - Health Address Unknown Phone Unavailable Care Team Providers Care Rn Corrections Name Role Phone Keiry Jaquez CNM Unavailable Unavailable Madisyn Dumont MD Unavailable Unavailable Arnaldo Josef [place] [address] Isabel Hansen RN Unavailable Unavailable Keiry Jaquez CNM PCP Unavailable Keiry Jaquez CNM Unavailable Unavailable Reason for Visit * Reason Comments Notification Rx Concern/Question Encounter Details Care Team Description Date Type Department Jay Jenkins MD [id number] [place] [address] Notification; Rx Concern/Question 09/17/2019 Telephone [facility] [address] [place] [phone] Allergies No Known Allergiesdocumented as of this encounter (statuses as of 09/17/2019) Medications End Date Status Medication Sig Dispensed [...] mL 2 (two) times daily. Active Insulin [place], Use to inject 400 Each 1 Disposable, [...] AntiCoag Clinic based on INR results. Active olopatadine [...] Use to check 300 Each 1 THIN) [facility] blood sugar 9 3X daily. 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) 08/13/2019 Overview: Added automatically from request for surgery [id number] Portal vein thrombosis 05/06/2019 Anticoagulation management encounter 05/06/2019 Vulvar intraepithelial neoplasia (SANG) grade 3 11/16/2018 Dental caries 04/17/2018 Overview: Added automatically from request for surgery [id number] Obesity (BMI 30-39.9) 03/19/2018 Bilateral lower extremity edema 07/14/2017 Lumbosacral spondylosis without myelopathy 03/16/2017 Overview: Added automatically from request for surgery [id number] Mixed hyperlipidemia 01/18/2017 Cirrhosis of liver without [...] as of this encounter (statuses as of 09/17/2019) Resolved Problems Problem Noted Date Resolved Date Positive blood test 11/09/2018 11/14/2018 Papanicolaou smear of cervix with low grade squamous intraepithelial lesion 02/08/2015 12/14/2016 (LGSIL) Overview: Pos hi-risk HPV 2017. Needs colpo documented as of this encounter (statuses as of 09/17/2019) Immunizations Name Administration Dates Next Due HEP [...] Description Date Type Specialty Malcolm Carranza MD [address] [place] [address]. [place] [address] 09/25/2019 Office Visit Psychiatry Nurse, Ncc Anticoag 10/04/2019 Nurse Visit Anti-coagulation Clinic Nanci Cortez MD [address] [place] [phone] 10/28/2019 Office Visit Gynecologic Oncology Mariana Woodruff, DIRECTOR OF COLLECTIONS AND ARCHIVES [address] [place], [place] [phone] 11/01/2019 Office Visit Endocrinology Diabetes & Metabolism Jay Jenkins MD 301 [facility] [id number] [place], [place] [phone] 12/06/2019 Office Visit Pain Medicine Ramon Lomeli, OD [address] [place] [address] 06/03/2020 Office Visit Ophthalmology Health [...] Phone Address Plan / Dates Group Medicaid [facility] xxxxxxxxx 2016-P P [address] [facility] [address] [address] [place] [address] documented as of this encounter Advance Directives Relationship Healthcare Agent Relationship Communication Name Father Primary healthcare agent Asa [place] Child First alternate healthcare agent Sandy Ornelas
--- OUTSIDE RECORDS SUMMARY | 2019-11-01 04:00 | XMS REPORT | Summary of Care ---
Author Author [facility] - Health Organization [facility] - Health Address Unknown Phone Unavailable Care Team Providers Care Pharmacy Sales Representative Name Role Phone Keiry Jaquez CNM Unavailable Unavailable Madisyn Dumont MD Unavailable Unavailable Josef Mcintosh [place] [address] Isabel Hansen RN Unavailable Unavailable Keiry Jaquez CNM PCP Unavailable Keiry Jaquez CNM Unavailable Unavailable Encounter Details Care Team Description Date Type Department Bonita Nguyen MD [address] [place] [address] [phone] 08/13/2019 Patient [facility] [address] [place] [phone] Allergies No Known Allergiesdocumented as of this [...] mL 2 (two) times daily. Active Insulin [place], Use to inject 400 Each 1 Disposable, [...] Use to check 300 Each 1 THIN) [facility] blood sugar 9 3X daily. DX:E11.8 Active [...] Overview: Added automatically from request for surgery [id number] Portal vein thrombosis 05/06/2019 Anticoagulation management encounter 05/06/2019 Vulvar intraepithelial neoplasia (SANG) grade 3 11/16/2018 Dental caries 04/17/2018 Overview: Added automatically from request for surgery [id number] Obesity (BMI 30-39.9) 03/19/2018 Bilateral lower extremity edema 07/14/2017 Lumbosacral spondylosis without myelopathy 03/16/2017 Overview: Added automatically from request for surgery [id number] Mixed hyperlipidemia 01/18/2017 Cirrhosis of liver without [...] 02/09/2015 Overview: Last Mammogram result 10/2016 at [facility] negative Cervical spondylosis without myelopathy 12/02/2013 [...] Description Date Type Specialty Malcolm Carranza MD [address] [place] [address]. [place] [phone] 09/25/2019 Office Visit Psychiatry Nurse, [place] [facility]tico[facility] 10/04/2019 Nurse Visit Anti-coagulation Clinic Nanci Cortez MD [address] [place] [phone] 10/28/2019 Office Visit Gynecologic Oncology Mariana Woodruff, DERRICK BARGE OPERATOR [address] [place], [place] [phone] 11/01/2019 Office Visit Endocrinology Diabetes & Metabolism Jay Jenkins MD 301 [facility] [id number] [place], [place] [phone] 12/06/2019 Office Visit Pain Medicine Ramon Lomeli, OD [address] [place] [address] 06/03/2020 Office Visit Ophthalmology Health [...] Medicaid [facility] xxxxxxxxx 2016-P P O [facility] [address] [place] [address] documented as of this encounter Advance Directives Relationship Healthcare Agent Relationship Communication Name Father Primary healthcare agent Asa Mills Child First alternate healthcare agent Sandy Ornelas
--- OUTSIDE RECORDS SUMMARY | 2019-11-01 04:00 | XMS REPORT | Summary of Care ---
Author Author [facility] - Health Organization [facility] - Health Address Unknown Phone Unavailable Care Team Providers Care Value Stream Manager Name Role Phone Keiry Jaquez CNM Unavailable Unavailable Madisyn Dumont MD Unavailable Unavailable Josef Mcintosh [place] [address] Isabel Hansen RN Unavailable Unavailable Keiry Jaquez CNM PCP Unavailable Keiry Jaquez CNM Unavailable Unavailable Encounter Details Care Team Description Date Type Department Doctor Unassigned, [facility] [address] [place] [address] 08/16/2019 Patient Secure [facility] [address] [phone] Allergies No Known Allergiesdocumented as of this encounter (statuses as of 09/21/2019) Medications End Date Status Medication Sig Dispensed [...] mL 2 (two) times daily. Active Insulin [place], Use to inject 400 Each 1 Disposable, [...] 9 AntiCoag Clinic based on INR results. 09/06/2019 Discontinued (Reorder) insulin lispro (HUMALOG inject 22 60 mL 1 KWIKPEN INSULIN) 100 Units under 9 unit/mL pen the skin 3 injectorIndications: (three) times Uncontrolled type 2 daily before diabetes mellitus with meals. diabetic neuropathy, with long-term current use of insulin 09/07/2019 Discontinued (Reorder) traMADol 50 mg Take 1 tablet 90 tablet 2 tabletIndications: by mouth 9 Lumbosacral spondylosis every 6 (six) without myelopathy, hours as Trochanteric bursitis of needed for both hips, Bilateral Pain (scale sacroiliitis 4-6) or Pain (scale 7-10). 09/06/2019 Discontinued (Reorder) TRESIBA FLEXTOUCH U-200 inject 66 30 mL 1 200 unit/mL (3 mL) Units under 9 InPnIndications: the skin Uncontrolled type 2 every diabetes mellitus with morning. complication, without E11.65 long-term current use of insulin 09/13/2019 Discontinued clonazePAM (KLONOPIN) 1 Take 1 tablet 30 tablet 2 mg tabletIndications: by mouth 9 Generalized anxiety daily. disorder with panic attacks, Agoraphobia with panic attacks 09/07/2019 Discontinued (Reorder) cyclobenzaprine 5 mg Take 1 tablet 30 tablet 3 tabletIndications: by mouth at 9 Lumbosacral spondylosis bedtime. 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) 08/13/2019 Overview: Added automatically from request for surgery [id number] Portal vein thrombosis 05/06/2019 Anticoagulation management encounter 05/06/2019 Vulvar intraepithelial neoplasia (SANG) grade 3 11/16/2018 Dental caries 04/17/2018 Overview: Added automatically from request for surgery [id number] Obesity (BMI 30-39.9) 03/19/2018 Bilateral lower extremity edema 07/14/2017 Lumbosacral spondylosis without myelopathy 03/16/2017 Overview: Added automatically from request for surgery [id number] Mixed hyperlipidemia 01/18/2017 Cirrhosis of liver without [...] as of this encounter (statuses as of 09/21/2019) Resolved Problems Problem Noted Date Resolved Date Positive blood test 11/09/2018 11/14/2018 Papanicolaou smear of cervix with low grade squamous intraepithelial lesion 02/08/2015 12/14/2016 (LGSIL) Overview: Pos hi-risk HPV 2016. Needs colpo documented as of this encounter (statuses as of 09/21/2019) Immunizations Name Administration Dates Next Due HEP [...] Date Type Specialty Malcolm Washington MD [address] [place] [address] Malcolm Carranza MD [address] [place] [phone] 09/25/2019 Office Visit Psychiatry Nurse, [facility] Anticoag 10/04/2019 Nurse Visit Anti-coagulation Clinic Nanci Cortez MD [address] [place] [phone] 10/28/2019 Office Visit Gynecologic Oncology Mariana Woodruff, BUNCH BREAKER [address] [place], [place] [phone] 11/01/2019 Office Visit Endocrinology Diabetes & Metabolism Jay Jenkins MD 301 [facility] [id number] [place], [place] [phone] 12/06/2019 Office Visit Pain Medicine Ramon Lomeli, OD [address] [place] [address] 06/03/2020 Office Visit Ophthalmology Health [...] Plan / Dates Group Medicaid [facility] xxxxxxxxx 2016-P P O [facility] [address] [place] [address] documented as of this encounter Advance Directives Relationship Healthcare Agent Relationship Communication Name Father Primary healthcare agent Asa [place] Child First alternate healthcare agent Sandy Ornelas
--- OUTSIDE RECORDS SUMMARY | 2019-11-01 04:00 | XMS REPORT | Summary of Care ---
Author Author [facility] - Health Organization [facility] - Health Address Unknown Phone Unavailable Care Team Providers Care Academic Administrator Name Role Phone Keiry Jaquez CNM Unavailable Unavailable Madisyn Dumont MD Unavailable Unavailable Josef Mcintosh [place] [address] Isabel Hansen RN Unavailable Unavailable Keiry Jaquez CNM PCP Unavailable Keiry Jaquez CNM Unavailable Unavailable Encounter Details Care Team Description Date Type Department Jay Jenkins MD [address] [place], [place] [phone] 08/16/2019 Patient Secure [facility] Anesthesia Msg [facility] [address] [place] [phone] Allergies No Known Allergiesdocumented as of this [...] mL 2 (two) times daily. Active Insulin [place], Use to inject 400 Each 1 Disposable, [...] Use to check 300 Each 1 THIN) [facility] blood sugar 9 3X daily. [...] Overview: Added automatically from request for surgery [id number] Portal vein thrombosis 05/06/2019 Anticoagulation management encounter 05/06/2019 Vulvar intraepithelial neoplasia (SANG) grade 3 11/16/2018 Dental caries 04/17/2018 Overview: Added automatically from request for surgery [id number] Obesity (BMI 30-39.9) 03/19/2018 Bilateral lower extremity edema 07/14/2017 Lumbosacral spondylosis without myelopathy 03/16/2017 Overview: Added automatically from request for surgery [id number] Mixed hyperlipidemia 01/18/2017 Cirrhosis of liver without [...] Overview: Last Mammogram result 10/2016 at [facility] negative Cervical spondylosis without myelopathy 12/02/2013 [...] Date Type Specialty Malcolm Washington MD [address] [facility] [place] [address] [phone] Malcolm Carranza MD [address] [place] [address]. [place] [phone] 09/25/2019 Office Visit Psychiatry Nurse, [facility] Anticoag 10/04/2019 Nurse Visit Anti-coagulation Clinic Nanci Cortez MD [address] [place] [phone] 10/28/2019 Office Visit Gynecologic Oncology Mariana Woodruff, GAS DISTRIBUTION SUPERVISOR [address] [facility] [place], [place] [address] 11/01/2019 Office Visit Endocrinology Diabetes & Metabolism Jay Jenkins MD [address] [place] [address] [id number] [place], [place] 99[address] 12/06/2019 Office Visit Pain Medicine Ramon Lomeli, OD [address] [place] [address] 06/03/2020 Office Visit Ophthalmology Health [...] Phone Address Plan / Dates Group Medicaid [facility] xxxxxxxxx 2016-P P O [facility] [address] [place] [address] documented as of this encounter Advance Directives Relationship Healthcare Agent Relationship Communication Name Father Primary healthcare agent Asa [place] Child First alternate healthcare agent Sandy Ornelas
--- OUTSIDE RECORDS SUMMARY | 2019-11-01 04:01 | XMS REPORT | Summary of Care ---
Author Author [facility] - Health Organization [facility] - Health Address Unknown Phone Unavailable Care Team Providers Care Transmission Specialist Name Role Phone Keiry Jaquez CNM Unavailable Unavailable Madisyn Dumont MD Unavailable Unavailable Josef Mcintosh [place] [address] Isabel Hansen RN Unavailable Unavailable Keiry Jaquez CNM PCP Unavailable Keiry Jaquez CNM Unavailable Unavailable Reason for Visit * Reason Comments Refill Request Encounter Details Care Team Description Date Type Department Ramon Lomeli, [address] [place] [address] Refill Request 10/13/[address] [phone] Allergies No Known Allergiesdocumented as of this encounter (statuses as of 10/14/2019) Medications End Date Status Medication Sig Dispensed [...] AntiCo Clinic based on INR results. Active fluorouracil 5 % Insert 1 gram [...] Use to check 300 Each 1 THIN) [place] blood sugar 9 3X daily. DX:E11.8 Active [...] 4-6) or Pain (scale 7-10). Active Insulin [place], Use to inject 400 Each 1 Disposable, (BD ULTRAFINE insulin 4X 0 III MINI PEN) 31 gauge x daily. 11/10" NdleIndications: DX:E11.40 Uncontrolled type 2 diabetes mellitus with complication, without long-term current use of insulin Active TRUE METRIX GLUCOSE METER CHECK BLUCOSE 1 Each 0 Misc THREE TIMES 0 DAILY. DX:E11.40 Active PAZEO 0.7 % INSTILL 1 2.5 mL 6 DropIndications: Seasonal DROP INTO 0 allergic conjunctivitis BOTH EYES DAILY. 10/14/2019 Discontinued olopatadine (PAZEO) 0.7 % Place 1 Drop 2.5 mL 6 DropIndications: Seasonal in each eye 9 allergic conjunctivitis daily. 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) 08/13/2019 Overview: Added automatically from request for surgery [id number] Portal vein thrombosis 05/06/2019 Anticoagulation management encounter 05/06/2019 Vulvar intraepithelial neoplasia (SANG) grade 3 11/16/2018 Dental caries 04/17/2018 Overview: Added automatically from request for surgery [id number] Obesity (BMI 30-39.9) 03/19/2018 Bilateral lower extremity edema 07/14/2017 Lumbosacral spondylosis without myelopathy 03/16/2017 Overview: Added automatically from request for surgery [id number] Mixed hyperlipidemia 01/18/2017 Cirrhosis of liver without [...] as of this encounter (statuses as of 10/14/2019) Resolved Problems Problem Noted Date Resolved Date Positive blood test 11/09/2018 11/14/2018 Papanicolaou smear of cervix with low grade squamous intraepithelial lesion 02/08/2015 12/14/2016 (LGSIL) Overview: Pos hi-risk HPV 2016. Needs colpo documented as of this encounter (statuses as of 10/14/2019) Immunizations Name Administration Dates Next Due HEP [...] Specialty Jay Jenkins MD [id number] [place] [address] [phone] 10/24/2019 Office Visit Pain Medicine CarranzaMalcolm MD [address] [place] [address]. [place] [phone] 10/28/2019 Office Visit Psychiatry Nanci Cortez MD [address] [place] [phone] 10/28/2019 Office Visit Gynecologic Oncology Worker, Transplant Social 11/01/2019 Case Management Surgery Mariana Woodruff, BOX MACHINE OPERATOR [address] [place] [phone] 11/01/2019 Office Visit Endocrinology Diabetes & Metabolism Aldair Lima MD [address] [place] [address] [phone] 11/15/2019 Hospital Surgery Encounter Aldair Lima MD [address] [place] [address] [phone] TRIGGER FINGER RELEASE 11/15/2019 Surgery Surgery Aldair Lima MD [address] [place] [address] [phone] 11/27/2019 Office Visit Orthopedic Surgery Jay Jenkins MD [address] [place] [address] ES3320 [place], [place] [phone] 12/06/2019 Office Visit Pain Medicine Ramon Lmoeli, OD [address] [place] [address] 06/03/2020 Office Visit Ophthalmology Health Maintenance Due [...] filedocumented in this encounter Visit Diagnoses Diagnosis Seasonal allergic conjunctivitis Other chronic allergic conjunctivitis documented in this encounter Insurance Type Payer Benefit Subscriber ID Effective Phone Address Plan / Dates Group Medicaid [facility] xxxxxxxxx 2016-P P O [facility] [address] [place] [address] documented as of this encounter Advance Directives Relationship Healthcare Agent Relationship Communication Name Father Primary healthcare agent Asa [place] Child First alternate healthcare agent Sandy Ornelas
--- OUTSIDE RECORDS SUMMARY | 2019-11-01 04:01 | XMS REPORT | Summary of Care ---
Author Author [facility] - Health Organization [facility] - Health Address Unknown Phone Unavailable Care Team Providers Care Print Journalist Name Role Phone Keiry Jaquez CNM Unavailable Unavailable Madisyn Dumont MD Unavailable Unavailable Josef Mcintosh [place] [address] Isabel Hansen RN Unavailable Unavailable Keiry Jaquez CNM PCP Unavailable Keiry Jaquez CNM Unavailable Unavailable Reason for Visit * Reason Comments Refill Request Encounter Details Care Team Description Date Type Department Mariana Woodruff, STENCIL PRINTER [address] [place] [address] Refill Request 10/08/2019 Refill Critical access hospital [facility] [address] [place] [phone] Allergies No Known Allergiesdocumented as of this encounter (statuses as of 10/08/2019) Medications End Date Status Medication Sig Dispensed [...] Use to check 300 Each 1 THIN) [facility] [place] sugar 9 3X daily. DX:E11.8 Active [...] 4-6) or Pain (scale 7-10). Active Insulin [place], Use to inject 400 Each 1 Disposable, (BD ULTRAFINE insulin 4X 0 III MINI PEN) 31 gauge x daily. 11/10" NdleIndications: DX:E11.40 Uncontrolled type 2 diabetes mellitus with complication, without long-term current use of insulin 10/08/2019 Discontinued (Reorder) Insulin [place], Use to inject 400 Each 1 Disposable, (BD ULTRAFINE insulin 4X 9 III MINI PEN) 31 gauge x daily. 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) 08/13/2019 Overview: Added automatically from request for surgery [id number] Portal vein thrombosis 05/06/2019 Anticoagulation management encounter 05/06/2019 Vulvar intraepithelial neoplasia (SANG) grade 3 11/16/2018 Dental caries 04/17/2018 Overview: Added automatically from request for surgery [id number] Obesity (BMI 30-39.9) 03/19/2018 Bilateral lower extremity edema 07/14/2017 Lumbosacral spondylosis without myelopathy 03/16/2017 Overview: Added automatically from request for surgery [id number] Mixed hyperlipidemia 01/18/2017 Cirrhosis of liver without [...] 02/09/2015 Overview: Last Mammogram result 10/2016 at [facility] negative Cervical spondylosis without myelopathy 12/02/2013 Degeneration of lumbar or lumbosacral intervertebral disc 12/02/2013 Shoulder bursitis 02/07/2013 documented as of this encounter (statuses as of 10/08/2019) Resolved Problems Problem Noted Date Resolved Date Positive blood test 11/09/2018 11/14/2018 Papanicolaou smear of cervix with low grade squamous intraepithelial lesion 02/08/2015 12/14/2016 (LGSIL) Overview: Pos hi-risk HPV 2016. Needs colpo documented as of this encounter (statuses as of 10/08/2019) Immunizations Name Administration Dates Next Due HEP [...] Specialty Jay Jenkins MD [address] [place] [address] [phone] 10/09/2019 Office Visit Pain Medicine Malcolm Washington MD 400 [facility] [place] [place] [address] Malcolm Carranza MD [address] [place] [address]. [place] [phone] 10/09/2019 Office Visit Psychiatry Nanci Cortez MD [address] [place] [phone] 10/28/2019 Office Visit Gynecologic Oncology Worker, Transplant Social 11/01/2019 Case Management Surgery Mariana Woodruff, [facility] [address] [place], [place] [phone] 11/01/2019 Office Visit Endocrinology Diabetes & Metabolism Aldair Lima MD [address] [place] [address] [phone] 11/15/2019 Hospital Surgery Encounter Aldair Lima MD [address] [place] [address] [phone] TRIGGER FINGER RELEASE 11/15/2019 Surgery Surgery Aldair Lima MD [address] [place] [address] [phone] 11/27/2019 Office Visit Orthopedic Surgery Jay Jenkins MD 301 [facility] RT[address] [place], [place] [address] 12/06/2019 Office Visit Pain Medicine Ramon Lomeli, OD [address] [place], [place] [phone] 06/03/2020 Office Visit Ophthalmology Health Maintenance Due [...] Plan / Dates Group Medicaid [facility] [place] [facility] x[facility] 2016-P P O [facility] [place] [address] [place] [address] documented as of this encounter Advance Directives Relationship Healthcare Agent Relationship Communication Name Father Primary healthcare agent Asa Mills Child First alternate healthcare agent Sandy Ornelas
--- OUTSIDE RECORDS SUMMARY | 2019-11-01 04:01 | XMS REPORT | Summary of Care ---
Author Author [facility] - Health Organization [facility] - Health Address Unknown Phone Unavailable Care Team Providers Care Gem Cutter Name Role Phone Keiry Jaquez CNM Unavailable Unavailable Madisyn Dumont MD Unavailable Unavailable Josef Mcintosh [place] [address] Isabel Hansen RN Unavailable Unavailable Keiry Jaquez CNM PCP Unavailable Keiry Jaquez CNM Unavailable Unavailable Reason for Visit * Reason Comments LAB WORK Listed liver txpl - meld labs Encounter Details Care Team Description Date Type Department Bonita Nguyen MD [address] [place] [address] LAB WORK (Listed liver txpl - meld labs ) 10/11/2019 Telephone [facility] [address] [place] [phone] Allergies No Known Allergiesdocumented as of this encounter (statuses as of 10/11/2019) Medications End Date Status Medication Sig Dispensed [...] Use to check 300 Each 1 THIN) [facility] blood sugar 9 3X daily. DX:E11.8 [...] 4-6) or Pain (scale 7-10). Active Insulin [place], Use to inject 400 Each 1 Disposable, (BD ULTRAFINE insulin 4X 0 III MINI PEN) 31 gauge x daily. 11/10" NdleIndications: DX:E11.40 Uncontrolled type 2 diabetes mellitus with complication, without long-term current use of insulin Active TRUE METRIX GLUCOSE METER CHECK BLUCOSE 1 Each 0 Misc THREE TIMES 0 DAILY. 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) 08/13/2019 Overview: Added automatically from request for surgery [id number] Portal vein thrombosis 05/06/2019 Anticoagulation management encounter 05/06/2019 Vulvar intraepithelial neoplasia (SANG) grade 3 11/16/2018 Dental caries 04/17/2018 Overview: Added automatically from request for surgery [id number] Obesity (BMI 30-39.9) 03/19/2018 Bilateral lower extremity edema 07/14/2017 Lumbosacral spondylosis without myelopathy 03/16/2017 Overview: Added automatically from request for surgery [id number] Mixed hyperlipidemia 01/18/2017 Cirrhosis of liver without [...] as of this encounter (statuses as of 10/11/2019) Resolved Problems Problem Noted Date Resolved Date Positive blood test 11/09/2018 11/14/2018 Papanicolaou smear of cervix with low grade squamous intraepithelial lesion 02/08/2015 12/14/2016 (LGSIL) Overview: Pos hi-risk HPV 2016. Needs colpo documented as of this encounter (statuses as of 10/11/2019) Immunizations Name Administration Dates Next Due HEP [...] Description Date Type Specialty Jay Jenkins MD [address] [place] [address] [id number] [place], [place] [phone] 10/24/2019 Office Visit Pain Medicine Malcolm Carranza MD [address] [place] [address]. [place] [phone] 10/28/2019 Office Visit Psychiatry Nanci Cortez MD [address] [place] [phone] 10/28/2019 Office Visit Gynecologic Oncology Worker, Transplant Social 11/01/2019 Case Management Surgery Mariana Woodruff, RESULTS ENGINEER [address] [place] [phone] 11/01/2019 Office Visit Endocrinology Diabetes & Metabolism Aldair Lima MD [address] [place] [address] [phone] 11/15/2019 Hospital Surgery Encounter Aldair Lima MD [address] [place] [address] [phone] TRIGGER FINGER RELEASE 11/15/2019 Surgery Surgery Aldair Lima MD [address] [place] [address] [phone] 11/27/2019 Office Visit Orthopedic Surgery Jay Jenkins MD [address] [place] [address] [id number] [place], [place] [phone] 12/06/2019 Office Visit Pain Medicine Ramon Lomeli, OD [address] [place], [place] [phone] 06/03/2020 Office Visit Ophthalmology Health Maintenance Due [...] Phone Address Plan / Dates Group Medicaid [facility] xxxxxxxxx 2016-P P O [facility] [address] [place] [address] documented as of this encounter Advance Directives Relationship Healthcare Agent Relationship Communication Name Father Primary healthcare agent Asa Mills Child First alternate healthcare agent Sandy Ornelas
--- OUTSIDE RECORDS SUMMARY | 2019-11-01 04:01 | XMS REPORT | Summary of Care ---
Author Author [facility] - Health Organization [facility] - Health Address Unknown Phone Unavailable Care Team Providers Care Apprentice Painter Neckties Name Role Phone Keiry Jaquez CNM Unavailable Unavailable Madisyn Dumont MD Unavailable Unavailable Josef Mcintosh [place] [address] Isabel Hansen RN Unavailable Unavailable Keiry Jaquez CNM PCP Unavailable Keiry Jaquez CNM Unavailable Unavailable Reason for Visit * Reason Comments Rx Concern/Question Encounter Details Care Team Description Date Type Department Jay Jenkins MD [address] [id number] [place] [address] Rx Concern/Question 10/10/2019 Telephone [facility] [address] [place] [address] Allergies No Known Allergiesdocumented as of this encounter (statuses as of 10/15/2019) Medications End Date Status Medication Sig Dispensed [...] Use to check 300 Each 1 THIN) [facility] blood sugar 9 3X daily. DX:E11.8 Active [...] 4-6) or Pain (scale 7-10). Active Insulin [place], Use to inject 400 Each 1 Disposable, (BD ULTRAFINE insulin 4X 0 III MINI PEN) 31 gauge x daily. 11/10" NdleIndications: DX:E11.40 Uncontrolled type 2 diabetes mellitus with complication, without long-term current use of insulin Active TRUE METRIX GLUCOSE METER CHECK BLUCOSE 1 Each 0 Misc THREE TIMES 0 DAILY. 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) 08/13/2019 Overview: Added automatically from request for surgery [id number] Portal vein thrombosis 05/06/2019 Anticoagulation management encounter 05/06/2019 Vulvar intraepithelial neoplasia (SANG) grade 3 11/16/2018 Dental caries 04/17/2018 Overview: Added automatically from request for surgery [id number] Obesity (BMI 30-39.9) 03/19/2018 Bilateral lower extremity edema 07/14/2017 Lumbosacral spondylosis without myelopathy 03/16/2017 Overview: Added automatically from request for surgery [id number] Mixed hyperlipidemia 01/18/2017 Cirrhosis of liver without [...] as of this encounter (statuses as of 10/15/2019) Resolved Problems Problem Noted Date Resolved Date Positive blood test 11/09/2018 11/14/2018 Papanicolaou smear of cervix with low grade squamous intraepithelial lesion 02/08/2015 12/14/2016 (LGSIL) Overview: Pos hi-risk HPV 2016. Needs colpo documented as of this encounter (statuses as of 10/15/2019) Immunizations Name Administration Dates Next Due HEP [...] Date Type Specialty Jay Jenkins MD [address] [place] [address] [id number] [place], [place] [id number] 10/24/2019 Office Visit Pain Medicine Malcolm Carranza MD [address] [place] [address]. [place] [phone] 10/28/2019 Office Visit Psychiatry Nanci Cortez MD [address] [place] [phone] 10/28/2019 Office Visit Gynecologic Oncology Worker, Transplant Social 11/01/2019 Case Management Surgery Mariana Woodruff, OFFICE MACHINE SERVICE SUPERVISOR [address] [place], [place] [address] 11/01/2019 Office Visit Endocrinology Diabetes & Metabolism Aldair Lima MD [address] [place] [address] [phone] 11/15/2019 Hospital Surgery Encounter Aldair Lima MD [address] [place] [address] [phone] TRIGGER FINGER RELEASE 11/15/2019 Surgery Surgery Aldair Lima MD [address] [place] [address] [phone] 11/27/2019 Office Visit Orthopedic Surgery Jay Jenkins MD [address] [place] [address] [id number] [place], [place] [phone] 12/06/2019 Office Visit Pain Medicine Ramon Lomeli, [address] [address] 06/03/2020 Office Visit Ophthalmology Health [...] Plan / Dates Group Medicaid [employer] xxxxxxxxx 2016-P P O [facility] [address] [place] [address] documented as of this encounter Advance Directives Relationship Healthcare Agent Relationship Communication Name Father Primary healthcare agent Asa [place] Child First alternate healthcare agent Sandy Ornelas
--- OUTSIDE RECORDS SUMMARY | 2019-11-01 04:01 | XMS REPORT | Summary of Care ---
Author Author [facility] - Health Organization [facility] - Health Address Unknown Phone Unavailable Care Team Providers Care Survey Chief Name Role Phone Keiry Jaquez CNM Unavailable Unavailable Madisyn Dumont MD Unavailable Unavailable Josef Mcintosh [place] [address] Isabel Hansen RN Unavailable Unavailable Keiry Jaquez CNM PCP Unavailable Keiry Jaquez CNM Unavailable Unavailable Reason for Visit * Reason Comments Refill Request Encounter Details Care Team Description Date Type Department Jay Jenkins MD [address] [id number] [place], [place] [address] Refill Request 09/03/2019 Refill [facility] [address] [place] [phone] Allergies No Known Allergiesdocumented as of this [...] Use to check 300 Each 1 THIN) [facility] blood sugar 9 3X [...] 9 [facility] based on INR results. 10/08/2019 Discontinued (Reorder) Insulin [place], Use to inject 400 Each 1 Disposable, (BD ULTRAFINE insulin 4X 9 III MINI PEN) 31 gauge x daily. 11/10" NdleIndications: DX:E11.65 Uncontrolled type 2 diabetes mellitus with complication, without long-term current use of insulin 10/09/2019 Discontinued TRUE METRIX GLUCOSE METER Use to check 1 Each 0 Misc glucose 3X 9 daily. DX:E11.40 09/06/2019 Discontinued (Reorder) insulin lispro (HUMALOG inject [...] without E11.65 long-term current use of insulin 10/14/2019 Discontinued olopatadine (PAZEO) 0.7 % Place 1 Drop 2.5 mL 6 DropIndications: Seasonal in each eye 9 allergic conjunctivitis daily. 09/13/2019 Discontinued clonazePAM (KLONOPIN) 1 Take 1 [...] Overview: Added automatically from request for surgery [id number] Portal vein thrombosis 05/06/2019 Anticoagulation management encounter 05/06/2019 Vulvar intraepithelial neoplasia (SANG) grade 3 11/16/2018 Dental caries 04/17/2018 Overview: Added automatically from request for surgery [id number] Obesity (BMI 30-39.9) 03/19/2018 Bilateral lower extremity edema 07/14/2017 Lumbosacral spondylosis without myelopathy 03/16/2017 Overview: Added automatically from request for surgery [id number] Mixed hyperlipidemia 01/18/2017 Cirrhosis of liver without [...] Specialty Jay Jenkins MD [address] [id number] [place] [address] [phone] 10/24/2019 Office Visit Pain Medicine Malcolm Carranza MD [address] [place] [address]. [place] [phone] 10/28/2019 Office Visit Psychiatry Nanci Cortez MD [address] [place] [phone] 10/28/2019 Office Visit Gynecologic Oncology Worker, Transplant Social 11/01/2019 Case Management Surgery Mariana Woodruff, PACKING SUPERVISOR [address] [place], [place] [phone] 11/01/2019 Office Visit Endocrinology Diabetes & Metabolism Aldair Lima MD [address] [place] [address] [phone] 11/15/2019 Hospital Surgery Encounter Aldair Lima MD [address] [place] [address] [phone] TRIGGER FINGER RELEASE 11/15/2019 Surgery Surgery Aldair Lima MD [address] [place] [address] [phone] 11/27/2019 Office Visit Orthopedic Surgery Jay Jenkins MD [address] [place] [address] [id number] [place], [place] 573205 12/06/2019 Office Visit Pain Medicine Ramon Lomeli, OD [address] [place], [place] [phone] 06/03/2020 Office Visit Ophthalmology Health Maintenance Due [...] Visit Diagnoses Diagnosis Lumbosacral spondylosis without myelopathy Trochanteric bursitis of both hips Enthesopathy of hip region Bilateral sacroiliitis documented in this encounter Insurance Type Payer Benefit Subscriber ID Effective Phone Address Plan / Dates Group Medicaid [facility] [employer] xxxxxxxxx 2016-P P O [facility] [address] [place] [address] documented as of this encounter Advance Directives Relationship Healthcare Agent Relationship Communication Name Father Primary healthcare agent [place]a [place] Child First alternate healthcare agent Sandy Ornelas
--- OUTSIDE RECORDS SUMMARY | 2019-11-01 04:02 | XMS REPORT | Summary of Care ---
Author Author [facility] - Health Organization [facility] - Health Address Unknown Phone Unavailable Care Team Providers Care Ui Architect Name Role Phone Keiry Jaquez CNM Unavailable Unavailable Madisyn Dumont MD Unavailable Unavailable Josef Mcintosh [place] [address] Isabel Hansen RN Unavailable Unavailable Keiry Jaquez CNM PCP Unavailable Keiry Jaquez CNM Unavailable Unavailable Reason for Visit * Reason Comments Refill Request Encounter Details Care Team Description Date Type Department Doctor Unassigned, [place] [address] [place] [address] Refill Request 10/15/2019 Refill [facility] [address] [place] [phone] Allergies No Known Allergiesdocumented as [...] [facility] based on INR results. Active fluorouracil [...] Use to check 300 Each 1 THIN) [facility] blood sugar 9 3X [...] with long-term current use of insulin Active pregabalin [...] 4-6) or Pain (scale 7-10). Active Insulin [place], Use to inject 400 Each 1 Disposable, (BD ULTRAFINE insulin 4X 0 III MINI PEN) 31 gauge x daily. 11/10" NdleIndications: DX:E11.40 Uncontrolled type 2 diabetes mellitus with complication, without long-term current use of insulin Active TRUE METRIX GLUCOSE METER CHECK BLUCOSE 1 Each 0 Misc THREE TIMES 0 DAILY. DX:E11.40 Active insulin degludec (TRESIBA inject 80 15 mL 2 FLEXTOUCH U-200) 200 Units under 0 unit/mL (3 mL) the skin InPnIndications: every Uncontrolled type 2 morning. diabetes mellitus with E11.65 complication, without long-term current use of insulin Active olopatadine (PAZEO) 0.7 % Place 1 Drop 2.5 mL 6 DropIndications: Seasonal in both eyes 0 allergic conjunctivitis daily. 10/15/2019 Discontinued (Reorder) insulin degludec (TRESIBA inject 80 75 mL [...] Overview: Added automatically from request for surgery [id number] Portal vein thrombosis 05/06/2019 Anticoagulation management encounter 05/06/2019 Vulvar intraepithelial neoplasia (SANG) grade 3 11/16/2018 Dental caries 04/17/2018 Overview: Added automatically from request for surgery [id number] Obesity (BMI 30-39.9) 03/19/2018 Bilateral lower extremity edema 07/14/2017 Lumbosacral spondylosis without myelopathy 03/16/2017 Overview: Added automatically from request for surgery [id number] Mixed hyperlipidemia 01/18/2017 Cirrhosis of liver without [...] 02/09/2015 Overview: Last Mammogram result 10/2016 at [facility] negative Cervical spondylosis without myelopathy [...] Specialty Jay Jenkins MD [address] [id number] [place] [address] [phone] 10/24/2019 Office Visit Pain Medicine Malcolm Carranza MD [address] [place] [address]. [place] [phone] 10/28/2019 Office Visit Psychiatry Nanci Cortez MD [address] [place] [phone] 10/28/2019 Office Visit Gynecologic Oncology Worker, Transplant Social 11/01/2019 Case Management Surgery Ranjan Mariana, PHOTOENGRAVING PRINTER [address] [place], [place] [address] 11/01/2019 Office Visit Endocrinology Diabetes & Metabolism Aldair Lima MD [address] [place] [address] [phone] 11/15/2019 Hospital Surgery Encounter Aldair Lima MD [address] [place] [address] [phone] TRIGGER FINGER RELEASE 11/15/2019 Surgery Surgery Aldair Lima MD [address] [place] [address] [phone] 11/27/2019 Office Visit Orthopedic Surgery Jay Jenkins MD [address] [place] [address] [id number] [place], [place] [phone] 12/06/2019 Office Visit Pain Medicine Ramon Lomeli, OD [address] [place], [place] [address] 06/03/2020 Office Visit Ophthalmology Health Maintenance Due [...] Dates Group Medicaid [facility]-P P O [facility] [id number] [place] [phone] documented as of this encounter Advance Directives Relationship Healthcare Agent Relationship Communication Name Father Primary healthcare agent [place]a [place] Child First alternate healthcare agent Sandy Ornelas
--- OUTSIDE RECORDS SUMMARY | 2019-11-01 04:02 | XMS REPORT | Summary of Care ---
Author Author [facility] - Health Organization [facility] - Health Address Unknown Phone Unavailable Care Team Providers Care Bowl Topper Name Role Phone Keiry Jaquez CNM Unavailable Unavailable Madisyn Dumont MD Unavailable Unavailable Josef Mcintosh [place] [address] Isabel Hansen RN Unavailable Unavailable Keiry Jaquez CNM PCP Unavailable Keiry Jaquez CNM Unavailable Unavailable Reason for Visit * Reason Comments Refill Request Encounter Details Care Team Description Date Type Department Jay Jenkins MD [address] [id number] [place], [place] [address] Refill Request 10/15/2019 Refill [facility] [address] [place] [phone] Allergies No Known Allergiesdocumented as of this [...] Use to check 300 Each 1 THIN) [facility] blood sugar 9 3X daily. DX:E11.8 Active [...] [facility] Clinic based on INR results. Active insulin lispro (HUMALOG inject 26 75 mL 1 KWIKPEN INSULIN) 100 Units under 0 unit/mL pen the skin 3 injectorIndications: (three) times Uncontrolled type 2 daily before diabetes mellitus with meals. diabetic neuropathy, with long-term current use of insulin Active pregabalin (LYRICA) 75 mg TAKE 1 90 capsule 2 capsuleIndications: CAPSULE BY 0 Neuropathy MOUTH THREE TIMES DAILY Active traMADol 50 mg Take 1 tablet 90 tablet 2 tabletIndications: by mouth 0 Lumbosacral spondylosis every 6 (six) without myelopathy, hours as Trochanteric bursitis of needed for both hips, Bilateral Pain (scale sacroiliitis 4-6) or Pain (scale 7-10). Active Insulin [place], Use to inject 400 Each 1 Disposable, (BD ULTRAFINE insulin 4X 0 III MINI PEN) 31 gauge x daily. 11/10" NdleIndications: DX:E11.40 Uncontrolled type 2 diabetes mellitus with complication, without long-term current use of insulin Active TRUE METRIX GLUCOSE METER CHECK BLUCOSE 1 Each 0 Misc THREE TIMES 0 DAILY. DX:E11.40 Active clonazePAM (KLONOPIN) 1 Take 1 tablet 30 tablet 0 mg tabletIndications: by mouth 0 Generalized anxiety daily. disorder with panic attacks, Agoraphobia with panic attacks Active cyclobenzaprine 5 mg Take 1 tablet 30 tablet 3 tabletIndications: by mouth at 0 Lumbosacral spondylosis bedtime. without myelopathy Active insulin degludec (TRESIBA inject 80 15 mL 2 FLEXTOUCH U-200) 200 Units under 0 unit/mL (3 mL) the skin InPnIndications: every Uncontrolled type 2 morning. diabetes mellitus with E11.65 complication, without long-term current use of insulin Active olopatadine (PAZEO) 0.7 % Place 1 Drop 2.5 mL 6 DropIndications: Seasonal in both eyes 0 allergic conjunctivitis daily. 10/15/2019 Discontinued (Reorder) cyclobenzaprine 5 mg Take 1 tablet 30 tablet 3 tabletIndications: by mouth at 0 Lumbosacral spondylosis bedtime. 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 Dental caries 04/17/2018 Overview: Added automatically from request for surgery [id number] Obesity (BMI 30-39.9) 03/19/2018 Bilateral lower extremity edema 07/14/2017 Lumbosacral spondylosis without myelopathy 03/16/2017 Overview: Added automatically from request for surgery [id number] Mixed hyperlipidemia 01/18/2017 Cirrhosis of liver without [...] 02/09/2015 Overview: Last Mammogram result 10/2016 at [facility] negative Cervical spondylosis without myelopathy 12/02/2013 [...] Type Specialty Jay Jenkins MD [address] [facility] [id number] [place] [address] [phone] 10/24/2019 Office Visit Pain Medicine Malcolm Carranza MD [address] [place] [address]. [place] [phone] 10/28/2019 Office Visit Psychiatry Nanci Cortez MD [address] [place] [phone] 10/28/2019 Office Visit Gynecologic Oncology Worker, Transplant Social 11/01/2019 Case Management Surgery Mariana Woodruff, EMPLOYER RELATIONS REPRESENTATIVE [address] [place], [place] [address] 11/01/2019 Office Visit Endocrinology Diabetes & Metabolism Aldair Lima MD [address] [place] [address] [phone] 11/15/2019 Hospital Surgery Encounter Aldair Lima MD [address] [place] [address] [phone] TRIGGER FINGER RELEASE 11/15/2019 Surgery Surgery Aldair Lima MD [address] [place] [address] [phone] 11/27/2019 Office Visit Orthopedic Surgery Jay Jenkins MD [address] [place] [address] [id number] [place], [place] 5[address] 12/06/2019 Office Visit Pain Medicine Ramon Lomeli, OD [address] [place], [place] [address] 06/03/2020 Office Visit Ophthalmology Health Maintenance Due [...] Phone Address Plan / Dates Group Medicaid [facility] [employer] x[facility] 2016-P [facility] [address] [place] [address] documented as of this encounter Advance Directives Relationship Healthcare Agent Relationship Communication Name Father Primary healthcare agent Asa [place] Child First alternate healthcare agent Sandy Ornelas
--- OUTSIDE RECORDS SUMMARY | 2019-11-01 04:02 | XMS REPORT | Clinical Summary ---
Author Author [facility] Organization [facility] Address Unknown Phone Unavailable Care Team Providers Care Project Manager Interior Design Name Role Phone Keiry Jaquez CNM Unavailable [...] Use to check 300 Each 1 THIN) [facility] blood sugar 9 3X daily. DX:E11.8 Active [...] 4-6) or Pain (scale 7-10). Active Insulin [place], Use to inject 400 Each 1 Disposable, [...] panic attacks, Agoraphobia with panic attacks Active insulin degludec (TRESIBA inject 80 15 mL 2 FLEXTOUCH U-200) 200 Units under 0 unit/mL (3 mL) the skin InPnIndications: every Uncontrolled type 2 morning. diabetes mellitus with E11.65 complication, without long-term current use of insulin Active olopatadine (PAZEO) 0.7 % Place 1 Drop 2.5 mL 6 DropIndications: Seasonal in both eyes 0 allergic conjunctivitis daily. 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) 08/13/2019 Overview: Added automatically from request for surgery [id number] Portal vein thrombosis 05/06/2019 Anticoagulation management encounter 05/06/2019 Vulvar intraepithelial neoplasia (SANG) grade 3 11/16/2018 Dental caries 04/17/2018 Overview: Added automatically from request for surgery [id number] Obesity (BMI 30-39.9) 03/19/2018 Bilateral lower extremity edema 07/14/2017 Lumbosacral spondylosis without myelopathy 03/16/2017 Overview: Added automatically from request for surgery [id number] Mixed hyperlipidemia 01/18/2017 Cirrhosis of liver without [...] Encounters Care Team Description Date Type Specialty Doctor Unassigned, [place] Refill Request 10/15/2019 Refill OB Satellites [place], Ramon D, OD Refill Request 10/15/2019 Refill Ophthalmology Doctor Unassigned, [place] Refill Request 10/15/2019 Refill Endocrinology Diabetes & Metabolism Jay Jenkins MD Refill Request 10/15/2019 Refill Pain Medicine Ramon Lomeli, OD Refill Request 10/13/2019 Refill Ophthalmology Bonita Nguyen MD LAB WORK (Listed liver txpl - meld labs ) 10/11/2019 Telephone Surgery Jay Jenkins MD Rx Concern/Question 10/10/2019 Telephone Pain Medicine Madisyn Dumont MD Refill Request 10/08/2019 Refill Endocrinology Diabetes & Metabolism Mariana Woodruff FNP Refill Request 10/08/2019 Refill Endocrinology Diabetes & Metabolism Jay Jenkins MD 10/04/2019 Refill Pain Medicine Jay Jenkins MD Notification; Rx Concern/Question 09/17/2019 Telephone Pain Medicine Nieves Fair MD 09/10/2019 Anesthesia Surgery Event Nanci Cortez MD Notification 09/10/2019 Telephone Gynecologic Oncology Jay Jenkins MD Nurse, [facility] Anticoag Portal vein thrombosis; Anticoagulation management encounter 09/06/2019 [...] Refill Endocrinology Diabetes & Metabolism Doctor Unassigned, [place] 08/22/2019 Orders Only Mariana Woodruff FNP Refill Request 08/20/2019 Refill Endocrinology Diabetes & Metabolism Hiwot Dan PA-C Notification 08/13/2019 Telephone Gynecologic Oncology Edgar Frederick MD Nurse, [facility] Anticoag Portal vein thrombosis; Anticoagulation management encounter [...] Cortez MD Notification 07/17/2019 Telephone Gynecologic Oncology from Last 3 Months [...] Comments Vital Sign 133/77 09/06/2019 11:41 AM INFORMATICS PHYSICIAN Blood Pressure 98 09/06/2019 11:41 AM INFORMATICS PHYSICIAN Pulse 36.8 C (98.3 F) 09/06/2019 11:40 AM INFORMATICS PHYSICIAN Temperature 14 09/06/2019 11:40 AM INFORMATICS PHYSICIAN Respiratory Rate 99% 09/06/2019 11:40 AM INFORMATICS PHYSICIAN Oxygen Saturation - - Inhaled Oxygen Concentration 90.1 kg (198 lb 10.2 oz) 09/10/2019 8:28 AM INFORMATICS PHYSICIAN Weight 152.4 cm (5') 09/10/2019 8:28 AM INFORMATICS PHYSICIAN Height 38.79 09/10/2019 8:28 AM INFORMATICS PHYSICIAN Body Mass Index Plan of Treatment Care Team Description Date Type Specialty Jay Jenkins MD [address] [place] [address] [address]1450 [place] [address] [phone] 10/24/2019 Office Visit Pain Medicine Nanci Cortez MD [address] [place] [address] [phone] 10/28/2019 Office Visit Gynecologic Oncology Worker, Transplant Social 11/01/2019 Case Management Surgery Mariana Woodruff, CLINICAL INFORMATICS SPECIALIST [address] [place], [place] [address] 11/01/2019 Office Visit Endocrinology Diabetes & Metabolism Aldair Lima MD [address] [place] [address] [phone] 11/15/2019 Hospital Surgery Encounter Aldair Lima MD [address] [place] [address] 211[address] [phone] TRIGGER FINGER RELEASE 11/15/2019 Surgery Surgery Aldair Lima MD [address] [place], [place] 637803 11/27/2019 Office Visit Orthopedic Surgery Jay Jenkins MD [address] [facility] [address] [place], [place] [address] 12/06/2019 Office Visit Pain Medicine Ramon Lomeli, OD [address] [place], [place] [phone] 06/03/2020 Office Visit Ophthalmology Health Maintenance Due [...] RELEASE Routine 08/22/2019 OF PHI 12:01 AM INFORMATICS PHYSICIAN SURGICAL PATHOLOGY EXAM Routine 08/12/2019 VAIN III (vaginal 11:13 AM INFORMATICS PHYSICIAN intraepithelial neoplasia grade III) DISCLOSURE AND CONSENT, Routine 08/12/2019 MEDICAL AND SURGICAL 12:01 AM INFORMATICS PHYSICIAN PROCEDURES from Last 3 Months Results * POCT HEMOGLOBIN A1C TEST (09/06/2019) POCT HBA1C 10.1 (A) 4 - 6 % Specimen Blood - CAPILLARY * POCT PT/INR(COAGUCHEK) (09/06/2019) POCT PT/INR 2.0 (A) 0.8 - 1.4 INR POCT PT/SEC 24.5 SEC Specimen Blood - CAPILLARY * AUTHORIZATION FOR RELEASE OF PHI (08/22/2019 12:01 AM INFORMATICS PHYSICIAN) Specimen Performing Organization Address City/State/Zipcode Phone Number HIM * SURGICAL PATHOLOGY EXAM (08/12/2019 11:13 AM INFORMATICS PHYSICIAN) Case Report Surgical Pathology [facility] Case: [id number] Authorizing Provider: Hiwot Dan PA-C Collected: 08/12/2019 1113 Ordering Location: [facility] Received: 08/12/[address] [place] [address] Pathologist: Dimitry Carrasco MD Specimen: VAG CUFF, vaginal apex Final Diagnosis A. VAGINA, APEX, BIOPSY: [facility] Electronically - SQUAMOUS EPITHELIUM SERVICES signed by Danilo, WITH HUMAN PAPILLOMAVIRUS Dimitry Doherty MD on ASSOCIATED CHANGES 08/13/2019 at 1:02 - NO HIGH GRADE DYSPLASIA PM OR CARCINOMA IDENTIFIED AUSTEN Simon 08/13/2019 8:35 AM I have personally reviewed all specimens/slides and agree with all statements made by residents, fellows or pathologist assistants whose name(s) may appear on this report. Clinical VIN3 [facility] Information SERVICES Gross Specimen A is received in [facility] Description formalin labelled with the SERVICES patient s name, [facility] number "vaginal cuff apex and consists of an aggregate of 2 duenas-pink mucinous semi-translucent irregular soft tissue fragments (0.6 x 0.2 x 0.2 cm). The specimen is filtered through a biopsy bag and entirely submitted in toto in A1. RAQUEL Butterfield (ASCP)cm Embedded Images [facility] Specimen Tissue - VAG CUFF Performing Organization Address City/State/Zipcode Phone Number [facility] CLIA: [id number], [address] [place] [address] [facility] * DISCLOSURE AND CONSENT, MEDICAL AND SURGICAL PROCEDURES (08/12/2019 12:01 AM INFORMATICS PHYSICIAN) Specimen Performing Organization Address City/State/Zipcode Phone Number HIM from Last 3 Months Insurance Type Payer Benefit Subscriber ID Effective Phone Address Plan / Dates Group Medicaid [employer] [place] AMER[employer] xxxxxxxxx 2016-P P O [facility] [address] [place] [address] (Home) [address] [place] [address] Advance Directives Relationship Healthcare Agent Relationship Communication Name Father Primary healthcare agent [place] Child First alternate healthcare agent Sandy Ornelas
--- OUTSIDE RECORDS SUMMARY | 2019-11-01 04:02 | XMS REPORT | Summary of Care ---
Author Author [facility] - Health Organization [facility] Address Unknown Phone Unavailable Care Team Providers Care Manager E Learning Name Role Phone Keiry Jaquez CNM Unavailable Unavailable Madisyn Dumont MD Unavailable Unavailable Josef Mcintosh [place] [address] Isabel Hansen RN Unavailable Unavailable Keiry Jaquez CNM PCP Unavailable Keiry Jaquez CNM Unavailable Unavailable Reason for Visit * Reason Comments Refill Request Encounter Details Care Team Description Date Type Department Ramon Lomeli, [address] [place] [address] Refill Request 10/15/[address] [phone] Allergies No Known Allergiesdocumented as of this [...] 4-6) or Pain (scale 7-10). Active Insulin [place], Use to inject 400 Each 1 Disposable, (BD ULTRAFINE insulin 4X 0 III MINI PEN) 31 gauge x daily. 11/10" NdleIndications: DX:E11.40 Uncontrolled type 2 diabetes mellitus with complication, without long-term current use of insulin Active TRUE METRIX GLUCOSE METER CHECK BLUCOSE 1 Each 0 Misc THREE TIMES 0 DAILY. DX:E11.40 Active olopatadine (PAZEO) 0.7 % Place 1 Drop 2.5 mL 6 DropIndications: Seasonal in both eyes 0 allergic conjunctivitis daily. 10/15/2019 Discontinued (Reorder) PAZEO 0.7 % INSTILL 1 2.5 mL 6 DropIndications: Seasonal DROP INTO 0 allergic conjunctivitis BOTH EYES DAILY. 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 Dental caries 04/17/2018 Overview: Added automatically from request for surgery [id number] Obesity (BMI 30-39.9) 03/19/2018 Bilateral lower extremity edema 07/14/2017 Lumbosacral spondylosis without myelopathy 03/16/2017 Overview: Added automatically from request for surgery [id number] Mixed hyperlipidemia 01/18/2017 Cirrhosis of liver without [...] Overview: Last Mammogram result 10/2016 at [facility] negative Cervical spondylosis without myelopathy 12/02/2013 [...] Specialty Jay Jenkins MD [address] [place] [address] [phone] 10/24/2019 Office Visit Pain Medicine Malcolm Carranza MD [address] [place] [address]. [place] [phone] 10/28/2019 Office Visit Psychiatry Nanci Cortez MD [address] [place] [address] [phone] 10/28/2019 Office Visit Gynecologic Oncology Worker, Transplant Social 11/01/2019 Case Management Surgery Mariana Woodruff, LAWN SPRINKLER SERVICER [address] [place], [place] [address] 11/01/2019 Office Visit Endocrinology Diabetes & Metabolism Aldair Lima MD [address] [place] [address] [phone] 11/15/2019 Hospital Surgery Encounter Aldair Lima MD [address] [place] [address] [phone] TRIGGER FINGER RELEASE 11/15/2019 Surgery Surgery Aldair Lima MD [address] [place] [address] [phone] 11/27/2019 Office Visit Orthopedic Surgery Jay Jenkins MD [address] [place] [address] [id number] [place], [place] [phone] 12/06/2019 Office Visit Pain Medicine Ramon Lomeli, OD [address] [place], [place] [address] 06/03/2020 Office Visit Ophthalmology Health Maintenance Due [...] Address Plan / Dates Group Medicaid [facility] xxxxxxxxx 2016-P [address] [place] [facility] [address] [place] [address] documented as of this encounter Advance Directives Relationship Healthcare Agent Relationship Communication Name Father Primary healthcare agent [place] Child First alternate healthcare agent Sandy Ornelas
--- OUTSIDE RECORDS SUMMARY | 2019-11-01 04:03 | XMS REPORT | Clinical Summary ---
Author Author [facility] Organization [facility] Address Unknown Phone Unavailable Care Team Providers Care Pre Owned Sales Manager Name Role Phone Keiry Jaquez CNM [...] Use to check 300 Each 1 THIN) [facility] blood sugar 9 3X daily. DX:E11.8 Active [...] as 60 tablet 3 directed by [facility] based on INR results. Active insulin [...] 4-6) or Pain (scale 7-10). 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 Dental caries 04/17/2018 Overview: Added automatically from request for surgery [id number] Obesity (BMI 30-39.9) 03/19/2018 Bilateral lower extremity edema 07/14/2017 Lumbosacral spondylosis without myelopathy 03/16/2017 Overview: Added automatically from request for surgery [id number] Mixed hyperlipidemia 01/18/2017 Cirrhosis of liver without [...] Overview: Last Mammogram result 10/2016 at [facility] negative Cervical spondylosis without myelopathy 12/02/2013 Degeneration of lumbar or lumbosacral intervertebral disc 12/02/2013 Shoulder bursitis 02/07/2013 Resolved Problems Problem Noted Date Resolved Date Positive blood test 11/09/2018 11/14/2018 Papanicolaou smear of cervix with low grade squamous intraepithelial lesion 02/08/2015 12/14/2016 (LGSIL) Overview: Pos hi-risk HPV 2016. Needs colpo Encounters Care Team Description Date Type Specialty Doctor Unassigned, [place] Refill Request 10/15/2019 Refill OB Satellites [place], Ramon D, OD Refill Request 10/15/2019 Refill Ophthalmology Doctor Unassigned, [place] Refill Request 10/15/2019 Refill Endocrinology Diabetes & [...] Telephone Gynecologic Oncology Jay Jenkins MD Nurse, [facility] Anticoag Portal vein thrombosis; Anticoagulation management [...] Refill Endocrinology Diabetes & Metabolism Doctor Unassigned, [place] 08/22/2019 Orders Only Mariana Woodruff FNP Refill Request 08/20/2019 Refill Endocrinology Diabetes & Metabolism Hiwot Dan PA-C Notification 08/13/2019 Telephone Gynecologic Oncology Edgar Frederick MD Nurse, [facility] Anticoag Portal vein thrombosis; Anticoagulation management [...] Comments Vital Sign 133/77 09/06/2019 11:41 AM APPLICATION ANALYST Blood Pressure 98 09/06/2019 11:41 AM APPLICATION ANALYST Pulse 36.8 C (98.3 F) 09/06/2019 11:40 AM APPLICATION ANALYST Temperature 14 09/06/2019 11:40 AM APPLICATION ANALYST Respiratory Rate 99% 09/06/2019 11:40 AM APPLICATION ANALYST Oxygen Saturation - - Inhaled Oxygen Concentration 90.1 kg (198 lb 10.2 oz) 09/10/2019 8:28 AM APPLICATION ANALYST Weight 152.4 cm (5') 09/10/2019 8:28 AM APPLICATION ANALYST Height 38.79 09/10/2019 8:28 AM APPLICATION ANALYST Body Mass Index Plan of Treatment Care Team Description Date Type Specialty Jay Jenkins MD [address] [place] [address] [id number] [place] [address] [phone] 10/24/2019 Office Visit Pain Medicine Nanci Cortez MD [address] [place] [address] [phone] 10/28/2019 Office Visit Gynecologic Oncology Worker, Transplant Social 11/01/2019 Case Management Surgery Mariana Woodruff, ACADEMIC VICE PRESIDENT [address] [place], [place] [address] 11/01/2019 Office Visit Endocrinology Diabetes & Metabolism Aldair Lima MD [address] [place] [address] [phone] 11/15/2019 Hospital Surgery Encounter Aldair Lima MD [address] [place] [address] [phone] TRIGGER FINGER RELEASE 11/15/2019 Surgery Surgery Aldair Lima MD [address] [place], [place] [address] 11/27/2019 Office Visit Orthopedic Surgery Jay Jenkins MD [address] [facility] [id number] [place], [place] [phone] 12/06/2019 Office Visit Pain Medicine Ramon Lomeli, OD [address] [place], [place] [phone] 06/03/2020 Office Visit Ophthalmology Health Maintenance Due [...] RELEASE Routine 08/22/2019 OF PHI 12:01 AM APPLICATION ANALYST SURGICAL PATHOLOGY EXAM Routine 08/12/2019 VAIN III (vaginal 11:13 AM APPLICATION ANALYST intraepithelial neoplasia grade III) DISCLOSURE AND CONSENT, Routine 08/12/2019 MEDICAL AND SURGICAL 12:01 AM APPLICATION ANALYST PROCEDURES from Last 3 Months Results * POCT HEMOGLOBIN A1C TEST (09/06/2019) POCT HBA1C 10.1 (A) 4 - 6 % Specimen Blood - CAPILLARY * POCT PT/INR(COAGUCHEK) (09/06/2019) POCT PT/INR 2.0 (A) 0.8 - 1.4 INR POCT PT/SEC 24.5 SEC Specimen Blood - CAPILLARY * AUTHORIZATION FOR RELEASE OF PHI (08/22/2019 12:01 AM APPLICATION ANALYST) Specimen Performing Organization Address City/State/Zipcode Phone Number HIM * SURGICAL PATHOLOGY EXAM (08/12/2019 11:13 AM APPLICATION ANALYST) Case Report Surgical Pathology [facility] Case: [id number] Authorizing Provider: Hiwot Dan PA-C Collected: 08/12/2019 1113 Ordering Location: [facility] Received: 08/12/[address] [place] [address] Pathologist: Dimitry Carrasco MD Specimen: VAG CUFF, vaginal apex Final Diagnosis A. VAGINA, APEX, BIOPSY: [facility] Electronically - SQUAMOUS EPITHELIUM SERVICES signed by Danilo, WITH HUMAN PAPILLOMAVIRUS Dimitry Doherty MD on ASSOCIATED CHANGES 08/13/2019 at 1:02 - NO HIGH GRADE DYSPLASIA PM OR CARCINOMA IDENTIFIED AUSTEN Simon 08/13/2019 8:35 AM I have personally reviewed all specimens/slides and agree with all statements made by residents, fellows or pathologist assistants whose name(s) may appear on this report. Clinical VIN3 [facility] Information SERVICES Gross Specimen A is received in [facility] Description formalin labelled with the SERVICES patient s name, UH number "vaginal cuff apex and consists of an aggregate of 2 duenas-pink mucinous semi-translucent irregular soft tissue fragments (0.6 x 0.2 x 0.2 cm). The specimen is filtered through a biopsy bag and entirely submitted in toto in A1. RAQUEL Butterfield (ASCP)cm Embedded Images [facility] Specimen Tissue - VAG CUFF Performing Organization Address City/State/Zipcode Phone Number [facility] CLIA: [id number], [address] [place] [address] [facility] * DISCLOSURE AND CONSENT, MEDICAL AND SURGICAL PROCEDURES (08/12/2019 12:01 AM APPLICATION ANALYST) Specimen Performing Organization Address City/State/Zipcode Phone Number HIM from Last 3 Months Insurance Type Payer Benefit Subscriber ID Effective Phone Address Plan / Dates Group Medicaid [employer] [place] AMER[employer] xxxxxxxxx 2016-P P O [facility] [address] [place] [address] (Home) [address] [place] [address] Advance Directives Relationship Healthcare Agent Relationship Communication Name Father Primary healthcare agent [place] Child First alternate healthcare agent Sandy Ornelas
--- OUTSIDE RECORDS SUMMARY | 2019-11-01 04:03 | XMS REPORT | Summary of Care ---
Author Author [facility] - [facility] Organization [facility] Address Unknown Phone Unavailable Care Team Providers Care Supervisor Drilling And Shooting Name Role Phone Keiry Jaquez CNM Unavailable Unavailable Madisyn Dumont MD Unavailable Unavailable Josef Mcintosh [place] [address] Isabel Hansen RN Unavailable Unavailable Keiry Jaquez CNM PCP Unavailable Keiry Jaquez CNM Unavailable Unavailable Reason for Visit * Reason Comments Refill Request Encounter Details Care Team Description Date Type Department Jay Jenkins MD [id number] [place], [place] [phone] Refill Request 10/16/2019 Refill [facility] [address] [place] [phone] Allergies No Known Allergiesdocumented as of this encounter (statuses as of 10/16/2019) Medications End Date Status Medication Sig Dispensed [...] morning remove tampon, shower, rinse thoroughly. Active Lancets (LANCETS,ULTRA Use to check 300 Each 1 THIN) [facility] blood sugar 9 3X daily. DX:E11.[address] 1 Drop 1 Bottle 3 Sodium (THERATEARS) 0.25 in each eye 2 9 % DropIndications: Dry (two) times eye syndrome, bilateral daily. Active TRAMADOL 50 mg TAKE 1 TABLET [...] 4-6) or Pain (scale 7-10). Active Insulin [place], Use to inject 400 Each 1 Disposable, [...] both eyes 0 allergic conjunctivitis daily. 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) 08/13/2019 Overview: Added automatically from request for surgery [id number] Portal vein thrombosis 05/06/2019 Anticoagulation management encounter 05/06/2019 Vulvar intraepithelial neoplasia (SANG) grade 3 11/16/2018 Dental caries 04/17/2018 Overview: Added automatically from request for surgery [id number] Obesity (BMI 30-39.9) 03/19/2018 Bilateral lower extremity edema 07/14/2017 Lumbosacral spondylosis without myelopathy 03/16/2017 Overview: Added automatically from request for surgery [id number] Mixed hyperlipidemia 01/18/2017 Cirrhosis of liver without [...] 02/09/2015 Overview: Last Mammogram result 10/2016 at [facility] negative Cervical spondylosis without myelopathy 12/02/2013 Degeneration of lumbar or lumbosacral intervertebral disc 12/02/2013 Shoulder bursitis 02/07/2013 documented as of this encounter (statuses as of 10/16/2019) Resolved Problems Problem Noted Date Resolved Date Positive blood test 11/09/2018 11/14/2018 Papanicolaou smear of cervix with low grade squamous intraepithelial lesion 02/08/2015 12/14/2016 (LGSIL) Overview: Pos hi-risk HPV 2016. Needs colpo documented as of this encounter (statuses as of 10/16/2019) Immunizations Name Administration Dates Next Due HEP [...] Specialty Jay Jenkins MD [id number] [place] [address] [phone] 10/24/2019 Office Visit Pain Medicine Malcolm Carranza MD [address] [place] [address]. [place] [phone] 10/28/2019 Office Visit Psychiatry Nanci Cortez MD [address] [place] [address] [phone] 10/28/2019 Office Visit Gynecologic Oncology Worker, Transplant Social 11/01/2019 Case Management Surgery Ranjan Mariana, LAWN MOWER SHARPENER [address] [place], [place] [address] 11/01/2019 Office Visit Endocrinology Diabetes & Metabolism Aldair Lima MD [address] [place] [address] [phone] 11/15/2019 Hospital Surgery Encounter Aldair Lima MD [address] [place] [address] [phone] TRIGGER FINGER RELEASE 11/15/2019 Surgery Surgery Aldair Lima MD [address] [place] [address] [phone] 11/27/2019 Office Visit Orthopedic Surgery Jay Jenkins MD [address] [place] [address] [id number] [place], [place] [address] 12/06/2019 Office Visit Pain Medicine Ramon Lomeli, OD [address] [place], [place] [address] 06/03/2020 Office Visit Ophthalmology Health Maintenance Due [...] Visit Diagnoses Diagnosis Lumbosacral spondylosis without myelopathy Bilateral sacroiliitis Trochanteric bursitis of both hips Enthesopathy of hip region documented in this encounter Insurance Type Payer Benefit Subscriber ID Effective Phone Address Plan / Dates Group Medicaid [employer] [place] [employer] xxxxxxxxx 2016-P P O [facility] [address] [place] [address] documented as of this encounter Advance Directives Relationship Healthcare Agent Relationship Communication Name Father Primary healthcare agent [place]a [place] Child First alternate healthcare agent Sandy Ornelas
--- OUTSIDE RECORDS SUMMARY | 2019-11-01 04:03 | XMS REPORT | Summary of Care ---
Author Author [facility] - Health Organization [facility] - Health Address Unknown Phone Unavailable Care Team Providers Care Rescue Worker Name Role Phone Keiry Jaquez CNM Unavailable Unavailable Madisyn Dumont MD Unavailable Unavailable Josef Mcintosh [address] Isabel Hansen RN Unavailable Unavailable Keiry Jaquez CNM PCP Unavailable Keiry Jaquez CNM Unavailable Unavailable Reason for Visit * Reason Comments Refill Request Encounter Details Care Team Description Date Type Department Madisyn Dumont MD Refill Request 10/16/2019 Refill [facility] [address] [place] [phone] Allergies No Known Allergiesdocumented as of this [...] tablet 3 by mouth 9 daily. Active lactulose (GENERLAC) 10 Take 30 mL [...] lispro (HUMALOG inject 26 75 mL 1 01/10/202 KWIKPEN INSULIN) 100 Units under 0 unit/mL [...] 4-6) or Pain (scale 7-10). Active Insulin [place], Use to inject 400 Each 1 Disposable, [...] sacroiliitis, DAILY Trochanteric bursitis of both hips Active blood sugar diagnostic Use to test 100 Strip 3 (TRUE METRIX GLUCOSE TEST BG 3 times 0 STRIP) stripIndications: daily. Uncontrolled type 2 DX:E11.40 diabetes mellitus with diabetic neuropathy, with long-term current use of insulin 10/16/2019 Discontinued blood sugar diagnostic Use to check [...] Overview: Added automatically from request for surgery [id number] Portal vein thrombosis 05/06/2019 Anticoagulation management encounter 05/06/2019 Vulvar intraepithelial neoplasia (SANG) grade 3 11/16/2018 Dental caries 04/17/2018 Overview: Added automatically from request for surgery [id number] Obesity (BMI 30-39.9) 03/19/2018 Bilateral lower extremity edema 07/14/2017 Lumbosacral spondylosis without myelopathy 03/16/2017 Overview: Added automatically from request for surgery [id number] Mixed hyperlipidemia 01/18/2017 Cirrhosis of liver without [...] Description Date Type Specialty Jay Jenkins MD [address] [place] [address] [id number] [place] [address] [phone] 10/24/2019 Office Visit Pain Medicine Malcolm Carranza MD [address] [place] [address]. [place] [address] [phone] 10/28/2019 Office Visit Psychiatry Nanci Cortez MD [address] [place] [phone] 10/28/2019 Office Visit Gynecologic Oncology Worker, Transplant Social 11/01/2019 Case Management Surgery Mariana Woodruff, OPTICAL MECHANIC [address] [place] [address] [phone] 11/01/2019 Office Visit Endocrinology Diabetes & Metabolism Aldair Lima MD [address] [place] [address] [phone] 11/15/2019 Hospital Surgery Encounter Aldair Lima MD [address] [place] [address] [phone] TRIGGER FINGER RELEASE 11/15/2019 Surgery Surgery Aldair Lima MD [address] [place] [address] [phone] 11/27/2019 Office Visit Orthopedic Surgery Jay Jenkins MD [address] [place] [address] [id number] [place], [place] [phone] 12/06/2019 Office Visit Pain Medicine Ramon Lomeli, OD [address] [place], [place] [phone] 06/03/2020 Office Visit Ophthalmology Health Maintenance Due [...] Address Plan / Dates Group Medicaid [facility] [employer] xxxxxxxxx 2016-P P O [facility] [address] [place] [address] documented as of this encounter Advance Directives Relationship Healthcare Agent Relationship Communication Name Father Primary healthcare agent Aas Mills Child First alternate healthcare agent Sandy Ornelas
--- OUTSIDE RECORDS SUMMARY | 2019-11-01 04:03 | XMS REPORT | Clinical Summary ---
Author Author [facility] - Health Organization [facility] - Health Address Unknown Phone Unavailable Care Team Providers Care Analytical Data Scientist Name Role Phone Keiry Jaquez CNM Unavailable [...] Use to check 300 Each 1 THIN) [facility] blood sugar 9 3X daily. [...] as 60 tablet 3 directed by 9 [facility] based on INR results. Active insulin [...] 4-6) or Pain (scale 7-10). Active Insulin [place], Use to inject 400 Each 1 Disposable, [...] Overview: Added automatically from request for surgery [id number] Portal vein thrombosis 05/06/2019 Anticoagulation management encounter 05/06/2019 Vulvar intraepithelial neoplasia (SANG) grade 3 11/16/2018 Dental caries 04/17/2018 Overview: Added automatically from request for surgery [id number] Obesity (BMI 30-39.9) 03/19/2018 Bilateral lower extremity edema 07/14/2017 Lumbosacral spondylosis without myelopathy 03/16/2017 Overview: Added automatically from request for surgery [id number] Mixed hyperlipidemia 01/18/2017 Cirrhosis of liver without [...] Overview: Last Mammogram result 10/2016 at [facility] negative Cervical spondylosis without myelopathy 12/02/2013 Degeneration of lumbar or lumbosacral intervertebral disc 12/02/2013 Shoulder bursitis 02/07/2013 Resolved Problems Problem Noted Date Resolved Date Positive blood test 11/09/2018 11/14/2018 Papanicolaou smear of cervix with low grade squamous intraepithelial lesion 02/08/2015 12/14/2016 (LGSIL) Overview: Pos hi-risk HPV 2017. Needs colpo Encounters Care Team Description Date Type Specialty Doctor Unassigned, [place] Refill Request 10/15/2019 Refill OB Satellites [place], Ramon D, OD Refill Request 10/15/2019 Refill Ophthalmology Doctor Unassigned, [place] Refill Request 10/15/2019 Refill Endocrinology Diabetes & [...] Telephone Gynecologic Oncology Jay Jenkins MD Nurse, [facility] Anticoag Portal vein thrombosis; Anticoagulation management [...] Refill Endocrinology Diabetes & Metabolism Doctor Unassigned, [place] 08/22/2019 Orders Only Mariana Woodruff FNP Refill Request 08/20/2019 Refill Endocrinology Diabetes & Metabolism Hiwot Dan PA-C Notification 08/13/2019 Telephone Gynecologic Oncology Edgar Frederick MD Nurse, [facility] Anticoag Portal vein thrombosis; Anticoagulation management encounter 08/12/2019 Nurse Visit Anti-coagulation Clinic Nanci Cortez MD 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) (Primary Dx); Cirrhosis of liver without ascites, unspecified hepatic cirrhosis type 08/12/2019 Office Visit Gynecologic Oncology Edgar Frederikc MD Refill Request 08/11/2019 Refill Anti-coagulation Clinic [...] Comments Vital Sign 133/77 09/06/2019 11:41 AM THIN FILM TECHNICIAN Blood Pressure 98 09/06/2019 11:41 AM THIN FILM TECHNICIAN Pulse 36.8 C (98.3 F) 09/06/2019 11:40 AM THIN FILM TECHNICIAN Temperature 14 09/06/2019 11:40 AM THIN FILM TECHNICIAN Respiratory Rate 99% 09/06/2019 11:40 AM THIN FILM TECHNICIAN Oxygen Saturation - - Inhaled Oxygen Concentration 90.1 kg (198 lb 10.2 oz) 09/10/2019 8:28 AM THIN FILM TECHNICIAN Weight 152.4 cm (5') 09/10/2019 8:28 AM THIN FILM TECHNICIAN Height 38.79 09/10/2019 8:28 AM THIN FILM TECHNICIAN Body Mass Index Plan of Treatment Care Team Description Date Type Specialty Jay Jenkins MD [address] [place] [address] [id number] [place] [address] [phone] 10/24/2019 Office Visit Pain Medicine Nanci Cortez MD [address] [place] [address] [phone] 10/28/2019 Office Visit Gynecologic Oncology Worker, Transplant Social 11/01/2019 Case Management Surgery Mariana Woodruff, SHIFT SUPERVISOR RN [address] [place], [place] 3630[address] 11/01/2019 Office Visit Endocrinology Diabetes & Metabolism Aldair Lima MD [address] [place] [address] [phone] 11/15/2019 Hospital Surgery Encounter Aldair Lima MD [address] [place] [address] [phone] TRIGGER FINGER RELEASE 11/15/2019 Surgery Surgery Aldair Lima MD [address] [place], [place] [phone] 11/27/2019 Office Visit Orthopedic Surgery Jay Jenkins MD [address] [facility] [id number] [place], [place] 613445 12/06/2019 Office Visit Pain Medicine Ramon Lomeli, OD [address] [place], [place] [phone] 06/03/2020 Office Visit Ophthalmology Health Maintenance Due [...] RELEASE Routine 08/22/2019 OF PHI 12:01 AM THIN FILM TECHNICIAN SURGICAL PATHOLOGY EXAM Routine 08/12/2019 VAIN III (vaginal 11:13 AM THIN FILM TECHNICIAN intraepithelial neoplasia grade III) DISCLOSURE AND CONSENT, Routine 08/12/2019 MEDICAL AND SURGICAL 12:01 AM THIN FILM TECHNICIAN PROCEDURES from Last 3 Months Results * POCT HEMOGLOBIN A1C TEST (09/06/2019) POCT HBA1C 10.1 (A) 4 - 6 % Specimen Blood - CAPILLARY * POCT PT/INR(COAGUCHEK) (09/06/2019) POCT PT/INR 2.0 (A) 0.8 - 1.4 INR POCT PT/SEC 24.5 SEC Specimen Blood - CAPILLARY * AUTHORIZATION FOR RELEASE OF PHI (08/22/2019 12:01 AM THIN FILM TECHNICIAN) Specimen Performing Organization Address City/State/Zipcode Phone Number HIM * SURGICAL PATHOLOGY EXAM (08/12/2019 11:13 AM THIN FILM TECHNICIAN) Case Report Surgical Pathology [facility] Case: [id number] Authorizing Provider: Hiwot Dan PA-C Collected: 08/12/2019 1113 Ordering Location: [facility] Received: 08/12/[address] [place] [address] Pathologist: Dimitry Carrasco MD Specimen: VAG CUFF, vaginal apex Final Diagnosis A. VAGINA, APEX, BIOPSY: [facility] Electronically - SQUAMOUS EPITHELIUM SERVICES signed by Danilo, WITH HUMAN PAPILLOMAVIRUS Dimitry Doherty MD on ASSOCIATED CHANGES 08/13/2019 at 1:02 - NO HIGH GRADE DYSPLASIA PM OR CARCINOMA IDENTIFIED AUSTEN Simon 08/13/2019 8:35 AM I have personally reviewed all specimens/slides and agree with all statements made by residents, fellows or pathologist assistants whose name(s) may appear on this report. Clinical VIN3 [facility] Information SERVICES Gross Specimen A is received in [facility] Description formalin labelled with the SERVICES patient s name, UH number "vaginal cuff apex and consists of an aggregate of 2 duenas-pink mucinous semi-translucent irregular soft tissue fragments (0.6 x 0.2 x 0.2 cm). The specimen is filtered through a biopsy bag and entirely submitted in toto in A1. RAQUEL Butterfield (ASCP)cm Embedded Images [facility] Specimen Tissue - VAG CUFF Performing Organization Address City/State/Zipcode Phone Number [facility] CLIA: [id number], [address] [place] [address] [facility] * DISCLOSURE AND CONSENT, MEDICAL AND SURGICAL PROCEDURES (08/12/2019 12:01 AM THIN FILM TECHNICIAN) Specimen Performing Organization Address City/State/Zipcode Phone Number HIM from Last 3 Months Insurance Type Payer Benefit Subscriber ID Effective Phone Address Plan / Dates Group Medicaid [employer] [place] [employer] xxxxxxxxx 2016-P P O [facility] [id number] [place] [address] (Home) [address] [place] [address] Advance Directives Relationship Healthcare Agent Relationship Communication Name Father Primary healthcare agent [place] Child First alternate healthcare agent Sandy Ornelas
--- OUTSIDE RECORDS SUMMARY | 2019-11-01 04:03 | XMS REPORT | Summary of Care ---
Author Author [facility] - Health Organization [facility] - Health Address Unknown Phone Unavailable Care Team Providers Care Network Management Specialist Name Role Phone Keiry Jaquez CNM Unavailable Unavailable Madisyn Dumont MD Unavailable Unavailable Josef Mcintosh [place] [address] Isabel Hansen RN Unavailable Unavailable Keiry Jaquez CNM PCP Unavailable Keiry Jaquez CNM Unavailable Unavailable Reason for Visit * Reason Comments LAB WORK Listed liver txpl - [facility]d labs Encounter Details Care Team Description Date Type Department Bonita Nguyen MD [address] [place] [address] LAB WORK (Listed liver txpl - meld labs ) 10/11/2019 Telephone [facility] [address] [place] [phone] Allergies No Known Allergiesdocumented as of this encounter (statuses as of 10/17/2019) Medications End Date Status Medication Sig Dispensed [...] Use to check 300 Each 1 THIN) [facility] blood sugar 9 3X daily. [...] 4-6) or Pain (scale 7-10). Active Insulin [place], Use to inject 400 Each 1 Disposable, (BD ULTRAFINE insulin 4X 0 III MINI PEN) 31 gauge x daily. 11/10" NdleIndications: DX:E11.40 Uncontrolled type 2 diabetes mellitus with complication, without long-term current use of insulin Active TRUE METRIX GLUCOSE METER CHECK BLUCOSE 1 Each 0 Misc THREE TIMES 0 DAILY. DX:E11.40 10/16/2019 Discontinued blood sugar diagnostic Use to check 100 Strip 3 (TRUE METRIX GLUCOSE TEST glucose 3X 9 STRIP) stripIndications: daily. Uncontrolled type 2 DX:E11.40 diabetes mellitus with diabetic neuropathy, with long-term current use of insulin 10/14/2019 Discontinued olopatadine (PAZEO) 0.7 % Place 1 Drop 2.5 mL 6 DropIndications: Seasonal in each eye 9 allergic conjunctivitis daily. 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 without psychotic features, Generalized anxiety disorder with panic attacks 10/16/2019 Discontinued DICLOFENAC SODIUM 1 % APPLY TO THE 100 g 3 gelIndications: AFFECTED 9 Lumbosacral spondylosis AREA(S) TWICE without myelopathy, DAILY Bilateral sacroiliitis, Trochanteric bursitis of both hips 10/15/2019 Discontinued (Reorder) cyclobenzaprine 5 mg Take 1 tablet 30 tablet 3 tabletIndications: by mouth at 0 Lumbosacral spondylosis bedtime. without myelopathy 10/15/2019 Discontinued (Reorder) insulin degludec (TRESIBA inject 80 75 mL 1 FLEXTOUCH U-200) 200 Units under 0 unit/mL (3 mL) the skin InPnIndications: every Uncontrolled type 2 morning. diabetes mellitus with E11.65 complication, without long-term current use of insulin 10/15/2019 Discontinued (Reorder) clonazePAM (KLONOPIN) 1 Take 1 tablet 30 tablet 0 mg tabletIndications: by mouth 0 Generalized anxiety daily. 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) 08/13/2019 Overview: Added automatically from request for surgery [id number] Portal vein thrombosis 05/06/2019 Anticoagulation management encounter 05/06/2019 Vulvar intraepithelial neoplasia (SANG) grade 3 11/16/2018 Dental caries 04/17/2018 Overview: Added automatically from request for surgery [id number] Obesity (BMI 30-39.9) 03/19/2018 Bilateral lower extremity edema 07/14/2017 Lumbosacral spondylosis without myelopathy 03/16/2017 Overview: Added automatically from request for surgery [id number] Mixed hyperlipidemia 01/18/2017 Cirrhosis of liver without [...] 02/09/2015 Overview: Last Mammogram result 10/2016 at [facility] negative Cervical spondylosis without myelopathy 12/02/2013 Degeneration of lumbar or lumbosacral intervertebral disc 12/02/2013 Shoulder bursitis 02/07/2013 documented as of this encounter (statuses as of 10/17/2019) Resolved Problems Problem Noted Date Resolved Date Positive blood test 11/09/2018 11/14/2018 Papanicolaou smear of cervix with low grade squamous intraepithelial lesion 02/08/2015 12/14/2016 (LGSIL) Overview: Pos hi-risk HPV 2016. Needs colpo documented as of this encounter (statuses as of 10/17/2019) Immunizations Name Administration Dates Next Due HEP [...] Type Specialty Jay Jenkins MD [address] [facility] [id number] [place] [address] [phone] 10/24/2019 Office Visit Pain Medicine Malcolm Carranza MD [address] [place] [address]. [place] [phone] 10/28/2019 Office Visit Psychiatry Nanci Cortez MD [address] [place] [address] [phone] 10/28/2019 Office Visit Gynecologic Oncology Worker, Transplant Social 11/01/2019 Case Management Surgery Ranjan Mariana, BULLET SLUGS INSPECTOR [address] [place], [place] [address]69[address] 11/01/2019 Office Visit Endocrinology Diabetes & Metabolism Aldair Lima MD [address] [place] [address] [phone] 11/15/2019 Hospital Surgery Encounter Aldair Lima MD [address] [place] [address] [phone] TRIGGER FINGER RELEASE 11/15/2019 Surgery Surgery Aldair Lima MD [address] [place] [address] [phone] 11/27/2019 Office Visit Orthopedic Surgery Jay Jenkins MD [address] [place] [address] [id number] [place], [place] 274495 12/06/2019 Office Visit Pain Medicine Rmaon Lomeli, OD [address] [place], [place] [phone] 06/03/2020 Office Visit Ophthalmology Health Maintenance Due [...] Phone Address Plan / Dates Group Medicaid [facility] xxxxxxxxx 2016-P P O [facility] [address] [address] [place] [address] documented as of this encounter Advance Directives Relationship Healthcare Agent Relationship Communication Name Father Primary healthcare agent [place]a [place] Child First alternate healthcare agent Sandy Ornelas
--- OUTSIDE RECORDS SUMMARY | 2019-11-01 04:04 | XMS REPORT | Clinical Summary ---
Author Author [facility] - Health Organization [facility] - Health Address Unknown Phone Unavailable Care Team Providers Care Advice Clerk Name Role Phone Keiry Jaquez CNM [...] 7 (two) times daily with meals. Active zolpidem (AMBIEN) 10 mg Take 10 [...] Other directed by [address] [facility] based on INR results. Active fluorouracil [...] as 60 tablet [address] [facility] based on INR results. Active insulin [...] 4-6) or Pain (scale 7-10). Active Insulin [place], Use to inject 400 Each 1 [...] with long-term current use of insulin Active Multivitamins-Iron (DAILY Take 1 Each 100 tablet 3 MULTIPLE VITAMINS/IRON) by mouth 0 TabIndications: daily. 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) 08/13/2019 Overview: Added automatically from request for surgery [id number] Portal vein thrombosis 05/06/2019 Anticoagulation management encounter 05/06/2019 Vulvar intraepithelial neoplasia (SANG) grade 3 11/16/2018 Dental caries 04/17/2018 Overview: Added automatically from request for surgery [id number] Obesity (BMI 30-39.9) 03/19/2018 Bilateral lower extremity edema 07/14/2017 Lumbosacral spondylosis without myelopathy 03/16/2017 Overview: Added automatically from request for surgery [id number] Mixed hyperlipidemia 01/18/2017 Cirrhosis of liver without [...] Team Description Date Type Specialty Doctor Unassigned, [place] Refill Request 10/17/2019 Refill OB Satellites Jay Jenkins MD Refill Request 10/17/2019 Refill Pain Medicine Madisyn Dumont MD Refill Request 10/16/2019 Refill Endocrinology Diabetes & Metabolism Jay Jenkins MD Refill Request 10/16/2019 Refill Pain Medicine Doctor Unassigned, [place] Refill Request 10/15/2019 Refill OB Satellites Ramon Lomeli, OD Refill Request 10/15/2019 Refill Ophthalmology Doctor Unassigned, [place] Refill Request 10/15/2019 Refill Endocrinology Diabetes & [...] Telephone Gynecologic Oncology Jay Jenkins MD Nurse, [facility] Anticoag Portal vein thrombosis; Anticoagulation management [...] Refill Endocrinology Diabetes & Metabolism Doctor Unassigned, [place] 08/22/2019 Orders Only Mariana Woodruff FNP Refill Request 08/20/2019 Refill Endocrinology Diabetes & Metabolism Hiwot Dan PA-C Notification 08/13/2019 Telephone Gynecologic Oncology Edgar Frederick MD Nurse, [facility] Anticoag Portal vein thrombosis; Anticoagulation management [...] MD Refill Request 07/23/2019 Refill Pain Medicine from Last 3 Months Immunizations Name Administration [...] Comments Vital Sign 133/77 09/06/2019 11:41 AM DINKEY ENGINE FIRER/FIREMAN Blood Pressure 98 09/06/2019 11:41 AM DINKEY ENGINE FIRER/FIREMAN Pulse 36.8 C (98.3 F) 09/06/2019 11:40 AM DINKEY ENGINE FIRER/FIREMAN Temperature 14 09/06/2019 11:40 AM DINKEY ENGINE FIRER/FIREMAN Respiratory Rate 99% 09/06/2019 11:40 AM DINKEY ENGINE FIRER/FIREMAN Oxygen Saturation - - Inhaled Oxygen Concentration 90.1 kg (198 lb 10.2 oz) 09/10/2019 8:28 AM DINKEY ENGINE FIRER/FIREMAN Weight 152.4 cm (5') 09/10/2019 8:28 AM DINKEY ENGINE FIRER/FIREMAN Height 38.79 09/10/2019 8:28 AM DINKEY ENGINE FIRER/FIREMAN Body Mass Index Plan of Treatment Care Team Description Date Type Specialty Jay Jenkins MD [address] [place] [address] [id number] [place], [place] [address] 10/24/2019 Office Visit Pain Medicine Nanci Cortez MD [address] [place] [address] [phone] 10/28/2019 Office Visit Gynecologic Oncology Worker, Transplant Social 11/01/2019 Case Management Surgery Mariana Woodruff, VARUN [address] [place], [place] [address] 11/01/2019 Office Visit Endocrinology Diabetes & Metabolism Nurse, [facility] Anticoag 11/01/2019 Nurse Visit Anti-coagulation Clinic Aldair Lima MD [address] [place] [address] 11/15/2019 Hospital [place] [address] [place] [address] TRIGGER FINGER RELEASE 11/15/2019 [place] [address] [place] [address] [phone] 11/27/2019 Office Visit Orthopedic Surgery Jay Jenkins MD [address] [facility] [id number] [place] [address] 12/06/2019 Office Visit Pain Medicine Ramon Lomeli, [address] [place] [address] 06/03/2020 Office Visit Ophthalmology [...] RELEASE Routine 08/22/2019 OF PHI 12:01 AM DINKEY ENGINE FIRER/FIREMAN SURGICAL PATHOLOGY EXAM Routine 08/12/2019 VAIN III (vaginal 11:13 AM DINKEY ENGINE FIRER/FIREMAN intraepithelial neoplasia grade III) DISCLOSURE AND CONSENT, Routine 08/12/2019 MEDICAL AND SURGICAL 12:01 AM DINKEY ENGINE FIRER/FIREMAN PROCEDURES from Last 3 Months Results * POCT HEMOGLOBIN A1C TEST (09/06/2019) POCT HBA1C 10.1 (A) 4 - 6 % Specimen Blood - CAPILLARY * POCT PT/INR(COAGUCHEK) (09/06/2019) POCT PT/INR 2.0 (A) 0.8 - 1.4 INR POCT PT/SEC 24.5 SEC Specimen Blood - CAPILLARY * AUTHORIZATION FOR RELEASE OF PHI (08/22/2019 12:01 AM DINKEY ENGINE FIRER/FIREMAN) Specimen Performing Organization Address City/State/Zipcode Phone Number HIM * SURGICAL PATHOLOGY EXAM (08/12/2019 11:13 AM DINKEY ENGINE FIRER/FIREMAN) Case Report Surgical Pathology [facility] Case: [id number] Authorizing Provider: Hiwot Dan PA-C Collected: 08/12/2019 1113 Ordering Location: [facility] Received: 08/12/[address] [place] [address] Pathologist: Dimitry Carrasco MD Specimen: VAG CUFF, vaginal apex Final Diagnosis A. VAGINA, APEX, BIOPSY: [facility] Electronically - SQUAMOUS EPITHELIUM [...] may appear on this report. Clinical VIN3 [facility] Information SERVICES Gross Specimen A is received in [facility] Description formalin labelled with the SERVICES patient s name, UH number "vaginal cuff apex and consists of an aggregate of 2 duenas-pink mucinous semi-translucent irregular soft tissue fragments (0.6 x 0.2 x 0.2 cm). The specimen is filtered through a biopsy bag and entirely submitted in toto in A1. RAQUEL Butterfield (ASCP)cm Embedded Images [facility] Specimen Tissue - VAG CUFF Performing Organization Address City/State/Zipcode Phone Number [facility] CLIA: [id number], [address] [place] [address] [facility] * DISCLOSURE AND CONSENT, MEDICAL AND SURGICAL PROCEDURES (08/12/2019 12:01 AM DINKEY ENGINE FIRER/FIREMAN) Specimen Performing Organization Address City/State/Zipcode Phone Number HIM from Last 3 Months Insurance Type Payer Benefit Subscriber ID Effective Phone Address Plan / Dates Group Medicaid [employer] [place] [employer] xxxxxxxxx 2016-P P O [facility] [address] [place] [address] Advance Directives Relationship Healthcare Agent Relationship Communication Name Father Primary healthcare agent Asa [place] Child First alternate healthcare agent Sandy Ornelas
--- OUTSIDE RECORDS SUMMARY | 2019-11-01 04:04 | XMS REPORT | Summary of Care ---
Author Author [facility] - Health Organization [facility] - Health Address Unknown Phone Unavailable Care Team Providers Care College Professor Name Role Phone Keiry Jaquez CNM Unavailable Unavailable Madisyn Dumont MD Unavailable Unavailable Josef Mcintosh 100[address] Isabel Hansen RN Unavailable Unavailable Keiry Jaquez CNM PCP Unavailable Keiry Jaquez CNM Unavailable Unavailable Reason for Visit * Reason Comments Refill Request Encounter Details Care Team Description Date Type Department Doctor Unassigned, Coker [address] [place] [address] Refill Request 10/17/2019 Refill [facility] [address] [place] [address] Allergies No Known Allergiesdocumented as of this encounter (statuses as of 10/18/2019) Medications End Date Status Medication Sig Dispensed [...] as 60 tablet 3 directed by 9 [facility] based on INR results. Active [...] 4-6) or Pain (scale 7-10). Active Insulin [place], Use to inject 400 Each 1 Disposable, [...] with low grade squamous intraepithelial lesion (LGSIL) 10/17/2019 Discontinued (Reorder) Multivitamins-Iron (DAILY Take 1 Each 100 tablet 3 MULTIPLE VITAMINS/IRON) by mouth 7 TabIndications: daily. 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) 08/13/2019 Overview: Added automatically from request for surgery [id number] Portal vein thrombosis 05/06/2019 Anticoagulation management encounter 05/06/2019 Vulvar intraepithelial neoplasia (SANG) grade 3 11/16/2018 Dental caries 04/17/2018 Overview: Added automatically from request for surgery [id number] Obesity (BMI 30-39.9) 03/19/2018 Bilateral lower extremity edema 07/14/2017 Lumbosacral spondylosis without myelopathy 03/16/2017 Overview: Added automatically from request for surgery [id number] Mixed hyperlipidemia 01/18/2017 Cirrhosis of liver without [...] as of this encounter (statuses as of 10/18/2019) Resolved Problems Problem Noted Date Resolved Date Positive blood test 11/09/2018 11/14/2018 Papanicolaou smear of cervix with low grade squamous intraepithelial lesion 02/08/2015 12/14/2016 (LGSIL) Overview: Pos hi-risk HPV 2016. Needs colpo documented as of this encounter (statuses as of 10/18/2019) Immunizations Name Administration Dates Next Due HEP [...] Description Date Type Specialty Jay Jenkins MD [address] [place] [address] [id number] [place] [address] [phone] 10/24/2019 Office Visit Pain Medicine Malcolm Carranza MD [address] [place] [address]. [place] [address] [phone] 10/28/2019 Office Visit Psychiatry Nanci Cortez MD [address] [place] [address] [phone] 10/28/2019 Office Visit Gynecologic Oncology Worker, Transplant Social 11/01/2019 Case Management Surgery Mariana Woodruff, CHINESE INSTRUCTOR [address] [place] [address] [phone] 11/01/2019 Office Visit Endocrinology Diabetes & Metabolism Nurse, Vtc Anticoag 11/01/2019 Nurse Visit Anti-coagulation Clinic Aldair Lima MD [address] [place] [address] [phone] 11/15/2019 Hospital Surgery Encounter Aldair Lima MD [address] [place] [address] [phone] TRIGGER FINGER RELEASE 11/15/2019 Surgery Surgery Aldair Lima MD [address] [place] [address] [phone] 11/27/2019 Office Visit Orthopedic Surgery Jay Jenkins MD [address] [place] [address] [id number] [place], [place] 806085 12/06/2019 Office Visit Pain Medicine Ramon Lomeli, OD [address] [place] [address] [phone] 06/03/2020 Office Visit Ophthalmology Health Maintenance Due [...] filedocumented in this encounter Visit Diagnoses Diagnosis Papanicolaou smear of vagina with low grade squamous intraepithelial lesion (LGSIL) documented in this encounter Insurance Type Payer Benefit Subscriber ID Effective Phone Address Plan / Dates Group Medicaid [facility] xxxxxxxxx 2016-P [address] [place] [facility] [address] [place] [address] documented as of this encounter Advance Directives Relationship Healthcare Agent Relationship Communication Name Father Primary healthcare agent Asa Mills Child First alternate healthcare agent Sandy Ornelas
--- OUTSIDE RECORDS SUMMARY | 2019-11-01 04:04 | XMS REPORT | Summary of Care ---
Author Author [facility] - Health Organization [facility] - Health Address Unknown Phone Unavailable Care Team Providers Care Technician Chemical Cleaning Name Role Phone Keiry Jaquez CNM Unavailable Unavailable Madisyn Dumont MD Unavailable Unavailable Josef Mcintosh [place] [address] Hansen RN Unavailable Unavailable Keiry Jaquez CNM PCP Unavailable Keiry Jaquez CNM Unavailable Unavailable Reason for Visit * Reason Comments LAB WORK Encounter Details Care Team Description Date Type Department Delano Nguyen MD [address] [place] [address] Vtc-Lab Pre-liver transplant, listed 10/21/2019 [place] [employer] [place] [facility] [address] [place] [phone] Allergies No Known Allergiesdocumented as of this encounter (statuses as of 10/21/2019) Medications End Date Status Medication Sig Dispensed [...] 4-6) or Pain (scale 7-10). 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) 08/13/2019 Overview: Added automatically from request for surgery [id number] Portal vein thrombosis 05/06/2019 Anticoagulation management encounter 05/06/2019 Vulvar intraepithelial neoplasia (SANG) grade 3 11/16/2018 Dental caries 04/17/2018 Overview: Added automatically from request for surgery [id number] Obesity (BMI 30-39.9) 03/19/2018 Bilateral lower extremity edema 07/14/2017 Lumbosacral spondylosis without myelopathy 03/16/2017 Overview: Added automatically from request for surgery [id number] Mixed hyperlipidemia 01/18/2017 Cirrhosis of liver without [...] 02/09/2015 Overview: Last Mammogram result 10/2016 at [facility] negative Cervical spondylosis without myelopathy 12/02/2013 Degeneration of lumbar or lumbosacral intervertebral disc 12/02/2013 Shoulder bursitis 02/07/2013 documented as of this encounter (statuses as of 10/21/2019) Resolved Problems Problem Noted Date Resolved Date Positive blood test 11/09/2018 11/14/2018 Papanicolaou smear of cervix with low grade squamous intraepithelial lesion 02/08/2015 12/14/2016 (LGSIL) Overview: Pos hi-risk HPV 2017. Needs colpo documented as of this encounter (statuses as of 10/21/2019) Immunizations Name Administration Dates Next Due HEP [...] Specialty Jay Jenkins MD [address] PA[address] [place] [address] [phone] 10/24/2019 Office Visit Pain Medicine Self, MD Tony [address] [place] [address] Malcolm Carranza MD [address] [place] [address]. [place] [phone] 10/28/2019 Office Visit Psychiatry Nanci Cortez MD [address] [place] [address] [phone] 10/28/2019 Office Visit Gynecologic Oncology Worker, Transplant Social 11/01/2019 Case Management Surgery Ranjan Mariana, PACKAGE SEALER MACHINE [address] [place], [place] [address] 11/01/2019 Office Visit Endocrinology Diabetes & Metabolism Nurse, Iac Anticoag 11/01/2019 Nurse Visit Anti-coagulation Clinic Aldair Lima MD [address] [place] [address] [phone] 11/15/2019 Hospital Surgery Encounter Aldair Lima MD [address] [place] [address] [phone] TRIGGER FINGER RELEASE 11/15/2019 Surgery Surgery Aldair Lima MD [address] [place] [address] [phone] 11/27/2019 Office Visit Orthopedic Surgery Jay Jenkins MD [address] [place] [address] BX1728 [place], [place] 338475 12/06/2019 Office Visit Pain Medicine Ramon Lomeli, OD [address] [place], [place] [phone] 06/03/2020 Office Visit Ophthalmology Date/Time Name Type Priority Associated Diagnoses 10/21/2019 12:54 PM COMPUTER SECURITY MANAGER CBC WITH DIFF LAB Routine Pre-liver transplant, listed 10/21/2019 12:54 PM COMPUTER SECURITY MANAGER BASIC METABOLIC PANEL LAB Routine Pre-liver transplant, (NA, K, CL, CO2, GLUCOSE, listed BUN, CREATININE, CA) 10/21/2019 12:54 PM COMPUTER SECURITY MANAGER HEPATIC FUNCTION PANEL LAB Routine Pre-liver transplant, ([id number]) (ALB,T.PRO,BILI listed T,BU/BC,ALT,AST,ALK PHOS) 10/21/2019 12:54 PM COMPUTER SECURITY MANAGER PROTHROMBIN TIME / INR LAB Routine Pre-liver transplant, listed 10/21/2019 12:54 PM COMPUTER SECURITY MANAGER CBC WITH DIFFERENTIAL LAB Routine Pre-liver transplant, [...] Phone Address Plan / Dates Group Medicaid [facility] xxxxxxxxx 2016-P P O [facility] [address] [place] [address] documented as of this encounter Advance Directives Relationship Healthcare Agent Relationship Communication Name Father Primary healthcare agent Asa [place] Child First alternate healthcare agent Sandy Ornelas
--- OUTSIDE RECORDS SUMMARY | 2019-11-01 04:04 | XMS REPORT | Clinical Summary ---
Author Author [facility] - Health Organization [facility] - Health Address Unknown Phone Unavailable Care Team Providers Care Pullman Clerk Name Role Phone Keiry Jaquez CNM [...] Other directed by 9 cirrhosis of liver [facility] based on INR results. Active fluorouracil [...] to check 300 Each 1 THIN) [facility] blood sugar 9 3X daily. DX:E11.8 Active [...] as 60 tablet 3 directed by 9 [facility] based on INR results. Active insulin [...] 4-6) or Pain (scale 7-10). 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) 08/13/2019 Overview: Added automatically from request for surgery [id number] Portal vein thrombosis 05/06/2019 Anticoagulation management encounter 05/06/2019 Vulvar intraepithelial neoplasia (SANG) grade 3 11/16/2018 Dental caries 04/17/2018 Overview: Added automatically from request for surgery [id number] Obesity (BMI 30-39.9) 03/19/2018 Bilateral lower extremity edema 07/14/2017 Lumbosacral spondylosis without myelopathy 03/16/2017 Overview: Added automatically from request for surgery [id number] Mixed hyperlipidemia 01/18/2017 Cirrhosis of liver without [...] Team Description Date Type Specialty Doctor Unassigned, Lynd Refill Request 10/17/2019 Refill OB Satellites Jay Jenkins MD Refill Request 10/17/2019 Refill Pain Medicine Madisyn Dumont MD Refill Request 10/16/2019 Refill Endocrinology Diabetes & Metabolism Jay Jenkins MD Refill Request 10/16/2019 Refill Pain Medicine Doctor Unassigned, Lynd Refill Request 10/15/2019 Refill OB Satellites Ramon Lomeli, OD Refill Request 10/15/2019 Refill Ophthalmology Doctor Unassigned, Lynd Refill Request 10/15/2019 Refill Endocrinology Diabetes & [...] Refill Endocrinology Diabetes & Metabolism Doctor Unassigned, Lynd 08/22/2019 Orders Only Mariana Woodruff FNP Refill [...] Comments Vital Sign 133/77 09/06/2019 11:41 AM PAINTING WORKER Blood Pressure 98 09/06/2019 11:41 AM PAINTING WORKER Pulse 36.8 C (98.3 F) 09/06/2019 11:40 AM PAINTING WORKER Temperature 14 09/06/2019 11:40 AM PAINTING WORKER Respiratory Rate 99% 09/06/2019 11:40 AM PAINTING WORKER Oxygen Saturation - - Inhaled Oxygen Concentration 90.1 kg (198 lb 10.2 oz) 09/10/2019 8:28 AM PAINTING WORKER Weight 152.4 cm (5') 09/10/2019 8:28 AM PAINTING WORKER Height 38.79 09/10/2019 8:28 AM PAINTING WORKER Body Mass Index Plan of Treatment Care Team Description Date Type Specialty Jay Jenkins MD [address] [place] [address] [id number] [place], [place] 096695 10/24/2019 Office Visit Pain Medicine Nanci Cortez MD [address] [place] [address] [phone] 10/28/2019 Office Visit Gynecologic Oncology Worker, Transplant Social 11/01/2019 Case Management Surgery Mariana Woodruff, VARUN [address] [place], [place] [address] 11/01/2019 Office Visit Endocrinology Diabetes & Metabolism Nurse, Vtc Anticoag 11/01/2019 Nurse Visit Anti-coagulation Clinic Aldair Lima MD [address] [place] [address] 11/15/2019 Hospital [place] [address] [place] [address] TRIGGER FINGER RELEASE 11/15/2019 [place] [address] [place] [address] [phone] 11/27/2019 Office Visit Orthopedic Surgery Jay Jenkins MD [address] [facility] [id number] [place] [address] 12/06/2019 Office Visit Pain Medicine Ramon Lomeli, [address] [place] [address] 06/03/2020 Office Visit Ophthalmology Health [...] RELEASE Routine 08/22/2019 OF PHI 12:01 AM PAINTING WORKER SURGICAL PATHOLOGY EXAM Routine 08/12/2019 VAIN III (vaginal 11:13 AM PAINTING WORKER intraepithelial neoplasia grade III) DISCLOSURE AND CONSENT, Routine 08/12/2019 MEDICAL AND SURGICAL 12:01 AM PAINTING WORKER PROCEDURES from Last 3 Months Results * POCT HEMOGLOBIN A1C TEST (09/06/2019) POCT HBA1C 10.1 (A) 4 - 6 % Specimen Blood - CAPILLARY * POCT PT/INR(COAGUCHEK) (09/06/2019) POCT PT/INR 2.0 (A) 0.8 - 1.4 INR POCT PT/SEC 24.5 SEC Specimen Blood - CAPILLARY * AUTHORIZATION FOR RELEASE OF PHI (08/22/2019 12:01 AM PAINTING WORKER) Specimen Performing Organization Address City/State/Zipcode Phone Number HIM * SURGICAL PATHOLOGY EXAM (08/12/2019 11:13 AM PAINTING WORKER) Case Report Surgical Pathology [facility] Case: [id number] Authorizing Provider: Hiwot Dan PA-C Collected: 08/12/2019 [id number] Ordering Location: [facility] Received: 08/12/[address] [place] [address] Pathologist: Dimitry Carrasco MD Specimen: VAG CUFF, vaginal apex Final Diagnosis A. VAGINA, APEX, BIOPSY: [facility] Electronically - SQUAMOUS EPITHELIUM SERVICES signed by Danilo, WITH HUMAN PAPILLOMAVIRUS Dimitry Doherty MD on ASSOCIATED CHANGES 08/13/2019 at 1:02 - NO HIGH GRADE DYSPLASIA PM OR CARCINOMA IDENTIFIED AUSTEN Simon 08/13/2019 8:35 AM I have personally reviewed all specimens/slides and agree with all statements made by residents, fellows or pathologist assistants whose name(s) may appear on this report. Clinical VIN3 [facility] Information SERVICES [...] in A1. RAQUEL Butterfield (ASCP)cm Embedded Images [facility] Specimen Tissue - VAG CUFF Performing Organization Address City/State/Zipcode Phone Number [facility] CLIA: [id number], [address] [place] [address] [facility] * DISCLOSURE AND CONSENT, MEDICAL AND SURGICAL PROCEDURES (08/12/2019 12:01 AM PAINTING WORKER) Specimen Performing Organization Address City/State/Zipcode Phone Number HIM from Last 3 Months Insurance Type Payer Benefit Subscriber ID Effective Phone Address Plan / Dates Group Medicaid [employer] [place] [employer] xxxxxxxxx 2016-P P O [facility] [address] [place] [address] Advance Directives Relationship Healthcare Agent Relationship Communication Name Father Primary healthcare agent Asa Mills Child First alternate healthcare agent Sandy Ornelas
--- OUTSIDE RECORDS SUMMARY | 2019-11-01 04:04 | XMS REPORT | Summary of Care ---
Author Author [facility] - Health Organization [facility] - Health Address Unknown Phone Unavailable Care Team Providers Care Kitchen Assistant Name Role Phone Keiry Jaquez CNM Unavailable Unavailable Madisyn Dumont MD Unavailable Unavailable Josef Mcintosh 100[address] Isabel Hansen RN Unavailable Unavailable Keiry Jaquez CNM PCP Unavailable Keiry Jaquez CNM Unavailable Unavailable Reason for Visit * Reason Comments Refill Request Encounter Details Care Team Description Date Type Department Doctor Unassigned, [place] [address] [place] [address] Refill Request 10/15/2019 Refill [facility] [address] [place] [address] Allergies No Known Allergiesdocumented as [...] Use to check 300 Each 1 THIN) [facility] blood sugar 9 3X daily. DX:E11.8 Active [...] as 60 tablet 3 directed by 9 [facility] based on INR results. Active insulin [...] 4-6) or Pain (scale 7-10). 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) 08/13/2019 Overview: Added automatically from request for surgery [id number] Portal vein thrombosis 05/06/2019 Anticoagulation management encounter 05/06/2019 Vulvar intraepithelial neoplasia (SANG) grade 3 11/16/2018 Dental caries 04/17/2018 Overview: Added automatically from request for surgery [id number] Obesity (BMI 30-39.9) 03/19/2018 Bilateral lower extremity edema 07/14/2017 Lumbosacral spondylosis without myelopathy 03/16/2017 Overview: Added automatically from request for surgery [id number] Mixed hyperlipidemia 01/18/2017 Cirrhosis of liver without [...] Description Date Type Specialty Jay Jenkins MD [address] [place] [address] [id number] [place], [place] [phone] 10/24/2019 Office Visit Pain Medicine Malcolm Carranza MD [address] [place] [address]. [place] [phone] 10/28/2019 Office Visit Psychiatry Nanci Cortez MD [address] [place] [phone] 10/28/2019 Office Visit Gynecologic Oncology Worker, Transplant Social 11/01/2019 Case Management Surgery Mariana Woodruff, CENTRAL CONTROL ROOM OPERATOR [address] [place] [phone] 11/01/2019 Office Visit Endocrinology Diabetes & Metabolism Nurse, Vtc Anticoag 11/01/2019 Nurse Visit Anti-coagulation Clinic Aldair Lima MD [address] [place], [place] 267603 11/15/2019 Hospital Surgery Encounter Aldair Lima MD [address] [place], [place] [phone] TRIGGER FINGER RELEASE 11/15/2019 [place] [address] [place] [address] [phone] 11/27/2019 Office Visit Orthopedic Surgery Jay Jenkins MD [address] [facility] [id number] [place] [address] [phone] 12/06/2019 Office Visit Pain Medicine Ramon Lomeli, [address] [place] [address] 06/03/2020 Office Visit Ophthalmology Health [...] Phone Address Plan / Dates Group Medicaid [facility] AMER[employer] xxxxxxxxx 2016-P P O [facility] [address] [place] [address] documented as of this encounter Advance Directives Relationship Healthcare Agent Relationship Communication Name Father Primary healthcare agent Asa Mills Child First alternate healthcare agent Sandy Ornelas
--- OUTSIDE RECORDS SUMMARY | 2019-11-01 04:05 | XMS REPORT | Summary of Care ---
Author Author [facility] - Health Organization [facility] - Health Address Unknown Phone Unavailable Care Team Providers Care Helmet Hat Sweatband Puncher Name Role Phone Keiry Jaquez CNM Unavailable Unavailable Madisyn Dumont MD Unavailable Unavailable Josef Mcintosh [place] [address] Isabel Hansen RN Unavailable Unavailable Keiry Jaquez CNM PCP Unavailable Keiry Jaquez CNM Unavailable Unavailable Reason for Visit * Reason Comments Notification Encounter Details Care Team Description Date Type Department Jay Jenkins MD [address] [id number] [place] [address] Notification 10/21/2019 Telephone [facility] [address] [place] [address] Allergies No Known Allergiesdocumented as [...] Use to check 300 Each 1 THIN) [facility] blood sugar 9 3X daily. DX:E11.8 Active [...] as 60 tablet 3 directed by 9 [facility] based on INR results. Active [...] 4-6) or Pain (scale 7-10). Active Insulin [place], Use to inject 400 Each 1 Disposable, [...] Overview: Added automatically from request for surgery [id number] Portal vein thrombosis 05/06/2019 Anticoagulation management encounter 05/06/2019 Vulvar intraepithelial neoplasia (SANG) grade 3 11/16/2018 Dental caries 04/17/2018 Overview: Added automatically from request for surgery [id number] Obesity (BMI 30-39.9) 03/19/2018 Bilateral lower extremity edema 07/14/2017 Lumbosacral spondylosis without myelopathy 03/16/2017 Overview: Added automatically from request for surgery [id number] Mixed hyperlipidemia 01/18/2017 Cirrhosis of liver without [...] Specialty Jay Jenkins MD [address] [id number] [place] [address] 10/24/2019 Office Visit Pain Medicine Tony Singh MD [address] [place] [address] Malcolm Carranza MD [address] [place] [address]. [place] [address] [phone] 10/28/2019 Office Visit Psychiatry Nanci Cortez MD [address] [place] [address] [phone] 10/28/2019 Office Visit Gynecologic Oncology Worker, Transplant Social 11/01/2019 Case Management Surgery Mariana Woodruff, MED SURG NURSE [address] [place] [address] [phone] 11/01/2019 Office Visit Endocrinology Diabetes & Metabolism Nurse, Vtc Anticoag 11/01/2019 Nurse Visit Anti-coagulation Clinic Aldair Lima MD [address] [place] [address] [phone] 11/15/2019 Hospital Surgery Encounter Aldair Lima MD [address] [place] [address] [phone] TRIGGER FINGER RELEASE 11/15/2019 Surgery Surgery Aldair Lima MD [address] [place] [address] [phone] 11/27/2019 Office Visit Orthopedic Surgery Jay Jenkins MD [address] [place] [address] CX2748 [place], [place] [phone] 12/06/2019 Office Visit Pain Medicine Ramon Lomeli, OD [address] [place], [place] [address] 06/03/2020 Office Visit Ophthalmology Health Maintenance Due [...] Plan / Dates Group Medicaid [facility] [employer] xxxxxxxxx 2016-P P O [facility] [address] [place] [address] documented as of this encounter Advance Directives Relationship Healthcare Agent Relationship Communication Name Father Primary healthcare agent Asa Mills Child First alternate healthcare agent Sandy Ornelas
--- OUTSIDE RECORDS SUMMARY | 2019-11-01 04:05 | XMS REPORT | Summary of Care ---
Author Author [facility] - Health Organization [facility] - Health Address Unknown Phone Unavailable Care Team Providers Care Edger Saw Operator Name Role Phone Keiry Jaquez CNM Unavailable Unavailable Madisyn Dumont MD Unavailable Unavailable McintoshJosef Antonio 100[address] Isabel Hansen RN Unavailable Unavailable Keiry Jaquez CNM PCP Unavailable Keiry Jaquez CNM Unavailable Unavailable Reason for Referral * (Routine) Referred By Contact Referred To Contact Status Reason Specialty Diagnoses / Procedures Jay Jenkins MD 301 [facility] [employer] [id number] [place] [address] New Request Physical Therapy Diagnoses Myofascial pain syndrome of lumbar spine Trochanteric bursitis of right hip P rocedures CONSULT ADULT PHYSICAL THERAPY Reason for Visit * Reason Comments Pain Encounter Details Care Team Description Date Type Department Jay Jenkins MD 301 [facility] [id number] [place] [address] [id number] Myofascial pain syndrome of lumbar spine (Primary Dx); Trochanteric bursitis of right hip 10/24/2019 Office Visit [facility] Health Pain Management - [address], [facility] [address] [place] [address] Allergies No Known Allergiesdocumented as of this encounter (statuses as of 10/24/2019) Medications End Date Status Medication Sig Dispensed [...] Use to check 300 Each 1 THIN) [facility] blood sugar 9 3X daily. DX:E11.8 Active [...] as 60 tablet 3 directed by 9 [facility] based on INR results. Active [...] 4-6) or Pain (scale 7-10). Active Insulin [place], Use to inject 400 Each 1 Disposable, [...] low grade squamous intraepithelial lesion (LGSIL) Active cyclobenzaprine 5 mg Take 1 tablet 30 tablet 2 tabletIndications: by mouth at 0 Myofascial pain syndrome bedtime. 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) 08/13/2019 Overview: Added automatically from request for surgery [id number] Portal vein thrombosis 05/06/2019 Anticoagulation management encounter 05/06/2019 Vulvar intraepithelial neoplasia (SANG) grade 3 11/16/2018 Dental caries 04/17/2018 Overview: Added automatically from request for surgery [id number] Obesity (BMI 30-39.9) 03/19/2018 Bilateral lower extremity edema 07/14/2017 Lumbosacral spondylosis without myelopathy 03/16/2017 Overview: Added automatically from request for surgery [id number] Mixed hyperlipidemia 01/18/2017 Cirrhosis of liver without [...] as of this encounter (statuses as of 10/24/2019) Resolved Problems Problem Noted Date Resolved Date Positive blood test 11/09/2018 11/14/2018 Papanicolaou smear of cervix with low grade squamous intraepithelial lesion 02/08/2015 12/14/2016 (LGSIL) Overview: Pos hi-risk HPV 2016. Needs colpo documented as of this encounter (statuses as of 10/24/2019) Immunizations Name Administration Dates Next Due HEP [...] Signs Reading Time Taken Comments Vital Sign 139/70 10/24/2019 9:30 AM BOTTOM FILLER Blood Pressure 106 10/24/2019 9:30 AM BOTTOM FILLER Pulse - - Temperature - - Respiratory Rate - - Oxygen Saturation - - Inhaled Oxygen Concentration 92.8 kg (204 lb 9.6 oz) 10/24/2019 9:30 AM BOTTOM FILLER Weight 152.4 cm (5') 10/24/2019 9:30 AM BOTTOM FILLER Height 39.96 10/24/2019 9:30 AM BOTTOM FILLER Body Mass Index documented in this encounter Progress Notes * Jay Jenkins MD - 10/24/2019 9:00 AM BOTTOM FILLER Chief Complaint: pain in her right leg around the hip area History of Present illness: Fany Kamara is a 54 year old female with HTN, DM, COPD, GERD, Depression, A nxiety, and chronic low back pain for over 10 yearspresents for follow up. Location: low back pain -duration: over 10 years -context: chronic -radiation: occasionally down legs -timing: constant -quality: dull ache -improves with: rest, medications -worsens with:various activity PAIN NRS SCALE 0-10 SCORE OVER LAST WEEK (0=no pain and 10=worst pain imaginable): Best:5/10 Worst: 10/10 Now: 7/10 CURRENT PAIN REGIMEN: -Tramadol 50mg BID -Lyrica 75mg TID -Flexeril 5mg QHS ADVERSE EFFECTS FROM CURRENT REGIMEN: None Noted FUNCTIONAL STATUS ON CURRENT REGIMEN: Able to perform ADLs PAIN INTERVENTIONAL PROCEDURES DONE BY US/ DATES: Facet joint injections in 2017 that provided some relief for about 3 weeks SIJ injection in 2017 that provided no relief Current Outpatient Medications Medication Sig Dispense Refill warfarin 2.5 mg tablet Take as directed by [facility] based on INR resu lts. 60 tablet 3 TRAMADOL 50 mg tablet TAKE 1 TABLET BY MOUTH EVERY 6 HOURS NEEDED FOR LD N 90 tablet 1 DICLOFENAC SODIUM 1 % gel APPLY TO THE AFFECTED AREA(S) TWICE DAILY 100 g 3 pregabalin (LYRICA) 75 mg capsule TAKE 1 CAPSULE BY MOUTH THREE TIMES DAILY 90 capsule 2 Carboxymethylcellulose Sodium (THERATEARS) 0.25 % Drop Place 1 Drop in each eye 2 (two) times daily. 1 Bottle 3 cyclobenzaprine 5 mg tablet Take 1 tablet by mouth at bedtime. 30 tablet 3 Lancets (LANCETS,ULTRA THIN) Misc Use to check blood sugar 3X daily. DX:E11. 8 300 Each 1 clonazePAM (KLONOPIN) 1 mg tablet Take 1 tablet by mouth daily. 30 tablet 2 venlafaxine XR 150 mg 24 hr capsule Take 1 capsule by mouth daily with break fast. 30 capsule 2 fluorouracil 5 % cream Insert 1 gram into vaginal cuff with syringeapplicato r at night once weekly for 3 months. Advise patient to insert medication into to p of vagina, then insert tampon and put vaseline on external genitalia. The next morning remove tampon, shower, rinse thoroughly. 40 g 0 olopatadine (PAZEO) 0.7 % Drop Place 1 Drop in each eye daily. 2.5 mL 6 TRESIBA FLEXTOUCH U-200 200 unit/mL (3 mL) InPn inject 66 Units under the sk in every morning. E11.65 30 mL 1 traMADol 50 mg tablet Take 1 tablet by mouth every 6 (six) hours as needed f or Pain (scale 4-6) or Pain (scale 7-10). 90 tablet 2 warfarin (COUMADIN) 1 mg tablet Take as directed by [facility] based on INR results. 90 tablet 0 blood sugar diagnostic (TRUE METRIX GLUCOSE TEST STRIP) strip Use to check g lucose 3X daily. DX:E11.40 100 Strip 3 insulin lispro (HUMALOG KWIKPEN INSULIN) 100 unit/mL pen injector inject 22 Units under the skin 3 (three) times daily before meals. 60 mL 1 lactulose (GENERLAC) 10 gram/15 mL solution Take 30 mL by mouth 2 (two) time s daily. 1892 mL 11 TRUE METRIX GLUCOSE METER Misc Use to check glucose 3X daily. DX:E11.40 1 Ea ch 0 furosemide 40 mg tablet Take 1 tablet by mouth daily. 90 tablet 3 Insulin [place], Disposable, (BD ULTRAFINE III MINI PEN) 31 gauge x 3/16" Nd le Use to inject insulin 4X daily. DX:E11.65 400 Each 1 chlorhexidine 0.12 % mouthwash Swish and spit out 15 mL 2 (two) times daily. 473 mL 0 nadolol 20 mg tablet TK 1 T [...] 100 tablet 3 carvedilol 6.25 mg tablet Take 6.25 mg by mouth 2 (two) times daily with jaclyn ls. COMBIVENT RESPIMAT 20-100 mcg/actuation inhaler INHALE 2 PUFFS PO BID 4 NEXIUM 40 mg capsule TK ONE C PO BID. 5 ursodiol 500 mg tablet Take 500 mg by mouth 2 (two) times daily. ALBUTEROL SULFATE (PROVENTIL ORAL) Take by mouth. [...] Right 03/29/2017 Surgeon: Jay Jenkins MD; Location: [facility] FULL MOUTH EXTRACTION WITH ALVEOLOPLASTY 04/25/2018 FULL MOUTH EXTRACTION WITH ALVEOLOPLASTY Bilateral 04/25/2018 Surgeon: Jakob Delacruz; Location: [facility] HYSTERECTOMY 2013 due abnl test results OPEN CARPAL TUNNEL RELEASE Bilateral 2016 SACROILIAC JOINT INJECTION 03/29/2017 SACROILIAC JOINT INJECTION Right 03/29/2017 Surgeon: Jay Jenkins MD; Location: [facility] SALPINGO-OOPHORECTOMY 2012 SINUS SURGERY PROC UNLISTED 1992 SURGICAL EXTRACTION - ERUPTED TEETH 04/25/2018 TROCHANTERIC STEROID INJECTION (SHX) 03/29/2017 TROCHANTERIC STEROID INJECTION (SHX) Right 03/29/2017 Surgeon: Jay Jenkins MD; Location: [facility] TUBAL LIGATION 2003 VAGINAL BIOPSY [...] EKGs, History of Coronary Stents, Blood Thinning Medication(Aspirin, Plavix/C lopidogrel, Heparin/Lovenox, Warfarin) Pulm: Obstructive Sleep Apnea, Snore at night, Use CPAP machine, Smoker, Chron ic Obstructive Pulmonary Disease (COPD) GI: Constipation, Diarrhea, Nausea and Peptic Ulcer Disease, Blood in Stool : Difficulty Urinating Endo: Diabetes and Steroid use Neuro: Glaucoma, Difficulty Walking, Headaches, Numbness, Seizures, Strokes and Weakness MS: Neck Pain, Back Pain, Back Surgery andMuscle Aches Heme: Clotting Difficulties and Easy Bleeding Sleep: Daytime Somnolence, Fogginess of Thought, Inability to Complete Tasks, In somnia Psych: Depression, Anxiety, Thoughts Harming Oneself or Thoughts of Harming Ot hers Physical Exam:BP 139/70 | Pulse 106 | Ht 5' (1.524 m) | Wt 204 lb 9.6 oz (92. 8 kg) | LMP 12/14/2012 (Exact Date) | BMI 39.96 kg/m . GENERAL: Fany Kamara is an obese female HEENT: normocephalic atraumatic and moist mucous membranes, anicteric sclera bi laterally LUNGS: normal excursion, no respiratory distress CARDIOVASCULAR: normal pulse rate, warm extremities, no gross edema noted ABDOMEN: soft MUSCULOSKELETAL/NEUROLOGIC EXAM: Mental Status: normal attention span, arousal, orientation, language, fluency, a ffect, judgement, knowledge and recall. Gait- slow steady Lower Extremities: Strength: L2(hip flexion)4/5 R, 4/5 L L3(Knee extension)4/5 R, 4/5 L L4(Ankle dorsiflexion)4/5 R, 4/5 L L5 (knee flexion, Toe dorsiflexion)4/5 R, 4/5 L S1(Knee flexion, Ankle Plantar flexion)4/5 R, 4/5 L S2(Toe flexion) 4/5 R, 4/5 L Spine Exam: Lumbar Spinous process Tenderness: Positive Lumbar Paraspinous Tenderness: Positive ROM: Decreased Facet Loading: Positive Surgical Scars: Yes SI Joint Tenderness: Left: Positive Right: Positive Gluteal Tenderness: Left: Positive Right: Positive Straight Leg Raise: Right: Positive Left: Positive Laboratory Results for FANY KAMARA ( ) as of 09/06/2019 11:18 07/12/2019 12:22 NA 138 K 4.1 CL 104 CO2 TOTAL 26 AGAP 8 BUN 13 GLUCOSE 315 (H) CREATININE 0.60 eGFR CALCULATION (non ) 104.6 eGFR CALCULATION () 126.7 TOTAL BILI 1.1 BILI UNCON 0.5 BILI CONJ 0.0 CALCIUM 9.3 T PROTEIN 7.9 ALBUMIN 3.7 AFP 5.4 ALK PHOS 217 (H) ALTv 21 AST(SGOT) 37 Radiology MRI Lumbar 04/2019 IMPRESSION Moderate spondylosis and spondyloarthropathy at L5-S1 contributing to mild spinal canal stenosis and subarticular zones narrowing with potential impingement on the descending S1 nerve roots, grossly unchanged from the comparison scan. Mild spondylosis at L3-L4 and L4-L5 result in no more than mild spinal canal stenosis at L4-L5. Medical Decision Making: Dx: Trochanteric bursitis ICD-10-CM ICD-9-CM 1. Lumbosacral spondylosis without myelopathy M47.817 721.3 2. Other spondylosis, lumbosacral region M47.897 721.3 Assessment/Plan: Fany Kamara is a 54 year old female with history of chronic lumbar spondylo sis without myelopathy and developed right trochanteric bursitis.She has stiffne ss of the muscles on the right side.Patient Will continue current treatment reg imen. No interventions at this time. Will refill medications. Will refer her to physical therapy to strengthen the muscles of her leg to prevent the pain from b ursitis.Advised her to use cane for the right side. Medications -Tramadol 50mg BID -Lyrica 75mg TID -Flexeril 5mg QHS Rehab: Physical therapy Interventions: None Psych: no maladaptive pain behaviors Follow Up: RTC 3 months OM FILLER documented in this encounter Plan of Treatment Care Team Description Date Type Specialty Self, MD Tony [address] [place] [phone] Malcolm Carranza MD [address] [place] [address]. [place] [address] 10/28/2019 Office Visit Psychiatry Nanci Cortez MD [address] [place] [phone] 10/28/2019 Office Visit Gynecologic Oncology Worker, Transplant Social 11/01/2019 Case Management Surgery RanjanMariana, FOREST FIRE PREVENTION SPECIALIST [address] [place], [place] [phone] 11/01/2019 Office Visit Endocrinology Diabetes & Metabolism Nurse, Sdc Anticoag 11/01/2019 Nurse Visit [facility] Laron Lima MD [address] [place] [address] [phone] 11/15/2019 Hospital Surgery Encounter Laron Lima MD [address] [place] [address] [phone] TRIGGER FINGER RELEASE 11/15/2019 Surgery Surgery Laron Lima MD [address] [place] [address] 11/27/2019 Office Visit Orthopedic Surgery Jay Jenkins MD [address] [phone] 12/06/2019 Office Visit Pain Medicine Jay Jenkins MD [address] [phone] 01/31/2020 Office Visit Pain Medicine Ramon Lomeli, [address] [phone] 06/03/2020 Office Visit Ophthalmology Health Maintenance Due Date Last Done Comments COLONOSCOPY 02/28/2016 Zoster Recombinant 02/28/2016 Vaccine (SHINGRIX) (1 of 2) PNEUMOCOCCAL 0-64 YEARS 02/26/2018 01/01/2018 COMBINED SERIES (2 of 3 - PPSV23) URINE MICROALBUMIN 2019 2018, 11/29/2016 LDL-C 10/23/2019 10/23/2018, 2018, 01/18/2017 Breast Cancer Screening 11/23/2019 11/22/2018, 11/09/2016, 02/09/2015 (MAMMOGRAM) HgA1C 03/06/2020 09/06/2019, 04/12/2019, 10/23/2018, Additional history exists EYE EXAM 05/29/2020 05/29/2019 FOOT EXAM 09/06/2020 09/06/2019, 09/06/2019, 05/27/2019, Additional history exists CREATININE (SERUM) 10/21/2020 10/21/2019, 07/12/2019, 04/12/2019, Additional history exists PAP SMEAR 01/17/2021 01/17/2018, 11/14/2016, 02/02/2015 DTaP,Tdap,and Td Vaccines 03/20/2027 03/20/2017 (2 - Td) INFLUENZA VACCINE Completed 07/12/2019 documented as of this encounter Results Not on filedocumented in this encounter Visit Diagnoses Diagnosis Myofascial pain syndrome of lumbar spine - Primary Trochanteric bursitis of right hip Enthesopathy of hip region documented in this encounter Insurance Type Payer Benefit Subscriber ID Effective Phone Address Plan / Dates Group Medicaid [facility] [employer] xxxxxxxxx 2016-P P O [facility] [place] [place] [facility] [place] [address] [place] [address] documented as of this encounter Advance Directives Relationship Healthcare Agent Relationship Communication Name Father Primary healthcare agent Asa Mills Child First alternate healthcare agent Sandy Ornelas
--- OUTSIDE RECORDS SUMMARY | 2019-11-01 04:05 | XMS REPORT | Summary of Care ---
Author Author [facility] - Health Organization [facility] - Health Address Unknown Phone Unavailable Care Team Providers Care Health Information Coder Name Role Phone Keiry Jaquez CNM Unavailable Unavailable Madisyn Dumont MD Unavailable Unavailable Josef Mcintosh Antonio [address] Isabel Hansen RN Unavailable Unavailable Keiry Jaquez CNM PCP Unavailable Keiry Jaquez CNM Unavailable Unavailable Encounter Details Care Team Description Date Type Department Delano Nguyen MD [address] [place] [address] 10/23/2019 Abstract [facility] [address] [place] [phone] Allergies No Known Allergiesdocumented as of this encounter (statuses as of 10/23/2019) Medications End Date Status Medication Sig Dispensed [...] Use to check 300 Each 1 THIN) [facility] blood sugar 9 3X [...] 4-6) or Pain (scale 7-10). 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) 08/13/2019 Overview: Added automatically from request for surgery [id number] Portal vein thrombosis 05/06/2019 Anticoagulation management encounter 05/06/2019 Vulvar intraepithelial neoplasia (SANG) grade 3 11/16/2018 Dental caries 04/17/2018 Overview: Added automatically from request for surgery [id number] Obesity (BMI 30-39.9) 03/19/2018 Bilateral lower extremity edema 07/14/2017 Lumbosacral spondylosis without myelopathy 03/16/2017 Overview: Added automatically from request for surgery [id number] Mixed hyperlipidemia 01/18/2017 Cirrhosis of liver without [...] as of this encounter (statuses as of 10/23/2019) Resolved Problems Problem Noted Date Resolved Date Positive blood test 11/09/2018 11/14/2018 Papanicolaou smear of cervix with low grade squamous intraepithelial lesion 02/08/2015 12/14/2016 (LGSIL) Overview: Pos hi-risk HPV 2016. Needs colpo documented as of this encounter (statuses as of 10/23/2019) Immunizations Name Administration Dates Next Due HEP [...] Date Type Specialty Jay Jenkins MD 301 [facility] [id number] [place], [place] 483[address] 10/24/2019 Office Visit Pain Medicine Tony Singh MD [address] [place] [address] Malcolm Carranza MD [address] [place] [address]. [place] [address] [phone] 10/28/2019 Office Visit Psychiatry Nanci Cortez MD [address] [place] [phone] 10/28/2019 Office Visit Gynecologic Oncology Worker, Transplant Social 11/01/2019 Case Management Surgery Mariana Woodruff, GOAT HERDER [address] [place] [address] [phone] 11/01/2019 Office Visit Endocrinology Diabetes & Metabolism Nurse, Vtc Anticoag 11/01/2019 Nurse Visit [facility]agulation Clinic Aldair Lima MD [address] [place] [address] [phone] 11/15/2019 Hospital Surgery Encounter Aldair Lima MD [address] [place] [address] [phone] TRIGGER FINGER RELEASE 11/15/2019 Surgery Surgery Aldair Lima MD [address] [place] [address] [phone] 11/27/2019 Office Visit Orthopedic Surgery Jay Jenkins MD [address] [place] [address] [id number] [place], [place] 273915 12/06/2019 Office Visit Pain Medicine Ramon Lomeli, OD [address] [place], [place] [phone] 06/03/2020 Office Visit Ophthalmology Health Maintenance Due [...] Plan / Dates Group Medicaid [employer] [place] xxxxxxxxx 2016-P P O [facility] [address] [place] [address] documented as of this encounter Advance Directives Relationship Healthcare Agent Relationship Communication Name Father Primary healthcare agent Asa [place] Child First alternate healthcare agent Sandy Ornelas
--- OUTSIDE RECORDS SUMMARY | 2019-11-01 04:05 | XMS REPORT | Summary of Care ---
Author Author [facility] - Health Organization [facility] - Health Address Unknown Phone Unavailable Care Team Providers Care Pick And Shovel Man Name Role Phone Keiry Jaquez CNM Unavailable Unavailable Madisyn Dumont MD Unavailable Unavailable McintoshJosef Antonio 100[address] Isabel Hansen RN Unavailable Unavailable Keiry Jaquez CNM PCP Unavailable Keiry Jaquez CNM Unavailable Unavailable Reason for Referral * (Routine) Referred By Contact Referred To Contact Status Reason Specialty Diagnoses / Procedures Jay Jenkins MD 301 [facility] [employer] [id number] [place] [address] New Request Physical Therapy Diagnoses Myofascial pain syndrome of lumbar spine Trochanteric bursitis of right hip P rocedures CONSULT ADULT PHYSICAL THERAPY Reason for Visit * Reason Comments Pain Encounter Details Care Team Description Date Type Department Jay Jenkins MD 301 [facility] [id number] [place] [address] [phone] Myofascial pain syndrome of lumbar spine (Primary Dx); Trochanteric bursitis of right hip 10/24/2019 Office Visit [facility] Health Pain Management - [address], [facility] [address] [place] [address] Allergies No Known Allergiesdocumented as [...] Use to check 300 Each 1 THIN) [facility] blood sugar 9 3X daily. DX:E11.8 Active [...] 4-6) or Pain (scale 7-10). Active Insulin [place], Use to inject 400 Each 1 Disposable, [...] Overview: Added automatically from request for surgery [id number] Portal vein thrombosis 05/06/2019 Anticoagulation management encounter 05/06/2019 Vulvar intraepithelial neoplasia (SANG) grade 3 11/16/2018 Dental caries 04/17/2018 Overview: Added automatically from request for surgery [id number] Obesity (BMI 30-39.9) 03/19/2018 Bilateral lower extremity edema 07/14/2017 Lumbosacral spondylosis without myelopathy 03/16/2017 Overview: Added automatically from request for surgery [id number] Mixed hyperlipidemia 01/18/2017 Cirrhosis of liver without [...] Comments Vital Sign 139/70 10/24/2019 9:30 AM CARE MANAGER CNA Blood Pressure 106 10/24/2019 9:30 AM CARE MANAGER CNA Pulse - - Temperature - - Respiratory Rate - - Oxygen Saturation - - Inhaled Oxygen Concentration 92.8 kg (204 lb 9.6 oz) 10/24/2019 9:30 AM CARE MANAGER CNA Weight 152.4 cm (5') 10/24/2019 9:30 AM CARE MANAGER CNA Height 39.96 10/24/2019 9:30 AM CARE MANAGER CNA Body Mass Index documented in this encounter Progress Notes * Jay Jenkins MD - 10/24/2019 9:00 AM CARE MANAGER CNA Chief Complaint: pain in her right leg [...] by mouth daily. 90 tablet 3 Insulin [place], Disposable, (BD ULTRAFINE III MINI PEN) 31 [...] 03/29/2017 Surgeon: Jay Jenkins MD; Location: [facility] FULL MOUTH EXTRACTION WITH ALVEOLOPLASTY 04/25/2018 FULL [...] pain behaviors Follow Up: RTC 3 months MANAGER CNA documented in this encounter Plan of Treatment Care Team Description Date Type Specialty Self, MD Tony [address] [place] [phone] Malcolm Carranza MD [address] [place] [address]. [place] [address] 10/28/2019 Office Visit Psychiatry Nanci Cortez MD [address] [place] [phone] 10/28/2019 Office Visit Gynecologic Oncology Worker, Transplant Social 11/01/2019 Case Management Surgery RanjanMariana, UPHOLSTERY DEPARTMENT SUPERVISOR [address] [place], [place] [phone] 11/01/2019 Office Visit Endocrinology Diabetes & Metabolism Nurse, [place] Anticoag 11/01/2019 Nurse Visit Anti-coagulation Clinic Laron Lima MD [address] [place] [address] [phone] 11/15/2019 Hospital Surgery Encounter Laron Lima MD [address] [place] [address] [phone] TRIGGER FINGER RELEASE 11/15/2019 Surgery Surgery Laron Lima MD [address] [place] [address] 11/27/2019 Office Visit Orthopedic Surgery Jay Jenkins MD [address] [phone] 12/06/2019 Office Visit Pain Medicine Jay Jenkins MD [address] [phone] 01/31/2020 Office Visit Pain Medicine Ramon Lomeli, [address] [phone] 06/03/2020 Office Visit Ophthalmology Health Maintenance Due [...] Phone Address Plan / Dates Group Medicaid [facility] xxxxxxxxx 2016-P P O [facility] [address] [place] [address] documented as of this encounter Advance Directives Relationship Healthcare Agent Relationship Communication Name Father Primary healthcare agent Asa [place] Child First alternate healthcare agent Sandy Ornelas
--- OUTSIDE RECORDS SUMMARY | 2019-11-01 04:05 | XMS REPORT | Summary of Care ---
Author Author [facility] - Health Organization [facility] - Health Address Unknown Phone Unavailable Care Team Providers Care Absence Management Consultant Name Role Phone Keiry Jaquez CNM Unavailable Unavailable Madisyn Dumont MD Unavailable Unavailable Josef Mcintosh [place] [address] Isabel Hansen RN Unavailable Unavailable Keiry Jaquez CNM PCP Unavailable Keiry Jaquez CNM Unavailable Unavailable Reason for Visit * Reason Comments Refill Request Encounter Details Care Team Description Date Type Department Jay Jenkins MD [id number] [place], [place] [address] Refill Request 10/17/2019 Refill [facility] [address] [place] [phone] Allergies No Known Allergiesdocumented as of this [...] Use to check 300 Each 1 THIN) [facility] blood sugar 9 3X daily. DX:E11.8 Active [...] 4-6) or Pain (scale 7-10). Active Insulin [place], Use to inject 400 Each 1 Disposable, [...] Overview: Added automatically from request for surgery [id number] Portal vein thrombosis 05/06/2019 Anticoagulation management encounter 05/06/2019 Vulvar intraepithelial neoplasia (SANG) grade 3 11/16/2018 Dental caries 04/17/2018 Overview: Added automatically from request for surgery [id number] Obesity (BMI 30-39.9) 03/19/2018 Bilateral lower extremity edema 07/14/2017 Lumbosacral spondylosis without myelopathy 03/16/2017 Overview: Added automatically from request for surgery [id number] Mixed hyperlipidemia 01/18/2017 Cirrhosis of liver without [...] Specialty Jay Jenkins MD [address] [id number] [place], [place] [address] 10/24/2019 Office Visit Pain Medicine SelfTony MD [address] [place] [phone] Malcolm Carranza MD [address] [place] [address]. [place] [phone] 10/28/2019 Office Visit Psychiatry Nanci Cortez MD [address] [place] [address] [phone] 10/28/2019 Office Visit Gynecologic Oncology Worker, Transplant Social 11/01/2019 Case Management Surgery Mariana Woodruff, EQUIPMENT OPERAT0R [address] [place] [address] 11/01/2019 Office Visit Endocrinology Diabetes & Metabolism Nurse, Vtc Anticoag 11/01/2019 Nurse Visit Anti-coagulation Clinic Aldair Lima MD [address] [place] [address] [phone] 11/15/2019 Hospital Surgery Encounter Aldair Lima MD [address] [place] [address] [phone] TRIGGER FINGER RELEASE 11/15/2019 Surgery Surgery Aldair Lima MD [address] [place] [address] [phone] 11/27/2019 Office Visit Orthopedic Surgery Jay Jenkins MD [address] [place] [address] RI9428 [place], [place] [phone] 12/06/2019 Office Visit Pain Medicine Ramon Lomeli, OD [address] [place], [place] [phone] 06/03/2020 Office Visit Ophthalmology Health Maintenance Due [...] Plan / Dates Group Medicaid [employer] [place] [employer] xxxxxxxxx 2016-[address] [place] [address] [id number] [place] [address] documented as of this encounter Advance Directives Relationship Healthcare Agent Relationship Communication Name Father Primary healthcare agent Asa [place] Child First alternate healthcare agent Sandy Ornelas
--- OUTSIDE RECORDS SUMMARY | 2019-11-01 04:06 | XMS REPORT | Clinical Summary ---
Author Author [facility] - Health Organization [facility] - Health Address Unknown Phone Unavailable Care Team Providers Care Heel Seat Filler Name Role Phone Keiry Jaquez CNM Unavailable [...] Other directed by 9 cirrhosis of liver [facility] based on INR results. Active fluorouracil [...] to check 300 Each 1 THIN) [facility] blood sugar 9 3X daily. DX:E11.8 Active [...] as 60 tablet 3 directed by 9 [facility] based on INR results. Active [...] 4-6) or Pain (scale 7-10). Active Insulin [place], Use to inject 400 Each 1 Disposable, (BD ULTRAFINE insulin 4X 0 III MINI PEN) 31 gauge x daily. 11/10" NdleIndications: DX:E11.40 Uncontrolled type 2 diabetes mellitus with complication, without long-term current use of insulin Active TRUE METRIX GLUCOSE METER CHECK BLUCOSE 1 Each 0 Misc THREE TIMES 0 DAILY. DX:E11.40 Active cyclobenzaprine 5 mg Take 1 tablet [...] both eyes 0 allergic conjunctivitis daily. Active DICLOFENAC SODIUM 1 % APPLY 100 [...] Myofascial pain syndrome bedtime. of lumbar spine Active clonazePAM (KLONOPIN) 1 Take 1 tablet 30 tablet 2 mg tabletIndications: by mouth 0 Generalized anxiety daily. 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 Dental caries 04/17/2018 Overview: Added automatically from request for surgery [id number] Obesity (BMI 30-39.9) 03/19/2018 Bilateral lower extremity edema 07/14/2017 Lumbosacral spondylosis without myelopathy 03/16/2017 Overview: Added automatically from request for surgery [id number] Mixed hyperlipidemia 01/18/2017 Cirrhosis of liver without [...] Description Date Type Specialty Nanci [place] MD 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) (Primary Dx); Recurrent UTI 10/28/2019 Office Visit Gynecologic Oncology Jay Jenkins MD Myofascial pain syndrome of lumbar spine (Primary Dx); Trochanteric bursitis of right hip 10/24/2019 Office Visit Pain Medicine Delano Nguyen MD 10/23/2019 Abstract Surgery Delano Nguyen MD Vtc-Lab Pre-liver transplant, listed 10/21/2019 Bottle Label Inspector Phlebotomy Visit Jay Jenkins MD Notification 10/21/2019 Telephone Pain Medicine Doctor Unassigned, [place] Refill Request 10/17/2019 Refill OB Satellites Jay Jenkins MD Refill Request 10/17/2019 Refill Pain Medicine Madisyn Dumont MD Refill Request 10/16/2019 Refill Endocrinology Diabetes & Metabolism Jay Jenkins MD Refill Request 10/16/2019 Refill Pain Medicine Doctor Unassigned, [place] Refill Request 10/15/2019 Refill OB Satellites Ramon Lomeli, OD Refill Request 10/15/2019 Refill Ophthalmology Doctor Unassigned, [place] Refill Request 10/15/2019 Refill Endocrinology Diabetes & [...] Telephone Gynecologic Oncology Jay Jenkins MD Nurse, [facility] Antico Portal vein thrombosis; Anticoagulation management encounter 09/06/2019 [...] Refill Endocrinology Diabetes & Metabolism Doctor Unassigned, [place] 08/22/2019 Orders Only Mariana Woodruff FNP Refill Request 08/20/2019 Refill Endocrinology Diabetes & Metabolism Hiwot Dan PA-C Notification 08/13/2019 Telephone Gynecologic Oncology Edgar Frederick MD Nurse, [facility] Portal vein thrombosis; Anticoagulation management encounter 08/12/2019 [...] MD Refill Request 08/04/2019 Refill Pain Medicine from Last 3 Months [...] Signs Reading Time Taken Comments Vital Sign 143/84 10/28/2019 9:38 AM DIRECTOR OF KIDS Blood Pressure 98 10/28/2019 9:38 AM [facility]OR OF KIDS Pulse 36.3 C (97.4 F) 10/28/2019 9:38 AM [facility]OR OF KIDS Temperature 18 10/28/2019 9:38 AM [facility]OR OF KIDS Respiratory Rate 100% 10/28/2019 9:38 AM DIRECTOR OF KIDS Oxygen Saturation - - Inhaled Oxygen Concentration 91.5 kg (201 lb 12.8 oz) 10/28/2019 9:38 AM DIRECTOR OF KIDS Weight 152.4 cm (5') 10/28/2019 9:38 AM DIRECTOR OF KIDS Height 39.41 10/28/2019 9:38 AM DIRECTOR OF KIDS Body Mass Index Plan of Treatment Care Team Description Date Type Specialty Worker, Transplant Social 11/01/2019 Case Management Surgery Mariana Woodruff, THEATRICAL RIGGER [address] [place] [address] [phone] 11/01/2019 Office Visit Endocrinology Diabetes & Metabolism Nurse, [facility] Anticoag 11/01/2019 Nurse Visit Anti-coagulation Clinic Aldair Lima MD [address] [place] [address] [phone] 11/15/2019 Hospital Surgery Encounter Aldair Lima MD [address] [place] [address] [phone] TRIGGER FINGER RELEASE 11/15/2019 Surgery Surgery Aldair Lima MD [address] [place] [address] [phone] 11/27/2019 Office Visit Orthopedic Surgery Jay Jenkins MD [address] [place] [address] [phone] 12/06/2019 Office Visit Pain Medicine Jay Jenkins MD [address] [phone] 01/31/2020 Office Visit Pain Medicine Ramon Lomeli, [address] [phone] 06/03/2020 Office Visit Ophthalmology Health Maintenance Due [...] Date/Time Associated Diagnosis CBC WITH DIFFERENTIAL Routine 10/21/2019 Pre-liver transplant, 12:54 PM [facility]OR OF KIDS listed PROTHROMBIN TIME / INR Routine 10/21/2019 Pre-liver transplant, 12:54 PM [employer]OR OF KIDS listed HEPATIC FUNCTION PANEL Routine 10/21/2019 Pre-liver transplant, ([id number]) (ALB,T.PRO,BILI 12:54 PM [facility]OR [facility] KIDS listed T,BU/BC,ALT,AST,ALK PHOS) BASIC METABOLIC PANEL Routine 10/21/2019 Pre-liver transplant, (NA, K, CL, CO2, GLUCOSE, 12:54 PM [facility]OR OF KIDS listed BUN, CREATININE, CA) CBC WITH DIFFERENTIAL Routine 10/21/2019 Pre-liver transplant, 12:54 PM DIRECTOR OF KIDS listed POCT PT/INR(COAGUCHEK) Routine 09/06/2019 Portal vein thrombosis Anticoagulation management encounter POCT HEMOGLOBIN A1C TEST Routine 09/06/2019 Uncontrolled type 2 diabetes mellitus with complication, without long-term current use of insulin AUTHORIZATION FOR RELEASE Routine 08/22/2019 OF PHI 12:01 AM DIRECTOR OF KIDS SURGICAL PATHOLOGY EXAM Routine 08/12/2019 VAIN III (vaginal 11:13 AM [facility]OR OF KIDS intraepithelial neoplasia grade III) DISCLOSURE AND CONSENT, Routine 08/12/2019 MEDICAL AND SURGICAL 12:01 AM DIRECTOR OF KIDS PROCEDURES from Last 3 Months Results * CBC WITH DIFFERENTIAL (10/21/2019 12:54 PM DIRECTOR OF KIDS) WBC 4.85 4.30 - 11.10 [facility] 10*3/L [facility] RBC 4.14 3.93 - 5.25 10*6/L [facility] HGB 12.5 11.6 - 15.0 g/dL [facility] HCT 38.1 35.7 - 45.2 % [facility] MCV 92.0 80.6 - 95.5 fL [facility] MCH 30.2 25.9 - 32.8 pg [facility] MCHC 32.8 31.6 - 35.1 g/dL [facility] RDW-SD 48.8 39.0 - 49.9 fL [facility] RDW-CV 14.5 12.0 - 15.5 % [facility] PLT 91 (L) 166 - 358 10*3/L [facility] MPV 10.5 9.5 - 12.9 fL [facility] NRBC/100 WBC 0.0 0.0 - 10.0 /100 WBCs [facility] NRBC x10^3 <0.01 10*3/L [facility] GRAN MAT (NEUT) 52.3 % [facility] % [facility] IMM GRAN % 0.20 % [facility] LYMPH % 38.4 % [facility] MONO % 5.4 % [facility] EOS % 2.7 % [facility] BASO % 1.0 % [facility] GRAN MAT 2.54 1.88 - 7.09 10*3/uL [facility] x10^3(ANC) [facility] IMM GRAN x10^3 <0.03 0.00 - 0.06 10*3/uL [facility] LYMPH x10^3 1.86 1.32 - 3.29 10*3/uL [facility] MONO x10^3 0.26 (L) 0.33 - 0.92 10*3/uL [facility] EOS x10^3 0.13 0.03 - 0.39 10*3/uL [facility] BASO x10^3 0.05 0.01 - 0.07 10*3/uL [facility] Specimen Blood - ARM, LEFT Performing Organization Address [facility]/Zipcode Phone Number [facility] CLIA: [id number], [address] [place] [address] [facility] * PROTHROMBIN TIME / INR (10/21/2019 12:54 PM DIRECTOR OF KIDS) PROTIME PATIENT 26.7 (H) 12.0 - 14.7 Seconds [facility] INR 2.5Comment: Normal INR <1.1; [facility] Warfarin Therapeutic range 2.0 [facility] to 3.0 or 2.5 to 3.5, [facility] depending upon the indications. Specimen Blood - ARM, LEFT Performing Organization Address [facility]/Zipcode Phone Number [facility] CLIA: [id number], [address] [place] [id number] [facility] * BASIC METABOLIC PANEL (NA, K, CL, CO2, GLUCOSE, BUN, CREATININE, CA) (10/21/2019 12:54 PM DIRECTOR OF KIDS) NA 139 135 - 145 mmol/L [facility] K 4.1 3.5 - 5.0 mmol/L [facility] CL 107 98 - 108 mmol/L [facility] CO2 TOTAL 24 23 - 31 mmol/L [facility] AGAP 8 2 - 16 [facility] BUN 11 7 - 23 mg/dL [facility] GLUCOSE 242 (H) 70 - 110 mg/dL [facility] CREATININE 0.53 0.50 - 1.04 mg/dL [facility] CALCIUM 8.9 8.6 - 10.6 mg/dL [facility] eGFR 120.7 mL/min/1.73m2 [facility] Calculation [facility] ([facility]) eGFR 146.3 mL/min/1.73m2 [facility] Calculation [facility] ([facility]) Specimen Blood - ARM, LEFT Narrative Performed At Association of Glomerular Filtration Rate (GFR) and Staging of Kidney Disease* [facility] + + + [facility] | GFR (mL/min/1.73 m2) | With [...] tests). Performing Organization Address City/State/Zipcode Phone Number [facility] CLIA: [id number], [address] [place], [place] [address] [facility] * HEPATIC FUNCTION PANEL ([id number]) (ALB,T.PRO,BILI T,BU/BC,ALT,AST,ALK PHOS) (10/21/2019 12:54 PM DIRECTOR OF KIDS) TOTAL BILI 1.8 (H) 0.1 - 1.1 mg/dL [facility] BILI UNCON 1.2 (H) 0.1 - 1.1 mg/dL [facility] BILI CONJ 0.0 0.0 - 0.3 mg/dL [facility] T PROTEIN 7.6 6.3 - 8.2 g/dL [facility] ALBUMIN 3.3 (L) 3.5 - 5.0 g/dL [facility] ALK PHOS 208 (H) 34 - 122 U/L [facility] ALTv 17 5 - 35 U/L [facility] AST(SGOT) 40 13 - 40 U/L [facility] Specimen Blood - ARM, LEFT Performing Organization Address City/State/Zipcode Phone Number [facility] CLIA: [id number], [address] [place] [address] [facility] * POCT HEMOGLOBIN A1C TEST (09/06/2019) POCT HBA1C 10.1 (A) 4 - 6 % Specimen Blood - CAPILLARY * POCT PT/INR(COAGUCHEK) (09/06/2019) POCT PT/INR 2.0 (A) 0.8 - 1.4 INR POCT PT/SEC 24.5 SEC Specimen Blood - [place] * AUTHORIZATION FOR RELEASE OF PHI (08/22/2019 12:01 AM DIRECTOR OF KIDS) Specimen Performing Organization Address City/State/Zipcode Phone Number HIM * SURGICAL PATHOLOGY EXAM (08/12/2019 11:13 AM DIRECTOR OF KIDS) Case Report Surgical Pathology [facility] SERVICES Case: [id number] Authorizing Provider: Hiwot Dan PA-C Collected: 08/12/2019 [id number] Ordering Location: [facility] Received: 08/12/[address] [place] [address] Pathologist: Dimitry Carrasco MD Specimen: VAG CUFF, vaginal apex Final Diagnosis A. VAGINA, APEX, BIOPSY: [facility] Electronically - SQUAMOUS EPITHELIUM SERVICES signed by Danilo, WITH HUMAN PAPILLOMAVIRUS Dimitry Doherty MD on [employer]ES 08/13/2019 at 1:02 - NO HIGH GRADE DYSPLASIA PM OR CARCINOMA IDENTIFIED AUSTEN Simon 08/13/2019 8:35 AM I have personally reviewed all specimens/slides and agree with all statements made by residents, fellows or pathologist assistants whose name(s) may appear on this report. Clinical VIN3 [facility] Information SERVICES Gross Specimen A is received in [facility] Description formalin labelled with the SERVICES patient s name, UH number "vaginal cuff apex and consists of an aggregate of 2 duenas-pink mucinous semi-translucent irregular soft tissue fragments (0.6 x 0.2 x 0.2 cm). The specimen is filtered through a biopsy bag and entirely submitted in toto in A1. RAQUEL Butterfield (ASCP)cm Embedded Images [facility] SERVICES Specimen Tissue - VAG CUFF Performing Organization Address City/State/Zipcode Phone Number [facility] CLIA: [id number], [address] [place] [address] [facility] * DISCLOSURE AND CONSENT, MEDICAL AND SURGICAL PROCEDURES (08/12/2019 12:01 AM DIRECTOR OF KIDS) Specimen Performing Organization Address City/State/Zipcode Phone Number HIM from Last 3 Months Insurance Type Payer Benefit Subscriber ID Effective Phone Address Plan / Dates Group Medicaid [facility] x[facility]-P [facility] [address] [place] [address] Advance Directives Relationship Healthcare Agent Relationship Communication Name Father Primary healthcare agent Asa [place] Child First alternate healthcare agent Sandy Ornelas
--- OUTSIDE RECORDS SUMMARY | 2019-11-01 04:06 | XMS REPORT | Clinical Summary ---
Author Author [facility] - Health Organization [facility] - Health Address Unknown Phone Unavailable Care Team Providers Care Junior Account Manager Name Role Phone Keiry Jaquez CNM [...] directed by 9 cirrhosis of liver [facility] based on INR results. [...] Use to check 300 Each 1 THIN) [facility] blood sugar 9 3X daily. DX:E11.8 Active [...] 60 tablet 3 directed by 9 [facility] based on INR results. [...] 4-6) or Pain (scale 7-10). Active Insulin [place], Use to inject 400 Each 1 Disposable, [...] Overview: Added automatically from request for surgery [id number] Portal vein thrombosis 05/06/2019 Anticoagulation management encounter 05/06/2019 Vulvar intraepithelial neoplasia (SNAG) grade 3 11/16/2018 Dental caries 04/17/2018 Overview: Added automatically from request for surgery [id number] Obesity (BMI 30-39.9) 03/19/2018 Bilateral lower extremity edema 07/14/2017 Lumbosacral spondylosis without myelopathy 03/16/2017 Overview: Added automatically from request for surgery [id number] Mixed hyperlipidemia 01/18/2017 Cirrhosis of liver without [...] Nguyen MD Vtc-Lab Pre-liver transplant, listed 10/21/2019 Investor Relations Director Phlebotomy Visit Jay Jenkins MD Notification 10/21/2019 Telephone Pain Medicine Doctor Unassigned, [place] Refill Request 10/17/2019 Refill OB Satellites Jay Jenkins MD Refill Request 10/17/2019 Refill Pain Medicine Madisyn Dumont MD Refill Request 10/16/2019 Refill Endocrinology Diabetes & Metabolism Jay Jenkins MD Refill Request 10/16/2019 Refill Pain Medicine Doctor Unassigned, [place] Refill Request 10/15/2019 Refill OB Satellites Ramon Lomeli, OD Refill Request 10/15/2019 Refill Ophthalmology Doctor Unassigned, [place] Refill Request 10/15/2019 Refill Endocrinology Diabetes & [...] Telephone Gynecologic Oncology Jay Jenkins MD Nurse, [facility] Antico Portal vein thrombosis; Anticoagulation management [...] Refill Endocrinology Diabetes & Metabolism Doctor Unassigned, [place] 08/22/2019 Orders Only Mariana Woodruff FNP Refill [...] Comments Vital Sign 143/84 10/28/2019 9:38 AM DISH MACHINE OPERATOR Blood Pressure 98 10/28/2019 9:38 AM DISH MACHINE OPERATOR Pulse 36.3 C (97.4 F) 10/28/2019 9:38 AM DISH MACHINE OPERATOR Temperature 18 10/28/2019 9:38 AM DISH MACHINE OPERATOR Respiratory Rate 100% 10/28/2019 9:38 AM DISH MACHINE OPERATOR Oxygen Saturation - - Inhaled Oxygen Concentration 91.5 kg (201 lb 12.8 oz) 10/28/2019 9:38 AM DISH MACHINE OPERATOR Weight 152.4 cm (5') 10/28/2019 9:38 AM DISH MACHINE OPERATOR Height 39.41 10/28/2019 9:38 AM DISH MACHINE OPERATOR Body Mass Index Plan of Treatment Care Team Description Date Type Specialty Worker, Transplant Social 11/01/2019 Case Management Surgery Mariana Woodruff, PLAYGROUND SUPERVISOR [address] [place] [address] [phone] 11/01/2019 Office Visit Endocrinology Diabetes & Metabolism Nurse, [facility] Anticoag 11/01/2019 Nurse Visit Anti-coagulation Clinic Aldair Lima MD [address] [place] [address] [phone] 11/15/2019 Hospital Surgery Encounter Aldair Lima MD [address] [place] [address] [phone] TRIGGER FINGER RELEASE 11/15/2019 Surgery Surgery Aldair Lima MD [address] [place] [address] [phone] 11/27/2019 Office Visit Orthopedic Surgery Jay Jenkins MD [address] [place] [address] [phone] 12/06/2019 Office Visit Pain Medicine Jay Jenkins MD [address] [phone] 01/31/2020 Office Visit Pain Medicine Ramon Lomeli, [address] [phone] 06/03/2020 Office Visit Ophthalmology Health Maintenance Due [...] DIFFERENTIAL Routine 10/21/2019 Pre-liver transplant, 12:54 PM DISH MACHINE OPERATOR listed PROTHROMBIN TIME / INR Routine 10/21/2019 Pre-liver transplant, 12:54 PM DISH MACHINE OPERATOR listed HEPATIC FUNCTION PANEL Routine 10/21/2019 Pre-liver transplant, ([id number]) (ALB,T.PRO,BILI 12:54 PM DISH MACHINE OPERATOR listed T,BU/BC,ALT,AST,ALK PHOS) BASIC METABOLIC PANEL Routine 10/21/2019 Pre-liver transplant, (NA, K, CL, CO2, GLUCOSE, 12:54 PM DISH MACHINE OPERATOR listed BUN, CREATININE, CA) CBC WITH DIFFERENTIAL Routine 10/21/2019 Pre-liver transplant, 12:54 PM DISH MACHINE OPERATOR listed POCT PT/INR(COAGUCHEK) Routine 09/06/2019 Portal vein thrombosis Anticoagulation management encounter POCT HEMOGLOBIN A1C TEST Routine 09/06/2019 Uncontrolled type 2 diabetes mellitus with complication, without long-term current use of insulin AUTHORIZATION FOR RELEASE Routine 08/22/2019 OF PHI 12:01 AM DISH MACHINE OPERATOR SURGICAL PATHOLOGY EXAM Routine 08/12/2019 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) DISCLOSURE AND CONSENT, Routine 08/12/2019 MEDICAL AND SURGICAL 12:01 AM DISH MACHINE OPERATOR PROCEDURES from Last 3 Months Results * CBC WITH DIFFERENTIAL (10/21/2019 12:54 PM DISH MACHINE OPERATOR) WBC 4.85 4.30 - 11.10 [facility] 10*3/L [facility] RBC 4.14 3.93 - 5.25 10*6/L [facility] HGB 12.5 11.6 - 15.0 g/dL [facility] HCT 38.1 35.7 - 45.2 % [facility] MCV 92.0 80.6 - 95.5 fL [facility] MCH 30.2 25.9 - 32.8 pg [facility] MCHC 32.8 31.6 - 35.1 g/dL [facility] RDW-SD 48.8 39.0 - 49.9 fL [facility] RDW-CV 14.5 12.0 - 15.5 % [facility] PLT 91 (L) 166 - 358 10*3/L [facility] MPV 10.5 9.5 - 12.9 fL [facility] NRBC/100 WBC 0.0 0.0 - 10.0 /100 WBCs [facility] NRBC x10^3 <0.01 10*3/L [facility] GRAN MAT (NEUT) 52.3 % [facility] % [facility] IMM GRAN % 0.20 % [facility] LYMPH % 38.4 % [facility] MONO % 5.4 % [facility] EOS % 2.7 % [facility] BASO % 1.0 % [facility] GRAN MAT 2.54 1.88 - 7.09 10*3/uL [facility] x10^3(ANC) [facility] IMM GRAN x10^3 <0.03 0.00 - 0.06 10*3/uL [facility] LYMPH x10^3 1.86 1.32 - 3.29 10*3/uL [facility] MONO x10^3 0.26 (L) 0.33 - 0.92 10*3/uL [facility] EOS x10^3 0.13 0.03 - 0.39 10*3/uL [facility] BASO x10^3 0.05 0.01 - 0.07 10*3/uL [facility] Specimen Blood - ARM, LEFT Performing Organization Address [facility]/Zipcode Phone Number [facility] CLIA: [id number], [address] [place] [id number] [facility] * PROTHROMBIN TIME / INR (10/21/2019 12:54 PM DISH MACHINE OPERATOR) PROTIME PATIENT 26.7 (H) 12.0 - 14.7 Seconds [facility] INR 2.5Comment: Normal INR <1.1; [facility] Warfarin Therapeutic range 2.0 [facility] to 3.0 or 2.5 to 3.5, [facility] depending upon the indications. Specimen Blood - ARM, LEFT Performing Organization Address [facility]/Zipcode Phone Number [facility] CLIA: [id number], [address] [place] [phone] [facility] * BASIC METABOLIC PANEL (NA, K, CL, CO2, GLUCOSE, BUN, CREATININE, CA) (10/21/2019 12:54 PM DISH MACHINE OPERATOR) NA 139 135 - 145 mmol/L [facility] K 4.1 3.5 - 5.0 mmol/L [facility] CL 107 98 - 108 mmol/L [facility] CO2 TOTAL 24 23 - 31 mmol/L [facility] AGAP 8 2 - 16 [facility] BUN 11 7 - 23 mg/dL [facility] GLUCOSE 242 (H) 70 - 110 mg/dL [facility] CREATININE 0.53 0.50 - 1.04 mg/dL [facility] CALCIUM 8.9 8.6 - 10.6 mg/dL [facility] eGFR 120.7 mL/min/1.73m2 [facility] Calculation [facility] (Non[facility]) eGFR 146.3 mL/min/1.73m2 [facility] Calculation [facility] ([facility]) Specimen Blood - ARM, LEFT Narrative Performed At Association of Glomerular Filtration Rate (GFR) and Staging of Kidney Disease* [facility] + + + [facility] | GFR (mL/min/1.73 m2) [...] tests). Performing Organization Address City/State/Zipcode Phone Number [facility] CLIA: [id number], [address] [place], [place] [phone] [facility] * HEPATIC FUNCTION PANEL ([id number]) (ALB,T.PRO,BILI T,BU/BC,ALT,AST,ALK PHOS) (10/21/2019 12:54 PM DISH MACHINE OPERATOR) TOTAL BILI 1.8 (H) 0.1 - 1.1 mg/dL [facility] BILI UNCON 1.2 (H) 0.1 - 1.1 mg/dL [facility] BILI CONJ 0.0 0.0 - 0.3 mg/dL [facility] T PROTEIN 7.6 6.3 - 8.2 g/dL [facility] ALBUMIN 3.3 (L) 3.5 - 5.0 g/dL [facility] ALK PHOS 208 (H) 34 - 122 U/L [facility] ALTv 17 5 - 35 U/L [facility] AST(SGOT) 40 13 - 40 U/L [facility] Specimen Blood - ARM, LEFT Performing Organization Address City/State/Zipcode Phone Number [facility] CLIA: [id number], [address] [place] [address] [facility] * POCT HEMOGLOBIN A1C TEST (09/06/2019) POCT HBA1C 10.1 (A) 4 - 6 % Specimen Blood - CAPILLARY * POCT PT/INR(COAGUCHEK) (09/06/2019) POCT PT/INR 2.0 (A) 0.8 - 1.4 INR POCT PT/SEC 24.5 SEC Specimen Blood - [place] * AUTHORIZATION FOR RELEASE OF PHI (08/22/2019 12:01 AM DISH MACHINE OPERATOR) Specimen Performing Organization Address City/State/Zipcode Phone Number HIM * SURGICAL PATHOLOGY EXAM (08/12/2019 11:13 AM DISH MACHINE OPERATOR) Case Report Surgical Pathology [facility] SERVICES Case: [id number] Authorizing Provider: Hiwot Dan PA-C Collected: 08/12/2019 [id number] Ordering Location: [facility] Received: 08/12/[address] [place] [address] Pathologist: Dimitry Carrasco MD Specimen: VAG CUFF, vaginal apex Final Diagnosis A. VAGINA, APEX, BIOPSY: [facility] Electronically - SQUAMOUS [...] may appear on this report. Clinical VIN3 [facility] Information SERVICES Gross Specimen A is received in [facility] Description formalin labelled with the SERVICES patient s name, [facility] number "vaginal cuff apex and consists of an aggregate of 2 duenas-pink mucinous semi-translucent irregular soft tissue fragments (0.6 x 0.2 x 0.2 cm). The specimen is filtered through a biopsy bag and entirely submitted in toto in A1. RAQUEL Butterfield (ASCP)cm Embedded Images [facility] SERVICES Specimen Tissue - VAG CUFF Performing Organization Address City/State/Zipcode Phone Number [facility] CLIA: [id number], [address] [place] [address] [facility] * DISCLOSURE AND CONSENT, MEDICAL AND SURGICAL PROCEDURES (08/12/2019 12:01 AM DISH MACHINE OPERATOR) Specimen Performing Organization Address City/State/Zipcode Phone Number HIM from Last 3 Months Insurance Type Payer Benefit Subscriber ID Effective Phone Address Plan / Dates Group Medicaid [facility] 2016-P [facility] [address] [place] [address] Advance Directives Relationship Healthcare Agent Relationship Communication Name Father Primary healthcare agent Asa Mills Child First alternate healthcare agent Sandy Ornelas
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
--- OUTSIDE RECORDS SUMMARY | 2019-11-01 04:06 | XMS REPORT | Summary of Care ---
Author Author [facility] - Health Organization [facility] - Health Address Unknown Phone Unavailable Care Team Providers Care Provider Enrollment Specialist Name Role Phone Keiry Jaquez CNM Unavailable Unavailable Madisyn Dumont MD Unavailable Unavailable Josef Mcintosh [place] [address] RN Unavailable Unavailable Keiry Jaquez CNM PCP Unavailable Keiry Jaquez CNM Unavailable Unavailable Reason for Visit * Reason Comments Refill Request Encounter Details Care Team Description Date Type Department Mariana Woodruff, CORRECTIONS COUNSELOR [address] [place], [place] [id number] Refill Request 10/29/2019 Refill [facility]ly [facility] [address] [place] [phone] Allergies No Known Allergiesdocumented as of this [...] 4-6) or Pain (scale 7-10). Active Insulin [place], Use to inject 400 Each 1 Disposable, [...] Overview: Added automatically from request for surgery [id number] Portal vein thrombosis 05/06/2019 Anticoagulation management encounter 05/06/2019 Vulvar intraepithelial neoplasia (SANG) grade 3 11/16/2018 Dental caries 04/17/2018 Overview: Added automatically from request for surgery [id number] Obesity (BMI 30-39.9) 03/19/2018 Bilateral lower extremity edema 07/14/2017 Lumbosacral spondylosis without myelopathy 03/16/2017 Overview: Added automatically from request for surgery [id number] Mixed hyperlipidemia 01/18/2017 Cirrhosis of liver without [...] Management Surgery Mariana Woodruff, VARUN [address] [place] [address] [phone] 11/01/2019 Office Visit Endocrinology Diabetes & Metabolism Nurse, Vtc Anticoag 11/01/2019 Nurse Visit Anti-coagulation Clinic Aldair Lima MD [address] [place], [place] [phone] 11/15/2019 Hospital Surgery Encounter Aldair Lima MD [address] [place], [place] [phone] TRIGGER FINGER RELEASE 11/15/2019 Surgery Surgery Aldair Lima MD [address] [place], [place] [address]183 11/27/2019 Office Visit Orthopedic Surgery Jay Jenkins MD [address] [address] 12/06/2019 Office Visit Pain Medicine Nanci Cortez MD [address] [place] [phone] 12/09/2019 Office Visit Gynecologic Oncology Jay Jenkins MD [address] [address] 01/31/2020 Office Visit Pain Medicine Ramon Lomeli, OD [address] [place], [place] [address] 06/03/2020 Office Visit Ophthalmology Health Maintenance Due [...] Plan / Dates Group Medicaid [facility]-P P O [facility] [address] [place] [address] documented as of this encounter Advance Directives Relationship Healthcare Agent Relationship Communication Name Father Primary healthcare agent Asa [place] Child First alternate healthcare agent Sandy Ornelas
[2019-11-01] MEDS ORDERED: SODIUM CHLORIDE 0.9% 1000ML 1,000 ML ONE (04:07)
--- OUTSIDE RECORDS SUMMARY | 2019-11-01 04:07 | XMS REPORT | Summary of Care ---
Author Author [facility] - Health Organization [facility] - Health Address Unknown Phone Unavailable Care Team Providers Care Lithographic Printing Machinist Name Role Phone Keiry Jaquez CNM Unavailable Unavailable Madisyn Dumont MD Unavailable Unavailable McintoshJosef castro [address] Hansen RN Unavailable Unavailable Keiry Jaquez CNM PCP Unavailable Keiry Jaquez CNM Unavailable Unavailable Reason for Referral * (Routine) Referred By Contact Referred To Contact Status Reason Specialty Diagnoses / Procedures Gwendolyn White PA-C [address] [place] [address] New Request Internal Diagnoses Medicine Recurrent UTI Cirrhosis of liver without ascites, unspecified hepatic cirrhosis type Tobacco use disorder Essential hypertension P rocedures CONSULT INTERNAL MEDICINE Reason for Visit * Reason Comments Cancer Follow-up Encounter Details Care Team Description Date Type Department Nanci Cortez MD [address] [place] [phone] 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 [address] [facility], 3rd [place] [address] Allergies No Known Allergiesdocumented as [...] 4-6) or Pain (scale 7-10). Active Insulin [place], Use to inject 400 Each 1 Disposable, [...] Overview: Added automatically from request for surgery [id number] Portal vein thrombosis 05/06/2019 Anticoagulation management encounter 05/06/2019 Vulvar intraepithelial neoplasia (SANG) grade 3 11/16/2018 Dental caries 04/17/2018 Overview: Added automatically from request for surgery [id number] Obesity (BMI 30-39.9) 03/19/2018 Bilateral lower extremity edema 07/14/2017 Lumbosacral spondylosis without myelopathy 03/16/2017 Overview: Added automatically from request for surgery [id number] Mixed hyperlipidemia 01/18/2017 Cirrhosis of liver without [...] 02/09/2015 Overview: Last Mammogram result 10/2016 at [facility] negative Cervical spondylosis without myelopathy 12/02/2013 [...] Comments Vital Sign 143/84 10/28/2019 9:38 AM SCALE MANAGER Blood Pressure 98 10/28/2019 9:38 AM SCALE MANAGER Pulse 36.3 C (97.4 F) 10/28/2019 9:38 AM SCALE MANAGER Temperature 18 10/28/2019 9:38 AM SCALE MANAGER Respiratory Rate 100% 10/28/2019 9:38 AM SCALE MANAGER Oxygen Saturation - - Inhaled Oxygen Concentration 91.5 kg (201 lb 12.8 oz) 10/28/2019 9:38 AM SCALE MANAGER Weight 152.4 cm (5') 10/28/2019 9:38 AM SCALE MANAGER Height 39.41 10/28/2019 9:38 AM SCALE MANAGER Body Mass Index documented in this encounter Progress Notes * Nanci Cortez MD - 10/28/2019 10:00 AM SCALE MANAGER Follow up Co Managed Note I have [...] idea for her but not available at [facility] 1-need to maximize DM control 2-rule out UTI 3-convert from coumadin to Xarelto or Lovenox 4- look into possibly getting laser at [facility] if possible but if not would procee [...] the other instution s Nanci Cortez MD [id number] Professor Gynecologic Oncology [facility] Nanci Cortez MD [id number] Professor Gynecologic Oncology [facility] E MANAGER * Kimberly Yancey, RN - 10/28/2019 10:00 AM SCALE MANAGER Vaginal examination chaperoned by Kimberly Yancey RN. Cervical biopsy received. Patient tolerated well. Colposcopy performed by Dr. Cortez. E MANAGER * Gwendolyn White PA-C - 10/28/2019 10:00 AM SCALE MANAGER Chief complaint: Chief Complaint Patient presents with [...] followed by Dr. Nguyen, transplant hepatology at [facility] Kaur Mendoza . TYPING POOL SUPERVISOR HX: S/P total hysterectomy, bilateral salpingoophorectomy in [...] file Gets together: Not on file Attends baptism service: Not on file Active member of [...] I have reviewed the patient's labs. and Coat Hanger Shaper Machine Operator Visit on 10/21/2019 Component Date Value NA [...] referral for CLEM smoking cessation trial at [facility]. Pre-liver transplant, listed Comment: As noted above. Plan: Continue f/u with hepatology. Essential hypertension Comment: Mildly elevated BP today. Did not take medications this morning. Plan: Continue f/u with PCP. This is a co-managed visit with Dr. Nanci Cortez. Please refer to her detail ed note. E MANAGER * Patrizia Bernal MA - 10/28/2019 10:00 AM SCALE MANAGER Fany Goddard is a 54 year old female Arrived to exam room. Alert and oriented. Vital signs obtained and documented. Reason for visit f/u. Medications and allergies reviewed/reconciled with patient. Fall risk assessment completed. Mental health screening assessed and documented. Patient c/o dysuria, using the bathroom frequently, and cloudy urine x2 weeks. E MANAGER documented in this encounter Plan of Treatment Care Team Description Date Type Specialty Worker, Transplant Social 11/01/2019 Case Management Surgery Mariana Woodruff, WATER SERVICE SUPERVISOR [address] [place], [place] [address] 11/01/2019 Office Visit Endocrinology Diabetes & Metabolism Nurse, Ilc Anticoag 11/01/2019 Nurse Visit Anti-coagulation Clinic Laron Lima MD [address] [place] [phone] 11/15/2019 Hospital Surgery Encounter Laron Lima MD [address] [place] [phone] TRIGGER FINGER RELEASE 11/15/2019 Surgery Surgery Laron Lima MD [address] [place] [phone] 11/27/2019 Office Visit Orthopedic Surgery Jay Jenkins MD [address] [place] [phone] 12/06/2019 Office Visit Pain Medicine Nanci Cortez MD [address] [place] [phone] 12/09/2019 Office Visit Gynecologic Oncology Jay Jenkins MD [address] [place] [phone] 01/31/2020 Office Visit Pain Medicine Ramon Lomeli, OD [address] [place] [address] [phone] 06/03/2020 Office Visit Ophthalmology Date/Time Name Type Priority Associated Diagnoses 10/28/2019 11:33 AM SCALE MANAGER SURGICAL PATHOLOGY EXAM LAB Routine VAIN III [...] CULTURE Routine 10/28/2019 Recurrent UTI 11:50 AM SCALE MANAGER URINALYSIS Routine 10/28/2019 Recurrent UTI 11:33 AM SCALE MANAGER documented in this encounter Results * URINE CULTURE (10/28/2019 11:50 AM SCALE MANAGER) URINE CULTURE No aerobic growth (< 1000 [facility] CFU/mL) SERVICES Specimen Urine - URINE, CLEAN CATCH Performing Organization Address City/State/[facility] Phone Number [facility] CLIA: [id number], [address] [place] [phone] [employer] v[facility] * URINALYSIS (10/28/2019 11:33 AM SCALE MANAGER) APPEARANCE Hazy (A) Clear [facility] [...] LABORATORY SERVICES Specimen Urine Performing Organization Address City/[facility]/Zipcode Phone Number [facility] CLIA: [id number], [address] [place] [phone] [facility] documented in this encounter Visit Diagnoses Diagnosis [...] Plan / Dates Group Medicaid [employer] [place] [employer] xxxxxxxxx 2016-P P O [facility] [address] [place] [address] documented as of this encounter Advance Directives Relationship Healthcare Agent Relationship Communication Name Father Primary healthcare agent Asa [place] Child First alternate healthcare agent Sandy Ornelas
[2019-11-01] MEDS ORDERED: SODIUM CHLORIDE 0.9% 1000ML 1,000 ML IV ONE ×2 (04:15→04:45)
[2019-11-01] MEDS ORDERED: SODIUM CHLORIDE 0.9% 250ML 250 ML IV ONE (04:30)
[2019-11-01] MEDS ORDERED: FUROSEMIDE INJ 10 MG/ML 2 ML VIAL IV PRN (04:30)
[2019-11-01 04:37] LABS: BASOPHILS # (AUTO) 0.1 (0.0-0.1); BASOPHILS % 0.8 % (0.0-1.0); EOSINOPHILS # (AUTO) 0.2 (0.0-0.4); EOSINOPHILS % 1.7 % (0.0-6.0); HEMATOCRIT 35.4 % (34.2-44.1); HEMOGLOBIN 11.8 g/dL (12.0-16.0); LYMPHOCYTES # (AUTO) 3.9 (1.0-3.2); LYMPHOCYTES % 32.1 % (18.0-39.1); MEAN CORPUSCULAR HEMOGLOBIN 30.6 pg (28-32); MEAN CORPUSCULAR HGB CONC 33.3 g/dL (31-35); MEAN CORPUSCULAR VOLUME 91.7 fL (81-99); MONOCYTES # (AUTO) 0.7 (0.2-0.8); MONOCYTES % 6.1 % (4.4-11.3); NEUTROPHILS # (AUTO) 7.1 (2.1-6.9); PLATELET COUNT 138 x10e3/uL (140-360); RED BLOOD COUNT 3.86 x10e6/uL (3.6-5.1); RED CELL DISTRIBUTION WIDTH 14.6 % (11.7-14.4)
[2019-11-01 04:43] LABS: INR 3.5; PARTIAL THROMBOPLASTIN TIME 50.8 seconds (23.8-35.5); PROTHROMBIN TIME 37.9 seconds (11.9-14.5)
[2019-11-01 04:51] LABS: ALBUMIN 3.3 g/dL (3.5-5.0); ALBUMIN/GLOBULIN RATIO 0.7 (0.8-2.0); ANION GAP 11.9 mmol/L (8-16); CALCIUM 9.1 mg/dL (8.4-10.2); POTASSIUM 3.9 mmol/L (3.5-5.1)
[2019-11-01 05:04] LABS: CREATINE KINASE MB 1.1 ng/mL (0-5.0)
--- NOTE | 2019-11-01 05:13 | NUR ---
Blood pressure cuff moved to lower extremity at this time.
[2019-11-01 06:18] LABS: HEMATOCRIT 30.7 % (34.2-44.1); HEMOGLOBIN 10.2 g/dL (12.0-16.0)
--- NOTE | 2019-11-01 06:38 | Diagnostic Imaging Report ---
EXAMINATION: CHEST SINGLE (PORTABLE) INDICATION: Short of breath COMPARISON: None FINDINGS: TUBES and LINES: None. LUNGS: Normal lung volumes. Lungs are clear. Prominent central pulmonary vasculature. PLEURA: No pleural effusion or pneumothorax. HEART AND MEDIASTINUM: The cardiomediastinal silhouette is unremarkable. BONES AND SOFT TISSUES: No acute osseous lesion. Soft tissues are unremarkable. UPPER ABDOMEN: No free air under the diaphragm. IMPRESSION: Pulmonary vascular congestion. Signed by: Dalton Carranza DO on 11/01/2019 6:36 AM
[2019-11-01] MEDS ORDERED: LACTULOSE SYRUP 20 GM/30 ML UDC PO PRN (06:45)
[2019-11-01] MEDS ORDERED: DEXTROSE 50% SYRINGE 50 ML IV PRN (06:45)
[2019-11-01] MEDS ORDERED: ONDANSETRON HCL INJ 2MG/ML 2ML 2 MG/ML VIAL IV PRN (06:45)
[2019-11-01] MEDS ORDERED: SODIUM CHLORIDE FLUSH 10 ML SYR INJ PRN (06:45)
[2019-11-01] MEDS: INSULIN REGULAR, HUMAN 100 UNIT/1 ML 3ML VIAL SQ SCH ×4 (08:14→21:22)
[2019-11-01 09:31] LABS: PLATELET MORPHOLOGY COMMENT RARE EDTA CLUMPING
[2019-11-01 09:32] LABS: PLATELET ESTIMATE SLIGHTLY DECREASED; RBC MORPHOLOGY COMMENT NORMAL
--- NOTE | 2019-11-01 10:58 | NUR ---
call placed to [facility] [place] meds
[2019-11-01] MEDS: TRAMADOL HCL 50 MG TAB PO PRN ×2 (11:30→22:23)
--- NOTE | 2019-11-01 12:05 | NUR ---
report received from ER nurseSergio. order to transfuse 2 units of PRBC clarified and he stated it was to be DC'd.
--- NOTE | 2019-11-01 12:15 | NUR ---
patient arrived to unit in no apparent distress. family at bedside. patient requesting to eat lunch at this time. WCTM.
[2019-11-01 12:43] VITALS: BP 129/89
[2019-11-01 13:44] VITALS: BP 129/89
[2019-11-01 15:31] LABS: CREATINE KINASE MB 1.7 ng/mL (0-5.0)
[2019-11-01] MEDS ORDERED: HUMALOG100 UNIT/1 SC (15:51)
[2019-11-01] MEDS ORDERED: COUMADIN2.5 MG PO (15:51)
[2019-11-01] MEDS ORDERED: LACTULOSE20 GM/30 M PO (15:51)
[2019-11-01] MEDS ORDERED: LYRICA75 MG PO (15:51)
[2019-11-01] MEDS ORDERED: LASIX40 MG PO (15:51)
[2019-11-01] MEDS ORDERED: EFFEXOR XR 3737.5 MG PO (15:51)
[2019-11-01] MEDS ORDERED: TRESIBA100 UNIT/1 SC (15:51)
[2019-11-01] MEDS ORDERED: ULTRAM50 MG PO (15:51)
[2019-11-01] MEDS ORDERED: CYCLOBENZAPRINE5 MG PO (15:51)
[2019-11-01] MEDS ORDERED: KLONOPIN1 MG PO (15:51)
--- NOTE | 2019-11-01 16:00 | NUR ---
minimal bleeding noticed after DIRECTOR OF GUIDANCE IN PUBLIC SCHOOLS assessment. MD Chapis aware- said to call her and reconsult if significant bleeding with clots is observed. Patient aware to notify nurse if bleeding returns before disposing of soiled pads or flushes the toilet.
--- NOTE | 2019-11-01 16:14 | History and Physical ---
HISTORY OF PRESENT ILLNESS: Ms. Goddard is a 54-year-old female with history of diabetes, hypertension, hyperlipidemia, liver cirrhosis, and chronic back pain, came to the emergency room because she said on October 27, she had a vaginal biopsy and since then, she has been bleeding with clots, so she was feeling very tired and weak, so that she was brought to the emergency room. When she was brought here, ammonia level was elevated, so she was admitted for further workup. PAST MEDICAL HISTORY: She has diabetes, hypertension, hyperlipidemia, liver cirrhosis, and chronic back pain. ALLERGIES: NO KNOWN DRUG ALLERGIES. PAST SURGICAL HISTORY: She had cholecystectomy and hysterectomy. SOCIAL HISTORY: She smokes, but she does not drink. PHYSICAL EXAMINATION: GENERAL: Today, she is awake and alert. VITAL SIGNS: Temperature is 118/68. HEART: Regular rate. LUNGS: Clear to auscultation. ABDOMEN: Distended and soft. LABORATORY DATA: On the blood work, white count 11.98, hemoglobin is 10.2, and hematocrit 30.7. Potassium 3.9, creatinine is 1, and glucose was 65. Alkaline phosphatase was 206. A chest x-ray shows pulmonary vascular congestion. Hemoglobin went down from 11.8 to 10.2. ASSESSMENT: 1. Vaginal bleeding. 2. Liver cirrhosis. 3. Probably hepatic encephalopathy. 4. Weakness. 5. Diabetes type 2 with hypoglycemia. 6. Hypertension. 7. Chronic back pain. PLAN: The plan at present time is to get a GI consult and SIDING COREBOARD INSPECTOR consult. We will put the patient on ADA diet and sliding scale with insulin. She received furosemide and she is on lactulose and on Zofran for nausea and vomiting. If the patient gets evaluated and she improves, if her ammonia level improves and she stops bleeding and she gets cleared, she may be able to go home tomorrow. MD DINA Garcia/MODL /[id number]
[2019-11-01 16:17] VITALS: BP 86/59
[2019-11-01 20:01] VITALS: BP 110/70
[2019-11-01] MEDS ORDERED: ROPINIROLE HCL2 MG PO (22:28)
--- NOTE | 2019-11-01 22:41 | NUR ---
SPOKE TO DR. VELEZ AT THIS TIME REGARDING HOME MED REQUIP. MD SAID OK TO CONTINUE REQUIP AND CHANGE LACTULOSE TO BID SCHEDULED TO START NOW. MD ALSO ORDERED LABS FOR TOMORROW.
[2019-11-01] MEDS: ROPINIROLE HCL 2 MG TAB PO SCH (23:10)
[2019-11-01] MEDS: LACTULOSE SYRUP 20 GM/30 ML UDC PO SCH (23:10)
[2019-11-01 23:48] LABS: CREATINE KINASE MB 2.1 ng/mL (0-5.0)
[2019-11-02] VITALS (8 sets, daily range): BP systolic 90–158; BP diastolic 48–80
[2019-11-02] MEDS ORDERED: RIFAXIMIN 550 MG TABLET PO STA (01:59)
[2019-11-02] MEDS: RIFAXIMIN 200 MG TAB PO SCH ×3 (04:11→17:26)
[2019-11-02 05:55] LABS: BASOPHILS # (AUTO) 0.1 (0.0-0.1); BASOPHILS % 0.8 % (0.0-1.0); EOSINOPHILS # (AUTO) 0.2 (0.0-0.4); EOSINOPHILS % 3.5 % (0.0-6.0); HEMATOCRIT 27.9 % (34.2-44.1); HEMOGLOBIN 8.9 g/dL (12.0-16.0); LYMPHOCYTES # (AUTO) 3.3 (1.0-3.2); MEAN CORPUSCULAR HEMOGLOBIN 30.1 pg (28-32); MEAN CORPUSCULAR HGB CONC 31.9 g/dL (31-35); MEAN CORPUSCULAR VOLUME 94.3 fL (81-99); MONOCYTES # (AUTO) 0.4 (0.2-0.8); NEUTROPHILS # (AUTO) 2.4 (2.1-6.9); NEUTROPHILS % 37.4 % (38.7-80.0); PLATELET COUNT 94 x10e3/uL (140-360); RED BLOOD COUNT 2.96 x10e6/uL (3.6-5.1); RED CELL DISTRIBUTION WIDTH 14.6 % (11.7-14.4)
[2019-11-02 06:20] LABS: ALANINE AMINOTRANSFERASE 14 IU/L (0-55); ALBUMIN 2.7 g/dL (3.5-5.0); ALBUMIN/GLOBULIN RATIO 0.8 (0.8-2.0); ALKALINE PHOSPHATASE 179 IU/L (40-150); ANION GAP 7.2 mmol/L (8-16); BLOOD UREA NITROGEN 14 mg/dL (7-26); BUN/CREATININE RATIO 16 (6-25); CALCIUM 8.3 mg/dL (8.4-10.2); CARBON DIOXIDE 22 mmol/L (22-29); CHLORIDE 111 mmol/L (98-107); CREATININE, SERUM 0.89 mg/dL (0.57-1.11); EST GLOMERULAR FILTRATION RATE > 60 ML/MIN (60-); GLUCOSE 211 mg/dL (74-118); POTASSIUM 4.2 mmol/L (3.5-5.1); SODIUM 136 mmol/L (136-145)
--- NOTE | 2019-11-02 06:50 | NUR ---
Received patient lying in bed with eyes open. Respiration even and unlabored without SOB. Call light in reach.
[2019-11-02] MEDS: INSULIN REGULAR, HUMAN 100 UNIT/1 ML 3ML VIAL SQ SCH ×4 (07:30→22:27)
[2019-11-02] MEDS: LACTULOSE SYRUP 20 GM/30 ML UDC PO SCH ×2 (09:21→17:26)
[2019-11-02] MEDS ORDERED: FUROSEMIDE INJ 10 MG/ML 4 ML VIAL IV SCH (09:30)
--- NOTE | 2019-11-02 09:52 | Progress Note ---
DATE: 11/02/2019 CHIEF COMPLAINT/HISTORY OF PRESENT ILLNESS: This is a 54-year-old woman, whose primary treating diagnosis is acute on chronic anemia likely secondary to vaginal bleeding. This woman also has underlying history of decompensated liver cirrhosis. The patient was admitted with a diagnosis of encephalopathy along with acute anemia. Blood work done today, November 02, 2019, reveals hemoglobin 8.9 g/dL. The patient's white blood cell count 6300 with 37% segmented neutrophils. Platelet count is 94,000. The patient's prothrombin time and INR level are 37.9 and 3.5 respectively. The patient states she is on warfarin therapy because apparently she has a history of portal vein thrombosis. The patient voices no complaints today. The patient states she is eager to be discharged home. The patient's vaginal bleeding has resolved. The patient's blood work done today revealed a BUN and creatinine of 14 and 0.9 respectively. Chest x-ray performed yesterday on November 01, 2019, revealed evidence of pulmonary vascular congestion. The patient states she underwent a cervical biopsy on October 28, 2019 at [facility]. Today's serum ammonia level is 183. REVIEW OF SYSTEMS: As per HPI. PHYSICAL EXAMINATION: GENERAL: She is awake. She is alert. She does not appear to be have altered mentation, but she seems to get confused easily. She has multiple family members at bedside. VITAL SIGNS: Blood pressure is 98/48, pulse 80, respiratory rate 18, oxygen saturation 99% on room air, and temperature 98.8. BMI 36, height 5 feet 0 inches, weight 190 pounds. INTEGUMENT: Skin is warm and dry. No pallor, jaundice, or diaphoresis. HEENT: Anicteric sclerae. Moist mucous membranes. NECK: Supple. CARDIOVASCULAR: Distant heart sounds. Regular rate and rhythm with an S3 gallop. LUNGS: Faint crackles bilaterally. ABDOMEN: Obese. Difficult to assess for ascites because of the patient's body habitus. EXTREMITIES: The patient has trace edema in the bilateral lower legs. NEUROLOGICAL: Intact. DIAGNOSES: 1. Hepatic encephalopathy. 2. Decompensated liver cirrhosis. 3. Vaginal bleeding. 4. Acute on chronic anemia. 5. Mild pancytopenia secondary to liver cirrhosis. 6. History of portal vein thrombosis. 7. Obesity. BMI 36. 8. Type 2 diabetes mellitus. PLAN: 1. Gentle diuretics. 2. Follow ammonia level. 3. Continue oral lactulose and Xifaxan for patient's hepatic encephalopathy. 4. We will hold warfarin therapy since the patient is having vaginal bleeding and acute on chronic anemia. 5. We will restart insulin, namely Lantus for glucose control. I spent 40 minutes in the care of this patient. MD ANU Quintero/JONNIE /[id number] MTDD
[2019-11-02] MEDS: INSULIN GLARGINE 100 UNITS/ML VIAL SQ SCH ×2 (11:34→22:27)
[2019-11-02] MEDS: TRAMADOL HCL 50 MG TAB PO PRN (11:41)
--- NOTE | 2019-11-02 12:48 | NUR ---
Left message for the OB-box sorter consult Precious Jones. Awaiting for call back.
[2019-11-02] MEDS ORDERED: RIFAXIMIN 200 MG TAB PO SCH (17:00)
--- NOTE | 2019-11-02 19:05 | NUR ---
Report given to shift supervisor rn. Respiration even and unlabored without SOB. Call light in reach.
[2019-11-02] MEDS: ROPINIROLE HCL 2 MG TAB PO SCH (22:22)
[2019-11-02] MEDS: FUROSEMIDE INJ 10 MG/ML 2 ML VIAL IV SCH (22:22)
[2019-11-03] VITALS (10 sets, daily range): BP systolic 77–125; BP diastolic 44–64
--- NOTE | 2019-11-03 07:00 | NUR ---
RECEIVED REPORT FROM NIGHT NURSE. PATIENT RESTING IN BED AT THIS TIME, DENIES PAIN WITH NO VISIBLE SIGNS OF DISCOMFORT NOTED. CALL LIGHT WITHIN REACH.
[2019-11-03 07:04] LABS: BASOPHILS % 0.6 % (0.0-1.0); EOSINOPHILS # (AUTO) 0.1 (0.0-0.4); EOSINOPHILS % 2.4 % (0.0-6.0); HEMATOCRIT 27.7 % (34.2-44.1); HEMOGLOBIN 9.2 g/dL (12.0-16.0); LYMPHOCYTES # (AUTO) 2.3 (1.0-3.2); LYMPHOCYTES % 45.6 % (18.0-39.1); MEAN CORPUSCULAR HEMOGLOBIN 30.4 pg (28-32); MEAN CORPUSCULAR HGB CONC 33.2 g/dL (31-35); MEAN CORPUSCULAR VOLUME 91.4 fL (81-99); MONOCYTES # (AUTO) 0.4 (0.2-0.8); MONOCYTES % 7.5 % (4.4-11.3); NEUTROPHILS # (AUTO) 2.2 (2.1-6.9); NEUTROPHILS % 43.5 % (38.7-80.0); PLATELET COUNT 90 x10e3/uL (140-360); RED BLOOD COUNT 3.03 x10e6/uL (3.6-5.1); RED CELL DISTRIBUTION WIDTH 14.5 % (11.7-14.4)
[2019-11-03 07:15] LABS: INR 2.28; PROTHROMBIN TIME 26.8 seconds (11.9-14.5)
[2019-11-03 07:25] LABS: ALANINE AMINOTRANSFERASE 15 IU/L (0-55); ALBUMIN 2.8 g/dL (3.5-5.0); ALBUMIN/GLOBULIN RATIO 0.7 (0.8-2.0); ALKALINE PHOSPHATASE 198 IU/L (40-150); ANION GAP 9.3 mmol/L (8-16); BLOOD UREA NITROGEN 10 mg/dL (7-26); BUN/CREATININE RATIO 12 (6-25); CALCIUM 8.3 mg/dL (8.4-10.2); CARBON DIOXIDE 25 mmol/L (22-29); CHLORIDE 105 mmol/L (98-107); CREATININE, SERUM 0.83 mg/dL (0.57-1.11); EST GLOMERULAR FILTRATION RATE > 60 ML/MIN (60-); GLUCOSE 301 mg/dL (74-118); POTASSIUM 3.3 mmol/L (3.5-5.1); SODIUM 136 mmol/L (136-145)
[2019-11-03] MEDS: LACTULOSE SYRUP 20 GM/30 ML UDC PO SCH ×2 (09:00→17:00)
[2019-11-03] MEDS: FUROSEMIDE INJ 10 MG/ML 2 ML VIAL IV SCH ×2 (09:00→20:51)
[2019-11-03] MEDS: INSULIN REGULAR, HUMAN 100 UNIT/1 ML 3ML VIAL SQ SCH ×4 (09:45→20:58)
--- NOTE | 2019-11-03 09:50 | NUR ---
Significant amount of dark red vaginal bleeding with moderate amount of clots noted. Patient verbalizes feeling weak. Dr. Meredith aware and at bedside. Dr. Nation called at [phone]. Left a message, awaiting call back.
[2019-11-03] MEDS ORDERED: POTASSIUM CHLORIDE 10MEQ EA PO ONE ×3 (10:00→12:00)
--- NOTE | 2019-11-03 10:22 | NUR ---
Met with pt and her sister (Macy Reed [phone]). Pt lives in downstairs apt with her 15 yr old son. Provider services thru [employer] 5 days a week: 4 hour Mon - , and 2 hours on Monday No Home Health DME: wheelchair, rollator Has PCP, but cannot spell or say her name. Denies any needs at this time. DC plan: Return home to son, and continue provider services.
--- NOTE | 2019-11-03 10:40 | Progress Note ---
DATE: 11/03/2019 CHIEF COMPLAINT/HISTORY OF PRESENT ILLNESS: This is a 54-year-old white woman, whose primary treating diagnosis is acute on chronic anemia secondary to vaginal bleeding. Moreover, she has history of decompensated liver cirrhosis with recurrent bouts of hepatic encephalopathy. The patient's confusion seems to be improving. The patient states her vaginal bleeding had stopped for a couple of days, but restarted early this morning. The patient denies any pelvic pain. Blood work today revealed a hemoglobin of 9.2 g/dL, white blood count is 4900 with 43% segmented neutrophils, and platelet count is 90,000. The patient's BUN and creatinine are 10 and 0.3 respectively. Serum glucose this morning is 301 mg/dL. The patient's total bilirubin 0.6. Serum ammonia level this morning is 152, yesterday's was 183. The patient's lactic acid level yesterday was 1.8. The patient's albumin level was 2.8 g/dL. REVIEW OF SYSTEMS: As per HPI. PHYSICAL EXAMINATION: GENERAL: She is awake and alert. She is fully oriented. Her adult sister is at bedside. She does not appear to be in any obvious distress. VITAL SIGNS: Blood pressure is 94/54, pulse 86, respiratory rate 16, temperature 98.1, and oxygen saturation 98% on room air. BMI 36. INTEGUMENT: Skin is warm and dry. No pallor, jaundice, or diaphoresis. HEENT: Anterior sclerae with moist mucous membranes. NECK: Supple. CARDIOVASCULAR: Distant heart sounds. Regular rate and rhythm with an S3 gallop. LUNGS: Faint crackles bilaterally. ABDOMEN: Obese. It is difficult to assess for ascites or organomegaly because of the patient's body habitus. : The patient has blood clots. The patient has obvious vaginal bleeding in the form of clots as per nursing staff. EXTREMITIES: The patient has trace edema in bilateral legs. NEUROLOGIC: Intact. DIAGNOSES: 1. Vaginal bleeding. 2. Posthemorrhagic anemia. 3. Anemia secondary to chronic disease. 4. Decompensated liver cirrhosis. 5. Hepatic encephalopathy, resolving. 6. Obesity, BMI 36. 7. Mild pancytopenia secondary to liver cirrhosis. 8. History of portal vein thrombosis. 9. Type 2 diabetes mellitus, uncontrolled. PLAN: 1. Continue gentle diuretics. Continue oral Xifaxan and lactulose for the patient's hepatic encephalopathy. 2. Follow hemoglobin and hematocrit. 3. Follow white blood cell count and platelet count. 4. We will defer to Gynecology in regard to the patient's vaginal bleeding. 5. We will hold anticoagulants namely warfarin therapy since she is having vaginal bleeding as well as acute on chronic anemia. 6. We will adjust insulin dosage namely Lantus for better glucose control. 7. We will hold the patient's discharge. I spent 35 minutes in the care of this patient. MD ANU Quintero/JONNIE /[id number] MTDDmitry
--- NOTE | 2019-11-03 10:40 | NUR ---
Patient complain of increase pain, states "tramadol does nothing for me." Dr. Meredith notified. Ordered Tizanadine 4mg every six hours as needed for pain. Ordered read back and verified. Entered as ordered.
[2019-11-03] MEDS: INSULIN GLARGINE 100 UNITS/ML VIAL SQ SCH ×2 (10:45→20:58)
[2019-11-03] MEDS ORDERED: TIZANIDINE HCL 4 MG TAB PO PRN (10:45)
[2019-11-03] MEDS: TRAMADOL HCL 50 MG TAB PO PRN ×2 (10:51→21:06)
[2019-11-03] MEDS: RIFAXIMIN 200 MG TAB PO SCH ×2 (10:53→18:50)
[2019-11-03] MEDS ORDERED: POTASSIUM CHLORIDE 20 MEQ TAB CR PO ONE (11:15)
--- NOTE | 2019-11-03 13:25 | NUR ---
Dr. Meredith at bedside. Escalated call/notification to Dr. Nation regarding continued vaginal bleeding with increase in clots. Ordered Vitamin K 5mg subcutaneous injection to be given once now to stop bleeding. Order read back and verified, entered as ordered. Awaiting call back from Dr. Nation or Dr. Canseco.
[2019-11-03] MEDS ORDERED: PHYTONADIONE 10 MG/ML AMP SC ONE ×2 (13:30→14:30)
[2019-11-03] MEDS ORDERED: FERRIC SUBSULFATE 20-22% SOLUTION 8ML MC ONE (14:30)
--- NOTE | 2019-11-03 15:25 | NUR ---
Dr. Manriquez WEBSPHERE ADMINISTRATOR at bedside to examine patient. Pericare done, vaginal exam performed. Monsel solution applied to biopsy site. Vaginal packing soaked with Monsel solution and lubricant inserted into vaginal cavity. Packing to be removed in the morning by nursing staff. Findings to be called to WEBSPHERE ADMINISTRATOR provider stream control officer. Patient asleep during exam and procedure, easily aroused, tolerated well. All instruments and sponges accounted for and returned to kit. Monsel solution return to pharmacy.
--- NOTE | 2019-11-03 16:00 | NUR ---
Dr. Singh paged at [phone] regarding low blood pressure 77/[address] Meredith hyperion developer per straddle truck operator and will be paged. Awaiting call back.
--- NOTE | 2019-11-03 16:10 | NUR ---
Dr. Meredith called back, ordered STAT normal saline 250 ml bolus. Discontinue tizanadine due to lethargic state. Order read back and verified, entered as ordered.
[2019-11-03] MEDS ORDERED: SODIUM CHLORIDE 0.9% 1000ML 250 ML IV SCH ×2 (16:15→17:00)
[2019-11-03] MEDS ORDERED: SODIUM CHLORIDE 0.9% 250ML 250 ML ONE (16:55)
--- NOTE | 2019-11-03 17:50 | NUR ---
250 ml normal saline bolus completed. Patient BP 94/47. Remains asymptomatic, denies dizziness, headache. Still lethargic but easily aroused and responsive. Alert and oriented x4, appropriate and pleasant. Family at bedside. Will continue to monitor.
--- NOTE | 2019-11-03 19:05 | NUR ---
Bedside shift report given to Jay TAYLOR. Patient awake and alert at this time. Family at bedside. Call light within reach.
[2019-11-03] MEDS: ROPINIROLE HCL 2 MG TAB PO SCH (21:05)
[2019-11-04] VITALS (8 sets, daily range): BP systolic 83–110; BP diastolic 52–99
[2019-11-04] MEDS: TRAMADOL HCL 50 MG TAB PO PRN ×3 (05:09→22:42)
[2019-11-04 06:50] LABS: BASOPHILS # (AUTO) 0.1 (0.0-0.1); BASOPHILS % 0.9 % (0.0-1.0); EOSINOPHILS # (AUTO) 0.2 (0.0-0.4); EOSINOPHILS % 3.1 % (0.0-6.0); HEMATOCRIT 28.6 % (34.2-44.1); HEMOGLOBIN 9.3 g/dL (12.0-16.0); LYMPHOCYTES # (AUTO) 2.9 (1.0-3.2); MEAN CORPUSCULAR HGB CONC 32.5 g/dL (31-35); MEAN CORPUSCULAR VOLUME 92.3 fL (81-99); MONOCYTES # (AUTO) 0.4 (0.2-0.8); MONOCYTES % 5.7 % (4.4-11.3); NEUTROPHILS # (AUTO) 3.1 (2.1-6.9); NEUTROPHILS % 46.9 % (38.7-80.0); PLATELET COUNT 116 x10e3/uL (140-360); RED CELL DISTRIBUTION WIDTH 14.6 % (11.7-14.4)
[2019-11-04 07:16] LABS: ALANINE AMINOTRANSFERASE 13 IU/L (0-55); ALBUMIN 2.8 g/dL (3.5-5.0); ALBUMIN/GLOBULIN RATIO 0.8 (0.8-2.0); ALKALINE PHOSPHATASE 184 IU/L (40-150); ANION GAP 7.9 mmol/L (8-16); BLOOD UREA NITROGEN 13 mg/dL (7-26); BUN/CREATININE RATIO 17 (6-25); CALCIUM 8.4 mg/dL (8.4-10.2); CARBON DIOXIDE 25 mmol/L (22-29); CHLORIDE 109 mmol/L (98-107); CREATININE, SERUM 0.75 mg/dL (0.57-1.11); EST GLOMERULAR FILTRATION RATE > 60 ML/MIN (60-); GLUCOSE 74 mg/dL (74-118); POTASSIUM 3.9 mmol/L (3.5-5.1); SODIUM 138 mmol/L (136-145)
[2019-11-04 07:25] LABS: INR 1.81; PROTHROMBIN TIME 22.3 seconds (11.9-14.5)
[2019-11-04] MEDS: INSULIN REGULAR, HUMAN 100 UNIT/1 ML 3ML VIAL SQ SCH ×4 (07:30→21:20)
--- NOTE | 2019-11-04 08:16 | NUR ---
PT LEFT HER ROOM, FOUND OUTSIDE SMOKING ON HOSPITAL GROUNDS. PAGED DR WONG FOR ORDERS.
--- NOTE | 2019-11-04 08:20 | NUR ---
pt soaked 1 pad overnight. still reports vaginal bleeding and some discomfort from vaginal packing in place.
[2019-11-04] MEDS: LACTULOSE SYRUP 20 GM/30 ML UDC PO SCH ×2 (09:00→17:11)
--- NOTE | 2019-11-04 09:06 | NUR ---
DR WONG ARRIVED AT BEDSIDE, STATES PT CANNOT BE DISCHARGED AT THIS TIME, STILL PENDING STAT ABD US AND REMOVAL OF VAGINAL PACKING.
[2019-11-04] MEDS: RIFAXIMIN 200 MG TAB PO SCH ×2 (09:22→17:07)
[2019-11-04] MEDS: INSULIN GLARGINE 100 UNITS/ML VIAL SQ SCH ×2 (09:23→21:30)
[2019-11-04] MEDS: FUROSEMIDE INJ 10 MG/ML 2 ML VIAL IV SCH ×2 (09:30→22:00)
--- NOTE | 2019-11-04 11:56 | Progress Note ---
DATE: 11/04/2019 SUBJECTIVE: Ms. Goddard is a 54-year-old female with history of diabetes, hypertension, hyperlipidemia, liver cirrhosis, chronic back pain, came to the emergency room after seeing on October 27, she had a vaginal biopsy and then, she started bleeding with clot. She had been seen by [facility]. On Monday, she had much bleeding, but she started bleeding again. She had to have [facility] came again to see her. She has a packing in the vaginal. The patient was a little confused due to hepatic encephalopathy. Today, she is doing better. PHYSICAL EXAMINATION: GENERAL: She is awake and alert. VITAL SIGNS: Temperature is 96.5, blood pressure is 110/99. HEART: Regular rate. LUNGS: Poor inspiratory effort. ABDOMEN: Distended and soft. LABORATORY DATA: On the blood work, white count is 6.69, hemoglobin is 9.3, hematocrit 28.6, platelets 116, potassium 3.9, creatinine 0.75. INR 1.81. ASSESSMENT: 1. Vaginal bleeding, status post vaginal biopsy. 2. Anemia secondary to vaginal bleeding. 3. Liver cirrhosis, decompensated. 4. Hepatic encephalopathy, improving. 5. Pancytopenia due to liver cirrhosis. 6. History of portal vein thrombosis. 7. Diabetes type 2 with hyperglycemia. 8. Hypertension. PLAN: The plan at the present time is to continue lactulose, ceftriaxone for encephalopathy. Continue diuretics. Continue to monitor hemoglobin and hematocrit. She is going to go for an ultrasound and [facility] to remove the packing today. We checked for any recurrent bleeding. Anticoagulation has been on hold due to the vaginal bleeding and the anemia. Continue ADA diet. Continue insulin. All this was discussed with the patient and family members at bedside. All questions were answered to satisfaction. I spent more than 25 minutes examining patient, reviewing overnight event lab results, x-rays and discussing a plan of care with family. MD DINA Garcia/JONNIE /[id number]
[2019-11-04] MEDS ORDERED: MICROFIBRILLER COLLAGEN HEMOSTAT 1 GM POWDER TP ONE (12:17)
--- NOTE | 2019-11-04 12:40 | NUR ---
Dr. Nation at bedside performed pelvic exam and removed vaginal packing and inserted collagen. states if pt starts to bleed more than 1 pad per hour, please page her. Dr. Nation. she states if pt improves, she will not need surgery. however, she wants pt NPO after midnight.
--- NOTE | 2019-11-04 15:29 | Diagnostic Imaging Report ---
EXAM: Complete Abdominal Ultrasound INDICATION: Portal vein thrombosis COMPARISON: None. TECHNIQUE: Transverse and longitudinal images of the upper abdomen were obtained. FINDINGS: Liver: Size: 15 cm in the right midclavicular line, normal Appearance: Normal echogenicity, smooth contour Mass: No focal masses Spleen: Size: 11.9 cm in length, normal Echogenicity: Normal Mass: No focal masses Gallbladder: Surgically absent Bile Ducts: Intrahepatic Ducts: No dilatation Extrahepatic Ducts: Common bile duct measures 0.4 cm, no dilatation Pancreas: Poorly visible due to overlying bowel gas Right Kidney: Size: 10.1 x 4.5 x 5.2 cm Echogenicity: Normal Parenchymal thickness: Normal Collecting System: No hydronephrosis Stone: None Cyst/Mass: None Left Kidney: Size: 4.1 x 4.4 x 5.1 cm Echogenicity: Normal Parenchymal thickness: Normal Collecting System: No hydronephrosis Stone: None Cyst/Mass: None Vessels: Aorta: Poorly visible due to overlying bowel gas Inferior Vena Cava: Visualized portions are normal Main Portal Vein: 1.3 cm, no identifiable flow Free Fluid: No ascites or pleural effusion IMPRESSION: 1. No identifiable flow within the main portal vein consistent with provided history of portal vein thrombosis. This may be confirmed with CT imaging. 2. Surgically absent gallbladder. Signed by: Isaak Magallon MD on 11/04/2019 3:26 PM
[2019-11-04] MEDS: ROPINIROLE HCL 2 MG TAB PO SCH (22:00)
[2019-11-05] VITALS (7 sets, daily range): BP systolic 83–112; BP diastolic 44–75
--- NOTE | 2019-11-05 00:20 | NUR ---
NPO ADVISED. IS DOING ROUNDS.NO NEW ORDERS.STABLE CONDITION.BED LOCKED NA DIN LOWEST POSITION.PHONE AND CALL LIGHT WITHIN REACH.INSTRUCTED O CALL FOR ASSISTANCE NEEDED.
--- NOTE | 2019-11-05 07:00 | NUR ---
BEDSIDE SHIFT REPORT RECEIVED FROM CHEMIST WATER PURIFICATION RN, PT AWAKE, ALERT, ORIENTED X3, NO SIGNS OF DISTRESS. PT HAS BEEN NPO SINCE MIDNIGHT. WILL CONTINUE TO MONITOR.
--- NOTE | 2019-11-05 07:00 | NUR ---
Bed side shift report given to oncoming rn.stable condition.
[2019-11-05] MEDS: INSULIN REGULAR, HUMAN 100 UNIT/1 ML 3ML VIAL SQ SCH ×4 (07:30→21:23)
[2019-11-05] MEDS: LACTULOSE SYRUP 20 GM/30 ML UDC PO SCH ×2 (09:00→18:01)
[2019-11-05] MEDS: RIFAXIMIN 200 MG TAB PO SCH ×2 (09:00→18:01)
[2019-11-05] MEDS: INSULIN GLARGINE 100 UNITS/ML VIAL SQ SCH ×2 (09:00→21:24)
[2019-11-05] MEDS: FUROSEMIDE INJ 10 MG/ML 2 ML VIAL IV SCH ×2 (09:43→21:30)
--- NOTE | 2019-11-05 11:04 | NUR ---
pt going to OR for procedure. pt awake, alert, oriented, speaking in full sentences, no signs of distress, left in stable condition.
[2019-11-05] MEDS ORDERED: MICROFIBRILLER COLLAGEN HEMOSTAT 1 GM POWDER TP ONE (11:25)
--- NOTE | 2019-11-05 12:00 | Progress Note ---
DATE: 11/05/2019 SUBJECTIVE: Ms. Goddard is a 54-year-old female with history of hypertension, hyperlipidemia, liver cirrhosis, diabetes, chronic back pain, came to the emergency room after having a vaginal biopsy at [facility] on October 27: The patient was bleeding and having clots. She was seen by [facility]. She had a packing that was removed yesterday. The patient is still bleeding, so she is going to go for surgery today. PHYSICAL EXAMINATION: GENERAL: Today, she is awake and alert. She is feeling better. VITAL SIGNS: Temperature is 97.6, blood pressure 108/71. HEART: Regular rate. LUNGS: Clear to auscultation. ABDOMEN: Distended and soft. LABORATORY DATA: On the blood work, white count 6.69, hemoglobin is 9.3, hematocrit 28.6, glucose was 313 today. Abdominal ultrasound done yesterday showed no identifiable flow within the main portal vein, consistent with provided history of portal vein thrombosis, surgically absent gallbladder. ASSESSMENT: 1. Vaginal bleeding for surgery today. 2. Anemia secondary to vaginal bleeding. 3. Liver cirrhosis. 4. Hepatic encephalopathy, improving. 5. Pancytopenia due to liver cirrhosis. 6. Portal vein thrombosis. 7. Diabetes type 2 with hyperglycemia. 8. Hypertension. 9. Hyperlipidemia. 10. Chronic back pain. PLAN: At the present time, the patient is going to go for surgery today to see what they can find out where and why she is still bleeding from. Anticoagulation was put on hold due to the bleeding. Continue lactulose and Xifaxan as well as diuretics for her decompensated liver cirrhosis. Continue to monitor hemoglobin and hematocrit and continue ADA diet and insulin. The plan at present time is if the patient stops bleeding, we can consider discharge her home. There is some question regarding anticoagulation due to this bleeding. I spent more than 35 minutes examining the patient, reviewing overnight event, lab results, and discussing plan of care with her and her family. MD DINA Garcia/MODL /[id number]
[2019-11-05] MEDS ORDERED: SILVER NITRATE SWABS ONE ×2 (12:02→12:32)
[2019-11-05] MEDS ORDERED: FENTANYL CITRATE/PF 100MCG/2 ML INJ ONE ×2 (12:43→13:51)
--- NOTE | 2019-11-05 12:49 | NUR ---
RECEIVED REPORT OF PT COMING FROM PACU; PT HAD REPAIR OF 2 BIOPSY SITES. SITES WERE SUTURED. PT HAS ABD PAD AND MESH PANTIES IN PLACE. PT GIVEN TOTAL OF 100 FENTANYL, LAST DOSE OF 50 AT 1246. LAST VITAL SIGNS WERE: BP 115/78, HR 77, RR 16, AND O2 SAT 97% ON RA. AWAITING PT'S ARRIVAL FROM BACK TO UNIT.
[2019-11-05] MEDS ORDERED: ONDANSETRON HCL INJ 2MG/ML 2ML 2 MG/ML VIAL ONE (13:05)
[2019-11-05] MEDS ORDERED: PROPOFOL IV EMULSION 10 MG/ML 20 ML VIAL ONE (13:05)
[2019-11-05] MEDS ORDERED: SEVOFLURANE INHAL SOLN 250 ML PEN BTL ONE (13:05)
[2019-11-05] MEDS ORDERED: LIDOCAINE HCL 2% LOCAL INJ 5 ML SDV VIAL INJ ONE (13:05)
[2019-11-05] MEDS ORDERED: MIDAZOLAM HCL 2 MG/2 ML VIAL ONE (13:51)
[2019-11-05] MEDS: TRAMADOL HCL 50 MG TAB PO PRN ×2 (15:44→21:54)
[2019-11-05] MEDS ORDERED: PHENYLEPHRINE HCL 1% 10 MG/ML VIAL ONE (18:08)
--- NOTE | 2019-11-05 19:10 | NUR ---
WALKING ROUNDS PERFORMED,RECEIVED PT IN BURRIS WITH FAMILY. PT WAS IN WHEELCHAIR, RR EVEN AND NON-LABORED, ON ROOM AIR. NO S/SX OF DISTRESS NOTED.
--- NOTE | 2019-11-05 19:29 | Operative Report ---
DATE OF PROCEDURE: 11/05/2019 SURGEON: Precious Nation MD METAL AND PLASTIC HEATER: None. NAME OF PROCEDURE: Exam under anesthesia, repair of bleeding biopsy site. INDICATIONS FOR PROCEDURE: The patient is a 54-year-old with past medical history significant for hepatic encephalopathy, who presented to the ER on November 01 for complaint of vaginal bleeding after a vaginal biopsy. At the time of exam, the patient had minimal bleeding; however, she was noted to have increased bleeding and was packed vaginal packing with Monsels. She again continued to have bleeding. Repeat exam performed, Aveteen was placed on the vaginal cuff; however, overnight the patient continued to have bleeding. Given the continuation of bleeding despite conservative measures, the patient was counseled on exam under anesthesia and repair of any lacerations. Risks, benefits and alternatives of the procedure including the risk of general anesthesia were discussed with the patient. The patient agrees to proceed with the proposed procedure. PREOPERATIVE DIAGNOSES: 1. Cervical intraepithelial neoplasia 3. 2. Heavy vaginal bleeding. 3. Hepatic encephalopathy. 4. Likely portal vein thrombosis. POSTOPERATIVE DIAGNOSES: 1. Cervical intraepithelial neoplasia 3. 2. Heavy vaginal bleeding. 3. Hepatic encephalopathy. 4. Likely portal vein thrombosis. ANESTHESIA: General. OPERATIVE FINDINGS: On exam, there was noted to be a small biopsy site located on the superior aspect of the vaginal cuff that was oozing small amount of blood. It was also noted to be a small approximately 3 mm laceration noted on the left vaginal wall. There was noted to be no other bleeding. URINE OUTPUT: Unmeasured. ESTIMATED BLOOD LOSS: Minimal. DESCRIPTION OF PROCEDURE: The patient was taken to the operating room where she was placed under general anesthesia. She was placed in dorsal lithotomy position in [facility]. She was prepped and draped in the usual sterile fashion. Time- out was performed confirming correct patient, site, and procedure. Red rubber was used to drain the bladder. A weighted speculum and a Korey retractor were used to visualize the vaginal cuff. There was noted to be a small area of oozing on the left aspect of the vaginal cuff and thorough exam of the vagina was also performed. There was noted to be a small laceration on the left vaginal wall that was not actively bleeding. A 3-0 Vicryl was used to reapproximate the biopsy site on the vaginal cuff and 2 interrupted sutures. The left vaginal wall laceration was reapproximated with a single 3-0 Vicryl suture. Silver nitrate was also applied on both sites. There was noted to be excellent hemostasis. All instruments were then removed. All counts were correct x2. The patient tolerated the procedure well and was taken to the recovery room. MD MARY Snowden/JONNIE /[id number]
--- NOTE | 2019-11-05 19:30 | NUR ---
PT RETURNED TO HOSPITAL ROOM. RR EVEN AND NON-LABORED, ON ROOM AIR. NO S/SX OF DISTRESS NOTED. LEFT PT LAYING SEMI FOWLERS IN BED, BED IN LOW LOCKED POSITION, SIDE RAILS UPX2, CALL LIGHT AND PHONE WITHIN REACH.
[2019-11-05] MEDS: ROPINIROLE HCL 2 MG TAB PO SCH (21:20)
--- NOTE | 2019-11-05 21:30 | NUR ---
IV TO (L) AC PAINFUL WHEN FLUSHED AND LEAKING. IV DISCONTINUED, CATHETER TIP INTACT. PRESSURE AND DRESSING APPLIED. NEW IV STARTED TO (L) FA. FLUSHES WITHOUT DIFFICULTY, BLOOD RETURN NOTED.
[2019-11-06] VITALS: BP 94/48
[2019-11-06 04:00] VITALS: BP 110/68
[2019-11-06 06:16] LABS: HEMOGLOBIN 8.7 g/dL (12.0-16.0); MEAN CORPUSCULAR HEMOGLOBIN 30.6 pg (28-32); MEAN CORPUSCULAR HGB CONC 33.5 g/dL (31-35); MEAN CORPUSCULAR VOLUME 91.5 fL (81-99); PLATELET COUNT 119 x10e3/uL (140-360); RED BLOOD COUNT 2.84 x10e6/uL (3.6-5.1); RED CELL DISTRIBUTION WIDTH 14.6 % (11.7-14.4)
--- NOTE | 2019-11-06 07:00 | NUR ---
RECD PATIENT IN BED DURING BEDSIDE REPORT. IN NO APPARENT DISTRESS, DENIES ANY MORE BLEEDING THAN SHE HAD LAST NIGHT
[2019-11-06] MEDS: INSULIN REGULAR, HUMAN 100 UNIT/1 ML 3ML VIAL SQ SCH ×2 (07:30→13:03)
[2019-11-06 07:34] VITALS: BP 97/62
[2019-11-06] MEDS: LACTULOSE SYRUP 20 GM/30 ML UDC PO SCH (08:01)
[2019-11-06] MEDS: RIFAXIMIN 200 MG TAB PO SCH (08:01)
[2019-11-06] MEDS: TRAMADOL HCL 50 MG TAB PO PRN (08:01)
[2019-11-06 08:49] VITALS: BP 97/62
[2019-11-06] MEDS: INSULIN GLARGINE 100 UNITS/ML VIAL SQ SCH (09:00)
[2019-11-06] MEDS: FUROSEMIDE INJ 10 MG/ML 2 ML VIAL IV SCH (09:00)
[2019-11-06 09:02] VITALS: BP 97/62
[2019-11-06 12:09] VITALS: BP 123/77
[2019-11-06] MEDS ORDERED: RIFAXIMIN 550 MG TABLET PO SCH (17:00)
--- NOTE | 2019-11-07 05:05 | Discharge Summary ---
HOSPITAL COURSE: Ms. Goddard is a 54-year-old female with history of hypertension, hyperlipidemia, liver cirrhosis, diabetes, and chronic back pain, came to the emergency room because she had a vaginal biopsy at [facility] and she started having bleeding with clots. She was seen by DIE POLISHER. She went to the OR yesterday, had some sutures placed in the biopsy area, and the plan is to discharge her home if she is not bleeding today and have her follow up as an outpatient. PHYSICAL EXAMINATION: GENERAL: She is awake and alert. VITAL SIGNS: Temperature is 97.5 and blood pressure 97/62. HEART: Regular rate. LUNGS: Poor inspiratory effort. ABDOMEN: Soft. LABORATORY DATA: On the blood work. White count 7.37, hemoglobin is 8.7, and hematocrit is 26. Glucose was high today at 312. ASSESSMENT AND PLAN: 1. Vaginal bleeding, status post surgery. 2. Anemia secondary to vaginal bleeding. 3. Liver cirrhosis. 4. Hepatic encephalopathy, resolved. 5. Pancytopenia due to liver cirrhosis. 6. Portal vein thrombosis. 7. Diabetes type 2 with hyperglycemia. 8. Hypertension. 9. Hyperlipidemia. 10. Chronic back pain. PLAN: At present time is to discharge the patient home, if there is no further bleeding, have her follow up as an outpatient with her PCP and with her DIE POLISHER. Continue lactulose and Xifaxan as well as low dose of diuretics. Continue ADA diet and insulin and have her follow up as an outpatient and also with her PCP to monitor hemoglobin and hematocrit, to monitor for any further bleeding, please see home medication reconciliation list. All this was discussed with the patient. All questions were answered to satisfaction. I strongly advice the patient to come back to the emergency room if she starts bleeding again or any other acute problem. Please see home medication reconciliation list. MD DINA Garcia/JONNIE /[id number]
== END 2019-11-06 15:10 | disposition home or self-care (01) | DRG 919 ==
LOC: ER 03:47 → ERHOLD 06:41 → MED/SURG 12:17 → OBSVTOIN 11-02 09:14
PROVIDERS: ADMIT Internal Medicine; ATTEND Internal Medicine
PROC: 0UQG7ZZ Repair Vagina, Via Natural or Artificial Opening (ICD-10-PCS; principal; 2019-11-05 11:34)
DX: N99.820 Postprocedural hemorrhage of a genitourinary system organ or structure following a genitourinary system procedure (principal); I81 Portal vein thrombosis; D68.32 Hemorrhagic disorder due to extrinsic circulating anticoagulants; D61.818 Other pancytopenia; D62 Acute posthemorrhagic anemia; S31.41XA Laceration without foreign body of vagina and vulva, initial encounter; Y76.0 Diagnostic and monitoring obstetric and gynecological devices associated with adverse incidents; K72.90 Hepatic failure, unspecified without coma; I10 Essential (primary) hypertension; J44.9 Chronic obstructive pulmonary disease, unspecified; Z83.3 Family history of diabetes mellitus; Z82.49 Family history of ischemic heart disease and other diseases of the circulatory system; K74.60 Unspecified cirrhosis of liver; E78.5 Hyperlipidemia, unspecified; F17.210 Nicotine dependence, cigarettes, uncomplicated; M54.9 Dorsalgia, unspecified; Z90.49 Acquired absence of other specified parts of digestive tract; E11.649 Type 2 diabetes mellitus with hypoglycemia without coma; D06.9 Carcinoma in situ of cervix, unspecified; Z79.4 Long term (current) use of insulin
CPT/HCPCS: 36415; 71045; 76700; 80053; 82140; 82550; 82553; 82948; 83605; 83880; 84484; 85007; 85014; 85018; 85025; 85027; 85610; 85730; 86850; 86900; 86920; 93005; 96372; 99284; G0378; J1815; J1817; J1940; J2001; J2250; J2370; J2405; J3010; J3430; J7030; J7050

== ENCOUNTER 2020-06-01 13:43 | Emergency (ER) | payer OTHER ==
[~2020-06-01] VITALS: Ht 152.4 cm; Wt 84.4 kg
[~2020-06-01 13:43] MED LIST: COUMADIN2.5 MG PO; CYCLOBENZAPRINE5 MG PO; EFFEXOR XR 3737.5 MG PO; HUMALOG100 UNIT/1 SC; KLONOPIN1 MG PO; LACTULOSE20 GM/30 M PO; LASIX40 MG PO; LYRICA75 MG PO; ROPINIROLE HCL2 MG PO; TRESIBA100 UNIT/1 SC; ULTRAM50 MG PO
[2020-06-01 15:18] LABS: BASOPHILS # (AUTO) 0.1 (0.0-0.1); BASOPHILS % 0.4 % (0.0-1.0); EOSINOPHILS % 0.3 % (0.0-6.0); HEMATOCRIT 31.1 % (34.2-44.1); HEMOGLOBIN 9.8 g/dL (12.0-16.0); LYMPHOCYTES # (AUTO) 2.8 (1.0-3.2); LYMPHOCYTES % 24.3 % (18.0-39.1); MEAN CORPUSCULAR HGB CONC 31.5 g/dL (31-35); MEAN CORPUSCULAR VOLUME 85.7 fL (81-99); MONOCYTES # (AUTO) 1.2 (0.2-0.8); MONOCYTES % 10.5 % (4.4-11.3); NEUTROPHILS # (AUTO) 7.5 (2.1-6.9); NEUTROPHILS % 63.9 % (38.7-80.0); PLATELET COUNT 145 x10e3/uL (140-360); RED BLOOD COUNT 3.63 x10e6/uL (3.6-5.1); RED CELL DISTRIBUTION WIDTH 21.2 % (11.7-14.4)
--- OUTSIDE RECORDS SUMMARY | 2020-06-01 15:21 | XMS REPORT | Continuity of Care Document ---
Author Author [facility] t Organization [facility] Address [address] [place] [address] Phone Unavailable Care Team Providers Care Line Clearance Foreman Name Role Phone HARISH ANDRADE, JUANA PCP Alice ANDRADE, Jay Attphys BOCCARDO, GAIL Attphys Unavailable BOCCARDO, GAIL Admphys Unavailable Payers Payer Name Policy Type Policy Number Effective Date Expiration Date S sony [employer] [id number] 2016 00:00:00 [facility] Problems Condition Name Condition Details Condition Category Status Onset Date Resolution Date Last Treatment Date Treating Clinician Comments Source Hepatic encephalopathy Hepatic encephalopathy Problem Active [facility] Vaginal bleeding Vaginal bleeding Problem Active [facility] Allergies, Adverse Reactions, Alerts Allergy Name Allergy Type Status Severity Reaction(s) Onset Date Inacti ve Date Treating Clinician Comments Source No Known Allergies DA Active U 2019-06-28 00:00:00 [facility] No Known Allergies DA Active U 2018-04-03 00:00:00 [facility] Medications Ordered Medication Name Filled Medication Name Start Date Stop Da te Current Medication? Ordering Clinician Indication Dosage Frequency Signature (SIG) Comments Components Source Clonazepam (Klonopin) 1 Mg Tablet Clonazepam (Klonopin) 1 Mg Tablet Yes Daily [facility] Cyclobenzaprine Hcl (Flexeril) 5 Mg Tablet Cyclobenzap rine Hcl (Flexeril) 5 Mg Tablet Yes Bedtime [facility] Furosemide (Lasix) 40 Mg Tablet Furosemide (Lasix) 40 Mg Tablet Yes 40 Daily [facility] Insulin Degludec (Tresiba) 100 Unit/1 Ml Vial Insulin Degludec (Tresiba) 100 Unit/1 Ml Vial Yes 80 Before Breakfast [facility] Insulin Lispro (Humalog) 100 Unit/1 Ml Cartridge Insul in Lispro (Humalog) 100 Unit/1 Ml Cartridge Yes 28 Before Meals [facility] Lactulose 20 Gm/30 Ml Solution Lactulose 20 Gm/30 Ml Solution Yes 30 Twice A Day [facility] Pregabalin (Lyrica) 75 Mg Cap Pregabalin (Lyrica) 75 Mg Cap Yes 75 Three Times A Day [facility] Ropinirole Hcl 2 Mg Tablet Ropinirole Hcl 2 Mg Tablet Yes 2 Bedtime [facility] Tramadol Hcl (Ultram) 50 Mg Tablet Tramadol Hcl (Ultram) 50 Mg Tablet Yes 50 Every 6 Hours as needed for Mild Pain (1-3) Or Fever>100.8 [facility] Venlafaxine Hcl (Effexor Xr 37.5MG Capcr*) 37.5 Mg Cap cr Venlafaxine Hcl (Effexor Xr 37.5MG Capcr*) 37.5 Mg Capcr Yes 150 Daily [facility] Warfarin Sodium (Coumadin) 2.5 Mg Tablet Warfarin Sodi um (Coumadin) 2.5 Mg Tablet Yes 2.5 Today At 5:00PM [facility] Procedures Procedure Date / Time Performed Performing Clinician Sourc e US abdomen complete 2019-11-04 00:00:00 YUVAL WAYNE [facility] Encounters Start Date/Time End Date/Time Encounter Type Admission Type Attendi [facility] Care Department Encounter ID Source 2020-05-28 00:00:00 2020-05-28 00:00:00 [facility]phone [facility] [id number] 2019-11-02 09:14:00 2019-11-06 15:10:00 Discharged Inpatient 1 GAIL WONG [facility] [id number] [facility] Results Test Description Test Time Test Comments Results Result Comments Source STOMACH 2020-02-21 15:12:00 RUN DATE: 02/21/20 [place] RUN TIME: 1512 Specimen Inquiry RUN USER: INTERFACE PATIENT: CARLOS MANUEL KAMARA LOC: MARIZA U #: [id number] AGE/SX: 54/F ROOM: RE02/19/20REG DR: Doyle Lin MD : 67 BED: DIS: [facility]: SPEC #: [id number] RECD: 02/20/20 STATUS: VAUGHN CONTRERAS #: [id number] JELLY: 02/19/20- [facility] DR: Doyle Lin MD ENTERED: 02/20/20 SP TYPE: STOMACH OTHR DR: Jay Krishna MD ORDERED: GROSS COPIES TO: Jay Krishna MD [address] [facility] [address] [place] [address] [email or web address] Doyle Lin MD [address] [address] PROCEDURES: GROSS (02/21/20-1208) TISSUES: STOMACH, NOS - BX CLINICAL HISTORY COLLECTION DATE: 02/19/20 CIRRHOSIS FINAL DIAGNOSIS Stomach, biopsy: MILD CHRONIC INACTIVE GASTRITIS NO DIAGNOSTIC HELICOBACTER IDENTIFIED (GIEMSA STAIN) NO ULCERATION, INTESTINAL METAPLASIA, DYSPLASIA OR MALIGNANCY IDENTIFIED FA/keagna D [id number], [id number] MACROSCOPIC The specimen is received in formalin, labeled with the patient's name, identified as "stomach", and consists of two duenas biopsy fragments measuring 0.25 cm, submitted for histologic evaluation. CONTINUED ON NEXT PAGE RUN DATE: 02/21/20 [facility] PAGE 2 RUN TIME: 1511 Specimen Inquiry RUN USER: INTERFACE SPEC #: [id number] PATIENT: CARLOS MANUEL KAMARA #[id number] (Continued) MACROSCOPIC (Continued) GROSS PERFORMED AT [facility] [address] [place] [address], [place] [address] (P)[phone] MICROSCOPIC All of the stains, including any controls performed, stain appropriately. MICROSCOPIC PERFORMED AT [facility] [address] [place] [address] (P)[phone] PERFORMING SITE Diagnosis performed at: [facility], [place] [address] [facility] [place] [address] Signed SIGNATURE ON FILE Jes Becerril MD 02/21/20 1512 END OF REPORT GLUBED 2020-02-19 12:32:00 Test Item GLUBED (test code = GLUBED) 267 mg/dL 74-106 H Performed by certified boat ride operator at [facility] Novel Coronavirus 2019 [id number] 02:36:00* Test Item Value Reference Range Interpretation Comments Novel Coronavirus 2019 Inhouse (test code = COVNONPUI) Negative Negative Testing Criteria: Preprocedure ScreeningComments: 02/19/20Testing Criteria: Preprocedure ScreeningComments: 02/19/20Novel Coronavirus 2019 Inhouse 2020-02-16 02:35:00* Test Item Value Reference Range Interpretation Comments Novel Coronavirus 2019 Inhouse (test code = COVNONPUI) Negative Negative Testing Criteria: Preprocedure ScreeningComments: 02/19/20BASIC METABOLIC [id number] 17:29:00* Test Item Value Reference Range Interpretation Comments SODIUM (test code = NA) 134 mmol/L 136-145 L POTASSIUM (test code = K) 4.0 mmol/L 3.5-5.1 N CHLORIDE (test code = CL) 104.0 mmol/L 98-107 N CARBON DIOXIDE (test code = CO2) 22.0 mmol/L 21-32 N ANION GAP (test code = GAP) 12.0 10-20 N GLUCOSE (test code = GLU) 480 mg/dL 74-106 H BLOOD UREA NITROGEN (test code = BUN) 10 mg/dL 7-18 N GLOMERULAR FILTRATION RATE (test code = GFR) 58 mL/min >=60 Estimated GFR by using Modified MDRD formula.Chronic kidney disease is defined as either kidney damageor GFR <60 mL/min/1.73 m2 for >3 months. CREATININE (test code = CREAT) 1.00 mg/dL 0.55-1.02 N Note change in reference range due to change in reagent. BUN/CREATININE RATIO (test code = BUN/CREA) 10.5 10-20 N CALCIUM (test code = CA) 9.0 mg/dL 8.5-10.1 N HEPATIC FUNCTION [id number] 17:29:00* Test Item Value Reference Range Interpretation Comments TOTAL PROTEIN (test code = PROT) 8.6 gram/dL 6.4-8.2 H ALBUMIN (test code = ALB) 3.2 g/dL 3.4-5.0 L GLOBULIN (test code = GLOB) 5.4 gram/dL 2.7-4.2 H ALBUMIN/GLOBULIN RATIO (test code = A/G) 0.6 0.75-1.50 L BILIRUBIN TOTAL (test code = BILT) 1.20 mg/dL 0.0-1.0 H BILIRUBIN DIRECT (test code = BILD) 0.32 mg/dL 0.0-0.20 H SGOT/AST (test code = AST) 22 IUnit/L 15-37 N SGPT/ALT (test code = ALT) 24 IUnit/L 12-78 N ALKALINE PHOSPHATASE TOTAL (test code = ALKP) 238 IUnit/L 45-117 H Note change in reference range due to change in reagent. BASIC METABOLIC [id number] 17:26:00* Test Item Value Reference Range Interpretation Comments SODIUM (test code = NA) 134 mmol/L 136-145 L POTASSIUM (test code = K) 4.0 mmol/L 3.5-5.1 N CHLORIDE (test code = CL) 104.0 mmol/L 98-107 N CARBON DIOXIDE (test code = CO2) mmol/L 21-32 ANION GAP (test code = GAP) 10-20 GLUCOSE (test code = GLU) mg/dL 74-106 BLOOD UREA NITROGEN (test code = BUN) mg/dL 7-18 GLOMERULAR FILTRATION RATE (test code = GFR) mL/min >=60 CREATININE (test code = CREAT) mg/dL 0.55-1.02 BUN/CREATININE RATIO (test code = BUN/CREA) 10-20 CALCIUM (test code = CA) mg/dL 8.5-10.1 HEPATIC FUNCTION [id number] 17:26:00* Test Item Value Reference Range Interpretation Comments TOTAL PROTEIN (test code = PROT) gram/dL 6.4-8.2 ALBUMIN (test code = ALB) g/dL 3.4-5.0 GLOBULIN (test code = GLOB) gram/dL 2.7-4.2 ALBUMIN/GLOBULIN RATIO (test code = A/G) 0.75-1.50 BILIRUBIN TOTAL (test code = BILT) mg/dL 0.0-1.0 BILIRUBIN DIRECT (test code = BILD) mg/dL 0.0-0.20 SGOT/AST (test code = AST) IUnit/L 15-37 SGPT/ALT (test code = ALT) IUnit/L 12-78 ALKALINE PHOSPHATASE TOTAL (test code = ALKP) IUnit/L 45-117 PROTHROMBIN [id number] 17:07:00* Test Item Value Reference Range Interpretation Comments PROTHROMBIN TIME PATIENT (test code = PTP) 23.9 seconds 9.0-14.0 H INTERNATIONAL NORMAL RATIO (test code = INR) 2.0 0.8-1.2 H The therapeutic range for oral anticoagulant therapy formost indications is an international normalized ratio (INR)of between 2.0 and 3.0. The recommended therapeutic INRrange for various clinical situations is listed below: Clinical Situation INR range Pulmonary e mbolism treatment (2.0-3.0)Venous thrombosis treatmentVenous thrombosis prophylaxis (high risk surgery)Prevention of systemic embolism from: Acute myocardial infarction Valvular heart disease Atrial fibrillation Mechanical prosthetic heart valves (2.5-3.5) IS PATIENT ON ANTICOAGULANTS? NCBC W/AUTO [id number] 17:04:00* Test Item Value Reference Range Interpretation Comments WHITE BLOOD CELL (test code = WBC) 4.1 K/mm3 4.5-12.5 L RED BLOOD CELL (test code = RBC) 4.28 mill/mm3 3.7-5.2 N HEMOGLOBIN (test code = HGB) 10.1 gram/dL 11.5-15.5 L HEMATOCRIT (test code = HCT) 33.3 % 36.0-46.0 L MEAN CELL VOLUME (test code = MCV) 77.8 fL 80-98 L MEAN CELL HGB (test code = MCH) 23.6 picogram 27.0-33.0 L MEAN CELL HGB CONCETRATION (test code = MCHC) 30.3 gram/dL 33.0-36. 0 L RED CELL DISTRIBUTION WIDTH (test code = RDW) 16.5 % 11.6-16. 2 H RED CELL DISTRIBUTION WIDTH SD (test code = RDW-SD) 46.1 fL 37 .0-51.0 N PLATELET COUNT (test code = PLT) 114 K/mm3 150-450 L MEAN PLATELET VOLUME (test code = MPV) 10.3 fL 6.7-11.0 N NEUTROPHIL % (test code = NT%) 55.1 % 39.0-69.0 N IMMATURE GRANULOCYTE % (test code = IG%) 0.2 % 0.0-5.0 N LYMPHOCYTE % (test code = LY%) 33.1 % 25.0-55.0 N MONOCYTE % (test code = MO%) 8.1 % 0.0-10.0 N EOSINOPHIL % (test code = EO%) 2.5 % 0.0-5.0 N BASOPHIL % (test code = BA%) 1.0 % 0.0-1.0 N NUCLEATED RBC % (test code = NRBC%) 0.0 % 0-0 N NEUTROPHIL # (test code = NT#) 2.25 K/mm3 1.8-7.7 N IMMATURE GRANULOCYTE # (test code = IG#) 0.01 x10 3/uL 0-0.03 N LYMPHOCYTE # (test code = LY#) 1.35 K/mm3 1.0-5.0 N MONOCYTE # (test code = MO#) 0.33 K/mm3 0-0.8 N EOSINOPHIL # (test code = EO#) 0.10 K/mm3 0.0-0.5 N BASOPHIL # (test code = BA#) 0.04 K/mm3 0.0-0.2 N NUCLEATED RBC # (test code = NRBC#) 0.00 K/mm3 0.0-0.1 N MANUAL DIFF REQUIRED (test code = MDIFF) NO Bedside [id number] 12:09:00* Test Item Value Reference Range Interpretation Comments Bedside Glucose (test code = 76151-5) 318 70-120 H Meter ID: [id number]'s Medical Center [facility]anoWhite Blood Count 2019-11-06 06:32:00* Test Item Value Reference Range Interpretation Comments White Blood Count (test code = 6690-2) 7.37 4.8-10.8 [facility] Blood [id number] 06:32:00* Test Item Value Reference Range Interpretation Comments Red Blood Count (test code = 789-8) 2.84 3.6-5.1 L [facility]anoHemoglobin2020-03-11 06:32:00* Test Item Value Reference Range Interpretation Comments Hemoglobin (test code = 59596-0) 8.7 12.0-16.0 L [facility]anoHematocrit2020-03-11 06:32:00* Test Item Value Reference Range Interpretation Comments Hematocrit (test code = 4544-3) 26.0 34.2-44.1 L [facility]anoMean Corpuscular [id number] 06:32:00* Test Item Value Reference Range Interpretation Comments Mean Corpuscular Volume (test code = 787-2) 91.5 81-99 [facility]anoMean Corpuscular [id number] 06:32:00* Test Item Value Reference Range Interpretation Comments Mean Corpuscular Hemoglobin (test code = 785-6) 30.6 28-32 [facility]anoMean Corpuscular Hemoglobin Concent 2019-11-06 06:32:00* Test Item Value Reference Range Interpretation Comments Mean Corpuscular Hemoglobin Concent (test code = 786-4) 33.5 31-35 [facility]anoRed Cell Distribution [id number] 06:32:00* Test Item Value Reference Range Interpretation Comments Red Cell Distribution Width (test code = 97767-4) 14.6 11.7 -14.4 H [facility]anoPlatelet Crifq9549-04-30 06:32:00* Test Item Value Reference Range Interpretation Comments Platelet Count (test code = 777-3) 119 140-360 L [facility]anoUS ABDOMEN [id number] 15:23:00 [place] [address] Patient Name: CARLOS MANUEL KAMARA MR #: [id number] : 1965 Age/Sex: 54/F Req #: [id number] Adm Physician: GAIL WONG MD Ordered by: YUVAL WAYNE MD Report #: [id number] Location: MED/SURG Room/Bed: [facility] Procedure: [id number] 6 US/US ABDOMEN COMPLETE Exam Date: 11/04/19 Exam Ti me: 1503 REPORT STATUS: Signed E XAM: Complete Abdominal Ultrasound INDICATION: Portal vein thrombosis JORGE RISON: None. TECHNIQUE: Transverse and longitudinal images of the upper abdom en were obtained. FINDINGS: Liver: Size: 15 cm in the righ t midclavicular line, normal Appearance: Normal echogenicity, smooth cont our Mass: No focal masses Spleen: Size: 11.9 cm in length, n ormal Echogenicity: Normal Mass: No focal masses Gallbladde r: Surgically absent Bile Ducts: Intrahepatic Ducts: No dilatation Extrahepatic Ducts: Common bile duct measures 0.4 cm, no dilatation Pancreas: Poorly visible due to overlying bowel gas Right Kidney: Size: 10.1 x 4.5 x 5.2 cm Echogenicity: Normal Parenchymal thickness: Normal Collecting System: No hydronephrosis Stone: None Cyst/Mass: None Left Kidney: Size: 4.1 x 4.4 x 5.1 cm Echogenicity: Normal Parenchymal thickness: Normal Collecting System: No hydronephrosis Stone: None Cyst/Ma ss: None Vessels: Aorta: Poorly visible due to overlying bowel gas Inferior Vena Cava: Visualized portions are normal Main Portal Vein: 1.3 cm, no identifiable flow Free Fluid: No ascites or pleural eff usion IMPRESSION: 1. No identifiable flow within the main portal vein consistent with provided history of portal vein thrombosis. This may be confir med with CT imaging. 2. Surgically absent gallbladder. Signed by: Maty Salvador MD on 11/04/2019 3:26 PM Dictated By: BRYCE SALVADOR MD Electr onically Signed By: BRYCE SALVADOR MD on 11/04/191525 Transcribed By: COLETTE on 11/04/191525 COPY TO: YUVAL WAYNE MD Prothrombin Time 2019-11-04 07:30:00* Test Item Value Reference Range Interpretation Comments Prothrombin Time (test code = 5902-2) 22.3 11.9-14.5 H [facility]anoProthromb Time International Ratio 2019-11-04 07:30:00* Test Item Value Reference Range Interpretation Comments Prothromb Time International Ratio (test code = 6301-6) 1.81 Oral Anticoagulant Therapy INR Values:1. Low Intensity Therapy 1.5 - 2.02 . Moderate Intensity Therapy 2.0 - 3.03. High Intensity Therapy(1) 2.5 - 3. 54. High Intensity Therapy(2) 3.0 - 4.05. Panic Value INR > 5.0 [facility]odium Oahba1902-54-58 07:23:00* Test Item Value Reference Range Interpretation Comments Sodium Level (test code = 2951-2) 138 136-145 [facility]anoPotassium Hkwnj1082-22-11 07:23:00* Test Item Value Reference Range Interpretation Comments Potassium Level (test code = 2823-3) 3.9 3.5-5.1 [facility]anoChloride [id number] 07:23:00* Test Item Value Reference Range Interpretation Comments Chloride Level (test code = 2075-0) 109 98-107 H [facility] PlanoCarbon Dioxide Kseef0858-12-40 07:23:00* Test Item Value Reference Range Interpretation Comments Carbon Dioxide Level (test code = 2028-9) 25 22-29 [facility]anoAnion [id number] 07:23:00* Test Item Value Reference Range Interpretation Comments Anion Gap (test code = 49124-1) 7.9 8-16 L [facility]anoBlood Urea [id number] 07:23:00* Test Item Value Reference Range Interpretation Comments Blood Urea Nitrogen (test code = 3094-0) 13 7-26 [facility]anoCreatinine2020-03-09 07:23:00* Test Item Value Reference Range Interpretation Comments Creatinine (test code = 2160-0) 0.75 0.57-1.11 [facility]anoBUN/Creatinine Pejwn4990-53-74 07:23:00* Test Item Value Reference Range Interpretation Comments BUN/Creatinine Ratio (test code = 3097-3) 17 6-25 [facility] PlanoEstimat Glomerular Filtration Rate 2019-11-04 07:23:00* Test Item Value Reference Range Interpretation Comments Estimat Glomerular Filtration Rate (test code = 001053632) > 60 >60 Ranges were taken from the National Kidney Disease Education Program and the [facility] Kidney Foundation literature.Reference ranges:60 or greater: Pntlgn37-26 ( for 3 consecutive months): Chronic kidney disease 15 or less: Kidney failureChildren's Medical Center PlanoGlucose Fnvkw9970-05-41 07:23:00* Test Item Value Reference Range Interpretation Comments Glucose Level (test code = RWO7810) 74 74-118 [facility]anoCalcium Tghem5820-72-40 07:23:00* Test Item Value Reference Range Interpretation Comments Calcium Level (test code = 28049-5) 8.4 8.4-10.2 [facility] PlanoTotal Cczfoadub4177-86-32 07:23:00* Test Item Value Reference Range Interpretation Comments Total Bilirubin (test code = 1975-2) 1.0 0.2-1.2 [facility] PlanoAspartate Amino Transf (AST/SGOT) 2019-11-04 07:23:00* Test Item Value Reference Range Interpretation Comments Aspartate Amino Transf (AST/SGOT) (test code = Aspartate Amino Transf (AST/SGOT)) 34 5-34 [facility]anoAlanine Aminotransferase (ALT/SGPT) 2019-11-04 07:23:00* Test Item Value Reference Range Interpretation Comments Alanine Aminotransferase (ALT/SGPT) (test code = 1742-6) 13 0-55 [facility] PlanoTotal Rcctgig5549-59-54 07:23:00* Test Item Value Reference Range Interpretation Comments Total Protein (test code = 2885-2) 6.5 6.5-8.1 [facility]anoAlbumin2020-03-09 07:23:00* Test Item Value Reference Range Interpretation Comments Albumin (test code = 1751-7) 2.8 3.5-5.0 L [facility] PlanoGlobulin2020-03-09 07:23:00* Test Item Value Reference Range Interpretation Comments Globulin (test code = 20269-2) 3.7 2.3-3.5 H [facility] PlanoAlbumin/Globulin Gmmay5356-26-67 07:23:00 * Test Item Value Reference Range Interpretation Comments Albumin/Globulin Ratio (test code = 1759-0) 0.8 0.8-2.0 [facility] PlanoAlkaline Fzlgcedrtop1699-94-56 07:23:00* Test Item Value Reference Range Interpretation Comments Alkaline Phosphatase (test code = 6768-6) 184 40-150 H [facility] PlanoAmmonia2020-03-09 07:06:00* Test Item Value Reference Range Interpretation Comments Ammonia (test code = 09645-0) 145 31-123 H [facility] PlanoNeutrophils (%) (Auto)2019-11-04 06:59:00 * Test Item Value Reference Range Interpretation Comments Neutrophils (%) (Auto) (test code = 32643-3) 46.9 38.7-80.0 [facility]anoLymphocytes (%) (Auto)2019-11-04 06:59:00 * Test Item Value Reference Range Interpretation Comments Lymphocytes (%) (Auto) (test code = 736-9) 43.0 18.0-39.1 H [facility]anoMonocytes (%) (Auto)2019-11-04 06:59:00* Test Item Value Reference Range Interpretation Comments Monocytes (%) (Auto) (test code = 5905-5) 5.7 4.4-11.3 [facility]anoEosinophils (%) (Auto)2019-11-04 06:59:00 * Test Item Value Reference Range Interpretation Comments Eosinophils (%) (Auto) (test code = 713-8) 3.1 0.0-6.0 [facility]anoBasophils (%) (Auto)2019-11-04 06:59:00* Test Item Value Reference Range Interpretation Comments Basophils (%) (Auto) (test code = 706-2) 0.9 0.0-1.0 [facility] PlanoIM GRANULOCYTES %2019-11-04 06:59:00* Test Item Value Reference Range Interpretation Comments IM GRANULOCYTES % (test code = IM GRANULOCYTES %) 0.4 0.0- 1.0 [facility] PlanoNeutrophils # (Auto)2019-11-04 06:59:00* Test Item Value Reference Range Interpretation Comments Neutrophils # (Auto) (test code = 751-8) 3.1 2.1-6.9 [facility]anoLymphocytes # (Auto)2019-11-04 06:59:00* Test Item Value Reference Range Interpretation Comments Lymphocytes # (Auto) (test code = 45478-3) 2.9 1.0-3.2 [facility]anoMonocytes # (Auto)2019-11-04 06:59:00* Test Item Value Reference Range Interpretation Comments Monocytes # (Auto) (test code = 742-7) 0.4 0.2-0.8 [facility]anoEosinophils # (Auto)2019-11-04 06:59:00* Test Item Value Reference Range Interpretation Comments Eosinophils # (Auto) (test code = 711-2) 0.2 0.0-0.4 [facility]anoBasophils # (Auto)2019-11-04 06:59:00* Test Item Value Reference Range Interpretation Comments Basophils # (Auto) (test code = 704-7) 0.1 0.0-0.1 [facility] PlanoAbsolute Immature Granulocyte (auto 2019-11-04 06:59:00* Test Item Value Reference Range Interpretation Comments Absolute Immature Granulocyte (auto (colleen t code = Absolute Immature Granulocyte (auto) 0.03 0-0.1 [facility] PlanoLactic Acid Qxcpj9575-31-32 18:40:00* Test Item Value Reference Range Interpretation Comments Lactic Acid Level (test code = Lactic Acid Level) 1.8 0.5- 2.0 [facility] PlanoB-Type Natriuretic Piohzbe7555-15-64 10:03:00* Test Item Value Reference Range Interpretation Comments B-Type Natriuretic Peptide (test code = 33630-4) 408.2 0-100 H [facility] PlanoCreatine Ayktii9298-50-55 23:49:00* Test Item Value Reference Range Interpretation Comments Creatine Kinase (test code = 2157-6) 84 29-168 [facility] PlanoCreatine Kinase [id number] 23:49:00* Test Item Value Reference Range Interpretation Comments Creatine Kinase MB (test code = 91782-9) 2.10 0-5.0 [facility] PlanoTroponin [id number] 23:49:00* Test Item Value Reference Range Interpretation Comments Troponin I (test code = NLG4549) 0.020 0-0.300 [facility] PlanoPlatelet Yseovpsu1985-47-00 09:32:00* Test Item Value Reference Range Interpretation Comments Platelet Estimate (test code = 42845-0) SLIGHTLY DECREASED [facility] PlanoPlatelet Morphology Onjrhus1679-18-98 09:32:00* Test Item Value Reference Range Interpretation Comments Platelet Morphology Comment (test code = 57507-9) RARE EDTA CLUMPIN G [facility] PlanoRed Cell Morphology Wpcrzoa4446-16-28 09:32:00* Test Item Value Reference Range Interpretation Comments Red Cell Morphology Comment (test code = 6742-1) NORMAL [facility] PlanoCHEST SINGLE (PORTABLE)2019-11-01 06:33:00 [facility] [address] [place] [address] Patient Name: CARLOS MANUEL KAMARA MR #: [id number] : 1965 Age/Sex: 54/F Req #: [id number] Adm Physician: Ordered by: LILIANE COMBS MD Report #: [id number] Location: ER Room/Bed: Procedure: [id number] 0010 DX/CHEST SINGLE (PORTABLE) Exam Date: 11/01/19 Exam Time: 05 REPORT STATUS: Sign ed EXAMINATION: CHEST SINGLE (PORTABLE) INDICATION: Short of breath COMPARISON: None FINDINGS: TUBES and LINES: None. LUNGS: Normal lung volumes. Lungs are clear. Prominent central pulmonary vasculature. PLEURA: No pleural effusion or pneumothorax. HEART AND MEDIASTINUM: The cardiomediastinal silhouette is unremarkable. BONES AND SOFT TISSUES: No acute osseous lesion. Soft tissues are unremarkable. UPPER ABDOMEN: No free air under the diaphragm. IMPRESSION: Pulmonary vascular congestion. Signed by: Dalton Martin DO on 11/01/2019 6 :36 AM Dictated By: DALTON MARTIN DO 5 Transcribed By: COLETTE on 11/01/19635 C OPY TO: LILIANE COMBS MD Activated Partial Thromboplast Time 2019-11-01 04:44:00* Test Item Value Reference Range Interpretation Comments Activated Partial Thromboplast Time (test code = 87917-8) 50.8 23.8-35.5 [facility] RUN DATE: 12/10/18 [facility] - LAB *LIVE* PAGE 1 RUN TIME: 1317 Specimen Inqui ry RUN USER: INTERFACE PATIENT: CARLOS MANUEL KAMARA ACCT #: Sunny [id number] LOC: VERONICA U #: [id number] AGE/SX: 53/F ROOM: RE12/06/18[facility] DR: Doyle Lin MD : 66 BED: DIS: STATUS: [facility] [place] TLOC: SPEC #: [id number] RECD: 12/06/18 STATUS: VAUGHN REQ #: [id number] JELLY: 12/06/18 [facility] DR: Doyle Lin ENTERED: 12/06/18 SP TYPE: SURG OTHR DR: Josef Mcintosh III, MD ORDERED: AB/SHANA GEETHA, SURG PATH LVL 4, PATH STAIN GROU COPIES TO: Josef Mcintosh III, MD [address] [place] [address] Epifanio Lin MD [address] [place] [address] HISTOLOGY: TIS NANCY ID BLK PCS KYRA LEV PROCEDURE DISPOSITION __ ____ ___ ___ ___ STOMACH, NOS A 1 1 AB/PAS GEETHA STOMACH, NOS A 1 2 PATH STAIN GROU PROCEDURES: ALBLUE (12/06/18) PAS (12/06/18) SURG PATH LVL 4 (12/06/18) PATH STAIN GROU (12/06/18-0 947) TISSUES: A. STOMACH, NOS - STOMACH BX CLINICAL HISTORY CIRRHOSIS -K74.60; VARICES -I85.00; HEPATIC FAILURE -K72.00 CPT CODES CPT CODE(S): 60458 , 67118 , 44348 , , , , FINAL DIAGNOSIS Stomach, biopsy: MILD CHRONIC GAS TRITIS NEGATIVE FOR INTESTINAL METAPLASIA, DYSPLASIA, OR MALIGNANCY NEGATIVE FOR HELICOBACTER PYLORI ORGANISMS CONTINUED ON NEXT PAGE RUN DATE: 12/10/18 [facility] [place] - LAB *LIVE* PAGE 2 RUN TIME: 1317 Specimen Inquiry RUN USER: INTERFACE SPEC #: [id number] GLEN T: CARLOS MANUEL KAMARA #[id number] (Continued) GROSS DESCRIPTION Stomach biopsy. Received in formalin are three duenas tissue fragments, 0.1 - 0.6 cm, all as A. ba/nr Grossing performed at [facility] yann, [facility], [address], [place] [address]. Game Programmer: Ori Mckay M.D. MICROSCOPIC DESCRIPTION Stomach biopsy. Sections demonstrate gastric mucosa with mild chronic inflammation. No dyspla claude or malignancy is identified. Alcian blue PAS confirms the absence of inte stinal metaplasia. Diff Quik stain demonstrates no evidence of Helicobacter p ylori organisms. Signed SIGNATURE ON FILE Winston luzaModesto M 12/10/18 1317 END OF REPORT GLUCOSE BEDSIDE TESTING 2018-12-06 07:27:00* Test Item Value Reference Range Interpretation Comments GLUCOSE BEDSIDE TESTING (test code = GLUBED) 97 mg/dL 70-110 N GLUCOSE BEDSIDE [id number] 06:25:00* Test Item Value Reference Range Interpretation Comments GLUCOSE BEDSIDE TESTING (test code = GLUBED) 58 mg/dL 70-110 L
[2020-06-01 15:30] LABS: ALANINE AMINOTRANSFERASE 14 IU/L (0-55); ALBUMIN 2.9 g/dL (3.5-5.0); ALBUMIN/GLOBULIN RATIO 0.6 (0.8-2.0); ALKALINE PHOSPHATASE 128 IU/L (40-150); ANION GAP 10.2 mmol/L (8-16); BLOOD UREA NITROGEN 8 mg/dL (7-26); BUN/CREATININE RATIO 9 (6-25); CALCIUM 8.2 mg/dL (8.4-10.2); CARBON DIOXIDE 23 mmol/L (22-29); CHLORIDE 107 mmol/L (98-107); CREATININE, SERUM 0.85 mg/dL (0.57-1.11); EST GLOMERULAR FILTRATION RATE > 60 ML/MIN (60-); POTASSIUM 3.2 mmol/L (3.5-5.1); SODIUM 137 mmol/L (136-145)
[2020-06-01 15:32] LABS: GLUCOSE 43 mg/dL (74-118)
[2020-06-01] MEDS ORDERED: DEXTROSE 50% SYRINGE 50 ML IV STA (15:32)
[2020-06-01] MEDS ORDERED: SODIUM CHLORIDE 0.9% 1000ML 1,000 ML IV STA (15:49)
[2020-06-01] MEDS ORDERED: SODIUM CHLORIDE 0.9% 1000ML 1,000 ML ONE (15:59)
--- NOTE | 2020-06-01 16:20 | Diagnostic Imaging Report ---
EXAMINATION: CHEST SINGLE (PORTABLE) INDICATION: Fever COMPARISON: None FINDINGS: LINES/TUBES:None LUNGS:The lungs are well-inflated. No focal consolidation or pulmonary edema. PLEURA:No pleural effusion or pneumothorax. MEDIASTINUM:The cardiomediastinal silhouette appears normal in size and shape. BONES/SOFT TISSUES:No acute osseous injury. ABDOMEN:No free air under the diaphragm. IMPRESSION: No focal pneumonia or pulmonary edema. Signed by: Lucretia Montana MD on 06/01/2020 4:17 PM
[2020-06-01 17:42] LABS: CLARITY,URINE SL CLOUDY (CLEAR); COLOR,URINE YELLOW (YELLOW); LEUKOCYTE ESTERASE ,URINE MODERATE (NEGATIVE); NITRITE,URINE POSITIVE (NEGATIVE)
[2020-06-01 17:43] LABS: BILIRUBIN,URINE NEGATIVE (NEGATIVE); KETONES,URINE NEGATIVE (NEGATIVE); PROTEIN,URINE DIPSTICK NEGATIVE (NEGATIVE); URINE UROBILINOGEN 1 mg/dL (0.2 - 1)
--- NOTE | 2020-06-01 17:53 | Emergency Department Note ---
History of Present Illnes History of Present Illness Chief Complaint: Abdominal Complaints History of Present Illness This is a 55 year old female Chief Complaint Comment PATIENT IN FROM HOME WITH COMPLAINT SOF FEVER, NAUSEA, AND VOMITING SINCE YESTERDAY; DENIES PAIN. PATIENT FEBRILE IN TRIAGE, ALERT AND ORIENTED, RESP EVEN AND NONLABORED, APPEARS IN NO DISTRESS . Historian: Patient Arrival Mode: Car Onset (how long ago): day(s) (2) Location: COUGH Radiation: Reports non-radiation Severity: mild Onset quality: gradual Duration (how long): day(s) (2) Timing of current episode: constant Progression: waxing and waning Chronicity: new Context: Denies recent illness, Denies recent surgery, Denies recent immobilization, Denies recent travel, Denies trauma/injury, Denies new medications, Denies hx of DVT/PE, Denies non-compliance w/ medications, Denies other Exacerbating factors: none Associated symptoms: Reports nausea/vomiting Past Medical/Family History Physician Review I have reviewed the patient's past medical and family history. Any updates have been documented here. Past Medical History Recent Fever: Yes Clinical Suspicion of Infectio: Yes New/Unexplained Change in Ment: No Past Medical History: Hypertension, Diabetes, COPD, Cancer Other Medical History: Cirrhosis Past Surgical History: Cholecysctectomy, Hysterectomy Other Surgery: D+C sinus carpal tunnel trigger finger Social History Smoking Cessation: Never Smoker Counseling Performed: No Alcohol Use: Occasional Any Illegal Drug Use: No Other Last Tetanus: unk Any Pre-Existing Lines (PICC,: No Review of Systems Review of Systems Constitutional: Reports as per HPI EENTM: Reports no symptoms Cardiovascular: Reports no symptoms Respiratory: Reports no symptoms, Reports as per HPI Gastrointestinal: Reports as per HPI Genitourinary: Reports no symptoms Musculoskeletal: Reports no symptoms Integumentary: Reports no symptoms Neurological: Reports no symptoms Psychological: Reports no symptoms Endocrine: Reports no symptoms Hematological/Lymphatic: Reports no symptoms Physical Exam Related Data Allergies: Coded Allergies: No Known Allergies (Unverified , 11/01/19) Triage Vital Signs Vital Signs Date Time Temp Pulse Resp B/P (MAP) Pulse Ox O2 Delivery O2 Flow Rate FiO2 06/01/20 13:52 101.1 85 20 105/52 100 Room Air Vital signs reviewed: Yes Physical Exam CONSTITUTIONAL Constitutional: Present well-developed, Present well-nourished HENT HENT: Present normocephalic, Present atraumatic, Present oropharynx clear/moist, Present nose normal HENT L/R: Present left ext ear normal, Present right ext ear normal EYES Eyes: Reports PERRL, Reports conjunctivae normal NECK Neck: Present ROM normal PULMONARY Pulmonary: Present effort normal, Present rhonchi CARDIOVASCULAR Cardiovascular: Present regular rhythm, Present heart sounds normal, Present capillary refill normal, Present normal rate; Absent irregular rhythm, Absent intact distal pulses, Absent tachycardia, Absent bradycardia, Absent murmur, Absent gallop, Absent friction rub, Absent palpable pulses, Absent strong pulses, Absent weak pulses, Absent LLE edema, Absent RLE edema, Absent other GASTROINTESTINAL Abdominal: Present soft, Present nontender, Present bowel sounds normal; Absent distension, Absent tender, Absent guarding, Absent mass, Absent rebound, Absent hernia, Absent left CVA tenderness, Absent right CVA tenderness, Absent other GENITOURINARY Genitourinary: Present exam deferred SKIN Skin: Present warm, Present dry MUSCULOSKELETAL Musculoskeletal: Present ROM normal NEUROLOGICAL Neurological: Present alert, Present oriented x 3, Present no gross motor or sensory deficits PSYCHOLOGICAL Psychological: Present mood/affect normal, Present judgement normal Results Laboratory Result Diagram: 06/01/20 1437 06/01/20 1437 Laboratory Laboratory Tests Test 06/01/20 17:20 06/01/20 15:30 06/01/20 14:37 Urine Color Yellow (YELLOW) Urine Clarity Sl cloudy (CLEAR) Urine pH 5.5 (5 - 7) Urine Specific [place] 1.010 (1.010-1.025) Urine Protein Negative (NEGATIVE) Urine Glucose (UA) Negative (NEGATIVE) Urine Ketones Negative (NEGATIVE) Urine Blood Small (NEGATIVE) Urine Nitrite Positive (NEGATIVE) Urine Bilirubin Negative (NEGATIVE) Urine Urobilinogen 1 mg/dL (0.2 - 1) Urine Leukocyte Esterase Moderate (NEGATIVE) Lactic Acid Level 1.7 mmol/L (0.5-2.0) White Blood Count 11.67 x10e3/uL (4.8-10.8) Red Blood Count 3.63 x10e6/uL (3.6-5.1) Hemoglobin 9.8 g/dL (12.0-16.0) Hematocrit 31.1 % (34.2-44.1) Mean Corpuscular Volume 85.7 fL (81-99) Mean Corpuscular Hemoglobin 27.0 pg (28-32) Mean Corpuscular Hemoglobin Concent 31.5 g/dL (31-35) Red Cell Distribution Width 21.2 % (11.7-14.4) Platelet Count 145 x10e3/uL (140-360) Neutrophils (%) (Auto) 63.9 % (38.7-80.0) Lymphocytes (%) (Auto) 24.3 % (18.0-39.1) Monocytes (%) (Auto) 10.5 % (4.4-11.3) Eosinophils (%) (Auto) 0.3 % (0.0-6.0) Basophils (%) (Auto) 0.4 % (0.0-1.0) Neutrophils # (Auto) 7.5 (2.1-6.9) Lymphocytes # (Auto) 2.8 (1.0-3.2) Monocytes # (Auto) 1.2 (0.2-0.8) Eosinophils # (Auto) 0.0 (0.0-0.4) Basophils # (Auto) 0.1 (0.0-0.1) Absolute Immature Granulocyte (auto 0.07 x10e3/uL (0-0.1) Sodium Level 137 mmol/L (136-145) Potassium Level 3.2 mmol/L (3.5-5.1) Chloride Level 107 mmol/L (98-107) Carbon Dioxide Level 23 mmol/L (22-29) Anion Gap 10.2 mmol/L (8-16) Blood Urea Nitrogen 8 mg/dL (7-26) Creatinine 0.85 mg/dL (0.57-1.11) Estimat Glomerular Filtration Rate > 60 ML/MIN (60-) BUN/Creatinine Ratio 9 (6-25) Glucose Level 43 mg/dL (74-118) Calcium Level 8.2 mg/dL (8.4-10.2) Total Bilirubin 1.0 mg/dL (0.2-1.2) Aspartate Amino Transf (AST/SGOT) 27 IU/L (5-34) Alanine Aminotransferase (ALT/SGPT) 14 IU/L (0-55) Alkaline Phosphatase 128 IU/L (40-150) Total Protein 7.4 g/dL (6.5-8.1) Albumin 2.9 g/dL (3.5-5.0) Globulin 4.5 g/dL (2.3-3.5) Albumin/Globulin Ratio 0.6 (0.8-2.0) Lab results reviewed: Yes Imaging Imaging results reviewed: Yes Assessment & Plan Medical Decision Making MDM HYPOGLYCMIA P NEUMONIA Reassessment Reassessment time: 17:52 Reassessment BETTER Assessment & Plan Final Impression: (1) Hypoglycemia (2) Acute bronchitis (3) UTI (urinary tract infection) Depart Disposition: HOME, SELF-CARE Last Vital Signs Date Time Temp Pulse Resp B/P (MAP) Pulse Ox O2 Delivery O2 Flow Rate FiO2 06/01/20 16:50 73 20 95/46 95 Room Air 06/01/20 15:49 99.6 Home Meds Reported Medications Ropinirole Hcl (ROPINIROLE HCL) 2 Mg Tablet, 2 MG PO HS 11/01/19 Furosemide (LASIX) 40 Mg Tablet, 40 MG PO DAILY, #30 TAB 11/01/19 Lactulose (LACTULOSE) 20 Gm/30 Ml Solution, 30 ML PO BID, EACH 11/01/19 Warfarin Sodium (COUMADIN) 2.5 Mg Tablet, 2.5 MG PO 1700, #7 TAB PATIENT TAKES 5MG ON MONDAY AND MONDAY. 2.5MG ON MONDAY, MONDAY, MONDAY, MONDAY, MONDAY. 11/01/19 Insulin Lispro (HUMALOG) 100 Unit/1 Ml Cartridge, 28 UNITS SC AC 11/01/19 Pregabalin (LYRICA) 75 Mg Cap, 75 MG PO TID, #30 CAP 11/01/19 Tramadol Hcl (ULTRAM) 50 Mg Tablet, 50 MG PO Q6H PRN for Mild Pain (1-3) or Fever>100.8, TAB 11/01/19 Insulin Degludec (Tresiba) 100 Unit/1 Ml Vial, 80 UNIT SC ACB 11/01/19 Cyclobenzaprine Hcl (FLEXERIL) 5 Mg Tablet, PO HS 11/01/19 Venlafaxine Hcl* (EFFEXOR XR 37.5MG CAPCR*) 37.5 Mg Capcr, 150 MG PO DAILY 11/01/19 Clonazepam (KLONOPIN) 1 Mg Tablet, PO DAILY 11/01/19 Medications in the ED Dextrose 50 ml NOW STAT IV Last administered on 06/01/20at 15:48; Admin Dose 50 ML; Start 06/01/20 at 15:32; Stop 06/01/20 at 15:34; Status DC Sodium Chloride 1,000 ml @ 0 mls/hr Q0M STAT IV Last administered on 06/01/20at 15:55; Admin Dose 999 MLS/HR; Start 06/01/20 at 15:49; Stop 06/01/20 at 15:51; Status DC Sodium Chloride 1,000 ml @ [facility] ONCE .ROUTE ; Start 06/01/20 at 15:59; Stop 06/01/20 at 15:53; Status DC FANI MAIN MD Jun 01, 2020 17:53
[2020-06-01 18:03] LABS: WBC,URINE (MAN) >50 /HPF (0-5)
[2020-06-01 18:04] LABS: BACTERIA,URINE MANY /HPF; EPITHELIAL CELLS,URINE RARE /LPF; RBC,URINE 0-5 /HPF (0-5)
[2020-06-01] MEDS ORDERED: CEFTRIAXONE SOD 1 GM VIAL IV ONE (18:15)
[2020-06-01] MEDS ORDERED: CEFTRIAXONE SOD 1 GM/NS 50 ML 50 ML IV ONE (18:30)
== END 2020-06-01 18:57 | disposition home or self-care (01) ==
LOC: ER 14:20
DX: E11.649 Type 2 diabetes mellitus with hypoglycemia without coma (principal); J20.9 Acute bronchitis, unspecified; R05 Cough; N39.0 Urinary tract infection, site not specified; I10 Essential (primary) hypertension; J44.9 Chronic obstructive pulmonary disease, unspecified; R11.2 Nausea with vomiting, unspecified
CPT/HCPCS: 36415; 71045; 80053; 81001; 82948; 83605; 85025; 87040; 87086; 87186; 99284; J0696; J7030; J7799

== ENCOUNTER 2021-04-25 11:00 | Emergency (ER) | payer OTHER ==
[~2021-04-25] VITALS: Ht 152.4 cm; Wt 84.4 kg
[2021-04-25] MEDS ORDERED: MORPHINE SULFATE INJ 2 MG/ML SYR IV STA (11:26)
[2021-04-25] MEDS ORDERED: ONDANSETRON HCL INJ 2MG/ML 2ML 2 MG/ML VIAL IV STA (11:26)
[2021-04-25 12:16] LABS: BASOPHILS % 0.6 % (0.0-1.0); EOSINOPHILS # (AUTO) 0.2 (0.0-0.4); EOSINOPHILS % 3.7 % (0.0-6.0); HEMATOCRIT 39.4 % (34.2-44.1); HEMOGLOBIN 12.6 g/dL (12.0-16.0); LYMPHOCYTES # (AUTO) 2.1 (1.0-3.2); LYMPHOCYTES % 42.9 % (18.0-39.1); MEAN CORPUSCULAR HEMOGLOBIN 30.2 pg (28-32); MEAN CORPUSCULAR VOLUME 94.5 fL (81-99); MONOCYTES # (AUTO) 0.3 (0.2-0.8); MONOCYTES % 6.1 % (4.4-11.3); NEUTROPHILS # (AUTO) 2.3 (2.1-6.9); NEUTROPHILS % 46.7 % (38.7-80.0); PLATELET COUNT 92 x10e3/uL (140-360); RED BLOOD COUNT 4.17 x10e6/uL (3.6-5.1); RED CELL DISTRIBUTION WIDTH 17.2 % (11.7-14.4)
[2021-04-25 12:31] LABS: INR 1.41; PROTHROMBIN TIME 17.5 seconds (11.9-14.5)
[2021-04-25 12:32] LABS: PARTIAL THROMBOPLASTIN TIME 34.5 seconds (23.8-35.5)
[2021-04-25 12:41] LABS: ALBUMIN 2.7 g/dL (3.5-5.0); ALBUMIN/GLOBULIN RATIO 0.6 (0.8-2.0); ANION GAP 15.8 mmol/L (8-16); CALCIUM 8.2 mg/dL (8.4-10.2); CREATININE, SERUM 0.78 mg/dL (0.57-1.11); MAGNESIUM 1.6 MG/DL (1.3-2.1); POTASSIUM 3.8 mmol/L (3.5-5.1)
[2021-04-25] MEDS ORDERED: SODIUM CHLORIDE 0.9% 50ML 50 ML ONE (13:09)
[2021-04-25] MEDS ORDERED: IOPAMIDOL 370 MG/ML 200 ML INFUS..BTL INJ ONE (13:09)
== END 2021-04-25 18:05 | disposition home or self-care (01) ==
LOC: ER 11:26
DX: R10.31 Right lower quadrant pain (principal); K74.60 Unspecified cirrhosis of liver; I10 Essential (primary) hypertension; E11.9 Type 2 diabetes mellitus without complications; J44.9 Chronic obstructive pulmonary disease, unspecified; Z79.01 Long term (current) use of anticoagulants; Z79.4 Long term (current) use of insulin
CPT/HCPCS: 36415; 74177; 80053; 82140; 83735; 85025; 85610; 85730; 93005; 99283; Q9967

== ENCOUNTER 2021-04-27 09:40 | Emergency (ER) | payer OTHER ==
[~2021-04-27] VITALS: Ht 152.4 cm; Wt 84.4 kg
[2021-04-27] MEDS ORDERED: ASPIRIN 81 MG CHEW TAB PO ONE (10:00)
[2021-04-27] MEDS ORDERED: LACTULOSE SYRUP 20 GM/30 ML UDC PO STA (11:42)
[2021-04-27 12:09] LABS: BASOPHILS % 0.9 % (0.0-1.0); EOSINOPHILS # (AUTO) 0.2 (0.0-0.4); EOSINOPHILS % 5.5 % (0.0-6.0); HEMATOCRIT 41.4 % (34.2-44.1); HEMOGLOBIN 13.3 g/dL (12.0-16.0); LYMPHOCYTES # (AUTO) 1.9 (1.0-3.2); LYMPHOCYTES % 45.5 % (18.0-39.1); MEAN CORPUSCULAR HEMOGLOBIN 30.4 pg (28-32); MEAN CORPUSCULAR HGB CONC 32.1 g/dL (31-35); MEAN CORPUSCULAR VOLUME 94.7 fL (81-99); MONOCYTES # (AUTO) 0.3 (0.2-0.8); MONOCYTES % 6.4 % (4.4-11.3); NEUTROPHILS # (AUTO) 1.7 (2.1-6.9); NEUTROPHILS % 41.2 % (38.7-80.0); RED BLOOD COUNT 4.37 x10e6/uL (3.6-5.1); RED CELL DISTRIBUTION WIDTH 16.8 % (11.7-14.4)
[2021-04-27 12:14] LABS: PLATELET COUNT 72 x10e3/uL (140-360)
[2021-04-27 12:37] LABS: ALBUMIN 2.7 g/dL (3.5-5.0); ALBUMIN/GLOBULIN RATIO 0.6 (0.8-2.0); ANION GAP 10.3 mmol/L (8-16); CALCIUM 8.3 mg/dL (8.4-10.2); CREATININE, SERUM 0.7 mg/dL (0.57-1.11); POTASSIUM 3.3 mmol/L (3.5-5.1)
== END 2021-04-27 13:38 | disposition home or self-care (01) ==
LOC: ER 10:12
DX: R60.9 Edema, unspecified (principal); E88.09 Other disorders of plasma-protein metabolism, not elsewhere classified; E11.65 Type 2 diabetes mellitus with hyperglycemia; I10 Essential (primary) hypertension; J44.9 Chronic obstructive pulmonary disease, unspecified; K76.9 Liver disease, unspecified
CPT/HCPCS: 36415; 71045; 80053; 82550; 82553; 83880; 84484; 85025; 99284

== ENCOUNTER 2022-04-06 00:05 | Observation (INO) | payer MEDICARE, OTHER ==
[~2022-04-06] VITALS: Ht 152.4 cm; Wt 84.4 kg
[2022-04-06] MEDS ORDERED: SODIUM CHLORIDE 0.9% 1000ML 1,000 ML IV ONE ×2 (00:30→02:00)
[2022-04-06 00:48] LABS: BASOPHILS # (AUTO) 0.1 (0.0-0.1); BASOPHILS % 1.3 % (0.0-1.0); EOSINOPHILS # (AUTO) 0.2 (0.0-0.4); EOSINOPHILS % 2.8 % (0.0-6.0); HEMATOCRIT 41.7 % (34.2-44.1); HEMOGLOBIN 14.3 g/dL (12.0-16.0); LYMPHOCYTES # (AUTO) 2.9 (1.0-3.2); LYMPHOCYTES % 40.3 % (18.0-39.1); MEAN CORPUSCULAR HEMOGLOBIN 32.3 pg (28-32); MEAN CORPUSCULAR HGB CONC 34.3 g/dL (31-35); MEAN CORPUSCULAR VOLUME 94.1 fL (81-99); MONOCYTES # (AUTO) 0.4 (0.2-0.8); MONOCYTES % 5.4 % (4.4-11.3); NEUTROPHILS # (AUTO) 3.5 (2.1-6.9); NEUTROPHILS % 49.9 % (38.7-80.0); PLATELET COUNT 123 x10e3/uL (140-360); RED BLOOD COUNT 4.43 x10e6/uL (3.6-5.1); RED CELL DISTRIBUTION WIDTH 14.8 % (11.7-14.4)
[2022-04-06 00:57] LABS: INR 1.25; PROTHROMBIN TIME 16.8 seconds (11.9-14.5)
[2022-04-06 00:58] LABS: PARTIAL THROMBOPLASTIN TIME 34.3 seconds (23.8-35.5)
[2022-04-06 01:06] LABS: ALBUMIN 3.8 g/dL (3.5-5.0); ALBUMIN/GLOBULIN RATIO 0.8 (0.8-2.0); CALCIUM 9.3 mg/dL (8.4-10.2); CREATININE, SERUM 0.71 mg/dL (0.57-1.11)
[2022-04-06] MEDS ORDERED: ONDANSETRON HCL INJ 2MG/ML 2ML 2 MG/ML VIAL IV PRN (02:00)
[2022-04-06] MEDS ORDERED: DEXTROSE 50% SYRINGE 50 ML IV PRN (02:00)
[2022-04-06] MEDS ORDERED: MIRALAX17 GM PO (03:19)
[2022-04-06 03:24] VITALS: BP 129/88
[2022-04-06] MEDS: LACTULOSE SYRUP 20 GM/30 ML UDC PO SCH ×2 (06:07→13:52)
[2022-04-06] MEDS ORDERED: Morphine 2mg Syringe 2 MG/ML SYR IV ONE (06:50)
[2022-04-06] MEDS: INSULIN REGULAR, HUMAN 100 UNIT/1 ML SQ SCH ×3 (07:30→16:53)
[2022-04-06 08:06] VITALS: BP 102/69
[2022-04-06 08:25] VITALS: BP 102/69
[2022-04-06] MEDS ORDERED: INSULIN GLARGINE 100 UNITS/ML VIAL SQ SCH ×2 (09:00→10:30)
[2022-04-06] MEDS: RIFAXIMIN 550 MG TABLET PO SCH ×2 (09:47→16:53)
[2022-04-06] MEDS: Morphine 2mg Syringe 2 MG/ML SYR IV PRN ×2 (10:45→16:24)
[2022-04-06 11:55] VITALS: BP 107/58
[2022-04-06] MEDS ORDERED: INSULIN LISPRO 100 UNIT/1 ML 3ML VIAL SQ SCH (12:00)
[2022-04-06] MEDS ORDERED: OMEPRAZOLE40 MG PO (13:27)
[2022-04-06] MEDS ORDERED: PREGABALIN 75 MG CAP PO SCH (15:00)
[2022-04-06] MEDS ORDERED: VENLAFAXINE HCL 75 MG CAPCR PO SCH (15:00)
[2022-04-06 15:41] VITALS: BP 102/63
[2022-04-06] MEDS ORDERED: HYDROCODON-ACE1 EA11 PO (17:14)
[2022-04-06] MEDS ORDERED: LACTULOSE20 GM/30 M PO (17:14)
[2022-04-06] MEDS ORDERED: ROPINIROLE HCL 2 MG TAB PO SCH (21:00)
[2022-04-07] MEDS ORDERED: INSULIN GLARGINE 100 UNITS/ML VIAL SQ SCH (09:00)
[2022-04-07] MEDS ORDERED: FUROSEMIDE 40 MG TAB PO SCH (09:00)
[2022-04-07] MEDS ORDERED: CLONAZEPAM 1 MG TAB PO SCH (09:00)
== END 2022-04-06 19:50 | disposition home or self-care (01) ==
LOC: ER 00:10 → ERHOLD 01:50 → MED/SURG3 02:40
PROVIDERS: ADMIT Internal Medicine; ATTEND Internal Medicine
DX: K72.90 Hepatic failure, unspecified without coma (principal); K74.60 Unspecified cirrhosis of liver; E78.5 Hyperlipidemia, unspecified; E66.9 Obesity, unspecified; I10 Essential (primary) hypertension; D69.6 Thrombocytopenia, unspecified; K76.0 Fatty (change of) liver, not elsewhere classified; Z72.0 Tobacco use; Z20.822 Contact with and (suspected) exposure to COVID-19; E11.69 Type 2 diabetes mellitus with other specified complication
CPT/HCPCS: 0223U; 36415; 80053; 82140; 82948; 85025; 85610; 85730; 94799; 99284; G0378; J1815; J1817; J2270; J7030

== ENCOUNTER 2024-01-09 19:25 | Emergency (ER) | payer MEDICARE, OTHER ==
[~2024-01-09] VITALS: Ht 304.8 cm; Wt 84.4 kg
[~2024-01-09 19:25] MED LIST changes: +HYDROCODON-ACE1 EA11 PO; +MIRALAX17 GM PO; +OMEPRAZOLE40 MG PO
[2024-01-09 20:03] LABS: BASOPHILS # (AUTO) 0.1 (0.0-0.1); BASOPHILS % 1.2 % (0.0-1.0); EOSINOPHILS # (AUTO) 0.1 (0.0-0.4); EOSINOPHILS % 2.3 % (0.0-6.0); HEMOGLOBIN 14.5 g/dL (12.0-16.0); LYMPHOCYTES # (AUTO) 1.5 (1.0-3.2); LYMPHOCYTES % 28.3 % (18.0-39.1); MEAN CORPUSCULAR HEMOGLOBIN 33.6 pg (28-32); MEAN CORPUSCULAR HGB CONC 36.3 g/dL (31-35); MEAN CORPUSCULAR VOLUME 92.6 fL (81-99); MONOCYTES # (AUTO) 0.3 (0.2-0.8); MONOCYTES % 5.7 % (4.4-11.3); NEUTROPHILS # (AUTO) 3.2 (2.1-6.9); NEUTROPHILS % 62.3 % (38.7-80.0); PLATELET COUNT 89 x10e3/uL (140-360); RED BLOOD COUNT 4.32 x10e6/uL (3.6-5.1); RED CELL DISTRIBUTION WIDTH 13.2 % (11.7-14.4); WHITE BLOOD COUNT 5.13 x10e3/uL (4.8-10.8)
[2024-01-09] MEDS: SODIUM CHLORIDE 0.9% 1000ML 1,000 ML IV STA (20:20)
[2024-01-09 20:23] LABS: ALBUMIN 3.3 g/dL (3.5-5.0); ALBUMIN/GLOBULIN RATIO 0.7 (0.8-2.0); ANION GAP 13.6 mmol/L (8-16); BILIRUBIN,TOTAL 3.1 mg/dL (0.2-1.2); CALCIUM 9.3 mg/dL (8.4-10.2); CREATININE, SERUM 0.77 mg/dL (0.57-1.11); POTASSIUM 3.6 mmol/L (3.5-5.1); TOTAL PROTEIN 7.9 g/dL (6.5-8.1)
[2024-01-09 20:28] LABS: TROPONIN I 0.005 ng/mL (0-0.300)
[2024-01-09] MEDS ORDERED: IOPAMIDOL 370 MG/ML 100 ML INFUS..BTL INJ ONE (20:31)
[2024-01-09 21:20] LABS: BILIRUBIN,URINE SMALL (NEGATIVE); CLARITY,URINE TURBID (CLEAR); COLOR,URINE YELLOW (YELLOW); GLUCOSE, URINE 1+ (NEGATIVE); KETONES,URINE TRACE (NEGATIVE); LEUKOCYTE ESTERASE ,URINE SMALL (NEGATIVE); NITRITE,URINE POSITIVE (NEGATIVE); PH,URINE 6 (5 - 7); PROTEIN,URINE DIPSTICK 2+ (NEGATIVE); URINE UROBILINOGEN >=8 mg/dL (0.2 - 1)
[2024-01-09 21:36] LABS: BACTERIA,URINE MANY /HPF; WBC,URINE (MAN) 21-50 /HPF (0-5)
[2024-01-09] MEDS ORDERED: CIPRO500 MG PO (23:11)
[2024-01-09] MEDS ORDERED: LACTULOSE20 GM/30 M PO (23:11)
[2024-01-09 23:34] VITALS: BP 142/71; O2SAT 97
== END 2024-01-09 23:33 | disposition home or self-care (01) ==
LOC: ER 19:30
DX: R10.13 Epigastric pain (principal); N39.0 Urinary tract infection, site not specified; K76.82 Hepatic encephalopathy; E11.65 Type 2 diabetes mellitus with hyperglycemia; R11.2 Nausea with vomiting, unspecified; Z11.52 Encounter for screening for COVID-19; R94.31 Abnormal electrocardiogram [ECG] [EKG]
CPT/HCPCS: 36415; 74177; 80053; 81001; 82140; 82550; 83690; 84484; 85025; 93005; 99284; J2543; J7030; Q9967; U0002